=== PATIENT | male | born 1985 | race Caucasian/White ===

== ENCOUNTER 2024-04-14 07:44 | Outpatient (OUT) | payer OTHER, SELFPAY ==
[2024-04-14 08:13] LABS: Bilirubin Urine NEGATIVE (NEGATIVE); Blood Urine NEGATIVE (NEGATIVE); Clarity Urine CLEAR (CLEAR); Color Urine LT. YELLOW (YELLOW); Glucose Urine UA NEGATIVE (NEGATIVE); Ketones Urine NEGATIVE (NEGATIVE); Leukocyte Esterase Urine NEGATIVE (NEGATIVE); Nitrite Urine NEGATIVE (NEGATIVE); Protein Urine NEGATIVE (NEG/TRACE); Specific Gravity Urine 1.015 (1.005-1.025); Urobilinogen Urine 0.2 EU/dL (0.2-1.0)
[2024-04-14 08:18] LABS: Basophils Absolute Auto 0.1 10^3/uL (0.0-0.1); Basophils Percent Auto 1.1 % (0.2-2.0); Eosinophils Absolute Auto 0.5 10^3/uL (0.0-0.7); Eosinophils Percent Auto 8.5 % (0.9-7.0); Hematocrit 42.9 % (42.0-54.0); Hemoglobin 14.4 g/dL (14.0-18.0); Immature Granulocytes Abs Auto 0.01 10^3/uL (0.00-0.03); Immature Granulocytes Pct Auto 0.2 % (0.0-0.5); Lymphocytes Absolute Auto 1.6 10^3/uL (1.2-3.8); Lymphocytes Percent Auto 29.1 % (20.5-60.0); Mean Corpuscular HGB Conc 33.6 g/dL (29.9-35.2); Mean Corpuscular Hemoglobin 29.1 pg (25.9-34.0); Mean Corpuscular Volume 86.7 fL (80.0-94.0); Mean Platelet Volume 10.1 fL (9.5-13.5); Monocytes Absolute Auto 0.5 10^3/uL (0.3-0.8); Monocytes Percent Auto 9.8 % (1.7-12.0); Neutrophils Absolute Auto 2.8 10^3/uL (1.4-6.5); Neutrophils Percent Auto 51.3 % (43.0-75.0); Platelet Count 266 10^3/uL (150-450); Red Blood Count 4.95 10^6/uL (4.70-6.10); Red Cell Distribution Width 13.2 % (11.0-15.0); White Blood Count 5.5 10^3/uL (4.0-11.0)
[2024-04-14 09:10] LABS: Bacteria Urine TRACE #/HPF (NONE SEEN); Cast Seen? NONE SEEN #/LPF (NONE SEEN); Crystals Seen? None Seen #/HPF (None Seen); Mucus Urine TRACE (NONE SEEN); RBC Urine NONE SEEN #/HPF (0-2); Squamous Epithelial Cell Urine RARE #/LPF (NONE/RARE); Transitional Epi Cells Urine RARE #/LPF (NONE SEEN); Urine Culture Indicated NO; WBC Urine NONE SEEN #/HPF (NONE SEEN)
[2024-04-14 09:19] LABS: Prostate Specific Antigen Scrn 0.86 ng/mL (<=4.00)
[2024-04-14 09:55] LABS: Alanine Aminotransferase 57 U/L (16-63); Albumin Globulin Ratio 1.2; Albumin Level 4.2 g/dL (3.4-5.0); Alkaline Phosphatase 81 U/L (46-116); Anion Gap 14.9; Aspartate Amino Transferase 43 U/L (15-37); BUN Creatinine Ratio 15.9; Bilirubin Total 0.5 mg/dL (0.2-1.0); Calcium 9.1 mg/dL (8.5-10.1); Carbon Dioxide 24.8 mmol/L (21.0-32.0); Chloride 103 mmol/L (98-107); Cholesterol 160 mg/dL (<=200); Estimated GFR (African America >60 (>=60); Estimated GFR (Non-African Ame 60 (>=60); Globulin 3.6 g/dL; Glucose 96 mg/dL (74-106); HDL Cholesterol 53 mg/dL (40-60); Potassium 4.7 mmol/L (3.5-5.1); Sodium 138 mmol/L (136-145); Thyroid Stimulating Hormone 0.821 uIU/mL (0.358-3.740); Total Protein 7.8 g/dL (6.4-8.2); Triglycerides 40 mg/dL (<=150)
== END 2024-04-14 07:45 | disposition home or self-care (01) ==
LOC: LAB 07:49
PROVIDERS: PCP Family Medicine; Visit Provider Family Medicine
DX: Z00.00 Encounter for general adult medical examination without abnormal findings (principal)
CPT/HCPCS: 36415; 80053; 80061; 81001; 84443; 85025; G0103

== ENCOUNTER 2024-06-09 09:18 | Outpatient (OUT) | payer SELFPAY ==
--- OUTSIDE RECORDS SUMMARY | 2024-06-09 09:23 | XMS_ITS | CCD ---
Author Organization [facility] Care Team Providers Care News Producer Name Role Phone BERTIN, DR BOND Attending Unavailable GIRELIUD, DR BOND Admitting Unavailable GIRELIUD, DR BOND Primary Care Unavailable GIRVIN, DR BOND Consulting Unavailable GIRVIN, DR BOND Attending Unavailable GIRVIN, DR BOND Admitting Unavailable GIRVIN, DR BOND Primary Care Unavailable GIRVIN, DR BOND Consulting Unavailable GIRVIN, DR BOND Consulting Unavailable GIRVIN, DR BOND Attending Unavailable GIRVIN, DR BOND Admitting Unavailable Unavailable Primary Care Provider UnavailMARY Regan Referring Unavailable LO HOPE Attending Unavailable MARY SOTO Attending Unavailable Allergies Allergy Classification Reported Allergen(s) Allergy Type Date of Onset Reaction(s) Facility (4 sources) Penicillins Propensity to adverse reactions to drug 3 Other: See Comments [facility] (2 sources) Citalopram Drug Allergy 3 Unknown Reaction, sensitivity [facility] Medications Completed/Discontinued Medications Medication Drug Class(es) Dates Sig (Normalized) Sig (Original) acetaminophen 325 mg / HYDROcodone bitartrate 5 mg oral tablet (2 sources) Opioid Agonist Start: 03-24-2018 End: 04-10-2024 take 1 tablet by mouth every four to six hours Hydrocodone-Acetamin ophen ([place]) 5-325 mg tablet Discontinued 1 TAB PO EVERY 4-6 HOURS March 24, 2018 April 10, 2024 3:57pm cholecalciferol 0.01 mg chewable tablet (2 sources) Vitamin D Start: 03-14-2018 End: 04-10-2024 take 1 tablet by mouth once daily Cholecalciferol (Vitamin D3) (Vitamin D3) 400 unit Tablet,Chewable Discontinued 400 UNIT PO Daily March 14, 2018 12:00am April 10, 2024 3:57pm clarithromycin 500 mg oral tablet (2 sources) Macrolide Antimicrobial Start: 03-24-2018 End: 03-31-2018 take 500 mg by mouth twice daily at mealtime Clarithromycin Discontinued 500 MG PO Twice daily 14 7 March 24, 2018 12:00am March 31, 2018 12:02am take with food escitalopram 10 mg oral tablet (5 sources) Serotonin Reuptake Inhibitor Start: 05-31-2024 End: 05-31-2024 take 1 tablet by mouth once daily Escitalopram Oxalate Discontinued 0 PO Daily May 31, 2024 3:46pm May 31, 2024 3:48pm take 1 and 1/2 of a 10 MG tablet orally daily (total of 15 MG) Start: 05-05-2024 End: 05-31-2024 take 1 tablet by mouth once daily Escitalopram Oxalate Discontinued 0 .ROUTE .COMPLEX 90 May 05, 2024 1:25pm May 31, 2024 3:28pm TAKE 1 TABLET BY MOUTH DAILY Start: 04-10-2024 End: 05-05-2024 take 1 tablet by mouth once daily Escitalopram Oxalate (Lexapro) 10 mg tablet Discontinued 10 MG PO Daily 30 April 10, 2024 12:00am May 05, 2024 1:25pm Multivitamin preparation (2 sources) Start: 03-14-2018 End: 04-10-2024 take 1 tablet by mouth once daily Multivitamin Discontinued 1 TAB PO Daily March 14, 2018 12:00am April 10, 2024 3:57pm Problems Active Problems Problem Classification Problem Date Documented Date Episodic/Chronic Adjustment disorders (5 sources) Stress; Translations: [Reaction to severe stress, unspecified] 04-10-2024 Chronic Conditions associated with dizziness or vertigo (1 source) Dizziness; Translations: [Dizziness and giddiness] 04-05-2023 Episodic Genitourinary symptoms and ill-defined conditions (5 sources) Proteinuria; Translations: [Proteinuria, unspecified] 04-10-2024 Episodic Malaise and fatigue (5 sources) Fatigue; Translations: [Other fatigue] 04-10-2024 Episodic Other ear and sense organ disorders (2 sources) Hearing loss; Translations: [Other specified hearing loss, unspecified ear] 03-11-2023 Chronic Other ear and sense organ disorders (2 sources) Sensorineural hearing loss, unilateral, right ear, with unrestricted hearing on the contralateral side; Translations: [Sensorineural hearing loss, unilateral] 04-05-2023 Chronic Other ear and sense organ disorders (1 source) Tinnitus of right ear; Translations: [Tinnitus, right ear] 04-05-2023 Episodic Other ear and sense organ disorders (1 source) Ear pressure sensation; Translations: [Other specified disorders of right ear] 04-05-2023 Episodic Other ear and sense organ disorders (2 sources) Tinnitus; Translations: [Tinnitus, unspecified ear] 04-10-2024 Episodic Other ear and sense organ disorders (2 sources) Tinnitus, unspecified ear; Translations: [Tinnitus, unspecified] 04-10-2024 Episodic Other liver diseases (1 source) Elevated liver enzymes level; Translations: [Abnormal levels of other serum enzymes] 05-31-2024 Episodic Other liver diseases (1 source) Abnormal levels of other serum enzymes; Translations: [Other nonspecific abnormal serum enzyme levels] 05-31-2024 Episodic Other screening for suspected conditions (not mental disorders or infectious disease) (2 sources) Blood chemistry abnormal; Translations: [Other specified abnormal findings of blood chemistry] 05-31-2024 Episodic Other upper respiratory disease (1 source) Nasal congestion; Translations: [NASAL CONGESTION] Onset: 04-10-2022 Episodic Residual codes; unclassified (1 source) Pain, unspecified; Translations: [PAIN UNSPECIFIED] Onset: 04-10-2022 Episodic Unclassified (3 sources) CONTACT W/AND (SUSP) EXPOS COVID-19; Translations: [CONTACT W/AND (SUSP) EXPOS COVID-19] Onset: 07-07-2021 Unclassified (1 source) COUGH, UNSPECIFIED; Translations: [COUGH, UNSPECIFIED] Onset: 07-07-2021 Viral infection (1 source) COVID-19; Translations: [COVID-19] Onset: 04-10-2022 Past or Other Problems Problem Classification Problem Date Documented Da te Episodic/Chronic Other upper respiratory infections (1 source) Acute sinusitis, unspecified; Translations: [ACUTE SINUSITIS UNSPECIFIED] Onset: 07-13-2021 Episodic Unclassified (1 source) CONTACT W/AND (SUSP) EXPOS COVID-19; Translations: [CONTACT W/AND (SUSP) EXPOS COVID-19] Onset: 04-09-2022 Results Test Name Value Interpretation Reference Range Facility Basophils Auto (Bld) [#/Vol] on 04-14-2024 Basophils (Bld) [#/Vol] 0.1 10 3/uL 0.0-0.1 [facility] Basophils/100 WBC Auto (Bld) on 04-14-2024 Basophils/100 WBC (Bld) 1.1 % 0.2-2.0 [facility] Cholesterol in LDL Calc [Mas s/Vol]on 04-14-2024 Cholesterol in LDL [Mass/Vol] 99.0 mg/dL [facility] Comment on above: <100 mg/dl [id number] 0-129 mg/dl NEAR OR ABOVE [id number] mg/dl BORDERLINE [id number] mg/dl HIGH>190 mg/dl VERY HIGH Cholesterol in VLDL Calc [Ma ss/Vol]on 04-14-2024 Cholesterol in VLDL [Mass/Vol] 8.0 mg/dL [facility] Eosinophils/100 WBC Auto (Bl d)on 04-14-2024 Eosinophils/100 WBC (Bld) 8.5 % High 0.9-7.0 [facility] Erythrocyte distribution wid th Auto (RBC) [Ratio]on 04-14-2024 Erythrocyte distribution width (RBC) [Ratio] 13.2 % 11.0-15.0 [facility] Estimated glomerular filtrat ion rate (GFR) non- Americanon 04-14-2024 GFR/1.73 sq M.predicted among non-blacks MDRD (S/P/Bld) [Vol rate/Area] 60 mL/min/{1.73_m2} >=60 [facility] Globulin Calc (S) [Mass/Vol] on 04-14-2024 Globulin (S) [Mass/Vol] 3.6 g/dL [facility] Hematocrit Auto (Bld) [Volum e fraction]on 04-14-2024 Hematocrit (Bld) [Volume fraction] 42.9 % 42.0-54.0 [facility] Hemoglobin [Mass/volume] in Bloodon 04-14-2024 Hemoglobin (Bld) [Mass/Vol] 14.4 g/dL 14.0-18.0 [facility] Laboratory - Chemistry and C hemistry - challengeon 04-14-2024 Bilirubin Ql (U) Negative NEGATIVE [facility] Glucose (U) [Mass/Vol] Negative NEGATIVE [facility] Ketones Ql (U) Negative NEGATIVE [facility] pH (U) 7.0 [pH] 5.0-9.0 [facility] Specific gravity (U) [Rel density] 1.015 1.005-1.025 [facility] Urobilinogen Qn (U) 0.2 {Rosa'U}/dL 0.2-1.0 [facility] Albumin [Mass/Vol] 4.2 g/dL 3.4-5.0 [facility] ALP [Catalytic activity/Vol] 81 U/L 46-116 [facility] ALT [Catalytic activity/Vol] 57 U/L 16-63 [facility] AST [Catalytic activity/Vol] 43 U/L High 15-37 [facility] Bilirubin [Mass/Vol] 0.5 mg/dL 0.2-1.0 [facility] Calcium [Mass/Vol] 9.1 mg/dL 8.5-10.1 [facility] Chloride [Moles/Vol] 103 mmol/L 98-107 [facility] Cholesterol [Mass/Vol] 160 mg/dL <=200 [facility] Cholesterol in HDL [Mass/Vol] 53 mg/dL 40-60 [facility] Comment on above: > or =60 mg/dl - LOW CARDIOVASCULAR RISK<40 mg/dl - HIGH CARDIOVASCULAR RISK CO2 [Moles/Vol] 24.8 mmol/L 21.0-32.0 [facility] Creatinine [Mass/Vol] 1.32 mg/dL High 0.70-1.30 [facility] GFR/1.73 sq M.predicted MDRD (S/P/Bld) [Vol rate/Area] mL/min/{1.73_m2} >=60 [facility] Glucose [Mass/Vol] 96 mg/dL 74-106 [facility] Potassium [Moles/Vol] 4.7 mmol/L 3.5-5.1 [facility] Protein [Mass/Vol] 7.8 g/dL 6.4-8.2 [facility] Sodium [Moles/Vol] 138 mmol/L 136-145 [facility] Triglyceride [Mass/Vol] 40 mg/dL <=150 [facility] TSH Qn 0.821 m[IU]/L 0.358-3.740 [facility] Urea nitrogen [Mass/Vol] 21.0 mg/dL High 7.0-18.0 [facility] Urea nitrogen/Creatinine [Mass ratio] 15.9 mg/mg [facility] Laboratory - Hematology and Cell countson 04-14-2024 Immature granulocytes/100 WBC (Bld) 0.2 % 0.0-0.5 [facility] Laboratory - Specimen inform ationon 04-14-2024 Appearance (U) CLEAR CLEAR [facility] Color (U) LT. YELLOW YELLOW [facility] Laboratory - Urinalysison Leukocyte esterase Test strip Ql (U) Negative NEGATIVE [facility] Mucus Ql (Urine sed) TRACE Abnormal NONE SEEN [facility] Nitrite Ql (U) Negative NEGATIVE [facility] Protein Ql (U) Negative NEG/TRACE [facility] Leukocytes [#/volume] correc michelle for nucleated erythrocytes in Blood by Automated counon 04-14-2024 WBC corrected for nucl RBC Auto (Bld) [#/Vol] 5.5 10 3/uL 4.0-11.0 [facility] Lymphocytes Auto (Bld) [#/Vo l]on 04-14-2024 Lymphocytes (Bld) [#/Vol] 1.6 10 3/uL 1.2-3.8 [facility] Lymphocytes/100 WBC Auto (Bl d)on 04-14-2024 Lymphocytes/100 WBC (Bld) 29.1 % 20.5-60.0 [facility] MCH Auto (RBC) [Entitic mass ]on 04-14-2024 MCH (RBC) [Entitic mass] 29.1 pg 25.9-34.0 [facility] MCHC Auto (RBC) [Mass/Vol]on 04-14-2024 MCHC (RBC) [Mass/Vol] 33.6 g/dL 29.9-35.2 [facility] MCV Auto (RBC) [Entitic vol] on 04-14-2024 MCV (RBC) [Entitic vol] 86.7 fL 80.0-94.0 [facility] Monocytes Auto (Bld) [#/Vol] on 04-14-2024 Monocytes (Bld) [#/Vol] 0.5 10 3/uL 0.3-0.8 [facility] Monocytes/100 WBC Auto (Bld) on 04-14-2024 Monocytes/100 WBC (Bld) 9.8 % 1.7-12.0 [facility] Neutrophils Auto (Bld) [#/Vo l]on 04-14-2024 Neutrophils (Bld) [#/Vol] 2.8 10 3/uL 1.4-6.5 [facility] Neutrophils/100 WBC Auto (Bl d)on 04-14-2024 Neutrophils/100 WBC (Bld) 51.3 % 43.0-75.0 [facility] No Panel Informationon 04-14 Urine Bacteria TRACE #/HPF Abnormal NONE SEEN [facility] Urine Culture Reflexed NO [facility] Urine Occult Blood Negative NEGATIVE [facility] Urine Other Casts NONE SEEN #/LPF NONE SEEN [facility] Urine Other Crystals None Seen #/HPF None Seen [facility] Urine RBC NONE SEEN #/HPF 0-2 [facility] Urine Squamous Epithelial Cells RARE #/LPF NONE/RARE [facility] Urine Transitional Epithelial Cells RARE #/LPF Abnormal NONE SEEN [facility] Urine WBC NONE SEEN #/HPF NONE SEEN [facility] Eosinophils # (Auto) 0.5 10 3/uL 0.0-0.7 [facility] Immature Granulocyte # (Auto) 0.01 10 3/uL 0.00-0.03 [facility] Prostate Specific Antigen Screen 0.86 ng/mL <=4.00 [facility] Platelet mean volume Auto (B ld) [Entitic vol]on 04-14-2024 Platelet mean volume (Bld) [Entitic vol] 10.1 fL 9.5-13.5 [facility] Platelets Auto (Bld) [#/Vol] on 04-14-2024 Platelets (Bld) [#/Vol] 266 10 3/uL 150-450 [facility] RBC Auto (Bld) [#/Vol]on RBC (Bld) [#/Vol] 4.95 10 6/uL 4.70-6.10 [facility] Serum or plasma albumin/glob ulin mass ratioon 04-14-2024 Albumin/Globulin [Mass ratio] 1.2 {ratio} [facility] Serum or plasma anion gap de terminationon 04-14-2024 Anion gap [Moles/Vol] 14.9 mmol/L [facility] Serum or plasma total choles terol/high density lipoprotein (HDL) cholesterol mass marie 04-14-2024 Cholesterol.total/Ch olesterol in HDL [Mass ratio] 3.0 {ratio} [facility] Comment on above: 3.3 - 4.4 LOW RISK4. 4 - 7.1 AVERAGE RISK7.1 - 11.0 MODERATE RISK>11.0 HIGH RISK CNOVon 04-05-2023 CNOV Office Visit (OTOLMN) ZACK SAVAGE ([id number]) 1985 M Date Time Provider Department 04/05/23 3:45 PM MARY SOTO OTOLMN During your visit today, we recorded the following information about you: Irma Reyes RN 04/05/2023 3:50 PM Signed Tobacco Use: Quit 08/30/2007. Types: Cigarettes Was smoking cessation packet given? N/A - Patient is a non-smoker or quit >1 year ago. Was a referral initiated?N/A Patient is a non-smoker Mary Soto MD 04/05/2023 4:07 PM Signed IMPRESSION 38-year-old male with asymmetrical right sided sensorineural hearing loss due to his previous sudden loss. RECOMMENDATION/PLAN I informed the patient that there is no reversal of his hearing loss since it has been 2 years. His only option at this time is hearing aid for the right ear. I asked him to send me the report and the imaging of his previous MRI scan to review to ensure that there is no retrocochlear pathology. I recommend he obtain a hearing test once every 1 to 2 years to continue monitoring his hearing. Chief Complaint Right-sided hearing loss History of Present Illness Zack Savage is a 38 year old male presents for evaluation of right-sided hearing loss. Patient stated that about 2 years ago, he developed sudden hearing loss in the right ear. Patient was seen by ENT close to home in [place] and he was treated with oral prednisone. His hearing did not improve. Patient then had an MRI scan and was told that it was normal. Patient do not have the MRI report or imaging for me to review. Patient had audiogram today which was reviewed and interpreted by me. Patient has normal hearing on the left side. In the right ear, patient has normal gradually sloping to severe sensorineural hearing loss. His word recognition score was 100% on the right and 90% on the left. His tympanometry was normal. No past medical history on file. No past surgical history on file. No family history on file. CURRENT OUTPATIENT MEDICATIONS No current outpatient medications on file prior to visit. No current facility-administere d medications on file prior to visit. ALLERGIES ALLERGIES Allergen Reactions Penicillins Other: See Comments per patient allergy occurred in childhood, unsure of reaction The remainder of the patient's history and review of systems is on the outpatient questionaire which was reviewed by me and placed in the outpatient chart. PHYSICAL EXAMINATION Appearance: General examination of the patient's external face, head and neck reveals no abnormalities. The patient is not retrognathic The patient's voice is strong and clear and they communicate easily. Ears: Exam of the ears revealed normal appearing external auditory canals, tympanic membranes, and middle ears. No signs of infection or fluid were seen. Nose: External nasal exam was normal. Throat: There were no lesions to visualization or palpation of the lips, cheeks, gums, floor of mouth, tongue, hard and soft palate, tonsillar pillars or posterior pharyngeal wall. Neck: Palpation of the neck revealed no adenopathy, salivary gland masses or asymmetry, or thyroid masses or enlargement. Mary Soto MD Allergies As of Date: 04/05/2023 Noted Allergy Reaction PENICILLINS 04/05/2023 14 - Other: See Comments Comments: per patient allergy occurred in childhood, unsure of reaction Date Reviewed: 04/05/2023 Reviewed by: Irma Reyes RN - Fully Assessed Reason for Visit: New Patient [172] Ear Problem [38] Ringing In Ear(s) [1127] Cmt: right Primary Visit Diagnosis:Sensorineu ral hearing loss (SNHL) of right ear with unrestricted hearing of left ear [H90.41] Problem List As Of Date: 04/05/2023 (None) Visit Notes: >> Irma Reyes RN Mon Apr 05, 2023 3:49 PM Status: Signed Tobacco Use: Quit 08/30/2007. Types: Cigarettes Was smoking cessation packet given? N/A - Patient is a non-smoker or quit >1 year ago. Was a referral initiated?N/A Patient is a non-smoker Encounter Status:Closed by MARY SOTO on 04/05/[address] [facility] CNOV Office Visit (CDISMN) ZACK SAVAGE ([id number]) 1985 M Date Time Provider Department 04/05/23 3:00 PM LO HOPE CDISMN During your visit today, we recorded the following information about you: Lo Hope AUD 04/05/2023 3:54 PM Signed [facility] [place] AUDIOLOGIC EVALUATION REPORT Name: Zack Savage CC#: [id number] Date of Service: 04/05/2023 Date of : 1985 Age: [age] year old Referred by: Mary Soto MD [address] [facility] [address] Referred for: Evaluation of suspected change in hearing, tinnitus, or balance. Referral documented: In an order in [facility] Patient's major complaints: Reduced hearing in the right ear, Tinnitus in the right ear, Dizziness/vertigo/im balance, Pressure/fullness in the right ear Zack Savage was seen for an initial audiologic evaluation at this facility. Patient reported that 2 years ago he experienced a sudden pop in his right ear, after which he began to notice tinnitus in the right ear. Since that time he reported experiencing worsening tinnitus and reduced hearing in his right ear. He also reported right aural fullness, right sided head pressure, and imbalance described as disorientation when standing up or changing body position. He denied true, room-spinning vertigo. Patient reported significant history of exposure to noise via his workplace, however reported consistent use of hearing protection at work, as well as at recreational events like racing events or concerts. 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 He reported that on his workplace screening he now passes on the left ear but fails on the right ear. Today patient denied otalgia, otorrhea, jaw dysfunction or TMD, neck or cervical spine pain or dysfunction, history of otologic surgery, and ototoxicity. See procedures tab for audiometric results. IMPRESSIONS RIGHT EAR: Sensorineural hearing loss LEFT EAR: Hearing within normal limits AUDIOLOGIC EVALUATION Following is a brief interpretation of the obtained findings from the audiologic evaluation. Refer to the Auditory Test Record for complete audiometric results. The patient was counseled about the test findings and appropriate audiologic recommendations were made. SUMMARY: See procedures tab for audiometric results. OTOSCOPY RIGHT EAR: Otoscopic inspection revealed ear canal was clear with an identifiable cone of light. LEFT EAR: Otoscopic inspection revealed ear canal was clear with an identifiable cone of light. TYMPANOMETRY Description of procedure: This test is an objective evaluation of middle ear function. CPT code: 73951 RIGHT EAR: Normal ME function. LEFT EAR: Normal ME function. ACOUSTIC REFLEXES Description of procedure: This test is an objective measure of auditory and facial nerve pathways. CPT code: 22287, 53338 RIGHT EAR PROBE EAR: (ipsi right stimulus ear; contralateral left stimulus ear): Acoustic Reflex Pattern Ipsilateral acoustic reflexes present WNL for 500-2000 Hz. Contralateral acoustic reflexes present WNL for 500-2000 Hz. Acoustic Reflex Decay (left stimulus ear): Decay is negative for VIII nerve involvement in the RIGHT ear LEFT EAR PROBE EAR: (ipsi left stimulus ear; contralateral right stimulus ear): Acoustic Reflex Pattern Ipsilateral acoustic reflexes present WNL for 500-2000 Hz. Contralateral acoustic reflexes present WNL for 500-2000 Hz. Acoustic Reflex Decay (right stimulus ear):Decay is negative for VIII nerve involvement in the LEFT ear PURE TONE AUDIOMETRY AND SPEECH TESTING Description of procedure: This test is an objective evaluation hearing sensitivity via air and bone conduction and speech recognition testing. CPT code: 33384 RIGHT EAR: Hearing Sensitivity: within normal limits through 500 Hz sloping to severe sensorineural hearing loss. Word Recognition Score: Excellent (100%). WRS is consistent with hearing sensitivity. Words were presented at 75 dB HL is above (greater than or equal to 60 dB HL) intensity level for average conversational speech. The NU-6 Ordered by Difficulty Word List (10 words) was used for testing. Contralateral masking was employed. LEFT EAR: Hearing Sensitivity: Within normal limits. Word Recognition Score: Excellent (90%). WRS is consistent with hearing sensitivity. Words were presented at 55 dB HL which approximates (45-55 dB HL) intensity level for average conversational speech. The NU-6 Ordered by Difficulty Word List (10 words) was used for testing. RECOMMENDATIONS * Continue medical follow-up with Mary Soto MD. * The patient was counseled regarding benefits/limitations of hearing aids. * Continue to utilize hearing protection in the workplace. * Patient should maintain a sound enriched environment (more content not included)... Normal [facility] Covid-19 PCR ([facility])on 03-30 SARS-CoV-2 (COVID-19) RNA CHANDA+probe Ql (Unsp spec) Detected Critically abnormal NOT DETECTED [facility] Comment on above: Result Comment: This test is not yet approved or cleared by the [place] FDA. When there are no FDA-approved or cleared tests available, and other criteria are met, FDA can make tests available under an emergency access mechanism called an Emergency Use Authorization (EUA). The EUA for this test is supported by the [place] of Health and Human Service's (HHS's) declaration that circumstances exist to justify the emergency use of in vitro diagnostics for the detection and/or diagnosis of the virus that causes COVID-19. This EUA will remain in effect (meaning this test can be used) for the duration of the COVID-19 declaration justifying emergency of IVDs, unless it is terminated or revoked by FDA (after which the test may no longer be used). Performed By: #### [facility] #### [facility] [address] [address] [address] Ronal Garcia Covid-19 PCR ([facility])on 06-30 SARS-CoV-2 (COVID-19) RNA CHANDA+probe Ql (Unsp spec) Detected Critically abnormal NOT DETECTED [facility] Comment on above: Result Comment: This test is not yet approved or cleared by the [place] FDA. When there are no FDA-approved or cleared tests available, and other criteria are met, FDA can make tests available under an emergency access mechanism called an Emergency Use Authorization (EUA). The EUA for this test is supported by the [place] of Health and Human Service's (HHS's) declaration that circumstances exist to justify the emergency use of in vitro diagnostics for the detection and/or diagnosis of the virus that causes COVID-19. This EUA will remain in effect (meaning this test can be used) for the duration of the COVID-19 declaration justifying emergency of IVDs, unless it is terminated or revoked by FDA (after which the test may no longer be used). Performed By: #### C [facility] #### [facility] [address] [place] [address] Dr. Ronal Garcia Covid-19 PCR ([facility])on SARS-CoV-2 (COVID-19) RNA CHANDA+probe Ql (Unsp spec) Not detected Normal NOT DETECTED [facility] Comment on above: Result Comment: This test is not yet approved or cleared by the [place] FDA. When there are no FDA-approved or cleared tests available, and other criteria are met, FDA can make tests available under an emergency access mechanism called an Emergency Use Authorization (EUA). The EUA for this test is supported by the [place] of Health and Human Service's (HHS's) declaration that circumstances exist to justify the emergency use of in vitro diagnostics for the detection and/or diagnosis of the virus that causes COVID-19. This EUA will remain in effect (meaning this test can be used) for the duration of the COVID-19 declaration justifying emergency of IVDs, unless it is terminated or revoked by FDA (after which the test may no longer be used). When diagnostic testing is negative, the possibility of a false negative should be considered in the context of a patient's recent exposures and the presence of clinical signs and symptoms consistent with SARS-CoV-2. Performed By: #### [facility] #### [facility] [address] [place] [address] Dr. Ronal Garcia Vital Signs Date Time Vital Sign Value Performing Clinician Faci lity 05-31-2024 15:19-0400 Body mass index (BMI) [Ratio] 25.1 kg/m2 [facility] 05-31-2024 15:19-0400 Body temperature 97.4 [degF] [facility] 05-31-2024 15:19-0400 Body weight 79.37 kg [facility] 05-31-2024 15:19-0400 Diastolic blood pressure 64 mm[Hg] [facility] 05-31-2024 15:19-0400 Heart rate 72 /min [facility] 05-31-2024 15:19-0400 Respiratory rate 18 /min [facility] 05-31-2024 15:19-0400 SaO2% (BldA) [Mass fraction] 99 % [facility] 05-31-2024 15:19-0400 Systolic blood pressure 116 mm[Hg] [facility] 05-31-2024 14:05-0400 Body height 177.8 cm [facility] 04-10-2024 15:39-0400 Body height 177.8 cm [facility] 04-10-2024 15:39-0400 Body mass index (BMI) [Ratio] 24.5 kg/m2 [facility] 04-10-2024 15:39-0400 Body temperature 97.6 [degF] [facility] 04-10-2024 15:39-0400 Body weight 77.56 kg [facility] 04-10-2024 15:39-0400 Diastolic blood pressure 80 mm[Hg] [facility] 04-10-2024 15:39-0400 Heart rate 69 /min [facility] 04-10-2024 15:39-0400 SaO2% (BldA) [Mass fraction] 97 % [facility] 04-10-2024 15:39-0400 Systolic blood pressure 124 mm[Hg] [facility] Encounters Encounter Date Encounter Type Care Provider Facility Start: 05-31-2024 End: 05-31-2024 ambulatory [facility] Work Phone: Start: 05-31-2024 End: 05-31-2024 Patient encounter procedure [facility] Physician [facility] [place] Work Phone: Start: 04-14-2024 Non-patient / Non-visit [facility] Physician [facility] Work Phone: Start: 04-10-2024 Patient encounter status [facility] Start: 04-10-2024 End: 04-10-2024 ambulatory [facility] Work Phone: Start: 04-10-2024 End: 04-10-2024 Encounter for general adult medical examination without abnormal findings [facility] Start: 04-10-2024 End: 04-10-2024 Patient encounter procedure [facility] Physician [facility] Work Phone: Start: 04-05-2023 End: 04-05-2023 ambulatory MARY SOTO Facility:[facility] Start: 04-05-2023 End: 04-05-2023 Patient encounter procedure Lo RYAN Work Phone: Audiology Comment on above: Tinnitus, right ear (Primary Dx); Sensorineural hearing loss (SNHL) of right ear with unrestricted hearing of left ear; Ear pressure, right; Dizziness Sensorineural hearin g loss (SNHL) of right ear with unrestricted hearing of left ear (Primary Dx) Start: 03-15-2023 Orders Only Lo Ryan Student Work Phone: [facility] Comment on above: Other specified hear ing loss, unspecified ear (Primary Dx) Start: 03-11-2023 Orders Only Mary Soto MD Work Phone: [facility] Comment on above: Other specified hear ing loss, unspecified ear (Primary Dx) Start: 04-09-2022 End: 04-09-[address] VARUN DENTON Facility:[facility] Start: 07-09-2021 End: 07-09-[address] VARUN DENTON Facility:[facility] Start: 07-02-2021 End: 07-02-[address] VARUN DENTON Facility:[facility] Procedures Date Procedure Procedure Detail Performing Clinician Start: 04-05-2023 HEARING TEST/AUDIOGRAM Lo RYAN Work Phone: Plan of Treatment Date Care Activity Detail Author Start: 04-30-2023 Influenza vaccination INFLUENZA (#1) [facility] Start: 08-30-2022 DEPRESSION ASSESSMENT DEPRESSION ASS ESSMENT [facility] Start: 2018 LIPID SCREEN LIPID SCREEN [facility] Start: 2002 Urine microalbumin profile DTAP,TDAP,TD (1 - Tdap) [facility] Start: 2001 HEPATITIS C SCREENING HEPATITIS C SC REENING [facility] Start: 2001 HIV SCREENING HIV SCREENING [facility] Start: 1983 COVID-19 VACCINE (#1) COVID-19 VACCI NE (#1) [facility] Start: 1983 HEPATITIS B (1 of 3 - 3-dose series) HEPATITIS B (1 of 3 - 3-dose series) [facility] metabo lic 1999 panel - Serum or Plasma [facility] metabo lic 1999 panel - Serum or Plasma [facility] End: 03-11-2024 HEARING TEST/AUDIOGRAM HEARING TEST/AUDIOGRAM Audiology Routine Other specified hearing loss, unspecified ear 1 Occurrences starting 03/11/2023 until 03/11/2024 [facility] Work Phone: Comment on above: 1 Occurrences starti ng 03/11/2023 until 03/11/2024 End: 03-15-2024 HEARING TEST/AUDIOGRAM HEARING TEST/AUDIOGRAM Audiology Routine Other specified hearing loss, unspecified ear 1 Occurrences starting 03/15/2023 until 03/15/2024 [facility] Work Phone: Comment on above: 1 Occurrences starti ng 03/15/2023 until 03/15/2024 [facility] Payers Date Payer Category Payer Private Health Insurance [facility] [employer] [id number] 2017-Present [phone] [address] [address] [place] [address] HMO [id number] 1985 Unknown [id number] 1985 Unknown [id number] 1983 Unknown [id number] 1959 Unknown [id number] Private Health Insurance [facility] [id number] Self-pay Self Pay [id number] Unknown Other1 (STD) [id number] Social History Date Type Detail Facility Tobacco smoking status [facility] Tobacco smoking consumption unknown [facility] Start: 1985 Sex Assigned At Not on file [facility] Start: 04-05-2023 Gender identity Not on file [facility] Start: 04-05-2023 End: 04-10-2024 Tobacco smoking status NEIS Ex-smoker [facility] End: 08-30-2007 History of tobacco use Current smoker [facility] End: 08-30-2007 History of tobacco use Cigarette Smoker [facility] Start: 04-05-2023 Tobacco use and exposure Smokeless tobacco non-user [facility] Start: 04-05-2023 History of [address] [facility] National Score (1-100), lower number is lower risk 87 [facility] Start: 1985 Sex Assigned At Male F [facility] Evaluation note 04-10-2024 Note Date & Type Note Facility 04-10-2024 Evaluation note Authored April 10, 2024 4: 54pm The above note written by __ _Selwyn Marques____ acting as human recorder, note dictated by Dr. Billy .I performed the above HPI, ROS, and Examination. I formulated and dictated the treatment plan and was present for entire encounter. Varun Denton D.O. [facility] Work Phone: Progress note 04-05-2023 Note Date & Type Note Facility 04-05-2023 Note HNO ID: [id number] Author: Mary Soto MD Service: ? Author Type: Physician Type: Progress Notes Filed: 04/05/2023 4:07 PM Note Text: IMPRESSION 38-year-old male with asymmetrical right sided sensorineural hearing loss due to his previous sudden loss. RECOMMENDATION/PLAN I informed the patient that there is no reversal of his hearing loss since it has been 2 years. His only option at this time is hearing aid for the right ear. I asked him to send me the report and the imaging of his previous MRI scan to review to ensure that there is no retrocochlear pathology. I recommend he obtain a hearing test once every 1 to 2 years to continue monitoring his hearing. Chief Complaint Right-sided hearing loss History of Present Illness Zack Savage is a 38 year old male presents for evaluation of right-sided hearing loss. Patient stated that about 2 years ago, he developed sudden hearing loss in the right ear. Patient was seen by ENT close to home in [place] and he was treated with oral prednisone. His hearing did not improve. Patient then had an MRI scan and was told that it was normal. Patient do not have the MRI report or imaging for me to review. Patient had audiogram today which was reviewed and interpreted by me. Patient has normal hearing on the left side. In the right ear, patient has normal gradually sloping to severe sensorineural hearing loss. His word recognition score was 100% on the right and 90% on the left. His tympanometry was normal. No past medical history on file. No past surgical history on file. No family history on file. CURRENT OUTPATIENT MEDICATIONS No current outpatient medications on file prior to visit. No current facility-administered medications on file prior to visit. ALLERGIES ALLERGIES Allergen Reactions Penicillins Other: See Comments per patient allergy occurred in childhood, unsure of reaction The remainder of the patient's history and review of systems is on the outpatient questionaire which was reviewed by me and placed in the outpatient chart. PHYSICAL EXAMINATION Appearance: General examination of the patient's external face, head and neck reveals no abnormalities. The patient is not retrognathic The patient's voice is strong and clear and they communicate easily. Ears: Exam of the ears revealed normal appearing external auditory canals, tympanic membranes, and middle ears. No signs of infection or fluid were seen. Nose: External nasal exam was normal. Throat: There were no lesions to visualization or palpation of the lips, cheeks, gums, floor of mouth, tongue, hard and soft palate, tonsillar pillars or posterior pharyngeal wall. Neck: Palpation of the neck revealed no adenopathy, salivary gland masses or asymmetry, or thyroid masses or enlargement. Mary Soto MD [facility] Progress note 04-05-2023 Note Date & Type Note Facility 04-05-2023 Note HNO ID: [id number] Author: Lo Hope AUD Service: ? Author Type: [employer] Type: Progress Notes Filed: 04/05/2023 3:54 PM Note Text: [facility] AUDIOLOGIC EVALUATION REPORT Name: Zack Savage CCF#: [id number] Date of Service: 04/05/2023 Date of : 1985 Age: [age] year old Referred by: Mary Soto MD [address] [facility] [id number] Referred for: Evaluation of suspected change in hearing, tinnitus, or balance. Referral documented: In an order in [facility] Patient's major complaints: Reduced hearing in the right ear, Tinnitus in the right ear, Dizziness/vertigo/imbalance, Pressure/fullness in the right ear Zack Savage was seen for an initial audiologic evaluation at this facility. Patient reported that 2 years ago he experienced a sudden pop in his right ear, after which he began to notice tinnitus in the right ear. Since that time he reported experiencing worsening tinnitus and reduced hearing in his right ear. He also reported right aural fullness, right sided head pressure, and imbalance described as disorientation when standing up or changing body position. He denied true, room-spinning vertigo. Patient reported significant history of exposure to noise via his workplace, however reported consistent use of hearing protection at work, as well as at recreational events like racing events or concerts. 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 He reported that on his workplace screening he now passes on the left ear but fails on the right ear. Today patient denied otalgia, otorrhea, jaw dysfunction or TMD, neck or cervical spine pain or dysfunction, history of otologic surgery, and ototoxicity. See procedures tab for audiometric results. IMPRESSIONS RIGHT EAR: Sensorineural hearing loss LEFT EAR: Hearing within normal limits AUDIOLOGIC EVALUATION Following is a brief interpretation of the obtained findings from the audiologic evaluation. Refer to the Auditory Test Record for complete audiometric results. The patient was counseled about the test findings and appropriate audiologic recommendations were made. SUMMARY: See procedures tab for audiometric results. OTOSCOPY RIGHT EAR: Otoscopic inspection revealed ear canal was clear with an identifiable cone of light. LEFT EAR: Otoscopic inspection revealed ear canal was clear with an identifiable cone of light. TYMPANOMETRY Description of procedure: This test is an objective evaluation of middle ear function. CPT code: 84686 RIGHT EAR: Normal ME function. LEFT EAR: Normal ME function. ACOUSTIC REFLEXES Description of procedure: This test is an objective measure of auditory and facial nerve pathways. CPT code: 81294, 13331 RIGHT EAR PROBE EAR: (ipsi right stimulus ear; contralateral left stimulus ear): Acoustic Reflex Pattern Ipsilateral acoustic reflexes present WNL for 500-2000 Hz. Contralateral acoustic reflexes present WNL for 500-2000 Hz. Acoustic Reflex Decay (left stimulus ear): Decay is negative for VIII nerve involvement in the RIGHT ear LEFT EAR PROBE EAR: (ipsi left stimulus ear; contralateral right stimulus ear): Acoustic Reflex Pattern Ipsilateral acoustic reflexes present WNL for 500-2000 Hz. Contralateral acoustic reflexes present WNL for 500-2000 Hz. Acoustic Reflex Decay (right stimulus ear):Decay is negative for VIII nerve involvement in the LEFT ear PURE TONE AUDIOMETRY AND SPEECH TESTING Description of procedure: This test is an objective evaluation hearing sensitivity via air and bone conduction and speech recognition testing. CPT code: 69212 RIGHT EAR: Hearing Sensitivity: within normal limits through 500 Hz sloping to severe sensorineural hearing loss. Word Recognition Score: Excellent (100%). WRS is consistent with hearing sensitivity. Words were presented at 75 dB HL is above (greater than or equal to 60 dB HL) intensity level for average conversational speech. The NU-6 Ordered by Difficulty Word List (10 words) was used for testing. Contralateral masking was employed. LEFT EAR: Hearing Sensitivity: Within normal limits. Word Recognition Score: Excellent (90%). WRS is consistent with hearing sensitivity. Words were presented at 55 dB HL which approximates (45-55 dB HL) intensity level for average conversational speech. The NU-6 Ordered by Difficulty Word List (10 words) was used for testing. RECOMMENDATIONS * Continue medical follow-up with Mary Soto MD. * The patient was counseled regarding benefits/limitations of hearing aids. * Continue to utilize hearing protection in the workplace. * Patient should maintain a sound enriched environment to assist in the management of tinnitus. * Pending medical clearance, consider participation in the Tinnitus Management Clinic or scheduling an Individual Tinnitus (more content not included)... [facility] History of Present illness Narrative 04-05-2023 Mary Soto MD - 04/05/2023 4:03 PM EDT Note Date & Type Note Facility 04-05-2023 History of Presen t illness Narrative IMPRESSION 38-year-old male with asymmetrical right sided sensorineural hearing loss due to his previous sudden loss. RECOMMENDATION/PLAN I informed the patient that there is no reversal of his hearing loss since it has been 2 years. His only option at this time is hearing aid for the right ear. I asked him to send me the report and the imaging of his previous MRI scan to review to ensure that there is no retrocochlear pathology. I recommend he obtain a hearing test once every 1 to 2 years to continue monitoring his hearing. Chief Complaint Right-sided hearing loss History of Present Illness Zack Savage is a 38 year old male presents for evaluation of right-sided hearing loss. Patient stated that about 2 years ago, he developed sudden hearing loss in the right ear. Patient was seen by ENT close to home in [place] and he was treated with oral prednisone. His hearing did not improve. Patient then had an MRI scan and was told that it was normal. Patient do not have the MRI report or imaging for me to review. Patient had audiogram today which was reviewed and interpreted by me. Patient has normal hearing on the left side. In the right ear, patient has normal gradually sloping to severe sensorineural hearing loss. His word recognition score was 100% on the right and 90% on the left. His tympanometry was normal. No past medical history on file. No past surgical history on file. No family history on file. CURRENT OUTPATIENT MEDICATIONS No current outpatient medications on file prior to visit. No current facility-administered medications on file prior to visit. ALLERGIES ALLERGIES Allergen Reactions Penicillins Other: See Comments per patient allergy occurred in childhood, unsure of reaction The remainder of the patient's history and review of systems is on the outpatient questionaire which was reviewed by me and placed in the outpatient chart. PHYSICAL EXAMINATION Appearance: General examination of the patient's external face, head and neck reveals no abnormalities. The patient is not retrognathic The patient's voice is strong and clear and they communicate easily. Ears: Exam of the ears revealed normal appearing external auditory canals, tympanic membranes, and middle ears. No signs of infection or fluid were seen. Nose: External nasal exam was normal. Throat: There were no lesions to visualization or palpation of the lips, cheeks, gums, floor of mouth, tongue, hard and soft palate, tonsillar pillars or posterior pharyngeal wall. Neck: Palpation of the neck revealed no adenopathy, salivary gland masses or asymmetry, or thyroid masses or enlargement. Mary Soto MD documented in this encounter [facility] Nurse Note 04-05-2023 Irma Reyes RN - 04/05/2023 3:49 PM EDT Note Date & Type Note Facility 04-05-2023 Nurse Note Tobacco Use: Quit 08/30/2007. Types: Cigarettes Was smoking cessation packet given? N/A - Patient is a non-smoker or quit >1 year ago. Was a referral initiated?N/A Patient is a non-smoker documented in this encounter [facility] History of Present illness Narrative 04-05-2023 Lo HopeSHELBY - 04/05/2023 3:00 PM EDT Note Date & Type Note Facility 04-05-2023 History of Presen t illness Narrative [facility] AUDIOLOGIC EVALUATION REPORT Name: Zack Savage [facility]CF#: [id number] Date of Service: 04/05/2023 Date of : 1985 Age: [age] year old Referred by: Mary Soto MD [address] [facility] [id number] Referred for: Evaluation of suspected change in hearing, tinnitus, or balance. Referral documented: In an order in Epic Patient's major complaints: Reduced hearing in the right ear, Tinnitus in the right ear, Dizziness/vertigo/imbalance, Pressure/fullness in the right ear Zack Savage was seen for an initial audiologic evaluation at this facility. Patient reported that 2 years ago he experienced a sudden pop in his right ear, after which he began to notice tinnitus in the right ear. Since that time he reported experiencing worsening tinnitus and reduced hearing in his right ear. He also reported right aural fullness, right sided head pressure, and imbalance described as disorientation when standing up or changing body position. He denied true, room-spinning vertigo. Patient reported significant history of exposure to noise via his workplace, however reported consistent use of hearing protection at work, as well as at recreational events like racing events or concerts. 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 He reported that on his workplace screening he now passes on the left ear but fails on the right ear. Today patient denied otalgia, otorrhea, jaw dysfunction or TMD, neck or cervical spine pain or dysfunction, history of otologic surgery, and ototoxicity. See procedures tab for audiometric results. IMPRESSIONS RIGHT EAR: Sensorineural hearing loss LEFT EAR: Hearing within normal limits AUDIOLOGIC EVALUATION Following is a brief interpretation of the obtained findings from the audiologic evaluation. Refer to the Auditory Test Record for complete audiometric results. The patient was counseled about the test findings and appropriate audiologic recommendations were made. SUMMARY: See procedures tab for audiometric results. OTOSCOPY RIGHT EAR: Otoscopic inspection revealed ear canal was clear with an identifiable cone of light. LEFT EAR: Otoscopic inspection revealed ear canal was clear with an identifiable cone of light. TYMPANOMETRY Description of procedure: This test is an objective evaluation of middle ear function. CPT code: 14844 RIGHT EAR: Normal ME function. LEFT EAR: Normal ME function. ACOUSTIC REFLEXES Description of procedure: This test is an objective measure of auditory and facial nerve pathways. CPT code: 10942, 04189 RIGHT EAR PROBE EAR: (ipsi right stimulus ear; contralateral left stimulus ear): Acoustic Reflex Pattern Ipsilateral acoustic reflexes present WNL for 500-2000 Hz. Contralateral acoustic reflexes present WNL for 500-2000 Hz. Acoustic Reflex Decay (left stimulus ear): Decay is negative for VIII nerve involvement in the RIGHT ear LEFT EAR PROBE EAR: (ipsi left stimulus ear; contralateral right stimulus ear): Acoustic Reflex Pattern Ipsilateral acoustic reflexes present WNL for 500-2000 Hz. Contralateral acoustic reflexes present WNL for 500-2000 Hz. Acoustic Reflex Decay (right stimulus ear):Decay is negative for VIII nerve involvement in the LEFT ear PURE TONE AUDIOMETRY AND SPEECH TESTING Description of procedure: This test is an objective evaluation hearing sensitivity via air and bone conduction and speech recognition testing. CPT code: 14364 RIGHT EAR: Hearing Sensitivity: within normal limits through 500 Hz sloping to severe sensorineural hearing loss. Word Recognition Score: Excellent (100%). WRS is consistent with hearing sensitivity. Words were presented at 75 dB HL is above (greater than or equal to 60 dB HL) intensity level for average conversational speech. The NU-6 Ordered by Difficulty Word List (10 words) was used for testing. Contralateral masking was employed. LEFT EAR: Hearing Sensitivity: Within normal limits. Word Recognition Score: Excellent (90%). WRS is consistent with hearing sensitivity. Words were presented at 55 dB HL which approximates (45-55 dB HL) intensity level for average conversational speech. The NU-6 Ordered by Difficulty Word List (10 words) was used for testing. RECOMMENDATIONS * Continue medical follow-up with Mary Soto MD. * The patient was counseled regarding benefits/limitations of hearing aids. * Continue to utilize hearing protection in the workplace. * Patient should maintain a sound enriched environment to assist in the management of tinnitus. * Pending medical clearance, consider participation in the Tinnitus Management Clinic or scheduling an Individual Tinnitus Evaluation with audiology. Call [phone] ext [phone] to schedule. * Re-evaluation as medically indicated or if a change in hearing is noted. Celestino Up, [facility] Clinical [employer] [facility]ENRIQUE[facility] Abbrev- iation Definition Degree of hearing sensitivity dB range WNL within normal limits WNL 0 - 20 SNHL sensorineural hearing loss Mild 20-40 CHL conductive hearing loss Moderate 40-55 MHL mixed hearing loss Moderately-Severe 55-70 WRS word recognition score Severe 70-90 ME middle ear Profound 90 + TM tympanic membrane documented in this encounter [facility] Evaluation note Note Date & Type Note Facility Evaluation note Diagnosis Other specified hearing loss, unspecified ear- Primary documented in this encounter [facility] Evaluation note Note Date & Type Note Facility Evaluation note Diagnosis Tinnitus, right ear- Primary Sensorineural hearing loss (SNHL) of right ear with unrestricted hearing of left ear Ear pressure, right Dizziness Dizziness and giddiness documented in this encounter [facility] Evaluation note Note Date & Type Note Facility Evaluation note Diagnosis Sensorineural hearing loss (SNHL) of right ear with unrestricted hearing of left ear- Primary documented in this encounter [facility] Evaluation note Note Date & Type Note Facility Evaluation note Diagnosis Onset Date Fatigue acute Stress acute Tinnitus acute Wellness examination [facility] Work Phone: Summary Purpose Family History Relationship Condition Age at Onset Recorded Date/T elicia brother Crohn's disease Unknown grandparent Unknown grandparent Dementia Unknown Family history of mental disorder Unknown History of stroke Unknown Advance Directives Advance Directive Response Recorded Date/ Time Advance Directives No June 12:37pm Reason for Referral Specialty Diagnoses / Procedures Referred By Priyanka kevin Referred To Contact Diagnoses Other specified hearing loss, unspecified ear Procedures HEARING TEST/AUDIOGRAM COMPRE AUDIOMETRY THRESHOLD EVAL SP RECOGNIJ Mary Soto MD [address] [place] [address] [facility] [address] [place] [address] Referral ID Status Reason Start Date Expiration Date Visits Requested Visits Authorized [id number] Authorized Auto-Generat ed Referral 03/11/2023 03/11/2024 1 1 Specialty Diagnoses / Procedures Referred By Priyanka kevin Referred To Contact Diagnoses Other specified hearing loss, unspecified ear Procedures HEARING TEST/AUDIOGRAM COMPRE AUDIOMETRY THRESHOLD EVAL SP RECOGNIJ [facility] [address] [place] [address] [facility] [address] [place] [address] Referral ID Status Reason Start Date Expiration Date Visits Requested Visits Authorized [id number] Authorized Auto-Generat ed Referral 03/15/2023 03/15/2024 1 1 Specialty Diagnoses / Procedures Referred By Contac t Referred To Contact Procedures HEARING TEST/AUDIOGRAM COMPRE AUDIOMETRY THRESHOLD EVAL SP RECOGNIJ [facility] [address] [place] [id number] [facility] [address] [place] [address] Referral ID Status Reason Start Date Expiration Date Visits Requested Visits Authorized [id number] Pending Review Auto-Generat ed Referral 04/05/2023 04/05/2024 1 1 Chief Complaint and Reason for Visit Chief Complaint wellness Reason for Visit Fatigue Stress Tinnitus Wellness examination Chief Complaint wellness recheck stress Reason for Visit Fatigue Stress Tinnitus Wellness examination Abnormal urinalysis Elevated liver enzymes Fatigue Other abnormal blood chemistry Proteinuria Stress Additional Source Comments (unrecognized sect ion and content) No Status Records FoundNo Status Records Found INFORMATION SOURCE (unrecogn ized section and content) DATE CREATED AUTHOR 04/10/2022 [facility] DATE CREATED AUTHOR AUTHOR'S ORGANIZ ATION 04/06/2023 [facility] Source Comments (unrecognize d section and content) In the event this informatio n is protected by the Federal Confidentiality of Alcohol and Drug Abuse Patient Records regulations: The Federal rules restrict any use of the information to criminally investigate or prosecute any alcohol or drug abuse patient.[facility] the event this information is protected by the Federal Confidentiality of Alcohol and Drug Abuse Patient Records regulations: The Federal rules restrict any use of the information to criminally investigate or prosecute any alcohol or drug abuse patient.[facility] the event this information is protected by the Federal Confidentiality of Alcohol and Drug Abuse Patient Records regulations: The Federal rules restrict any use of the information to criminally investigate or prosecute any alcohol or drug abuse patient.[facility] the event this information is protected by the Federal Confidentiality of Alcohol and Drug Abuse Patient Records regulations: The Federal rules restrict any use of the information to criminally investigate or prosecute any alcohol or drug abuse patient.[facility] Reason for Visit (unrecogniz ed section and content) Reason Comments Ringing In Ear(s) Specialty Diagnoses / Procedures Referred By Contac t Referred To Contact Diagnoses Other specified hearing loss, unspecified ear Procedures HEARING TEST/AUDIOGRAM COMPRE AUDIOMETRY THRESHOLD EVAL Mary Akhtar MD [address] [place] [address] [facility] [address] [place] [id number] Referral ID Status Reason Start Date Expiration Date V isits Requested Visits Authorized [id number] Closed Auto-Generate d Referral 03/11/2023 03/11/2024 1 1 Reason Comments New Patient Ear Problem Ringing In Ear(s) right Care Teams (unrecognized sec tion and content) Team Status: Active Member Role Status Dates Varun Denton , DO Primary Care Provider Active Team Status: Inactive Member Role Status Dates Varun Denton DO Primary Care Provide r, Attending Provider Active Start: April 10, 2024 End: April 10, 2024 Team Status: Active Member Role Status Dates Varun Denton , DO Primary Care Provide r, Attending Provider Active Start: April 14, 2024 Team Status: Inactive Member Role Status Dates Varun Denton , DO Primary Care Provide r, Attending Provider Active Start: May 31, 2024 End: May 31, 2024 Goals (unrecognized section and content) Goals may be documented in a n alternate sectionGoals may be documented in an alternate section FOR RECORDS PERTAINING TO PATIENTS WHO ARE OR HAVE BEEN ENROLLED IN A CHEMICAL DEPENDENCY/SUBSTANCEABUSE PROGRAM, SOME INFORMATION MAY BE OMITTED. This clinical summary was aggregated from multiple sources. Caution should be exercised in using it in the provision of clinical care. This summary normalizes information from multiple sources, and as a consequence, information in this document may materially change the coding, format and clinical context of patient data. In addition, data may be omitted in some cases. CLINICAL DECISIONS SHOULD BE BASED ON THE PRIMARY CLINICAL RECORDS. [facility]. provides no warranty or guarantee of the accuracy or completeness of information in this document.
[2024-06-09 09:42] LABS: Bilirubin Urine NEGATIVE (NEGATIVE); Blood Urine NEGATIVE (NEGATIVE); Clarity Urine CLEAR (CLEAR); Color Urine LT. YELLOW (YELLOW); Glucose Urine UA NEGATIVE (NEGATIVE); Ketones Urine NEGATIVE (NEGATIVE); Leukocyte Esterase Urine NEGATIVE (NEGATIVE); Nitrite Urine NEGATIVE (NEGATIVE); Protein Urine NEGATIVE (NEG/TRACE); Urobilinogen Urine 0.2 EU/dL (0.2-1.0); pH Urine 5.5 (5.0-9.0)
[2024-06-09 09:49] LABS: Bacteria Urine NONE SEEN #/HPF (NONE SEEN); Mucus Urine NONE SEEN (NONE SEEN); RBC Urine 0-2 #/HPF (0-2); Squamous Epithelial Cell Urine NONE SEEN #/LPF (NONE/RARE); WBC Urine 0-2 #/HPF (NONE SEEN)
[2024-06-09 09:50] LABS: Cast Seen? NONE SEEN #/LPF (NONE SEEN); Crystals Seen? None Seen #/HPF (None Seen)
[2024-06-09 10:23] LABS: Alanine Aminotransferase 51 U/L (16-63); Albumin Level 3.8 g/dL (3.4-5.0); Alkaline Phosphatase 85 U/L (46-116); Aspartate Amino Transferase 32 U/L (15-37); BUN Creatinine Ratio 11.9; Bilirubin Total 0.4 mg/dL (0.2-1.0); Calcium 9.1 mg/dL (8.5-10.1); Chloride 101 mmol/L (98-107); Estimated GFR (African America >60 (>=60 mL/min/1.73m^2); Estimated GFR (Non-African Ame 59 (>=60 mL/min/1.73m^2); Globulin 3.7 g/dL; Glucose 100 mg/dL (74-106); Sodium 135 mmol/L (136-145); Total Protein 7.5 g/dL (6.4-8.2)
== END 2024-06-09 09:19 | disposition home or self-care (01) ==
PROVIDERS: PCP Family Medicine; Visit Provider Family Medicine
DX: R79.89 Other specified abnormal findings of blood chemistry (principal); R74.8 Abnormal levels of other serum enzymes; R82.90 Unspecified abnormal findings in urine; R80.9 Proteinuria, unspecified
CPT/HCPCS: 36415; 80053; 81001

== ENCOUNTER 2024-10-14 08:50 | Outpatient (OUT) | payer BC, SELFPAY ==
--- OUTSIDE RECORDS SUMMARY | 2024-10-14 08:56 | XMS_ITS | CCD ---
Author Organization [facility] Care Team Providers Care Manufacturing Engineering Technologist Name Role Phone BERTIN, DR BOND Attending Unavailable GIRVIN, DR BOND [...] Allergy Type Date of Onset Reaction(s) Facility (6 sources) Penicillins Propensity to adverse reactions to drug 3 Other: See Comments [facility] (4 sources) Citalopram Drug Allergy 3 Unknown Reaction, sensitivity [facility] Medications Completed/Discontinued Medications Medication Drug Class(es) Dates Sig (Normalized) Sig (Original) acetaminophen 325 mg / HYDROcodone bitartrate 5 mg oral tablet (4 sources) Opioid Agonist Start: 03-24-2018 End: 04-10-2024 take 1 tablet by mouth every four to six hours as needed for pain Hydrocodone-Acetamin ophen ([place]) 5-325 mg tablet Discontinued 1 TAB PO EVERY 4-6 HOURS as needed for pain March 24, 2018 April 10, 2024 2:57pm cholecalciferol 0.01 mg chewable tablet (4 sources) Vitamin D Start: 03-14-2018 End: 04-10-2024 take 1 tablet by mouth once daily Cholecalciferol (Vitamin D3) (Vitamin D3) 400 unit Tablet,Chewable Discontinued 400 UNIT PO Daily March 13, 2018 11:00pm April 10, 2024 2:57pm clarithromycin 500 mg oral tablet (4 sources) Macrolide Antimicrobial Start: 03-24-2018 End: 03-31-2018 take 1 tablet by mouth twice daily at mealtime Clarithromycin 500 mg tablet Discontinued 500 MG PO Twice daily 14 March 23, 2018 11:00pm March 29, 2018 11:00pm March 30, 2018 11:02pm take with food escitalopram 10 mg oral tablet (15 sources) Serotonin Reuptake Inhibitor Start: 05-31-2024 End: 09-11-2024 take 1 tablet by mouth once daily Escitalopram Oxalate 10 mg tablet Discontinued 0 PO Daily May 31, 2024 2:47pm September 11, 2024 4:06pm take 1 and 1/2 of a 10 MG tablet orally daily (total of 15 MG) Start: 05-05-2024 End: 05-31-2024 take 1 tablet by mouth once daily Escitalopram Oxalate 10 mg tablet Discontinued 0 .ROUTE .COMPLEX May 05, 2024 12:25pm May 31, 2024 2:28pm TAKE 1 TABLET BY MOUTH DAILY Start: 04-10-2024 End: 05-05-2024 take 1 tablet by mouth once daily Escitalopram Oxalate (Lexapro) 10 mg tablet Discontinued 10 MG PO Daily April 09, 2024 11:00pm May 05, 2024 12:25pm Multivitamin preparation (2 sources) Start: 03-14-2018 End: 04-10-2024 take 1 tablet by mouth once daily Multivitamin Discontinued 1 TAB PO Daily March 14, 2018 12:00am April 10, 2024 3:57pm Multivitamin Tablet (2 sources) Start: 03-14-2018 End: 04-10-2024 take 1 tablet by mouth once daily Multivitamin Tablet Discontinued 1 TAB PO Daily March 13, 2018 11:00pm April 10, 2024 2:57pm Problems Active Problems Problem Classification Problem Date Documented Date Episodic/Chronic Adjustment disorders (7 sources) Stress; Translations: [Reaction to severe stress, unspecified] 04-10-2024 Chronic Conditions associated with dizziness or vertigo (1 source) Dizziness; Translations: [Dizziness and giddiness] 04-05-2023 Episodic Genitourinary symptoms and ill-defined conditions (9 sources) Proteinuria; Translations: [Proteinuria, unspecified] 04-10-2024 Episodic Malaise and fatigue (7 sources) Fatigue; Translations: [Other fatigue] 04-10-2024 Episodic [...] Episodic Other ear and sense organ disorders (4 sources) Tinnitus; Translations: [Tinnitus, unspecified ear] 04-10-2024 Episodic Other ear and sense organ disorders (2 sources) Tinnitus, unspecified ear; Translations: [Tinnitus, unspecified] 04-10-2024 Episodic Other liver diseases (3 sources) Elevated liver enzymes level; Translations: [Abnormal levels of other serum enzymes] 05-31-2024 Episodic Other liver diseases (1 source) Abnormal levels of other serum enzymes; Translations: [Other nonspecific abnormal serum enzyme levels] 05-31-2024 Episodic Other screening for suspected conditions (not mental disorders or infectious disease) (4 sources) Blood chemistry abnormal; Translations: [Other specified [...] Basophils (Bld) [#/Vol] 0.1 10 3/uL 0.0-0.1 [facility] Basophils/100 WBC Auto (Bld) on 04-14-2024 Basophils/100 WBC (Bld) 1.1 % 0.2-2.0 [facility] Cholesterol in LDL Calc [Mas s/Vol]on 04-14-2024 Cholesterol in LDL [Mass/Vol] 99.0 mg/dL [facility] Comment on above: <100 mg/dl [id number] 0-129 mg/dl NEAR OR ABOVE [id number] mg/dl BORDERLINE [id number] mg/dl HIGH>190 mg/dl VERY HIGH Cholesterol in VLDL Calc [Ma ss/Vol]on 04-14-2024 Cholesterol in VLDL [Mass/Vol] 8.0 mg/dL [facility] Eosinophils/100 WBC Auto (Bl d)on 04-14-2024 Eosinophils/100 WBC (Bld) 8.5 % High 0.9-7.0 [facility] Erythrocyte distribution wid th Auto (RBC) [Ratio]on 04-14-2024 Erythrocyte distribution width (RBC) [Ratio] 13.2 % 11.0-15.0 [facility] Estimated glomerular filtrat ion rate (GFR) non- Americanon 04-14-2024 GFR/1.73 sq M.predicted among non-blacks MDRD (S/P/Bld) [Vol rate/Area] 60 mL/min/{1.73_m2} >=60 [facility] Globulin Calc (S) [Mass/Vol] on 04-14-2024 Globulin (S) [Mass/Vol] 3.6 g/dL [facility] Hematocrit Auto (Bld) [Volum e fraction]on 04-14-2024 Hematocrit (Bld) [Volume fraction] 42.9 % 42.0-54.0 [facility] Hemoglobin [Mass/volume] in Bloodon 04-14-2024 Hemoglobin (Bld) [Mass/Vol] 14.4 g/dL 14.0-18.0 [facility] Laboratory - Chemistry and C hemistry - challengeon 04-14-2024 Bilirubin Ql (U) Negative NEGATIVE [facility] Glucose (U) [Mass/Vol] Negative NEGATIVE [facility] Ketones Ql (U) Negative NEGATIVE [facility] pH (U) 7.0 [pH] 5.0-9.0 [facility] Specific gravity (U) [Rel density] 1.015 1.005-1.025 [facility] Urobilinogen Qn (U) 0.2 {Rosa'U}/dL 0.2-1.0 [facility] Albumin [Mass/Vol] 4.2 g/dL 3.4-5.0 [facility] ALP [Catalytic activity/Vol] 81 U/L 46-116 [facility] ALT [Catalytic activity/Vol] 57 U/L 16-63 [facility] AST [Catalytic activity/Vol] 43 U/L High 15-37 [facility] Bilirubin [Mass/Vol] 0.5 mg/dL 0.2-1.0 [facility] Calcium [Mass/Vol] 9.1 mg/dL 8.5-10.1 [facility] Chloride [Moles/Vol] 103 mmol/L 98-107 [facility] Cholesterol [Mass/Vol] 160 mg/dL <=200 [facility] Cholesterol in HDL [Mass/Vol] 53 mg/dL 40-60 [facility] Comment on above: > or =60 mg/dl - LOW CARDIOVASCULAR RISK<40 mg/dl - HIGH CARDIOVASCULAR RISK CO2 [Moles/Vol] 24.8 mmol/L 21.0-32.0 [facility] Creatinine [Mass/Vol] 1.32 mg/dL High 0.70-1.30 [facility] GFR/1.73 sq M.predicted MDRD (S/P/Bld) [Vol rate/Area] mL/min/{1.73_m2} >=60 [facility] Glucose [Mass/Vol] 96 mg/dL 74-106 [facility] Potassium [Moles/Vol] 4.7 mmol/L 3.5-5.1 [facility] Protein [Mass/Vol] 7.8 g/dL 6.4-8.2 [facility] Sodium [Moles/Vol] 138 mmol/L 136-145 [facility] Triglyceride [Mass/Vol] 40 mg/dL <=150 [facility] TSH Qn 0.821 m[IU]/L 0.358-3.740 [facility] Urea nitrogen [Mass/Vol] 21.0 mg/dL High 7.0-18.0 [facility] Urea nitrogen/Creatinine [Mass ratio] 15.9 mg/mg [facility] Laboratory - Hematology and Cell countson 04-14-2024 Immature granulocytes/100 WBC (Bld) 0.2 % 0.0-0.5 [facility] Laboratory - Specimen inform ationon 04-14-2024 Appearance (U) CLEAR CLEAR [facility] Color (U) LT. YELLOW YELLOW [facility] Laboratory - Urinalysison Leukocyte esterase Test strip Ql (U) Negative NEGATIVE [facility] Mucus Ql (Urine sed) TRACE Abnormal NONE SEEN [facility] Nitrite Ql (U) Negative NEGATIVE [facility] Protein Ql (U) Negative NEG/TRACE [facility] Leukocytes [#/volume] correc michelle for nucleated erythrocytes in Blood by Automated counon 04-14-2024 WBC corrected for nucl RBC Auto (Bld) [#/Vol] 5.5 10 3/uL 4.0-11.0 [facility] Lymphocytes Auto (Bld) [#/Vo l]on 04-14-2024 Lymphocytes (Bld) [#/Vol] 1.6 10 3/uL 1.2-3.8 [facility] Lymphocytes/100 WBC Auto (Bl d)on 04-14-2024 Lymphocytes/100 WBC (Bld) 29.1 % 20.5-60.0 [facility] MCH Auto (RBC) [Entitic mass ]on 04-14-2024 MCH (RBC) [Entitic mass] 29.1 pg 25.9-34.0 [facility] MCHC Auto (RBC) [Mass/Vol]on 04-14-2024 MCHC (RBC) [Mass/Vol] 33.6 g/dL 29.9-35.2 [facility] MCV Auto (RBC) [Entitic vol] on 04-14-2024 MCV (RBC) [Entitic vol] 86.7 fL 80.0-94.0 [facility] Monocytes Auto (Bld) [#/Vol] on 04-14-2024 Monocytes (Bld) [#/Vol] 0.5 10 3/uL 0.3-0.8 [facility] Monocytes/100 WBC Auto (Bld) on 04-14-2024 Monocytes/100 WBC (Bld) 9.8 % 1.7-12.0 [facility] Neutrophils Auto (Bld) [#/Vo l]on 04-14-2024 Neutrophils (Bld) [#/Vol] 2.8 10 3/uL 1.4-6.5 [facility] Neutrophils/100 WBC Auto (Bl d)on 04-14-2024 Neutrophils/100 WBC (Bld) 51.3 % 43.0-75.0 [facility] No Panel Informationon 04-14 Urine Bacteria TRACE #/HPF Abnormal NONE SEEN [facility] Urine Culture Reflexed NO [facility] Urine Occult Blood Negative NEGATIVE [facility] Urine Other Casts NONE SEEN #/LPF NONE SEEN [facility] Urine Other Crystals None Seen #/HPF None Seen [facility] Urine RBC NONE SEEN #/HPF 0-2 [facility] Urine Squamous Epithelial Cells RARE #/LPF NONE/RARE [facility] Urine Transitional Epithelial Cells RARE #/LPF Abnormal NONE SEEN [facility] Urine WBC NONE SEEN #/HPF NONE SEEN [facility] Eosinophils # (Auto) 0.5 10 3/uL 0.0-0.7 [facility] Immature Granulocyte # (Auto) 0.01 10 3/uL 0.00-0.03 [facility] Prostate Specific Antigen Screen 0.86 ng/mL <=4.00 [facility] Platelet mean volume Auto (B ld) [Entitic vol]on 04-14-2024 Platelet mean volume (Bld) [Entitic vol] 10.1 fL 9.5-13.5 [facility] Platelets Auto (Bld) [#/Vol] on 04-14-2024 Platelets (Bld) [#/Vol] 266 10 3/uL 150-450 [facility] RBC Auto (Bld) [#/Vol]on RBC (Bld) [#/Vol] 4.95 10 6/uL 4.70-6.10 [facility] Serum or plasma albumin/glob ulin mass ratioon 04-14-2024 Albumin/Globulin [Mass ratio] 1.2 {ratio} [facility] Serum or plasma anion gap de terminationon 04-14-2024 Anion gap [Moles/Vol] 14.9 mmol/L [facility] Serum or plasma total choles terol/high density lipoprotein (HDL) cholesterol mass marie 04-14-2024 Cholesterol.total/Ch olesterol in HDL [Mass ratio] 3.0 {ratio} [facility] Comment on above: 3.3 - 4.4 LOW RISK4. 4 - 7.1 AVERAGE RISK7.1 - 11.0 MODERATE RISK>11.0 HIGH RISK CNOVon 04-05-2023 CNOV Office Visit (OTOLMN) ZACK SAVAGE ([id number]) 1985 M Date Time Provider Department 04/05/23 [...] hearing loss History of Present Illness Zack Saavge is a 38 year old male presents for evaluation of right-sided hearing loss. Patient stated that about 2 years ago, he developed sudden hearing loss in the right ear. Patient was seen by ENT close to home in [place] and he was treated with oral prednisone. [...] Encounter Status:Closed by MARY SOTO on 04/05/23 Normal [facility] CNOV Office Visit (CDISMN) ZACK SAVAGE ([id number]) 1985 M Date Time Provider Department 04/05/23 3:00 PM LO HOPE CDIN During your visit today, we recorded the following information about you: Lo Hope AUD 04/05/2023 3:54 PM Signed [facility] [place] AUDIOLOGIC EVALUATION REPORT Name: Zack Savage CCF#: [id number] Date of Service: 04/05/2023 Date of : 1985 Age: [age] year old Referred by: Mary Soto MD [address] [facility] [address] Referred for: Evaluation of suspected change in hearing, tinnitus, or balance. Referral documented: In an order in [facility] Patient's major complaints: Reduced hearing in the right ear, Tinnitus in the right ear, Dizziness/vertigo/im balance, Pressure/fullness in the right ear Zack Savaeg was seen for an initial audiologic evaluation [...] or concerts. 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 CPT code: 30191 RIGHT EAR: Normal ME function. LEFT EAR: Normal ME function. ACOUSTIC REFLEXES Description of procedure: This test is an objective measure of auditory and facial nerve pathways. CPT code: 76336, 11452 RIGHT EAR PROBE EAR: (ipsi right stimulus [...] conduction and speech recognition testing. CPT code: 39833 RIGHT EAR: Hearing Sensitivity: within normal limits [...] enriched environment (more content not included)... Normal [facility] Covid-19 PCR (CVDTBH)on 03-30 SARS-CoV-2 (COVID-19) RNA CHANDA+probe Ql (Unsp spec) Detected Critically abnormal NOT DETECTED [facility] Comment on above: Result Comment: This test is not yet approved or cleared by the [place] FDA. When there are no FDA-approved or cleared tests available, and other criteria are met, FDA can make tests available under an emergency access mechanism called an Emergency Use Authorization (EUA). The EUA for this test is supported by the [employer] Sql Developer of Health and Human Service's (HHS's) declaration [...] used). Performed By: #### C VDTB #### [facility] [address] [place] [address] Dr. Ronal Garcia Covid-19 PCR (CVDTB)on 06-30 SARS-CoV-2 (COVID-19) RNA CHANDA+probe Ql (Unsp spec) Detected Critically abnormal NOT DETECTED [facility] Comment on above: Result Comment: This test is not yet approved or cleared by the [place] FDA. When there are no FDA-approved or cleared tests available, and other criteria are met, FDA can make tests available under an emergency access mechanism called an Emergency Use Authorization (EUA). The EUA for this test is supported by the [place] of Health and Human Service's (HHS's) declaration [...] used). Performed By: #### C VDTB #### [facility] [address] [place] [address] Dr. Ronal Garcia Covid-19 PCR (CVDTB)on SARS-CoV-2 (COVID-19) RNA CHANDA+probe Ql (Unsp spec) Not detected Normal NOT DETECTED [facility] Comment on above: Result Comment: This test is not yet approved or cleared by the [place] FDA. When there are no FDA-approved or cleared tests available, and other criteria are met, FDA can make tests available under an emergency access mechanism called an Emergency Use Authorization (EUA). The EUA for this test is supported by the Ms Sql Developer of Health and Human Service's (HHS's) declaration [...] consistent with SARS-CoV-2. Performed By: #### [facility] #### [facility] [address] [place] [address] Dr. Ronal Garcia Vital Signs Date Time Vital Sign Value Performing Clinician Faci lity 09-11-2024 16:00-0500 Body temperature 97 [degF] [facility] 09-11-2024 16:00-0500 Body weight 80.28 kg [facility] 09-11-2024 16:00-0500 Diastolic blood pressure 86 mm[Hg] [facility] 09-11-2024 16:00-0500 Heart rate 74 /min [facility] 09-11-2024 16:00-0500 SaO2% (BldA) [Mass fraction] 97 % [facility] 09-11-2024 16:00-0500 Systolic blood pressure 124 mm[Hg] [facility] 05-31-2024 15:19-0400 Body mass index (BMI) [Ratio] 25.1 kg/m2 [facility] 05-31-2024 15:19-0400 Body temperature 97.4 [degF] [facility] 05-31-2024 15:19-0400 Body weight 79.37 kg [facility] 05-31-2024 15:19-0400 Diastolic blood pressure 64 mm[Hg] [facility] 05-31-2024 15:19-0400 Heart rate 72 /min [facility] 05-31-2024 15:19-0400 Respiratory rate 18 /min [facility] 05-31-2024 15:19-0400 SaO2% (BldA) [Mass fraction] 99 % [facility] 05-31-2024 15:19-0400 Systolic blood pressure 116 mm[Hg] [facility] 05-31-2024 14:05-0400 Body height 177.8 cm [facility] 04-10-2024 15:39-0400 Body height 177.8 cm [facility] 04-10-2024 15:39-0400 Body mass index (BMI) [Ratio] 24.5 kg/m2 [facility] 04-10-2024 15:39-0400 Body temperature 97.6 [degF] [facility] 04-10-2024 15:39-0400 Body weight 77.56 kg [facility] 04-10-2024 15:39-0400 Diastolic blood pressure 80 mm[Hg] [facility] 04-10-2024 15:39-0400 Heart rate 69 /min [facility] 04-10-2024 15:39-0400 SaO2% (BldA) [Mass fraction] 97 % [facility] 04-10-2024 15:39-0400 Systolic blood pressure 124 mm[Hg] [facility] Encounters Encounter Date Encounter Type Care Provider Facility Start: 09-11-2024 End: 09-11-2024 ambulatory [facility] Work Phone: Start: 09-11-2024 End: 09-11-2024 Patient encounter procedure [facility] [place] Work Phone: Start: 05-31-2024 End: 05-31-2024 ambulatory [facility] Work Phone: Start: 05-31-2024 End: 05-31-2024 Patient encounter procedure [facility] [place] Work Phone: Start: 04-14-2024 Non-patient / Non-visit [facility] Work Phone: Start: 04-10-2024 Patient encounter status [facility] Start: 04-10-2024 End: 04-10-2024 ambulatory [facility] Work Phone: Start: 04-10-2024 End: 04-10-2024 Encounter for general adult medical examination without abnormal findings [facility] Start: 04-10-2024 End: 04-10-2024 Patient encounter procedure [facility] [place] Work Phone: Start: 04-05-2023 End: 04-05-2023 ambulatory MARY SOTO Facility:[facility] Start: 04-05-2023 End: 04-05-2023 Patient encounter procedure Lo Hope SHELBY Work Phone: Audiology Comment on above: Tinnitus, right ear (Primary Dx); Sensorineural hearing loss (SNHL) of right ear with unrestricted hearing of left ear; Ear pressure, right; Dizziness Sensorineural hearin g loss (SNHL) of right ear with unrestricted hearing of left ear (Primary Dx) Start: 03-15-2023 Orders Only Lo Shanae Ryan Student Work Phone: [facility] [place] Comment on above: Other specified hear ing loss, unspecified ear (Primary Dx) Start: 03-11-2023 Orders Only Mary Soto MD Work Phone: [facility] [place] Comment on above: Other specified hear ing loss, unspecified ear (Primary Dx) Start: 04-09-2022 End: 04-09-[address] VARUN DENTON Facility:[facility] Start: 07-09-2021 End: 07-09-[address] VARUN DENTON Facility:[facility] Start: 07-02-2021 End: 07-02-[address] VARUN DENTON Facility:[facility] Procedures Date Procedure Procedure Detail Performing Clinician Start: 04-05-2023 HEARING TEST/AUDIOGRAM Lo Shanae RAYN Work Phone: Plan of Treatment Date Care Activity Detail Author Start: 09-11-2024 Patient referral [facility] Work Phone: Start: 04-30-2023 Influenza vaccination INFLUENZA (#1) [facility] Start: 08-30-2022 DEPRESSION ASSESSMENT DEPRESSION ASS ESSMENT [facility] Start: 2018 LIPID SCREEN LIPID SCREEN [facility] Start: 2002 Urine microalbumin profile DTAP,TDAP,TD (1 - Tdap) [facility] Start: 2001 HEPATITIS C SCREENING HEPATITIS C SC YADY [facility] Start: 2001 HIV SCREENING HIV SCREENING [facility] Start: 1985 COVID-19 VACCINE (#1) COVID-19 VACCI NE (#1) [facility] Start: 1985 HEPATITIS B (1 of 3 - 3-dose series) HEPATITIS B (1 of 3 - 3-dose series) [facility] Comprehensive metabo lic 1999 panel - Serum or Plasma [facility] Comprehensive metabo lic 1999 panel - Serum or Plasma [facility] metabo lic 1999 panel - Serum or Plasma [facility] End: 03-11-2024 HEARING TEST/AUDIOGRAM HEARING TEST/AUDIOGRAM Audiology Routine Other specified hearing loss, unspecified ear 1 Occurrences starting 03/11/2023 until 03/11/[address] [facility] Work Phone: Comment on above: 1 Occurrences starti ng 03/11/2023 until 03/11/2024 End: 03-15-2024 HEARING TEST/AUDIOGRAM HEARING TEST/AUDIOGRAM Audiology Routine Other specified hearing loss, unspecified ear 1 Occurrences starting 03/15/2023 until 03/15/[address] [facility] Work Phone: Comment on above: 1 Occurrences starti ng 03/15/2023 until 03/15/2024 Patient referral [facility] Work Phone: [facility] Payers Date Payer Category Payer Private Health Insurance [facility] UMR CHOICE PLUS [id number] 2017-Present [phone] [address] [address] [place] [address] HMO [id number] 1985 Unknown [id number] 1985 Unknown [id number] 1985 Unknown [id number] 1961 Unknown [id number] Private Health Insurance [facility] [id number] Self-pay Self Pay [id number] Unknown Other1 (STD) [id number] Unknown [place]/BS [id number] Social History Date Type Detail Facility Tobacco smoking status [facility] Tobacco smoking consumption unknown [facility] Start: 1985 Sex Assigned At Not on file [facility] Start: 04-05-2023 Gender identity Not on file [facility] Start: 04-05-2023 End: 09-11-2024 Tobacco smoking status NMIS Ex-smoker [facility] End: 08-30-2007 History of tobacco use Current smoker [facility] End: 08-30-2007 History of tobacco use Cigarette Smoker [facility] Start: 04-05-2023 Tobacco use and exposure Smokeless tobacco non-user [facility] Start: 04-05-2023 History of Social function [facility] National Score (1-100), lower number is lower risk 87 [facility] Start: 1985 Sex Assigned At Male F [facility] Start: 09-11-2024 End: 09-11-2024 Sex Male (finding) [facility] Clinical Notes 04-05-2023 to 09-11-2024 Note Date & Type Note Facility 09-11-2024 Hospital Discharg e instructions Ambulatory OrdersReferral to ENT Time Frame: 09/11/24, Location: None Selected [facility] Work Phone: 04-10-2024 Evaluation note Authored April 10, 2024 4: 54pm The above note written by __ _Selwyn Marques____ acting as human recorder, note dictated by Dr. Billy .I performed the above HPI, ROS, and Examination. I formulated and dictated the treatment plan and was present for entire encounter. Varun Denton D.O. [facility] Work Phone: [phone]) 983-658408-07-2023 NoteHNO ID: [id number] Author: Mary Soto MD Service: ? Author [...] seen by ENT close to home in [place] and he was treated with oral prednisone. [...] or thyroid masses or enlargement. Mary Soto [facility]08-07-2023 NoteHNO ID: [id number] Author: Lo Hope AUD Service: ? Author Type: Rn Registry Type: Progress Notes Filed: 04/05/2023 3:54 PM Note Text: [facility] [place] AUDIOLOGIC EVALUATION REPORT Name: Zack Savage CCF#: [id number] Date of Service: 04/05/2023 Date of : 1985 Age: [age] year old Referred by: Mary Soto MD [address] [facility] [address] Referred for: Evaluation of suspected change in hearing, tinnitus, or balance. Referral documented: In an order in [facility] Patient's major complaints: Reduced hearing in the [...] or concerts. 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 CPT code: 89788 RIGHT EAR: Normal ME function. LEFT EAR: Normal ME function. ACOUSTIC REFLEXES Description of procedure: This test is an objective measure of auditory and facial nerve pathways. CPT code: 37226, 50037 RIGHT EAR PROBE EAR: (ipsi right stimulus [...] conduction and speech recognition testing. CPT code: 48876 RIGHT EAR: Hearing Sensitivity: within normal limits [...] RECOMMENDATIONS * Continue medical follow-up with Mary Stoo MD. * The patient was counseled regarding benefits/limitations of hearing aids. * Continue to utilize hearing protection in the workplace. * Patient should maintain a sound enriched environment to assist in the management of tinnitus. * Pending medical clearance, consider participation in the Tinnitus Management Clinic or scheduling an Individual Tinnitus (more content not included)...[facility]08-07-2023 History of Present illness Narrative* Mary Soto MD - 04/05/2023 4:03 PM EDT IMPRESSION 38-year-old male with asymmetrical right sided sensorineural hearing loss due to his previous sudden loss. RECOMMENDATION/PLAN I informed the patient that there is no reversal of his hearing loss since it has been 2 years. Hisonly option at this time is hearing aid [...] seen by ENT close to home in [place] and he was treated with oral prednisone. [...] enlargement. Mary Soto MD [facility] Nurse Note* Irma Reyes RN - 04/05/2023 3:49 PM EDT Tobacco Use: Quit 08/30/2007. Types: Cigarettes Was smoking cessation packet given? N/A - Patient is a non-smoker or quit >1 year ago. Was a referral initiated?N/A Patient is a non-smoker [facility]23 History of Present illness Narrative* Lo Hope AUD - 04/05/2023 3:00 PM EDT [facility] AUDIOLOGIC EVALUATION REPORT Name: Zack Savage CCF#: [id number] Date of Service: 04/05/2023 Date of : 1985 Age: [age] year old Referred by: Mary Soto MD [address] [facility] [address] Referred for: Evaluation of suspected change in hearing, tinnitus, or balance. Referral documented: In an order in [facility] Patient's major complaints: Reduced hearing in the right ear, Tinnitus in the right ear, Dizziness/vertigo/imbalance, Pressure/fullness in the right ear Zack Savage was seen for an initial audiologic evaluation at this facility. Patient reported that2 years ago he experienced a sudden pop in his right ear, after which he began to notice tinnitusin the right ear. Since that time he [...] or concerts. 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 He reported that on his workplace screening he now passes on the left ear but fails on the right ear. Today patient denied otalgia,otorrhea, jaw dysfunction or TMD, neck or cervical [...] evaluation of middle ear function. CPT code: 88271 RIGHT EAR: Normal ME function. LEFT EAR: Normal ME function. ACOUSTIC REFLEXES Description of procedure: This test is an objective measure of auditory and facial nerve pathways. CPT code: 27535, 23598 RIGHT EAR PROBE EAR: (ipsi right stimulus [...] negative for VIII nerve involvement in the LEFTear PURE TONE AUDIOMETRY AND SPEECH TESTING Description of procedure: This test is an objective evaluation hearing sensitivity via air and boneconduction and speech recognition testing. CPT code: 86321 RIGHT EAR: Hearing Sensitivity: within normal limits [...] participation in the Tinnitus Management Clinic or schedulingan Individual Tinnitus Evaluation with audiology. Call [phone] ext [phone] to schedule. * Re-evaluation as medically indicated or if a change in hearing is noted. Celestino Up, MITA-A Clinical Rn Registry HENRIQUEZ Abbrev- iation Definition Degree of hearing sensitivity dB range WNL within normal limits WNL 0 - 20 SNHL sensorineural hearing loss Mild 20-40 CHL conductive hearing loss Moderate 40-55 MHL mixed hearing loss Moderately-Severe 55-70 WRS word recognition score Severe 70-90 ME middle ear Profound 90 + TM tympanic membrane [facility] Diagnosis Other specified hearing loss, unspecified ear- Primary documented in this encounter [facility] note* Diagnosis Tinnitus, right ear- Primary Sensorineural hearing loss (SNHL) of right ear with unrestricted hearing of left ear Ear pressure, right Dizziness Dizziness and giddiness documented in this encounter [facility] note* Diagnosis Sensorineural hearing loss (SNHL) of right ear with unrestricted hearing of left ear- Primary documented in this encounter [facility] note* Diagnosis Onset Date Resolution Status Fatigue acute Stress acute Tinnitus acute Wellness examination acute [facility] Work Phone: Evaluation noteNo assessment information available [facility] Work Phone: Summary Purpose Family History Relationship Condition Age at Onset Recorded Date/T elicia brother Crohn's disease Unknown grandparent Unknown grandparent Dementia Unknown Family history of mental disorder Unknown History of stroke Unknown Advance Directives Advance Directive Response Recorded Date/ Time Advance Directives No June 12:37pm Advance Directive Response Recorded Date/ Time Advance Directives No June 11:37am Reason for Referral Specialty Diagnoses / Procedures Referred By Contac t Referred To Contact Diagnoses Other specified hearing loss, unspecified ear Procedures HEARING TEST/AUDIOGRAM COMPRE AUDIOMETRY THRESHOLD EVAL SP RECOGNIJ Mary Soto MD [address] [address] [facility] [address] [place] [address] Referral ID Status Reason Start Date Expiration Date Visits Requested Visits Authorized [id number] Authorized Auto-Generat ed Referral 03/11/2023 03/11/2024 1 1 Specialty Diagnoses / Procedures Referred By Contac t Referred To Contact Diagnoses Other specified hearing loss, unspecified ear Procedures HEARING TEST/AUDIOGRAM COMPRE AUDIOMETRY THRESHOLD EVAL SP RECOGNIJ [facility] [address] [place] [address] [facility] [address] [place] [address] Referral ID Status Reason Start Date Expiration Date Visits Requested Visits Authorized [id number] Authorized Auto-Generat ed Referral 03/15/2023 03/15/2024 1 1 Specialty Diagnoses / Procedures Referred By Priyanka t Referred To Contact Procedures HEARING TEST/AUDIOGRAM COMPRE AUDIOMETRY THRESHOLD EVAL SP RECOGNIJ [facility] [address] [address] [facility] [address] [place] [address] Referral ID Status Reason Start Date Expiration Date Visits Requested Visits Authorized [id number] Pending Review Auto-Generat ed Referral 04/05/2023 04/05/2024 1 1 Chief Complaint and Reason for Visit Chief Complaint wellness Reason for Visit Fatigue Stress Tinnitus Wellness examination Chief Complaint wellness recheck stress Reason for Visit Fatigue Stress Tinnitus Wellness examination Abnormal urinalysis Elevated liver enzymes Fatigue Other abnormal blood chemistry Proteinuria Stress Chief Complaint Admit Date 3 mo recheck stress September 11, 2024 4 :00pm Additional Source Comments (unrecognized sect ion and content) No Status Records FoundNo Status Records Found INFORMATION SOURCE (unrecogn ized section and content) DATE CREATED AUTHOR 04/10/2022 [facility] DATE CREATED AUTHOR AUTHOR'S ORGANIZ ATION 04/06/2023 [facility] Source Comments (unrecognize d section and content) In the event this informatio n is protected by the Federal Confidentiality of Alcohol and Drug Abuse Patient Records regulations: The Federal rules restrict any use of the information to criminally investigate or prosecute any alcohol or drug abuse patient.[facility] the event this information is protected by the Federal Confidentiality of Alcohol and Drug Abuse Patient Records regulations: The Federal rules restrict any use of the information to criminally investigate or prosecute any alcohol or drug abuse patient.[facility]In the event this information is protected by the Federal Confidentiality of Alcohol and Drug Abuse Patient Records regulations: The Federal rules restrict any use of the information to criminally investigate or prosecute any alcohol or drug abuse patient.[facility] the event this information is protected by the Federal Confidentiality of Alcohol and Drug Abuse Patient Records regulations: The Federal rules restrict any use of the information to criminally investigate or prosecute any alcohol or drug abuse patient.[facility] Reason for Visit (unrecogniz ed section and content) Reason Comments Ringing In Ear(s) Specialty Diagnoses / Procedures Referred By Contac t Referred To Contact Diagnoses Other specified hearing loss, unspecified ear Procedures HEARING TEST/AUDIOGRAM COMPRE AUDIOMETRY THRESHOLD EVAL SP RECOGNIJ Mary Soto MD [address] [place] [address] [facility] [address] [place] [address] Referral ID Status Reason Start Date Expiration Date V isits Requested Visits Authorized [id number] Closed Auto-Generate d Referral 03/11/2023 03/11/2024 1 1 Reason Comments New Patient Ear Problem Ringing In Ear(s) right Care Teams (unrecognized sec tion and content) Team Status: Active Member Role Status Dates Varun Denton DO Primary Care Provider Active Team Status: Inactive Member Role Status Dates Varun Denton DO Primary Care Provide r, Attending Provider Active Start: April 10, 2024 End: April 10, 2024 Team Status: Active Member Role Status Dates Varun Denton DO Primary Care Provide r, Attending Provider Active Start: April 14, 2024 Team Status: Inactive Member Role Status Dates Varun Denton DO Primary Care Provide r, Attending Provider Active Start: May 31, 2024 End: May 31, 2024 Team Status: Inactive Member Role Status Dates Varun Denton DO Primary Care Provide r, Attending Provider Active Start: September 11, 2024 End: September 11, 2024 Goals (unrecognized section and content) Goals may be documented in a n alternate sectionGoals may be documented in an alternate sectionGoals may be documented in an alternate sectionGoals may be documented in an [...] BE BASED ON THE PRIMARY CLINICAL RECORDS. [facility]. provides no warranty or guarantee of the accuracy or completeness of information in this document.
[2024-10-14 09:41] LABS: Alanine Aminotransferase 69 U/L (16-63); Albumin Globulin Ratio 1.1; Albumin Level 4.1 g/dL (3.4-5.0); Alkaline Phosphatase 79 U/L (46-116); Anion Gap 13.2; Aspartate Amino Transferase 41 U/L (15-37); BUN Creatinine Ratio 17.6; Bilirubin Total 0.6 mg/dL (0.2-1.0); Calcium 9.5 mg/dL (8.5-10.1); Carbon Dioxide 27.3 mmol/L (21.0-32.0); Chloride 104 mmol/L (98-107); Estimated GFR (African America >60 (>=60 mL/min/1.73m^2); Estimated GFR (Non-African Ame >60 (>=60 mL/min/1.73m^2); Globulin 3.7 g/dL; Glucose 94 mg/dL (74-106); Potassium 4.5 mmol/L (3.5-5.1); Sodium 140 mmol/L (136-145); Total Protein 7.8 g/dL (6.4-8.2)
== END 2024-10-14 08:51 | disposition home or self-care (01) ==
PROVIDERS: PCP Family Medicine; Visit Provider Family Medicine
DX: R74.8 Abnormal levels of other serum enzymes (principal)
CPT/HCPCS: 36415; 80053

== ENCOUNTER 2024-10-20 07:25 | Outpatient (OUT) | payer BC, SELFPAY ==
--- NOTE | 2024-10-20 07:27 | US_ITS ---
The [address] [address] Patient Name: KAYLA SAVAGE MRN: [id number] date: 1985 Sex: M Assigned Patient Location: [place] Current Patient Location: [place] Accession/Order Number: [id number] Exam Date: 10/20/2024 10:08 Report Date: 10/20/2024 10:11 At the request of: VARUN DENTON Procedure: US right upper quadrant LIMITED RIGHT UPPER QUADRANT ULTRASOUND CLINICAL HISTORY: Elevated Liver Enzymes COMPARISON: None The gallbladder is physiologically distended without shadowing calculi, wall thickening or pericholecystic fluid. No intra- or extrahepatic biliary dilatation is evident. The common duct measures 2 - 3 mm. The liver is normal in echogenicity. No intrahepatic masses are seen. There is appropriate hepatopetal flow within the main portal vein. The visualized portions of pancreas show no significant sonographic abnormality. Cursory evaluation of the right kidney reveals no hydronephrosis or fluid within Dahl's pouch. US/US right upper quadrant IMPRESSION: NEGATIVE ULTRASOUND OF THE RIGHT UPPER QUADRANT. Impression dictated by: Mona Villeda M.D.10/20/2024 10:11 AM Dictation Location: [place] [address] Electronically authenticated by: [id number] Y Date: 10/20/2024 10:11
--- OUTSIDE RECORDS SUMMARY | 2024-10-20 07:46 | XMS_ITS | CCD ---
Author Organization [facility] Care Team Providers Care Screen Cleaner Name Role Phone BERTIN, DR BOND Attending [...] reactions to drug 3 Other: See Comments [facility] (4 sources) Citalopram Drug Allergy 3 Unknown Reaction, sensitivity [facility] Medications Completed/Discontinued Medications Medication Drug Class(es) Dates Sig (Normalized) Sig (Original) acetaminophen 325 mg / HYDROcodone bitartrate 5 mg oral tablet (4 sources) Opioid Agonist Start: 03-24-2018 End: 04-10-2024 take 1 tablet by mouth every four to six hours as needed for pain Hydrocodone-Acetamin ophen ([place]) 5-325 mg tablet Discontinued 1 TAB PO [...] Basophils (Bld) [#/Vol] 0.1 10 3/uL 0.0-0.1 [facility] Basophils/100 WBC Auto (Bld) on 04-14-2024 Basophils/100 WBC (Bld) 1.1 % 0.2-2.0 [facility] Cholesterol in LDL Calc [Mas s/Vol]on 04-14-2024 Cholesterol in LDL [Mass/Vol] 99.0 mg/dL [facility] Comment on above: <100 mg/dl [id number] 0-129 mg/dl NEAR OR ABOVE [id number] mg/dl BORDERLINE [id number] mg/dl HIGH>190 mg/dl VERY HIGH Cholesterol in VLDL Calc [Ma ss/Vol]on 04-14-2024 Cholesterol in VLDL [Mass/Vol] 8.0 mg/dL [facility] Eosinophils/100 WBC Auto (Bl d)on 04-14-2024 Eosinophils/100 WBC (Bld) 8.5 % High 0.9-7.0 [facility] Erythrocyte distribution wid th Auto (RBC) [Ratio]on 04-14-2024 Erythrocyte distribution width (RBC) [Ratio] 13.2 % 11.0-15.0 [facility] Estimated glomerular filtrat ion rate (GFR) non- Americanon 04-14-2024 GFR/1.73 sq M.predicted among non-blacks MDRD (S/P/Bld) [Vol rate/Area] 60 mL/min/{1.73_m2} >=60 [facility] Globulin Calc (S) [Mass/Vol] on 04-14-2024 Globulin (S) [Mass/Vol] 3.6 g/dL [facility] Hematocrit Auto (Bld) [Volum e fraction]on 04-14-2024 Hematocrit (Bld) [Volume fraction] 42.9 % 42.0-54.0 [facility] Hemoglobin [Mass/volume] in Bloodon 04-14-2024 Hemoglobin (Bld) [Mass/Vol] 14.4 g/dL 14.0-18.0 [facility] Laboratory - Chemistry and C hemistry - challengeon 04-14-2024 Bilirubin Ql (U) Negative NEGATIVE [facility] Glucose (U) [Mass/Vol] Negative NEGATIVE [facility] Ketones Ql (U) Negative NEGATIVE [facility] pH (U) 7.0 [pH] 5.0-9.0 [facility] Specific gravity (U) [Rel density] 1.015 1.005-1.025 [facility] Urobilinogen Qn (U) 0.2 {Rosa'U}/dL 0.2-1.0 [facility] Albumin [Mass/Vol] 4.2 g/dL 3.4-5.0 [facility] ALP [Catalytic activity/Vol] 81 U/L 46-116 [facility] ALT [Catalytic activity/Vol] 57 U/L 16-63 [facility] AST [Catalytic activity/Vol] 43 U/L High 15-37 [facility] Bilirubin [Mass/Vol] 0.5 mg/dL 0.2-1.0 [facility] Calcium [Mass/Vol] 9.1 mg/dL 8.5-10.1 [facility] Chloride [Moles/Vol] 103 mmol/L 98-107 [facility] Cholesterol [Mass/Vol] 160 mg/dL <=200 [facility] Cholesterol in HDL [Mass/Vol] 53 mg/dL 40-60 [facility] Comment on above: > or =60 mg/dl - LOW CARDIOVASCULAR RISK<40 mg/dl - HIGH CARDIOVASCULAR RISK CO2 [Moles/Vol] 24.8 mmol/L 21.0-32.0 [facility] Creatinine [Mass/Vol] 1.32 mg/dL High 0.70-1.30 [facility] GFR/1.73 sq M.predicted MDRD (S/P/Bld) [Vol rate/Area] mL/min/{1.73_m2} >=60 [facility] Glucose [Mass/Vol] 96 mg/dL 74-106 [facility] Potassium [Moles/Vol] 4.7 mmol/L 3.5-5.1 [facility] Protein [Mass/Vol] 7.8 g/dL 6.4-8.2 [facility] Sodium [Moles/Vol] 138 mmol/L 136-145 [facility] Triglyceride [Mass/Vol] 40 mg/dL <=150 [facility] TSH Qn 0.821 m[IU]/L 0.358-3.740 [facility] Urea nitrogen [Mass/Vol] 21.0 mg/dL High 7.0-18.0 [facility] Urea nitrogen/Creatinine [Mass ratio] 15.9 mg/mg [facility] Laboratory - Hematology and Cell countson 04-14-2024 Immature granulocytes/100 WBC (Bld) 0.2 % 0.0-0.5 [facility] Laboratory - Specimen inform ationon 04-14-2024 Appearance (U) CLEAR CLEAR [facility] Color (U) LT. YELLOW YELLOW [facility] Laboratory - Urinalysison Leukocyte esterase Test strip Ql (U) Negative NEGATIVE [facility] Mucus Ql (Urine sed) TRACE Abnormal NONE SEEN [facility] Nitrite Ql (U) Negative NEGATIVE [facility] Protein Ql (U) Negative NEG/TRACE [facility] Leukocytes [#/volume] correc michelle for nucleated erythrocytes in Blood by Automated counon 04-14-2024 WBC corrected for nucl RBC Auto (Bld) [#/Vol] 5.5 10 3/uL 4.0-11.0 [facility] Lymphocytes Auto (Bld) [#/Vo l]on 04-14-2024 Lymphocytes (Bld) [#/Vol] 1.6 10 3/uL 1.2-3.8 [facility] Lymphocytes/100 WBC Auto (Bl d)on 04-14-2024 Lymphocytes/100 WBC (Bld) 29.1 % 20.5-60.0 [facility] MCH Auto (RBC) [Entitic mass ]on 04-14-2024 MCH (RBC) [Entitic mass] 29.1 pg 25.9-34.0 [facility] MCHC Auto (RBC) [Mass/Vol]on 04-14-2024 MCHC (RBC) [Mass/Vol] 33.6 g/dL 29.9-35.2 [facility] MCV Auto (RBC) [Entitic vol] on 04-14-2024 MCV (RBC) [Entitic vol] 86.7 fL 80.0-94.0 [facility] Monocytes Auto (Bld) [#/Vol] on 04-14-2024 Monocytes (Bld) [#/Vol] 0.5 10 3/uL 0.3-0.8 [facility] Monocytes/100 WBC Auto (Bld) on 04-14-2024 Monocytes/100 WBC (Bld) 9.8 % 1.7-12.0 [facility] Neutrophils Auto (Bld) [#/Vo l]on 04-14-2024 Neutrophils (Bld) [#/Vol] 2.8 10 3/uL 1.4-6.5 [facility] Neutrophils/100 WBC Auto (Bl d)on 04-14-2024 Neutrophils/100 WBC (Bld) 51.3 % 43.0-75.0 [facility] No Panel Informationon 04-14 Urine Bacteria TRACE #/HPF Abnormal NONE SEEN [facility] Urine Culture Reflexed NO [facility] Urine Occult Blood Negative NEGATIVE [facility] Urine Other Casts NONE SEEN #/LPF NONE SEEN [facility] Urine Other Crystals None Seen #/HPF None Seen [facility] Urine RBC NONE SEEN #/HPF 0-2 [facility] Urine Squamous Epithelial Cells RARE #/LPF NONE/RARE [facility] Urine Transitional Epithelial Cells RARE #/LPF Abnormal NONE SEEN [facility] Urine WBC NONE SEEN #/HPF NONE SEEN [facility] Eosinophils # (Auto) 0.5 10 3/uL 0.0-0.7 [facility] Immature Granulocyte # (Auto) 0.01 10 3/uL 0.00-0.03 [facility] Prostate Specific Antigen Screen 0.86 ng/mL <=4.00 [facility] Platelet mean volume Auto (B ld) [Entitic vol]on 04-14-2024 Platelet mean volume (Bld) [Entitic vol] 10.1 fL 9.5-13.5 [facility] Platelets Auto (Bld) [#/Vol] on 04-14-2024 Platelets (Bld) [#/Vol] 266 10 3/uL 150-450 [facility] RBC Auto (Bld) [#/Vol]on RBC (Bld) [#/Vol] 4.95 10 6/uL 4.70-6.10 [facility] Serum or plasma albumin/glob ulin mass ratioon 04-14-2024 Albumin/Globulin [Mass ratio] 1.2 {ratio} [facility] Serum or plasma anion gap de terminationon 04-14-2024 Anion gap [Moles/Vol] 14.9 mmol/L [facility] Serum or plasma total choles terol/high density lipoprotein (HDL) cholesterol mass marie 04-14-2024 Cholesterol.total/Ch olesterol in HDL [Mass ratio] 3.0 {ratio} [facility] Comment on above: 3.3 - 4.4 LOW RISK4. 4 - 7.1 AVERAGE RISK7.1 - 11.0 MODERATE RISK>11.0 HIGH RISK CNOVon 04-05-2023 CNOV Office Visit (OTOLMN) ZACK SAVAGE ([id number]) 1985 M Date Time Provider Department 04/05/23 [...] seen by ENT close to home in [place] and he was treated with oral prednisone. [...] Status:Closed by MARY SOTO on 04/05/23 [facility] CNOV Office Visit (CDISMN) ZACK SAVAGE ([id number]) 1985 M Date Time Provider Department 04/05/23 3:00 PM LO HOPE CDIN During your visit today, we recorded the following information about you: Lo Hope AUD 04/05/2023 3:54 PM Signed [facility] AUDIOLOGIC EVALUATION REPORT Name: Zack Savage CCF#: [id number] Date of Service: 04/05/2023 Date of : 1985 Age: [age] year old Referred by: Mary Soto MD [address] [facility] [address] Referred for: Evaluation of suspected change in hearing, tinnitus, or balance. Referral documented: In an order in [facility] Patient's major complaints: Reduced hearing in the [...] or concerts. 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 CPT code: 43125 RIGHT EAR: Normal ME function. LEFT EAR: Normal ME function. ACOUSTIC REFLEXES Description of procedure: This test is an objective measure of auditory and facial nerve pathways. CPT code: 11058, 98372 RIGHT EAR PROBE EAR: (ipsi right stimulus [...] conduction and speech recognition testing. CPT code: 65708 RIGHT EAR: Hearing Sensitivity: within normal limits [...] enriched environment (more content not included)... [facility] Covid-19 PCR (CVDTBH)on 03-30 SARS-CoV-2 (COVID-19) RNA CHANDA+probe Ql (Unsp spec) Detected Critically abnormal NOT DETECTED [facility] Comment on above: Result Comment: This test is not yet approved or cleared by the [place] FDA. When there are no FDA-approved or cleared tests available, and other criteria are met, FDA can make tests available under an emergency access mechanism called an Emergency Use Authorization (EUA). The EUA for this test is supported by the Profile Trimmer of Health and Human Service's (HHS's) declaration [...] used). Performed By: #### C VDTB #### [facility] [address] [place] [address] Dr. Ronal Garcia Covid-19 PCR (CVDTB)on 06-30 SARS-CoV-2 (COVID-19) RNA CHANDA+probe Ql (Unsp spec) Detected Critically abnormal NOT DETECTED [facility] Comment on above: Result Comment: This test is not yet approved or cleared by the [place] FDA. When there are no FDA-approved or cleared tests available, and other criteria are met, FDA can make tests available under an emergency access mechanism called an Emergency Use Authorization (EUA). The EUA for this test is supported by the [place] of Health and Human Service's (HHS's) declaration [...] used). Performed By: #### C VDTB #### [facility] [address] [place] [address] Dr. Ronal Garcia Covid-19 PCR (CVDTB)on SARS-CoV-2 (COVID-19) RNA CHANDA+probe Ql (Unsp spec) Not detected Normal NOT DETECTED [facility] Comment on above: Result Comment: This test is not yet approved or cleared by the [place] FDA. When there are no FDA-approved or cleared tests available, and other criteria are met, FDA can make tests available under an emergency access mechanism called an Emergency Use Authorization (EUA). The EUA for this test is supported by the Profile Trimmer of Health and Human Service's (HHS's) declaration [...] consistent with SARS-CoV-2. Performed By: #### [facility] #### [facility] [address] [place] [address] Dr. Ronal Garcia Vital Signs Date Time Vital Sign Value Performing Clinician Faci lity 09-11-2024 16:00-0500 Body temperature 97 [degF] [facility] 09-11-2024 16:00-0500 Body weight 80.28 kg [facility] 09-11-2024 16:00-0500 Diastolic blood pressure 86 mm[Hg] [facility] 09-11-2024 16:00-0500 Heart rate 74 /min [facility] 09-11-2024 16:00-0500 SaO2% (BldA) [Mass fraction] 97 % [facility] 09-11-2024 16:00-0500 Systolic blood pressure 124 mm[Hg] [facility] 05-31-2024 15:19-0400 Body mass index (BMI) [Ratio] 25.1 kg/m2 [facility] 05-31-2024 15:19-0400 Body temperature 97.4 [degF] [facility] 05-31-2024 15:19-0400 Body weight 79.37 kg [facility] 05-31-2024 15:19-0400 Diastolic blood pressure 64 mm[Hg] [facility] 05-31-2024 15:19-0400 Heart rate 72 /min [facility] 05-31-2024 15:19-0400 Respiratory rate 18 /min [facility] 05-31-2024 15:19-0400 SaO2% (BldA) [Mass fraction] 99 % [facility] 05-31-2024 15:19-0400 Systolic blood pressure 116 mm[Hg] [facility] 05-31-2024 14:05-0400 Body height 177.8 cm [facility] 04-10-2024 15:39-0400 Body height 177.8 cm [facility] 04-10-2024 15:39-0400 Body mass index (BMI) [Ratio] 24.5 kg/m2 [facility] 04-10-2024 15:39-0400 Body temperature 97.6 [degF] [facility] 04-10-2024 15:39-0400 Body weight 77.56 kg [facility] 04-10-2024 15:39-0400 Diastolic blood pressure 80 mm[Hg] [facility] 04-10-2024 15:39-0400 Heart rate 69 /min [facility] 04-10-2024 15:39-0400 SaO2% (BldA) [Mass fraction] 97 % [facility] 04-10-2024 15:39-0400 Systolic blood pressure 124 mm[Hg] [facility] Encounters Encounter Date Encounter Type Care Provider Facility Start: 09-11-2024 End: 09-11-2024 ambulatory [facility] Work Phone: Start: 09-11-2024 End: 09-11-2024 Patient encounter procedure [facility] [place] Work Phone: Start: 05-31-2024 End: 05-31-2024 ambulatory [facility] Work Phone: Start: 05-31-2024 End: 05-31-2024 Patient encounter procedure [facility] [place] Work Phone: Start: 04-14-2024 Non-patient / Non-visit [facility] Work Phone: Start: 04-10-2024 Patient encounter status [facility] Start: 04-10-2024 End: 04-10-2024 ambulatory [facility] Work Phone: Start: 04-10-2024 End: 04-10-2024 Encounter for general adult medical examination without abnormal findings [facility] Start: 04-10-2024 End: 04-10-2024 Patient encounter procedure [facility] [place] Work Phone: Start: 04-05-2023 End: 04-05-2023 ambulatory MARY SOTO Facility:[facility] Start: 04-05-2023 End: 04-05-2023 Patient encounter procedure [...] Only Lo Shanae Ryan Student Work Phone: [facility] Comment on above: Other specified hear ing loss, unspecified ear (Primary Dx) Start: 03-11-2023 Orders Only Mary Soto MD Work Phone: [facility] Comment on above: Other specified hear ing loss, unspecified ear (Primary Dx) Start: 04-09-2022 End: 04-09-[address] VARUN DENTON Facility:[facility] Start: 07-09-2021 End: 07-09-[address] VARUN DENTON Facility:[facility] Start: 07-02-2021 End: 07-02-[address] VARUN DENTON Facility:[facility] Procedures Date Procedure Procedure Detail Performing Clinician Start: 04-05-2023 HEARING TEST/AUDIOGRAM Lo Shanae RYAN Work Phone: Plan of Treatment Date Care Activity Detail Author Start: 09-11-2024 Patient referral [facility] Work Phone: Start: 04-30-2023 Influenza vaccination INFLUENZA (#1) [facility] Start: 08-30-2022 DEPRESSION ASSESSMENT DEPRESSION ASS ESSMENT [facility] Start: 2018 LIPID SCREEN LIPID SCREEN [facility] Start: 2002 Urine microalbumin profile DTAP,TDAP,TD (1 - Tdap) [facility] Start: 2001 HEPATITIS C SCREENING HEPATITIS C SC YADY [facility] Start: 2001 HIV SCREENING HIV SCREENING [facility] Start: 1985 COVID-19 VACCINE (#1) COVID-19 VACCI NE (#1) [facility] Start: 1985 HEPATITIS B (1 of 3 - 3-dose series) HEPATITIS B (1 of 3 - 3-dose series) [facility] Comprehensive metabo lic 1999 panel - Serum or Plasma [facility] Comprehensive metabo lic 1999 panel - Serum or Plasma [facility] metabo lic 1999 panel - Serum or Plasma [facility] End: 03-11-2024 HEARING TEST/AUDIOGRAM HEARING TEST/AUDIOGRAM Audiology Routine Other specified hearing loss, unspecified ear 1 Occurrences starting 03/11/2023 until 03/11/2024 [facility] Work Phone: Comment on above: 1 Occurrences starti ng 03/11/2023 until 03/11/2024 End: 03-15-2024 HEARING TEST/AUDIOGRAM HEARING TEST/AUDIOGRAM Audiology Routine Other specified hearing loss, unspecified ear 1 Occurrences starting 03/15/2023 until 03/15/2024 [facility] Work Phone: Comment on above: 1 Occurrences starti ng 03/15/2023 until 03/15/2024 Patient referral [facility] Work Phone: [facility] Payers Date Payer Category Payer Private Health Insurance [facility] [employer] CHO[employer] PLUS [id number] 2017-Present [phone] [address] [address] [place] [address] HMO [id number] 1985 Unknown [id number] 1985 Unknown [id number] 1985 Unknown [id number] 1961 Unknown [id number] Private Health Insurance [facility] [id number] Self-pay Self Pay [id number] Unknown Other1 (STD) [id number] Unknown [place] BC/BS [id number] Social History Date Type Detail Facility Tobacco smoking status [facility] Tobacco smoking consumption unknown [facility] Start: 1985 Sex Assigned At Not on file [facility] Start: 04-05-2023 Gender identity Not on file [facility] Start: 04-05-2023 End: 09-11-2024 Tobacco smoking status LAIS Ex-smoker [facility] End: 08-30-2007 History of tobacco use Current smoker [facility] End: 08-30-2007 History of tobacco use Cigarette Smoker [facility] Start: 04-05-2023 Tobacco use and exposure Smokeless tobacco non-user [facility] Start: 04-05-2023 History of Social function [facility] National Score (1-100), lower number is lower risk 87 [facility] Start: 1985 Sex Assigned At Male F [facility] Start: 09-11-2024 End: 09-11-2024 Sex Male (finding) [facility] Clinical Notes 04-05-2023 to 09-11-2024 Note Date & Type Note Facility 09-11-2024 Hospital Discharg e instructions Ambulatory OrdersReferral to ENT Time Frame: 09/11/24, Location: None Selected [facility] Work Phone: 04-10-2024 Evaluation note Authored April 10, 2024 4: 54pm The above note written by __ _Selwyn Marques____ acting as human recorder, note dictated by Dr. Billy .I performed the above HPI, ROS, and Examination. I formulated and dictated the treatment plan and was present for entire encounter. Varun Denton D.O. [facility] Work Phone: [phone]) 870-365608-07-2023 NoteHNO ID: [id number] Author: Mary Soto MD Service: ? Author [...] seen by ENT close to home in [place] and he was treated with oral prednisone. [...] or thyroid masses or enlargement. Mary Soto [facility]08-07-2023 NoteHNO ID: [id number] Author: Lo Hope AUD Service: ? Author Type: Telephonic Nurse Case Manager Type: Progress Notes Filed: 04/05/2023 3:54 PM Note Text: [facility] AUDIOLOGIC EVALUATION REPORT Name: Zack Savage CCF#: [id number] Date of Service: 04/05/2023 Date of : 1985 Age: [age] year old Referred by: Mary Soto MD [address] [facility] [address] Referred for: Evaluation of suspected change in hearing, tinnitus, or balance. Referral documented: In an order in [facility] Patient's major complaints: Reduced hearing in the [...] or concerts. 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 CPT code: 93871 RIGHT EAR: Normal ME function. LEFT EAR: Normal ME function. ACOUSTIC REFLEXES Description of procedure: This test is an objective measure of auditory and facial nerve pathways. CPT code: 81794, 73970 RIGHT EAR PROBE EAR: (ipsi right stimulus [...] conduction and speech recognition testing. CPT code: 30963 RIGHT EAR: Hearing Sensitivity: within normal limits [...] scheduling an Individual Tinnitus (more content not included)...[facility]08-07-2023 History of Present illness Narrative* Mary Soto [...] seen by ENT close to home in [place] and he was treated with oral prednisone. [...] enlargement. [facility] Note* Irma Reyes RN - 04/05/2023 3:49 PM EDT Tobacco Use: Quit 08/30/2007. Types: Cigarettes Was smoking cessation packet given? N/A - Patient is a non-smoker or quit >1 year ago. Was a referral initiated?N/A Patient is a non-smoker [facility] History of Present illness Narrative* Lo Hope AUD - 04/05/2023 3:00 PM EDT [facility] AUDIOLOGIC EVALUATION REPORT Name: Zack Savage CCF#: [id number] Date of Service: 04/05/2023 Date of : 1985 Age: [age] year old Referred by: Mary Soto MD [address] [facility] [address] Referred for: Evaluation of suspected change in hearing, tinnitus, or balance. Referral documented: In an order in [facility] Patient's major complaints: Reduced hearing in the [...] or concerts. 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 CPT code: 66341 RIGHT EAR: Normal ME function. LEFT EAR: Normal ME function. ACOUSTIC REFLEXES Description of procedure: This test is an objective measure of auditory and facial nerve pathways. CPT code: 67736, 41953 RIGHT EAR PROBE EAR: (ipsi right stimulus [...] boneconduction and speech recognition testing. CPT code: 63324 RIGHT EAR: Hearing Sensitivity: within normal limits [...] schedulingan Individual Tinnitus Evaluation with audiology. Call [phone] ext [phone] to schedule. * Re-evaluation as medically indicated or if a change in hearing is noted. Celestino Up, MITA-A Clinical Telephonic Nurse Case Manager HENRIQUEZ Abbrev- iation Definition Degree of hearing sensitivity dB range WNL within normal limits WNL 0 - 20 SNHL sensorineural hearing loss Mild 20-40 CHL conductive hearing loss Moderate 40-55 MHL mixed hearing loss Moderately-Severe 55-70 WRS word recognition score Severe 70-90 ME middle ear Profound 90 + TM tympanic membrane [facility] Diagnosis Other specified hearing loss, unspecified ear- Primary documented in this encounter [facility] note* Diagnosis Tinnitus, right ear- Primary Sensorineural hearing loss (SNHL) of right ear with unrestricted hearing of left ear Ear pressure, right Dizziness Dizziness and giddiness documented in this encounter [facility] note* Diagnosis Sensorineural hearing loss (SNHL) of right ear with unrestricted hearing of left ear- Primary documented in this encounter [facility] note* Diagnosis Onset Date Resolution Status Fatigue acute Stress acute Tinnitus acute Wellness examination acute [facility] Work Phone: Evaluation noteNo assessment information available [facility] Work Phone: Summary Purpose Family History Relationship [...] SP RECOGNIJ Mary Soto MD [address], [place] [address] [facility] [address] [place] [address] Referral ID Status Reason Start Date Expiration Date Visits Requested Visits Authorized [id number] Authorized Auto-Generat ed Referral 03/11/2023 03/11/2024 1 1 Specialty Diagnoses / Procedures Referred By Contac t Referred To Contact Diagnoses Other specified hearing loss, unspecified ear Procedures HEARING TEST/AUDIOGRAM COMPRE AUDIOMETRY THRESHOLD EVAL [facility] [address] [place] [address] [facility] [address] [place] [address] Referral ID Status Reason Start Date Expiration Date Visits Requested Visits Authorized [id number] Authorized Auto-Generat ed Referral 03/15/2023 03/15/2024 1 1 Specialty Diagnoses / Procedures Referred By Priyanka t Referred To Contact Procedures HEARING TEST/AUDIOGRAM COMPRE AUDIOMETRY THRESHOLD EVAL SP [facility] [address] [address] [facility] [address] [place] [address] Referral ID Status Reason Start Date Expiration Date Visits Requested Visits Authorized [id number] Pending Review Auto-Generat ed Referral 04/05/2023 04/05/2024 [...] DATE CREATED AUTHOR AUTHOR'S ORGANIZ ATION 04/06/2023 [facility] Source Comments (unrecognize d section and content) In the event this informatio n is protected by the Federal Confidentiality of Alcohol and Drug Abuse Patient Records regulations: The Federal rules restrict any use of the information to criminally investigate or prosecute any alcohol or drug abuse patient.[facility] the event this information is protected by the Federal Confidentiality of Alcohol and Drug Abuse Patient Records regulations: The Federal rules restrict any use of the information to criminally investigate or prosecute any alcohol or drug abuse patient.[facility] the event this information is protected by the Federal Confidentiality of Alcohol and Drug Abuse Patient Records regulations: The Federal rules restrict any use of the information to criminally investigate or prosecute any alcohol or drug abuse patient.[facility] the event this information is protected by the Federal Confidentiality of Alcohol and Drug Abuse Patient Records regulations: The Federal rules restrict any use of the information to criminally investigate or prosecute any alcohol or drug abuse patient.[facility] Reason for Visit (unrecogniz ed section and content) Reason Comments Ringing In Ear(s) Specialty Diagnoses / Procedures Referred By Contac t Referred To Contact Diagnoses Other specified hearing loss, unspecified ear Procedures HEARING TEST/AUDIOGRAM COMPRE AUDIOMETRY THRESHOLD EVAL SP RECOGNIJ Mary Soto MD [address] [place] [address] [facility] [address] [place] [address] Referral ID Status Reason Start Date Expiration Date V isits Requested Visits Authorized [id number] Closed Auto-Generate d Referral 03/11/2023 03/11/2024 1 [...] BE BASED ON THE PRIMARY CLINICAL RECORDS. [facility] [employer] [facility]. provides no warranty or guarantee of the accuracy or completeness of information in this document.
== END 2024-10-20 07:26 | disposition home or self-care (01) ==
LOC: US 07:25
PROVIDERS: PCP Family Medicine; Visit Provider Family Medicine
DX: R74.8 Abnormal levels of other serum enzymes (principal)
CPT/HCPCS: 76705

== ENCOUNTER 2024-11-04 08:28 | Outpatient (OUT) | payer BC, SELFPAY ==
--- OUTSIDE RECORDS SUMMARY | 2024-11-04 08:32 | XMS_ITS | CCD ---
Author Organization [facility] Care Team Providers Care Falsework Builder Name Role Phone BERTIN, DR BOND Attending Unavailable GIRVIN, DR BOND Admitting Unavailable GIRELIUD, DR BOND [...] reactions to drug 3 Other: See Comments [facility] (4 sources) Citalopram Drug Allergy 3 Unknown Reaction, sensitivity [facility] Medications Completed/Discontinued Medications Medication Drug Class(es) Dates Sig (Normalized) Sig (Original) acetaminophen 325 mg / HYDROcodone bitartrate 5 mg oral tablet (4 sources) Opioid Agonist Start: 03-24-2018 End: 04-10-2024 take 1 tablet by mouth every four to six hours as needed for pain Hydrocodone-Acetamin ophen ([place]) 5-325 mg tablet Discontinued 1 TAB PO [...] Basophils (Bld) [#/Vol] 0.1 10 3/uL 0.0-0.1 [facility] Basophils/100 WBC Auto (Bld) on 04-14-2024 Basophils/100 WBC (Bld) 1.1 % 0.2-2.0 [facility] Cholesterol in LDL Calc [Mas s/Vol]on 04-14-2024 Cholesterol in LDL [Mass/Vol] 99.0 mg/dL [facility] Comment on above: <100 mg/dl [id number] 0-129 mg/dl NEAR OR ABOVE [id number] mg/dl BORDERLINE [id number] mg/dl HIGH>190 mg/dl VERY HIGH Cholesterol in VLDL Calc [Ma ss/Vol]on 04-14-2024 Cholesterol in VLDL [Mass/Vol] 8.0 mg/dL [facility] Eosinophils/100 WBC Auto (Bl d)on 04-14-2024 Eosinophils/100 WBC (Bld) 8.5 % High 0.9-7.0 [facility] Erythrocyte distribution wid th Auto (RBC) [Ratio]on 04-14-2024 Erythrocyte distribution width (RBC) [Ratio] 13.2 % 11.0-15.0 [facility] Estimated glomerular filtrat ion rate (GFR) non- Americanon 04-14-2024 GFR/1.73 sq M.predicted among non-blacks MDRD (S/P/Bld) [Vol rate/Area] 60 mL/min/{1.73_m2} >=60 [facility] Globulin Calc (S) [Mass/Vol] on 04-14-2024 Globulin (S) [Mass/Vol] 3.6 g/dL [facility] Hematocrit Auto (Bld) [Volum e fraction]on 04-14-2024 Hematocrit (Bld) [Volume fraction] 42.9 % 42.0-54.0 [facility] Hemoglobin [Mass/volume] in Bloodon 04-14-2024 Hemoglobin (Bld) [Mass/Vol] 14.4 g/dL 14.0-18.0 [facility] Laboratory - Chemistry and C hemistry - challengeon 04-14-2024 Bilirubin Ql (U) Negative NEGATIVE [facility] Glucose (U) [Mass/Vol] Negative NEGATIVE [facility] Ketones Ql (U) Negative NEGATIVE [facility] pH (U) 7.0 [pH] 5.0-9.0 [facility] Specific gravity (U) [Rel density] 1.015 1.005-1.025 [facility] Urobilinogen Qn (U) 0.2 {Rosa'U}/dL 0.2-1.0 [facility] Albumin [Mass/Vol] 4.2 g/dL 3.4-5.0 [facility] ALP [Catalytic activity/Vol] 81 U/L 46-116 [facility] ALT [Catalytic activity/Vol] 57 U/L 16-63 [facility] AST [Catalytic activity/Vol] 43 U/L High 15-37 [facility] Bilirubin [Mass/Vol] 0.5 mg/dL 0.2-1.0 [facility] Calcium [Mass/Vol] 9.1 mg/dL 8.5-10.1 [facility] Chloride [Moles/Vol] 103 mmol/L 98-107 [facility] Cholesterol [Mass/Vol] 160 mg/dL <=200 [facility] Cholesterol in HDL [Mass/Vol] 53 mg/dL 40-60 [facility] Comment on above: > or =60 mg/dl - LOW CARDIOVASCULAR RISK<40 mg/dl - HIGH CARDIOVASCULAR RISK CO2 [Moles/Vol] 24.8 mmol/L 21.0-32.0 [facility] Creatinine [Mass/Vol] 1.32 mg/dL High 0.70-1.30 [facility] GFR/1.73 sq M.predicted MDRD (S/P/Bld) [Vol rate/Area] mL/min/{1.73_m2} >=60 [facility] Glucose [Mass/Vol] 96 mg/dL 74-106 [facility] Potassium [Moles/Vol] 4.7 mmol/L 3.5-5.1 [facility] Protein [Mass/Vol] 7.8 g/dL 6.4-8.2 [facility] Sodium [Moles/Vol] 138 mmol/L 136-145 [facility] Triglyceride [Mass/Vol] 40 mg/dL <=150 [facility] TSH Qn 0.821 m[IU]/L 0.358-3.740 [facility] Urea nitrogen [Mass/Vol] 21.0 mg/dL High 7.0-18.0 [facility] Urea nitrogen/Creatinine [Mass ratio] 15.9 mg/mg [facility] Laboratory - Hematology and Cell countson 04-14-2024 Immature granulocytes/100 WBC (Bld) 0.2 % 0.0-0.5 [facility] - Specimen inform ationon 04-14-2024 Appearance (U) CLEAR CLEAR [facility] Color (U) LT. YELLOW YELLOW [facility] Laboratory - Urinalysison Leukocyte esterase Test strip Ql (U) Negative NEGATIVE [facility] Mucus Ql (Urine sed) TRACE Abnormal NONE SEEN [facility] Nitrite Ql (U) Negative NEGATIVE [facility] Protein Ql (U) Negative NEG/TRACE [facility] Leukocytes [#/volume] correc michelle for nucleated erythrocytes in Blood by Automated counon 04-14-2024 WBC corrected for nucl RBC Auto (Bld) [#/Vol] 5.5 10 3/uL 4.0-11.0 [facility] Lymphocytes Auto (Bld) [#/Vo l]on 04-14-2024 Lymphocytes (Bld) [#/Vol] 1.6 10 3/uL 1.2-3.8 [facility] Lymphocytes/100 WBC Auto (Bl d)on 04-14-2024 Lymphocytes/100 WBC (Bld) 29.1 % 20.5-60.0 [facility] MCH Auto (RBC) [Entitic mass ]on 04-14-2024 MCH (RBC) [Entitic mass] 29.1 pg 25.9-34.0 [facility] MCHC Auto (RBC) [Mass/Vol]on 04-14-2024 MCHC (RBC) [Mass/Vol] 33.6 g/dL 29.9-35.2 [facility] MCV Auto (RBC) [Entitic vol] on 04-14-2024 MCV (RBC) [Entitic vol] 86.7 fL 80.0-94.0 [facility] Monocytes Auto (Bld) [#/Vol] on 04-14-2024 Monocytes (Bld) [#/Vol] 0.5 10 3/uL 0.3-0.8 [facility] Monocytes/100 WBC Auto (Bld) on 04-14-2024 Monocytes/100 WBC (Bld) 9.8 % 1.7-12.0 [facility] Neutrophils Auto (Bld) [#/Vo l]on 04-14-2024 Neutrophils (Bld) [#/Vol] 2.8 10 3/uL 1.4-6.5 [facility] Neutrophils/100 WBC Auto (Bl d)on 04-14-2024 Neutrophils/100 WBC (Bld) 51.3 % 43.0-75.0 [facility] No Panel Informationon 04-14 Urine Bacteria TRACE #/HPF Abnormal NONE SEEN [facility] Urine Culture Reflexed NO [facility] Urine Occult Blood Negative NEGATIVE [facility] Urine Other Casts NONE SEEN #/LPF NONE SEEN [facility] Urine Other Crystals None Seen #/HPF None Seen [facility] Urine RBC NONE SEEN #/HPF 0-2 [facility] Urine Squamous Epithelial Cells RARE #/LPF NONE/RARE [facility] Urine Transitional Epithelial Cells RARE #/LPF Abnormal NONE SEEN [facility] Urine WBC NONE SEEN #/HPF NONE SEEN [facility] Eosinophils # (Auto) 0.5 10 3/uL 0.0-0.7 [facility] Immature Granulocyte # (Auto) 0.01 10 3/uL 0.00-0.03 [facility] Prostate Specific Antigen Screen 0.86 ng/mL <=4.00 [facility] Platelet mean volume Auto (B ld) [Entitic vol]on 04-14-2024 Platelet mean volume (Bld) [Entitic vol] 10.1 fL 9.5-13.5 [facility] Platelets Auto (Bld) [#/Vol] on 04-14-2024 Platelets (Bld) [#/Vol] 266 10 3/uL 150-450 [facility] RBC Auto (Bld) [#/Vol]on RBC (Bld) [#/Vol] 4.95 10 6/uL 4.70-6.10 [facility] Serum or plasma albumin/glob ulin mass ratioon 04-14-2024 Albumin/Globulin [Mass ratio] 1.2 {ratio} [facility] Serum or plasma anion gap de terminationon 04-14-2024 Anion gap [Moles/Vol] 14.9 mmol/L [facility] Serum or plasma total choles terol/high density lipoprotein (HDL) cholesterol mass marie 04-14-2024 Cholesterol.total/Ch olesterol in HDL [Mass ratio] 3.0 {ratio} [facility] Comment on above: 3.3 - 4.4 LOW RISK4. 4 - 7.1 AVERAGE RISK7.1 - 11.0 MODERATE RISK>11.0 HIGH RISK CNOVon 04-05-2023 CNOV Office Visit (OTOLMN) ZACK SAVAGE ([id number]) 1985 M Date Time Provider Department 04/05/23 3:45 PM MARY SOOT OTOLMN During your visit today, we recorded [...] seen by ENT close to home in [place] and he was treated with oral prednisone. [...] Status:Closed by MARY SOTO on 04/05/23 Normal [facility] CNOV Office Visit (CDISMN) ZACK SAVAGE ([id number]) 1985 M Date Time Provider Department 04/05/23 3:00 PM LO HOPE CDIN During your visit today, we recorded the following information about you: Lo Hope AUD 04/05/2023 3:54 PM Signed [facility] [place] AUDIOLOGIC EVALUATION REPORT Name: Zack Savage CCF#: [id number] Date of Service: 04/05/2023 Date of : 1985 Age: [age] year old Referred by: Mary Soto MD [address] [facility] [address] Referred for: Evaluation of suspected change in hearing, tinnitus, or balance. Referral documented: In an order in [facility] Patient's major complaints: Reduced hearing in [...] or concerts. 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 CPT code: 68253 RIGHT EAR: Normal ME function. LEFT EAR: Normal ME function. ACOUSTIC REFLEXES Description of procedure: This test is an objective measure of auditory and facial nerve pathways. CPT code: 45898, 44376 RIGHT EAR PROBE EAR: (ipsi right stimulus [...] conduction and speech recognition testing. CPT code: 64483 RIGHT EAR: Hearing Sensitivity: within normal limits [...] enriched environment (more content not included)... Normal [facility] Covid-19 PCR (CVDTBH)on 03-30 SARS-CoV-2 (COVID-19) RNA CHANDA+probe Ql (Unsp spec) Detected Critically abnormal NOT DETECTED [facility] Comment on above: Result Comment: This test is not yet approved or cleared by the [place] FDA. When there are no FDA-approved or cleared tests available, and other criteria are met, FDA can make tests available under an emergency access mechanism called an Emergency Use Authorization (EUA). The EUA for this test is supported by the [place] of Health and Human Service's (HHS's) declaration [...] used). Performed By: #### C VDTB #### [facility] [address] [place] [address] Dr. Ronal Garcia Covid-19 PCR (CVDTB)on 06-30 SARS-CoV-2 (COVID-19) RNA CHANDA+probe Ql (Unsp spec) Detected Critically abnormal NOT DETECTED [facility] Comment on above: Result Comment: This test is not yet approved or cleared by the [place] FDA. When there are no FDA-approved or cleared tests available, and other criteria are met, FDA can make tests available under an emergency access mechanism called an Emergency Use Authorization (EUA). The EUA for this test is supported by the Technical Account Executive of Health and Human Service's (HHS's) declaration [...] used). Performed By: #### C VDTB #### [facility] [address] [place] [address] Dr. Ronal Garcia Covid-19 PCR (CVDTB)on SARS-CoV-2 (COVID-19) RNA CHANDA+probe Ql (Unsp spec) Not detected Normal NOT DETECTED [facility] Comment on above: Result Comment: This test is not yet approved or cleared by the [place] FDA. When there are no FDA-approved or cleared tests available, and other criteria are met, FDA can make tests available under an emergency access mechanism called an Emergency Use Authorization (EUA). The EUA for this test is supported by the Technical Account Executive of Health and Human Service's (HHS's) declaration [...] consistent with SARS-CoV-2. Performed By: #### [facility] #### [facility] [address] [place] [address] Dr. Ronal Garcia Vital Signs Date Time Vital Sign Value Performing Clinician Faci lity 09-11-2024 16:00-0500 Body temperature 97 [degF] [facility] 09-11-2024 16:00-0500 Body weight 80.28 kg [facility] 09-11-2024 16:00-0500 Diastolic blood pressure 86 mm[Hg] [facility] 09-11-2024 16:00-0500 Heart rate 74 /min [facility] 09-11-2024 16:00-0500 SaO2% (BldA) [Mass fraction] 97 % [facility] 09-11-2024 16:00-0500 Systolic blood pressure 124 mm[Hg] [facility] 05-31-2024 15:19-0400 Body mass index (BMI) [Ratio] 25.1 kg/m2 [facility] 05-31-2024 15:19-0400 Body temperature 97.4 [degF] [facility] 05-31-2024 15:19-0400 Body weight 79.37 kg [facility] 05-31-2024 15:19-0400 Diastolic blood pressure 64 mm[Hg] [facility] 05-31-2024 15:19-0400 Heart rate 72 /min [facility] 05-31-2024 15:19-0400 Respiratory rate 18 /min [facility] 05-31-2024 15:19-0400 SaO2% (BldA) [Mass fraction] 99 % [facility] 05-31-2024 15:19-0400 Systolic blood pressure 116 mm[Hg] [facility] 05-31-2024 14:05-0400 Body height 177.8 cm [facility] 04-10-2024 15:39-0400 Body height 177.8 cm [facility] 04-10-2024 15:39-0400 Body mass index (BMI) [Ratio] 24.5 kg/m2 [facility] 04-10-2024 15:39-0400 Body temperature 97.6 [degF] [facility] 04-10-2024 15:39-0400 Body weight 77.56 kg [facility] 04-10-2024 15:39-0400 Diastolic blood pressure 80 mm[Hg] [facility] 04-10-2024 15:39-0400 Heart rate 69 /min [facility] 04-10-2024 15:39-0400 SaO2% (BldA) [Mass fraction] 97 % [facility] 04-10-2024 15:39-0400 Systolic blood pressure 124 mm[Hg] [facility] Encounters Encounter Date Encounter Type Care Provider Facility Start: 09-11-2024 End: 09-11-2024 ambulatory [facility] Work Phone: Start: 09-11-2024 End: 09-11-2024 Patient encounter procedure [facility] [place] Work Phone: Start: 05-31-2024 End: 05-31-2024 ambulatory [facility] Work Phone: Start: 05-31-2024 End: 05-31-2024 Patient encounter procedure [facility] [place] Work Phone: Start: 04-14-2024 Non-patient / Non-visit [facility] Work Phone: Start: 04-10-2024 Patient encounter status [facility] Start: 04-10-2024 End: 04-10-2024 ambulatory [facility] Work Phone: Start: 04-10-2024 End: 04-10-2024 Encounter for general adult medical examination without abnormal findings [facility] Start: 04-10-2024 End: 04-10-2024 Patient encounter procedure [facility] [place] Work Phone: Start: 04-05-2023 End: 04-05-2023 ambulatory MARY SOTO Facility:[facility] Start: 04-05-2023 End: 04-05-2023 Patient encounter procedure [...] Only Lo Shanae Ryan Student Work Phone: [facility] [place] Comment on above: Other specified hear ing loss, unspecified ear (Primary Dx) Start: 03-11-2023 Orders Only Mary Soto MD Work Phone: [facility] [place] Comment on above: Other specified hear ing [...] Activity Detail Author Start: 09-11-2024 Patient referral [facility] Work Phone: Start: 04-30-2023 Influenza vaccination INFLUENZA (#1) [facility] Start: 08-30-2022 DEPRESSION ASSESSMENT DEPRESSION ASS ESSMENT [facility] Start: 2018 LIPID SCREEN LIPID SCREEN [facility] Start: 2002 Urine microalbumin profile DTAP,TDAP,TD (1 - Tdap) [facility] Start: 2001 HEPATITIS C SCREENING HEPATITIS C SC YADY [facility] Start: 2001 HIV SCREENING HIV SCREENING [facility] Start: 1985 COVID-19 VACCINE (#1) COVID-19 VACCI NE (#1) [facility] Start: 1985 HEPATITIS B (1 of 3 - 3-dose series) HEPATITIS B (1 of 3 - 3-dose series) [facility] Comprehensive metabo lic 1999 panel - Serum or Plasma [facility] Comprehensive metabo lic 1999 panel - Serum or Plasma [facility] metabo lic 1999 panel - Serum or Plasma [facility] End: 03-11-2024 HEARING TEST/AUDIOGRAM HEARING TEST/AUDIOGRAM Audiology Routine Other specified hearing loss, unspecified ear 1 Occurrences starting 03/11/2023 until 03/11/2024 [facility] Work Phone: Comment on above: 1 Occurrences starti ng 03/11/2023 until 03/11/2024 End: 03-15-2024 HEARING TEST/AUDIOGRAM HEARING TEST/AUDIOGRAM Audiology Routine Other specified hearing loss, unspecified ear 1 Occurrences starting 03/15/2023 until 03/15/2024 [facility] Work Phone: Comment on above: 1 Occurrences starti ng 03/15/2023 until 03/15/2024 Patient referral [facility] Work Phone: [facility] Payers Date Payer Category Payer Private Health Insurance [facility] UMR CHOICE PLUS [id number] 2017-Present [phone] [address] [address] [place] [address] HMO [id number] 1985 Unknown [id number] 1985 Unknown [id number] 1985 Unknown [id number] 1961 Unknown [id number] Private Health Insurance [facility] [id number] Self-pay Self Pay [id number] Unknown Other1 (STD) [id number] Unknown [place] [id number] Social History Date Type Detail Facility Tobacco smoking status RUST Tobacco smoking consumption unknown [facility] Start: 1985 Sex Assigned At Not on file [facility] Start: 04-05-2023 Gender identity Not on file [facility] Start: 04-05-2023 End: 09-11-2024 Tobacco smoking status NJIS Ex-smoker [facility] End: 08-30-2007 History of tobacco use Current smoker [facility] End: 08-30-2007 History of tobacco use Cigarette Smoker [facility] Start: 04-05-2023 Tobacco use and exposure Smokeless tobacco non-user [facility] Start: 04-05-2023 History of Social function [facility] National Score (1-100), lower number is lower risk 87 [facility] Start: 1985 Sex Assigned At Male F [facility] Start: 09-11-2024 End: 09-11-2024 Sex Male (finding) [facility] Clinical Notes 04-05-2023 to 09-11-2024 Note Date & Type Note Facility 09-11-2024 Hospital Discharg e instructions Ambulatory OrdersReferral to ENT Time Frame: 09/11/24, Location: None Selected [facility] Work Phone: 04-10-2024 Evaluation note Authored April 10, 2024 4: 54pm The above note written by __ _Selwyn Marques____ acting as human recorder, note dictated by Dr. Billy .I performed the above HPI, ROS, and Examination. I formulated and dictated the treatment plan and was present for entire encounter. Varun Denton D.O. [facility] Work Phone: 1(485) 263-225508-07-2023 NoteHNO ID: [id number] Author: Mary Soto MD Service: ? Author [...] seen by ENT close to home in [place] and he was treated with oral prednisone. [...] or thyroid masses or enlargement. Mary Soto [facility]08-07-2023 NoteHNO ID: [id number] Author: Lo Hope AUD Service: ? Author Type: Industrial Tech Instructor Type: Progress Notes Filed: 04/05/2023 3:54 PM Note Text: [facility] [place] AUDIOLOGIC EVALUATION REPORT Name: Zack Savage CCF#: [id number] Date of Service: 04/05/2023 Date of : 1985 Age: [age] year old Referred by: Mary Soto MD [address] [facility] [address] Referred for: Evaluation of suspected change in hearing, tinnitus, or balance. Referral documented: In an order in [facility] Patient's major complaints: Reduced hearing in [...] or concerts. 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 CPT code: 56331 RIGHT EAR: Normal ME function. LEFT EAR: Normal ME function. ACOUSTIC REFLEXES Description of procedure: This test is an objective measure of auditory and facial nerve pathways. CPT code: 77480, 51651 RIGHT EAR PROBE EAR: (ipsi right stimulus [...] conduction and speech recognition testing. CPT code: 79450 RIGHT EAR: Hearing Sensitivity: within normal limits [...] scheduling an Individual Tinnitus (more content not included)...[facility]08-07-2023 History of Present illness Narrative* [...] seen by ENT close to home in [place] and he was treated with oral prednisone. [...] enlargement. Mary Soto MD [facility] Nurse Note* Irma Reyes RN - 04/05/2023 3:49 PM EDT Tobacco Use: Quit 08/30/2007. Types: Cigarettes Was smoking cessation packet given? N/A - Patient is a non-smoker or quit >1 year ago. Was a referral initiated?N/A Patient is a non-smoker [facility] History of Present illness Narrative* Lo Hope AUD - 04/05/2023 3:00 PM EDT [facility] [place] AUDIOLOGIC EVALUATION REPORT Name: Zack Savage CCF#: [id number] Date of Service: 04/05/2023 Date of : 1985 Age: [age] year old Referred by: Mary Soto MD [address] [facility] [address] Referred for: Evaluation of suspected change in hearing, tinnitus, or balance. Referral documented: In an order in [facility] Patient's major complaints: Reduced hearing in [...] or concerts. 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 CPT code: 65090 RIGHT EAR: Normal ME function. LEFT EAR: Normal ME function. ACOUSTIC REFLEXES Description of procedure: This test is an objective measure of auditory and facial nerve pathways. CPT code: 23008, 23666 RIGHT EAR PROBE EAR: (ipsi right stimulus [...] boneconduction and speech recognition testing. CPT code: 67369 RIGHT EAR: Hearing Sensitivity: within normal limits [...] schedulingan Individual Tinnitus Evaluation with audiology. Call [phone] ext [phone] to schedule. * Re-evaluation as medically indicated or if a change in hearing is noted. Celestino Up, MITA-A Clinical Industrial Tech Instructor HENRIQUEZ Abbrev- iation Definition Degree of hearing sensitivity dB range WNL within normal limits WNL 0 - 20 SNHL sensorineural hearing loss Mild 20-40 CHL conductive hearing loss Moderate 40-55 MHL mixed hearing loss Moderately-Severe 55-70 WRS word recognition score Severe 70-90 ME middle ear Profound 90 + TM tympanic membrane [facility] Diagnosis Other specified hearing loss, unspecified ear- Primary documented in this encounter [facility] note* Diagnosis Tinnitus, right ear- Primary Sensorineural hearing loss (SNHL) of right ear with unrestricted hearing of left ear Ear pressure, right Dizziness Dizziness and giddiness documented in this encounter [facility] note* Diagnosis Sensorineural hearing loss (SNHL) of right ear with unrestricted hearing of left ear- Primary documented in this encounter [facility] note* Diagnosis Onset Date Resolution Status Fatigue acute Stress acute Tinnitus acute Wellness examination acute [facility] Work Phone: Evaluation noteNo assessment information available [facility] Work Phone: Summary Purpose Family [...] SP RECOGNIJ Mary Soto MD [address], [place] [address] [facility] [address] [place] [address] Referral ID Status Reason Start Date Expiration Date Visits Requested Visits Authorized [id number] Authorized Auto-Generat ed Referral 03/11/2023 03/11/2024 1 1 Specialty Diagnoses / Procedures Referred By Contac t Referred To Contact Diagnoses Other specified hearing loss, unspecified ear Procedures HEARING TEST/AUDIOGRAM COMPRE AUDIOMETRY THRESHOLD EVAL SP RECOGNIJ [facility] [address] [place] [address] [facility] [address] [place] [address] Referral ID Status Reason Start Date Expiration Date Visits Requested Visits Authorized [id number] Authorized Auto-Generat ed Referral 03/15/2023 03/15/2024 1 1 Specialty Diagnoses / Procedures Referred By Priyanka t Referred To Contact Procedures HEARING TEST/AUDIOGRAM COMPRE AUDIOMETRY THRESHOLD EVAL SP RECOGNIJ [facility] [address] [address] [facility] [address] [place] [address] Referral ID Status Reason Start Date Expiration Date Visits Requested Visits Authorized [id number] Pending Review Auto-Generat ed Referral 04/05/2023 04/05/2024 [...] DATE CREATED AUTHOR AUTHOR'S ORGANIZ ATION 04/06/2023 [facility] Source Comments (unrecognize d section and content) In the event this informatio n is protected by the Federal Confidentiality of Alcohol and Drug Abuse Patient Records regulations: The Federal rules restrict any use of the information to criminally investigate or prosecute any alcohol or drug abuse patient.[facility] HospitalIn the event this information is protected by the Federal Confidentiality of Alcohol and Drug Abuse Patient Records regulations: The Federal rules restrict any use of the information to criminally investigate or prosecute any alcohol or drug abuse patient.[facility] HospitalIn the event this information is protected by the Federal Confidentiality of Alcohol and Drug Abuse Patient Records regulations: The Federal rules restrict any use of the information to criminally investigate or prosecute any alcohol or drug abuse patient.[facility] HospitalIn the event this information is protected by the Federal Confidentiality of Alcohol and Drug Abuse Patient Records regulations: The Federal rules restrict any use of the information to criminally investigate or prosecute any alcohol or drug abuse patient.[facility] Reason for Visit (unrecogniz ed section and content) Reason Comments Ringing In Ear(s) Specialty Diagnoses / Procedures Referred By Contac t Referred To Contact Diagnoses Other specified hearing loss, unspecified ear Procedures HEARING TEST/AUDIOGRAM COMPRE AUDIOMETRY THRESHOLD EVAL SP RECOGNIJ Mary Soto MD [address] [place] [address] [facility] [address] [place] [address] Referral ID Status Reason Start Date Expiration Date V isits Requested Visits Authorized [id number] Closed Auto-Generate d Referral 03/11/2023 03/11/2024 1 [...] BE BASED ON THE PRIMARY CLINICAL RECORDS. [facility] [employer] [facility]. provides no warranty or guarantee of the accuracy or completeness of information in this document.
[2024-11-04 09:01] LABS: Anion Gap 12.5; BUN Creatinine Ratio 11.9; Calcium 9.4 mg/dL (8.5-10.1); Carbon Dioxide 26.4 mmol/L (21.0-32.0); Chloride 105 mmol/L (98-107); Estimated GFR (African America >60 (>=60 mL/min/1.73m^2); Estimated GFR (Non-African Ame 59 (>=60 mL/min/1.73m^2); Glucose 95 mg/dL (74-106); Potassium 4.9 mmol/L (3.5-5.1); Sodium 139 mmol/L (136-145)
== END 2024-11-04 08:29 | disposition home or self-care (01) ==
LOC: LAB 08:30
PROVIDERS: PCP Family Medicine; Visit Provider Family Medicine
DX: R79.89 Other specified abnormal findings of blood chemistry (principal)
CPT/HCPCS: 36415; 80048

== ENCOUNTER 2024-12-09 07:21 | Outpatient (OUT) | payer BC, SELFPAY ==
--- OUTSIDE RECORDS SUMMARY | 2024-12-09 07:29 | XMS_ITS | CCD ---
Author Organization [facility] Care Team Providers Care Body Shop Technician Name Role Phone BERTIN, DR BOND Attending Unavailable GIRVIN, DR BOND Admitting Unavailable GIRVIN, DR BOND Primary Care Unavailable GIRVIN, DR BOND Consulting Unavailable GIRVIN, DR BOND Attending Unavailable GIRVIN, DR BOND Admitting Unavailable GIRVIN, DR OBND Primary Care Unavailable GIRVIN, DR BOND Consulting [...] reactions to drug 3 Other: See Comments [facility] (4 sources) Citalopram Drug Allergy 3 Unknown Reaction, sensitivity [facility] Medications Completed/Discontinued Medications Medication Drug Class(es) Dates Sig (Normalized) Sig (Original) acetaminophen 325 mg / HYDROcodone bitartrate 5 mg oral tablet (4 sources) Opioid Agonist Start: 03-24-2018 End: 04-10-2024 take 1 tablet by mouth every four to six hours as needed for pain Hydrocodone-Acetamin ophen ([place]) 5-325 mg tablet Discontinued 1 TAB PO [...] Basophils (Bld) [#/Vol] 0.1 10 3/uL 0.0-0.1 [facility] Basophils/100 WBC Auto (Bld) on 04-14-2024 Basophils/100 WBC (Bld) 1.1 % 0.2-2.0 [facility] Cholesterol in LDL Calc [Mas s/Vol]on 04-14-2024 Cholesterol in LDL [Mass/Vol] 99.0 mg/dL [facility] Comment on above: <100 mg/dl [id number] 0-129 mg/dl NEAR OR ABOVE [id number] mg/dl BORDERLINE [id number] mg/dl HIGH>190 mg/dl VERY HIGH Cholesterol in VLDL Calc [Ma ss/Vol]on 04-14-2024 Cholesterol in VLDL [Mass/Vol] 8.0 mg/dL [facility] Eosinophils/100 WBC Auto (Bl d)on 04-14-2024 Eosinophils/100 WBC (Bld) 8.5 % High 0.9-7.0 [facility] Erythrocyte distribution wid th Auto (RBC) [Ratio]on 04-14-2024 Erythrocyte distribution width (RBC) [Ratio] 13.2 % 11.0-15.0 [facility] Estimated glomerular filtrat ion rate (GFR) non- Americanon 04-14-2024 GFR/1.73 sq M.predicted among non-blacks MDRD (S/P/Bld) [Vol rate/Area] 60 mL/min/{1.73_m2} >=60 [facility] Globulin Calc (S) [Mass/Vol] on 04-14-2024 Globulin (S) [Mass/Vol] 3.6 g/dL [facility] Hematocrit Auto (Bld) [Volum e fraction]on 04-14-2024 Hematocrit (Bld) [Volume fraction] 42.9 % 42.0-54.0 [facility] Hemoglobin [Mass/volume] in Bloodon 04-14-2024 Hemoglobin (Bld) [Mass/Vol] 14.4 g/dL 14.0-18.0 [facility] Laboratory - Chemistry and C hemistry - challengeon 04-14-2024 Bilirubin Ql (U) Negative NEGATIVE [facility] Glucose (U) [Mass/Vol] Negative NEGATIVE [facility] Ketones Ql (U) Negative NEGATIVE [facility] pH (U) 7.0 [pH] 5.0-9.0 [facility] Specific gravity (U) [Rel density] 1.015 1.005-1.025 [facility] Urobilinogen Qn (U) 0.2 {Rosa'U}/dL 0.2-1.0 [facility] Albumin [Mass/Vol] 4.2 g/dL 3.4-5.0 [facility] ALP [Catalytic activity/Vol] 81 U/L 46-116 [facility] ALT [Catalytic activity/Vol] 57 U/L 16-63 [facility] AST [Catalytic activity/Vol] 43 U/L High 15-37 [facility] Bilirubin [Mass/Vol] 0.5 mg/dL 0.2-1.0 [facility] Calcium [Mass/Vol] 9.1 mg/dL 8.5-10.1 [facility] Chloride [Moles/Vol] 103 mmol/L 98-107 [facility] Cholesterol [Mass/Vol] 160 mg/dL <=200 [facility] Cholesterol in HDL [Mass/Vol] 53 mg/dL 40-60 [facility] Comment on above: > or =60 mg/dl - LOW CARDIOVASCULAR RISK<40 mg/dl - HIGH CARDIOVASCULAR RISK CO2 [Moles/Vol] 24.8 mmol/L 21.0-32.0 [facility] Creatinine [Mass/Vol] 1.32 mg/dL High 0.70-1.30 [facility] GFR/1.73 sq M.predicted MDRD (S/P/Bld) [Vol rate/Area] mL/min/{1.73_m2} >=60 [facility] Glucose [Mass/Vol] 96 mg/dL 74-106 [facility] Potassium [Moles/Vol] 4.7 mmol/L 3.5-5.1 [facility] Protein [Mass/Vol] 7.8 g/dL 6.4-8.2 [facility] Sodium [Moles/Vol] 138 mmol/L 136-145 [facility] Triglyceride [Mass/Vol] 40 mg/dL <=150 [facility] TSH Qn 0.821 m[IU]/L 0.358-3.740 [facility] Urea nitrogen [Mass/Vol] 21.0 mg/dL High 7.0-18.0 [facility] Urea nitrogen/Creatinine [Mass ratio] 15.9 mg/mg [facility] Laboratory - Hematology and Cell countson 04-14-2024 Immature granulocytes/100 WBC (Bld) 0.2 % 0.0-0.5 [facility] - Specimen inform ationon 04-14-2024 Appearance (U) CLEAR CLEAR [facility] Color (U) LT. YELLOW YELLOW [facility] Laboratory - Urinalysison Leukocyte esterase Test strip Ql (U) Negative NEGATIVE [facility] Mucus Ql (Urine sed) TRACE Abnormal NONE SEEN [facility] Nitrite Ql (U) Negative NEGATIVE [facility] Protein Ql (U) Negative NEG/TRACE [facility] Leukocytes [#/volume] correc michelle for nucleated erythrocytes in Blood by Automated counon 04-14-2024 WBC corrected for nucl RBC Auto (Bld) [#/Vol] 5.5 10 3/uL 4.0-11.0 [facility] Lymphocytes Auto (Bld) [#/Vo l]on 04-14-2024 Lymphocytes (Bld) [#/Vol] 1.6 10 3/uL 1.2-3.8 [facility] Lymphocytes/100 WBC Auto (Bl d)on 04-14-2024 Lymphocytes/100 WBC (Bld) 29.1 % 20.5-60.0 [facility] MCH Auto (RBC) [Entitic mass ]on 04-14-2024 MCH (RBC) [Entitic mass] 29.1 pg 25.9-34.0 [facility] MCHC Auto (RBC) [Mass/Vol]on 04-14-2024 MCHC (RBC) [Mass/Vol] 33.6 g/dL 29.9-35.2 [facility] MCV Auto (RBC) [Entitic vol] on 04-14-2024 MCV (RBC) [Entitic vol] 86.7 fL 80.0-94.0 [facility] Monocytes Auto (Bld) [#/Vol] on 04-14-2024 Monocytes (Bld) [#/Vol] 0.5 10 3/uL 0.3-0.8 [facility] Monocytes/100 WBC Auto (Bld) on 04-14-2024 Monocytes/100 WBC (Bld) 9.8 % 1.7-12.0 [facility] Neutrophils Auto (Bld) [#/Vo l]on 04-14-2024 Neutrophils (Bld) [#/Vol] 2.8 10 3/uL 1.4-6.5 [facility] Neutrophils/100 WBC Auto (Bl d)on 04-14-2024 Neutrophils/100 WBC (Bld) 51.3 % 43.0-75.0 [facility] No Panel Informationon 04-14 Urine Bacteria TRACE #/HPF Abnormal NONE SEEN [facility] Urine Culture Reflexed NO [facility] Urine Occult Blood Negative NEGATIVE [facility] Urine Other Casts NONE SEEN #/LPF NONE SEEN [facility] Urine Other Crystals None Seen #/HPF None Seen [facility] Urine RBC NONE SEEN #/HPF 0-2 [facility] Urine Squamous Epithelial Cells RARE #/LPF NONE/RARE [facility] Urine Transitional Epithelial Cells RARE #/LPF Abnormal NONE SEEN [facility] Urine WBC NONE SEEN #/HPF NONE SEEN [facility] Eosinophils # (Auto) 0.5 10 3/uL 0.0-0.7 [facility] Immature Granulocyte # (Auto) 0.01 10 3/uL 0.00-0.03 [facility] Prostate Specific Antigen Screen 0.86 ng/mL <=4.00 [facility] Platelet mean volume Auto (B ld) [Entitic vol]on 04-14-2024 Platelet mean volume (Bld) [Entitic vol] 10.1 fL 9.5-13.5 [facility] Platelets Auto (Bld) [#/Vol] on 04-14-2024 Platelets (Bld) [#/Vol] 266 10 3/uL 150-450 [facility] RBC Auto (Bld) [#/Vol]on RBC (Bld) [#/Vol] 4.95 10 6/uL 4.70-6.10 [facility] Serum or plasma albumin/glob ulin mass ratioon 04-14-2024 Albumin/Globulin [Mass ratio] 1.2 {ratio} [facility] Serum or plasma anion gap de terminationon 04-14-2024 Anion gap [Moles/Vol] 14.9 mmol/L [facility] Serum or plasma total choles terol/high density lipoprotein (HDL) cholesterol mass marie 04-14-2024 Cholesterol.total/Ch olesterol in HDL [Mass ratio] 3.0 {ratio} [facility] Comment on above: 3.3 - 4.4 LOW RISK4. 4 - 7.1 AVERAGE RISK7.1 - 11.0 MODERATE RISK>11.0 HIGH RISK CNOVon 04-05-2023 CNOV Office Visit (OTOLMN) ZACK SAVAGE ([id number]) 1985 M Date Time Provider Department 04/05/23 [...] seen by ENT close to home in [place] and he was treated with oral prednisone. [...] Status:Closed by MARY SOTO on 04/05/23 Normal [facility] CNOV Office Visit (CDISMN) ZACK SAVAGE ([id number]) 1985 M Date Time Provider Department 04/05/23 3:00 PM LO HOPE CDIN During your visit today, we recorded the following information about you: Lo Hope AUD 04/05/2023 3:54 PM Signed [facility] AUDIOLOGIC EVALUATION REPORT Name: Zack Savage CCF#: [id number] Date of Service: 04/05/2023 Date of : 1985 Age: [age] year old Referred by: Mary Soto MD [address] [facility] [address] Referred for: Evaluation of suspected change in hearing, tinnitus, or balance. Referral documented: In an order in [facility] Patient's major complaints: Reduced hearing in the [...] concerts. 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 CPT code: 83597 RIGHT EAR: Normal ME function. LEFT EAR: Normal ME function. ACOUSTIC REFLEXES Description of procedure: This test is an objective measure of auditory and facial nerve pathways. CPT code: 88827, 77039 RIGHT EAR PROBE EAR: (ipsi right stimulus [...] conduction and speech recognition testing. CPT code: 16004 RIGHT EAR: Hearing Sensitivity: within normal limits [...] enriched environment (more content not included)... Normal [facility] Covid-19 PCR (CVDTBH)on 03-30 SARS-CoV-2 (COVID-19) RNA CHANDA+probe Ql (Unsp spec) Detected Critically abnormal NOT DETECTED [facility] Comment on above: Result Comment: This test is not yet approved or cleared by the [place] FDA. When there are no FDA-approved or cleared tests available, and other criteria are met, FDA can make tests available under an emergency access mechanism called an Emergency Use Authorization (EUA). The EUA for this test is supported by the Anatomy Professor of Health and Human Service's (HHS's) declaration [...] used). Performed By: #### C VDTB #### [facility] [address] [place] [address] Dr. Ronal Garcia Covid-19 PCR (CVDTB)on 06-30 SARS-CoV-2 (COVID-19) RNA CHANDA+probe Ql (Unsp spec) Detected Critically abnormal NOT DETECTED [facility] Comment on above: Result Comment: This test is not yet approved or cleared by the [place] FDA. When there are no FDA-approved or cleared tests available, and other criteria are met, FDA can make tests available under an emergency access mechanism called an Emergency Use Authorization (EUA). The EUA for this test is supported by the Anatomy Professor of Health and Human Service's (HHS's) declaration [...] used). Performed By: #### C VDTB #### [facility] [address] [place] [address] Dr. Ronal Garcia Covid-19 PCR (CVDTB)on SARS-CoV-2 (COVID-19) RNA CHANDA+probe Ql (Unsp spec) Not detected Normal NOT DETECTED [facility] Comment on above: Result Comment: This test is not yet approved or cleared by the [place] FDA. When there are no FDA-approved or cleared tests available, and other criteria are met, FDA can make tests available under an emergency access mechanism called an Emergency Use Authorization (EUA). The EUA for this test is supported by the [place] of Health and Human Service's (HHS's) declaration [...] consistent with SARS-CoV-2. Performed By: #### [facility] #### [facility] [address] [place] [address] Dr. Ronal Garcia Vital Signs Date Time Vital Sign Value Performing Clinician Faci lity 09-11-2024 16:00-0500 Body temperature 97 [degF] [facility] 09-11-2024 16:00-0500 Body weight 80.[address] [facility] 09-11-2024 16:00-0500 Diastolic blood pressure 86 mm[Hg] [facility] 09-11-2024 16:00-0500 Heart rate 74 /min [facility] 09-11-2024 16:00-0500 SaO2% (BldA) [Mass fraction] 97 % [facility] 09-11-2024 16:00-0500 Systolic blood pressure 124 mm[Hg] [facility] 05-31-2024 15:19-0400 Body mass index (BMI) [Ratio] 25.1 kg/m2 [facility] 05-31-2024 15:19-0400 Body temperature 97.4 [degF] [facility] 05-31-2024 15:19-0400 Body weight 79.[address] [facility] 05-31-2024 15:19-0400 Diastolic blood pressure 64 mm[Hg] [facility] 05-31-2024 15:19-0400 Heart rate 72 /min [facility] 05-31-2024 15:19-0400 Respiratory rate 18 /min [facility] 05-31-2024 15:19-0400 SaO2% (BldA) [Mass fraction] 99 % [facility] 05-31-2024 15:19-0400 Systolic blood pressure 116 mm[Hg] [facility] 05-31-2024 14:05-0400 Body height 177.[address] [facility] 04-10-2024 15:39-0400 Body height 177.[address] [facility] 04-10-2024 15:39-0400 Body mass index (BMI) [Ratio] 24.5 kg/m2 [facility] 04-10-2024 15:39-0400 Body temperature 97.6 [degF] [facility] 04-10-2024 15:39-0400 Body weight 77.[address] [facility] 04-10-2024 15:39-0400 Diastolic blood pressure 80 mm[Hg] [facility] 04-10-2024 15:39-0400 Heart rate 69 /min [facility] 04-10-2024 15:39-0400 SaO2% (BldA) [Mass fraction] 97 % [facility] 04-10-2024 15:39-0400 Systolic blood pressure 124 mm[Hg] [facility] Encounters Encounter Date Encounter Type Care Provider Facility Start: 09-11-2024 End: 09-11-2024 ambulatory [facility] Work Phone: Start: 09-11-2024 End: 09-11-2024 Patient encounter procedure [facility] [place] Work Phone: Start: 05-31-2024 End: 05-31-2024 ambulatory [facility] Work Phone: Start: 05-31-2024 End: 05-31-2024 Patient encounter procedure [facility] [place] Work Phone: Start: 04-14-2024 Non-patient / Non-visit [facility] Work Phone: Start: 04-10-2024 Patient encounter status [facility] Start: 04-10-2024 End: 04-10-2024 ambulatory [facility] Work Phone: Start: 04-10-2024 End: 04-10-2024 Encounter for general adult medical examination without abnormal findings [facility] Start: 04-10-2024 End: 04-10-2024 Patient encounter procedure [facility] [place] Work Phone: Start: 04-05-2023 End: 04-05-2023 ambulatory MARY SOTO Facility:[facility] Start: 04-05-2023 End: 04-05-2023 Patient encounter procedure [...] Only Lo Shanae Ryan Student Work Phone: [facility] [place] Comment on above: Other specified hear ing loss, unspecified ear (Primary Dx) Start: 03-11-2023 Orders Only Mary Soot MD Work Phone: [facility] [place] Comment on above: Other specified hear ing [...] Activity Detail Author Start: 09-11-2024 Patient referral [facility] Work Phone: Start: 04-30-2023 Influenza vaccination INFLUENZA (#1) [facility] Start: 08-30-2022 DEPRESSION ASSESSMENT DEPRESSION ASS ESSMENT [facility] Start: 2018 LIPID SCREEN LIPID SCREEN [facility] Start: 2002 Urine microalbumin profile DTAP,TDAP,TD (1 - Tdap) [facility] Start: 2001 HEPATITIS C SCREENING HEPATITIS C SC YADY [facility] Start: 2001 HIV SCREENING HIV SCREENING [facility] Start: 1985 COVID-19 VACCINE (#1) COVID-19 VACCI NE (#1) [facility] Start: 1985 HEPATITIS B (1 of 3 - 3-dose series) HEPATITIS B (1 of 3 - 3-dose series) [facility] Comprehensive metabo lic 1999 panel - Serum or Plasma [facility] Comprehensive metabo lic 1999 panel - Serum or Plasma [facility] metabo lic 1999 panel - Serum or Plasma [facility] End: 03-11-2024 HEARING TEST/AUDIOGRAM HEARING TEST/AUDIOGRAM Audiology Routine Other specified hearing loss, unspecified ear 1 Occurrences starting 03/11/2023 until 03/11/2024 [facility] Work Phone: Comment on above: 1 Occurrences starti ng 03/11/2023 until 03/11/2024 End: 03-15-2024 HEARING TEST/AUDIOGRAM HEARING TEST/AUDIOGRAM Audiology Routine Other specified hearing loss, unspecified ear 1 Occurrences starting 03/15/2023 until 03/15/2024 [facility] Work Phone: Comment on above: 1 Occurrences starti ng 03/15/2023 until 03/15/2024 Patient referral [facility] Work Phone: [facility] Payers Date Payer Category Payer Private Health Insurance [facility] [employer] CHOICE PLUS [id number] 2017-Present [phone] [address] [address] [place] [address] HMO [id number] 1985 Unknown [id number] 1985 Unknown [id number] 1985 Unknown [id number] 1961 Unknown [id number] Private Health Insurance [facility] [id number] Self-pay Self Pay [id number] Unknown Other1 (STD) [id number] Unknown [place] [id number] Social History Date Type Detail Facility Tobacco smoking status [facility] Tobacco smoking consumption unknown [facility] Start: 1985 Sex Assigned At Not on file [facility] Start: 04-05-2023 Gender identity Not on file [facility] Start: 04-05-2023 End: 09-11-2024 Tobacco smoking status VTIS Ex-smoker [facility] End: 08-30-2007 History of tobacco use Current smoker [facility] End: 08-30-2007 History of tobacco use Cigarette Smoker [facility] Start: 04-05-2023 Tobacco use and exposure Smokeless tobacco non-user [facility] Start: 04-05-2023 History of Social function [facility] National Score (1-100), lower number is lower risk 87 [facility] Start: 1985 Sex Assigned At Male [facility] Start: 09-11-2024 End: 09-11-2024 Sex Male (finding) [facility] Clinical Notes 04-05-2023 to 09-11-2024 Note Date & Type Note Facility 09-11-2024 Hospital Discharg e instructions Ambulatory OrdersReferral to ENT Time Frame: 09/11/24, Location: None Selected [facility] Work Phone: 04-10-2024 Evaluation note Authored April 10, 2024 4: 54pm The above note written by __ _Selwyn Marques____ acting as human recorder, note dictated by Dr. Billy .I performed the above HPI, ROS, and Examination. I formulated and dictated the treatment plan and was present for entire encounter. Varun [place] D.O. [facility] Work Phone: [phone]) 521-277108-07-2023 NoteHNO ID: [id number] Author: Mary Soto MD Service: ? Author [...] seen by ENT close to home in [place] and he was treated with oral prednisone. [...] or thyroid masses or enlargement. Mary Soto [facility]08-07-2023 NoteHNO ID: [id number] Author: Lo Hope AUD Service: ? Author Type: Sourcing Engineer Type: Progress Notes Filed: 04/05/2023 3:54 PM Note Text: [facility] [place] AUDIOLOGIC EVALUATION REPORT Name: Zack Savage CCF#: [id number] Date of Service: 04/05/2023 Date of : 1985 Age: [age] year old Referred by: Mary Soto MD [address] [facility] [address] Referred for: Evaluation of suspected change in hearing, tinnitus, or balance. Referral documented: In an order in [facility] Patient's major complaints: Reduced hearing in the [...] concerts. 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 CPT code: 62998 RIGHT EAR: Normal ME function. LEFT EAR: Normal ME function. ACOUSTIC REFLEXES Description of procedure: This test is an objective measure of auditory and facial nerve pathways. CPT code: 95973, 67419 RIGHT EAR PROBE EAR: (ipsi right stimulus [...] conduction and speech recognition testing. CPT code: 51326 RIGHT EAR: Hearing Sensitivity: within normal limits [...] scheduling an Individual Tinnitus (more content not included)...[facility]08-07-2023 History of Present illness Narrative* Mary [...] seen by ENT close to home in [place] and he was treated with oral prednisone. [...] enlargement. Mary Soto MD [facility] Nurse Note* Irma Reyes RN - 04/05/2023 3:49 PM EDT Tobacco Use: Quit 08/30/2007. Types: Cigarettes Was smoking cessation packet given? N/A - Patient is a non-smoker or quit >1 year ago. Was a referral initiated?N/A Patient is a non-smoker [facility] History of Present illness Narrative* Lo Hope AUD - 04/05/2023 3:00 PM EDT [facility] AUDIOLOGIC EVALUATION REPORT Name: Zack Savage CCF#: [id number] Date of Service: 04/05/2023 Date of : 1985 Age: [age] year old Referred by: Mary Soto MD [address] [facility] [address] Referred for: Evaluation of suspected change in hearing, tinnitus, or balance. Referral documented: In an order in [facility] Patient's major complaints: Reduced hearing in the [...] concerts. 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 CPT code: 38168 RIGHT EAR: Normal ME function. LEFT EAR: Normal ME function. ACOUSTIC REFLEXES Description of procedure: This test is an objective measure of auditory and facial nerve pathways. CPT code: 05711, 67886 RIGHT EAR PROBE EAR: (ipsi right stimulus [...] boneconduction and speech recognition testing. CPT code: 23855 RIGHT EAR: Hearing Sensitivity: within normal limits [...] schedulingan Individual Tinnitus Evaluation with audiology. Call [phone] ext 4 to schedule. * Re-evaluation as medically indicated or if a change in hearing is noted. Celestino Up, MITA-A Clinical Sourcing Engineer HENRIQUEZ Abbrev- iation Definition Degree of hearing sensitivity dB range WNL within normal limits WNL 0 - 20 SNHL sensorineural hearing loss Mild 20-40 CHL conductive hearing loss Moderate 40-55 MHL mixed hearing loss Moderately-Severe 55-70 WRS word recognition score Severe 70-90 ME middle ear Profound 90 + TM tympanic membrane [facility] Diagnosis Other specified hearing loss, unspecified ear- Primary documented in this encounter [facility] note* Diagnosis Tinnitus, right ear- Primary Sensorineural hearing loss (SNHL) of right ear with unrestricted hearing of left ear Ear pressure, right Dizziness Dizziness and giddiness documented in this encounter [facility] note* Diagnosis Sensorineural hearing loss (SNHL) of right ear with unrestricted hearing of left ear- Primary documented in this encounter [facility] note* Diagnosis Onset Date Resolution Status Fatigue acute Stress acute Tinnitus acute Wellness examination acute [facility] Work Phone: Evaluation noteNo assessment information available [facility] Work Phone: Summary Purpose Family History Relationship [...] SP RECOGNIJ Mary Soto MD [address] [address] [facility] [address] [place] [address] Referral ID Status Reason Start Date Expiration Date Visits Requested Visits Authorized [id number] Authorized Auto-Generat ed Referral 03/11/2023 03/11/2024 1 1 Specialty Diagnoses / Procedures Referred By Contac t Referred To Contact Diagnoses Other specified hearing loss, unspecified ear Procedures HEARING TEST/AUDIOGRAM COMPRE AUDIOMETRY THRESHOLD EVAL SP [facility] [address] [place] [address] [facility] [address] [place] [address] Referral ID Status Reason Start Date Expiration Date Visits Requested Visits Authorized [id number] Authorized Auto-Generat ed Referral 03/15/2023 03/15/2024 1 1 Specialty Diagnoses / Procedures Referred By Priyanka t Referred To Contact Procedures HEARING TEST/AUDIOGRAM COMPRE AUDIOMETRY THRESHOLD EVAL SP RECOGNIJ [facility] [address] [address] [facility] [address] [place] [address] Referral ID Status Reason Start Date Expiration Date Visits Requested Visits Authorized [id number] Pending Review Auto-Generat ed Referral 04/05/2023 04/05/2024 [...] DATE CREATED AUTHOR AUTHOR'S ORGANIZ ATION 04/06/2023 [facility] Source Comments (unrecognize d section and content) In the event this informatio n is protected by the Federal Confidentiality of Alcohol and Drug Abuse Patient Records regulations: The Federal rules restrict any use of the information to criminally investigate or prosecute any alcohol or drug abuse patient.[facility] the event this information is protected by the Federal Confidentiality of Alcohol and Drug Abuse Patient Records regulations: The Federal rules restrict any use of the information to criminally investigate or prosecute any alcohol or drug abuse patient.[facility] Hospital[facility] the event this information is protected by the Federal Confidentiality of Alcohol and Drug Abuse Patient Records regulations: The Federal rules restrict any use of the information to criminally investigate or prosecute any alcohol or drug abuse patient.[facility] the event this information is protected by the Federal Confidentiality of Alcohol and Drug Abuse Patient Records regulations: The Federal rules restrict any use of the information to criminally investigate or prosecute any alcohol or drug abuse patient.[facility] Reason for Visit (unrecogniz ed section and content) Reason Comments Ringing In Ear(s) Specialty Diagnoses / Procedures Referred By Contac t Referred To Contact Diagnoses Other specified hearing loss, unspecified ear Procedures HEARING TEST/AUDIOGRAM COMPRE AUDIOMETRY THRESHOLD EVAL SP RECOGNIJ Mary Soto MD [address] [place] [address] [facility] [address] [place] [address] Referral ID Status Reason Start Date Expiration Date V isits Requested Visits Authorized [id number] Closed Auto-Generate d Referral 03/11/2023 03/11/2024 1 [...] BE BASED ON THE PRIMARY CLINICAL RECORDS. [facility]. provides no warranty or guarantee of the accuracy or completeness of information in this document.
[2024-12-09 08:16] LABS: Alanine Aminotransferase 67 U/L (16-63); Albumin Globulin Ratio 1.1; Alkaline Phosphatase 81 U/L (46-116); Anion Gap 8.9; Aspartate Amino Transferase 41 U/L (15-37); BUN Creatinine Ratio 14.8; Bilirubin Total 0.4 mg/dL (0.2-1.0); Calcium 9.1 mg/dL (8.5-10.1); Carbon Dioxide 27.7 mmol/L (21.0-32.0); Chloride 106 mmol/L (98-107); Estimated GFR (African America >60 (>=60 mL/min/1.73m^2); Estimated GFR (Non-African Ame >60 (>=60 mL/min/1.73m^2); Gamma Glutamyl Transpeptidase 89 U/L (15-85); Globulin 3.6 g/dL; Glucose 103 mg/dL (74-106); Potassium 4.6 mmol/L (3.5-5.1); Sodium 138 mmol/L (136-145); Total Protein 7.6 g/dL (6.4-8.2)
[2024-12-10 09:08] LABS: HBsAg Screen Negative (Negative); Hep A Ab, Total Negative (Negative); Hep B Core Ab, Tot Negative (Negative); Hepatitis B Surf Ab Quant 6.9 mIU/mL (Immunity>10)
== END 2024-12-09 07:22 | disposition home or self-care (01) ==
PROVIDERS: PCP Family Medicine; Visit Provider Family Medicine
DX: R79.89 Other specified abnormal findings of blood chemistry (principal); R74.8 Abnormal levels of other serum enzymes; Z79.899 Other long term (current) drug therapy
CPT/HCPCS: 36415; 80053; 82977; 86317; 86704; 86708; 87340; 87902

== ENCOUNTER 2025-03-19 06:33 | Outpatient (OUT) | payer BC, SELFPAY ==
--- OUTSIDE RECORDS SUMMARY | 2025-03-17 08:04 | XMS_ITS | CCD ---
Author Organization [facility] Care Team Providers Care 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 Name Role Phone BERTIN, DR BOND Attending Unavailable BERTIN, DR BOND Admitting Unavailable GIRDELFINA, DR BODN Primary Care Unavailable GIRDELFINA, DR BOND Consulting Unavailable BERTIN, DR BOND Attending Unavailable GIRVIN, DR BOND Admitting Unavailable GIRVIN, DR BOND Primary Care Unavailable GIRVIN, DR BOND Consulting Unavailable GIRDELFINA, DR BOND Consulting Unavailable GIRDELFINA, DR BOND Attending Unavailable GIRDELFINA, DR BOND Admitting Unavailable Unavailable Primary Care Provider UnavailMARY Regan Referring Unavailable LO HOPE Attending Unavailable MARY SOTO Attending Unavailable Unavailable Primary Care Provider UnavailVarun Reyes MD Primary Care Provider [phone] Varun Denton DO Primary Care Provider Varun Denton DO Referring Provider [phone] Fibroscan, Temporary Attending Provider UnavailSHILOH Otero Attending Unavailable ABIMAEL MADRID Attending Unavailable ABIMAEL MADRID Attending Unavailable Varun Denton DO Primary Care Provider Varun Denton DO Attending Provider [phone] Fibroscan, Temporary Other Provider Unavailable Christoph Chen MD Attending Provider [phone] Huma Laureano MD Attending Provider Abimael Madrid DO Attending Provider Varun Denton Primary Care Unavailable Varun Denton Referring Unavailable Warren Barney Admitting Unavailable Warren Barney Attending Unavailable Huma Laureano Admitting Unavailable Huma Laureano Attending Unavailable Varun Denton Primary Care Unavailable Huma Laureano Attending Unavailable Huma Laureano Admitting Unavailable Abimael Madrid Admitting Unavailable Abimael Madrid Attending Unavailable Varun Denton Primary Care Unavailable Allergies Allergy Classification Reported Allergen(s) Allergy Type Date of Onset Reaction(s) Facility (10 sources) Penicillins Propensity to adverse reactions to drug 3 Other: See Comments [facility] (15 sources) Citalopram; Translations: [citalopram] Drug Allergy 3 Unknown [facility] (6 sources) Penicillins Drug Allergy 3 [facility] (1 source) Penicillins Drug allergy (disorder) 5 [facility] Repository Medications Current Medications Medication Drug Class(es) Dates Sig (Normalized) Sig (Original) Cranberry (2 sources) Non-Standardized Food Allergenic Extract, Non-Standardized Plant Allergenic Extract Start: 02-05-2025 take 1 capsule by mouth twice daily at mealtime Cranberry 500 mg capsule Active 500 MG PO Twice daily February 05, 2025 12:00am administer with meals Complies with drug therapy Start: 02-05-2025 take 1 capsule by mo ut twice daily at mealtime Cranberry 500 mg capsule Active 500 MG PO Twice daily February 05, 2025 12:00am administer with meals liver detox gummies (1 source) Start: 03-06-2025 [place] (No Known Home Meds) (2 sources) Start: 12-18-2024 [place] (No Kn own Home Meds) Active December 18, 2024 12:00am super beets (1 source) Start: 03-06-2025 super greens (1 source) Start: 03-06-2025 Completed/Discontinued Medications Medication Drug Class(es) Dates Sig (Normalized) Sig (Original) acetaminophen 325 mg / HYDROcodone bitartrate 5 mg oral tablet (8 sources) Opioid Agonist Start: 03-24-2018 End: 04-10-2024 take 1 tablet by mouth every four to six hours as needed for pain Hydrocodone-Acetamin ophen ([place]) 5-325 mg tablet Discontinued 1 TAB PO EVERY 4-6 HOURS as needed for pain March 24, 2018 April 10, 2024 3:57pm cholecalciferol 0.01 mg chewable tablet (8 sources) Vitamin D Start: 03-14-2018 End: 04-10-2024 take 1 tablet by mouth once daily Cholecalciferol (Vitamin D3) (Vitamin D3) 400 unit Tablet,Chewable Discontinued 400 UNIT PO Daily March 14, 2018 12:00am April 10, 2024 3:57pm clarithromycin 500 mg oral tablet (8 sources) Macrolide Antimicrobial Start: 03-24-2018 End: 03-31-2018 take 1 tablet by mouth twice daily at mealtime Clarithromycin 500 mg tablet Discontinued 500 MG PO Twice daily 14 7 March 24, 2018 12:00am March 30, 2018 12:00am March 31, 2018 12:02am take with food escitalopram 10 mg oral tablet (20 sources) Serotonin Reuptake Inhibitor Start: 05-31-2024 End: 09-11-2024 take 1 tablet by mouth once daily Escitalopram Oxalate 10 mg tablet Discontinued 0 PO Daily May 31, 2024 3:47pm September 11, 2024 5:06pm take 1 and 1/2 of a 10 MG tablet orally daily (total of 15 MG) Start: 05-05-2024 End: 05-31-2024 take 1 tablet by mouth once daily Escitalopram Oxalate 10 mg tablet Discontinued 0 .ROUTE .COMPLEX 90 May 05, 2024 1:25pm May 31, 2024 3:28pm TAKE 1 TABLET BY MOUTH DAILY Start: 04-10-2024 End: 05-05-2024 take 1 tablet by mouth once daily Escitalopram Oxalate (Lexapro) 10 mg tablet Discontinued 10 MG PO Daily April 10, 2024 12:00am May 05, 2024 1:25pm Multivitamin preparation (2 sources) Start: 03-14-2018 End: 04-10-2024 take 1 tablet by mouth once daily Multivitamin Discontinued 1 TAB PO Daily March 14, 2018 12:00am April 10, 2024 3:57pm Multivitamin Tablet (6 sources) Start: 03-14-2018 End: 04-10-2024 take 1 tablet by mouth once daily Multivitamin Tablet Discontinued 1 TAB PO Daily March 14, 2018 12:00am April 10, 2024 3:57pm Start: 03-14-2018 End: 04-10-2024 take 1 tablet by mouth once daily Multivitamin Tablet Discontinued 1 TAB PO Daily March 13, 2018 11:00pm April 10, 2024 2:57pm Problems Active Problems Problem Classification Problem Date Documented Date Episodic/Chronic Adjustment disorders (17 sources) Stress; Translations: [Reaction to severe stress, unspecified] Onset: 01-14-2025 Resolved: 01-14-2025 04-10-2024 Chronic Conditions associated with dizziness or vertigo (3 sources) Dizziness; Translations: [Dizziness and giddiness] 04-05-2023 Episodic Genitourinary symptoms and ill-defined conditions (20 sources) Proteinuria; Translations: [Proteinuria, unspecified] Onset: 01-14-2025 Resolved: 01-14-2025 04-10-2024 Episodic Malaise and fatigue (17 sources) Fatigue; Translations: [Other fatigue] Onset: 01-14-2025 Resolved: 01-14-2025 04-10-2024 Episodic Other ear and sense organ disorders (2 sources) Hearing loss; Translations: [Other specified hearing loss, unspecified ear] 03-11-2023 Chronic Other ear and sense organ disorders (3 sources) Sensorineural hearing loss, unilateral, right ear, with unrestricted hearing on the contralateral side; Translations: [Sensorineural hearing loss, unilateral] 04-05-2023 Chronic Other ear and sense organ disorders (8 sources) Asymmetrical sensorineural hearing loss; Translations: [Sensorineural hearing loss, bilateral] Onset: 01-14-2025 Resolved: 01-14-2025 01-14-2025 Chronic Other ear and sense organ disorders (2 sources) Asymmetrical hearing loss; Translations: [Other specified hearing loss, bilateral] 01-15-2025 Chronic Other ear and sense organ disorders (1 source) Other specified hearing loss, bilateral; Translations: [Other specified hearing loss, bilateral] Onset: 02-16-2025 Chronic Other ear and sense organ disorders (1 source) Ear pressure sensation; Translations: [Other specified disorders of right ear] 04-05-2023 Episodic Other ear and sense organ disorders (15 sources) Tinnitus; Translations: [Tinnitus, unspecified ear] Onset: 01-14-2025 Resolved: 01-14-2025 04-10-2024 Episodic Other ear and sense organ disorders (5 sources) Tinnitus, unspecified ear; Translations: [Tinnitus, unspecified] 04-10-2024 Episodic Other liver diseases (2 sources) Steatosis of liver; Translations: [Fatty (change of) liver, not elsewhere classified] 03-06-2025 Chronic Other liver diseases (15 sources) Elevated liver enzymes level; Translations: [Abnormal levels of other serum enzymes] Onset: 01-14-2025 Resolved: 01-14-2025 05-31-2024 Episodic Other liver diseases (6 sources) Abnormal levels of other serum enzymes; Translations: [Other nonspecific abnormal serum enzyme levels] Onset: 02-13-2025 05-31-2024 Episodic Other nutritional; endocrine; and metabolic disorders (5 sources) Weight increased; Translations: [Abnormal weight gain] 12-18-2024 Episodic Other nutritional; endocrine; and metabolic disorders (3 sources) Abnormal weight gain; Translations: [Abnormal weight gain] 12-18-2024 Episodic Other screening for suspected conditions (not mental disorders or infectious disease) (20 sources) Blood chemistry abnormal; Translations: [Other specified abnormal findings of blood chemistry] Onset: 01-14-2025 Resolved: 01-14-2025 05-31-2024 Episodic Other upper respiratory disease (1 source) Nasal congestion; Translations: [NASAL CONGESTION] Onset: 04-10-2022 Episodic Other upper respiratory disease (8 sources) Bleeding from nose; Translations: [Epistaxis] 12-18-2024 Episodic Other upper respiratory disease (3 sources) Epistaxis; Translations: [Epistaxis] 12-18-2024 Episodic Other upper respiratory infections (6 sources) Chronic maxillary sinusitis; Translations: [Chronic maxillary sinusitis] Onset: 01-14-2025 Resolved: 01-14-2025 01-14-2025 Chronic Residual codes; unclassified (1 source) Pain, unspecified; Translations: [PAIN UNSPECIFIED] Onset: 04-10-2022 Episodic Unclassified (3 sources) CONTACT W/AND (SUSP) EXPOS COVID-19; Translations: [CONTACT W/AND (SUSP) EXPOS COVID-19] Onset: 07-07-2021 Unclassified (1 source) COUGH, UNSPECIFIED; Translations: [COUGH, UNSPECIFIED] Onset: 07-07-2021 Unclassified (1 source) Elevation of levels of liver transaminase levels; Translations: [Elevation of levels of liver transaminase levels] Onset: 01-10-2025 Viral infection (1 source) COVID-19; Translations: [COVID-19] Onset: 04-10-2022 Past or Other Problems Problem Classification Problem Date Documented Da te Episodic/Chronic Other ear and sense organ disorders (8 sources) Tinnitus of right ear; Translations: [Tinnitus, right ear] Onset: 01-14-2025 Resolved: 01-14-2025 04-05-2023 Episodic Other ear and sense organ disorders (6 sources) Sudden hearing loss; Translations: [Sudden idiopathic hearing loss, right ear] Onset: 01-14-2025 Resolved: 01-14-2025 01-14-2025 Episodic Other upper respiratory infections (1 source) Acute sinusitis, unspecified; Translations: [ACUTE SINUSITIS UNSPECIFIED] Onset: 07-13-2021 Episodic Unclassified (1 source) CONTACT W/AND (SUSP) EXPOS COVID-19; Translations: [CONTACT W/AND (SUSP) EXPOS COVID-19] Onset: 04-09-2022 Results Test Name Value Interpretation Reference Range Facility MR head/brain wo/w conon MR head/brain wo/w con [facility] [address] MRI Report Signed Patient: Zack Savage MR#: [id number] : 1985 Acct:[id number] Age/Sex: 40 / M ADM Date: 02/16/25 Loc: MR Room: Type: [facility] Attending Dr: Abimael Madrid DO Copies to: Abimael Madrid DO Ordering Provider: Abimael Madrid DO Date of Service: 02/16/25 MR/MR head/brain wo/w con: H91.8X3,H81.391,H93.19 MR head/brain wo/w con 02/16/2025 6:31 PM SIGN AND SYMPTOMS: Tinnitus in right ear, hearing loss PROTOCOL: Multiplanar multisequence MR images of the brain with and without IV contrast CONTRAST: 16 mL of intravenous ProHance COMPARISON: None. FINDINGS: Extra axial spaces: Age appropriate. Hemorrhage: None. Ventricular system: Within normal limits. Basal cisterns: Within normal limits and not effaced. Cerebral parenchyma: There are a few foci of periventricular and subcortical white matter T2 and FLAIR hyperintense signal. These are nonspecific. 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 Midline shift: None.. Cerebellum: Within normal limits. Brainstem: Within normal limits. Cerebellopontine angles: No mass or abnormal enhancement. Internal auditory canals: There is a 3 mm enhancing focus at the apex of the right internal auditory canal. This may represent a schwannoma. Temporal bone structures: Within normal limits. OTHER: Calvarium: Normal marrow signal. Vascular system: Satisfactory flow voids within the anterior and posterior circulation. Visualized Paranasal sinuses: Mucosal thickening is noted in the ethmoid air cells and along the right maxillary sinus. Visualized Orbits: Within normal limits. Visualized upper cervical spine: Within normal limits. Sella and skull base: Within normal limits. MR/MR head/brain wo/w con IMPRESSION: There is a 3 mm enhancing focus at the apex of the right internal auditory canal. This may represent a schwannoma. The cerebellopontine angles and temporal bone structures are within normal limits. No acute intracranial pathology is noted otherwise. Impression dictated by: Jef Meeks M.D. 02/16/2025 8:34 PM Dictation Location: [place] [address] Transcribed By: [facility] 02/16/252033 Dictated By: Jef Meeks II, MD 02/16/252014 Signed By: 02/16/252033 Normal [facility] Albumin [Mass/volume] in Ser um or Plasma by Bromocresol green (BCG) dye binding methoOrdered By: Huma Laureano on 02-13-2025 Albumin BCG dye [Mass/Vol] 4.9 g/dL 3.5-5.7 [facility] Calcium [Mass/volume] in Ser um or PlasmaOrdered By: Huma Laureano on 02-13-2025 Calcium [Mass/Vol] 9.7 mg/dL Normal 8.6-10.3 [facility] Comment on above: Order Comment: draw per radiology Performed By: #### R ENAL #### [facility] [address] Carbon dioxide, total [Moles /volume] in Serum or PlasmaOrdered By: Huma Laureano on 02-13-2025 CO2 [Moles/Vol] 27.7 mmol/L Normal 21.0-31.0 [facility] Comment on above: Order Comment: draw per radiology Performed By: #### R ENAL #### [facility] [address] [place] [address] [place] Chloride [Moles/volume] in S maren or PlasmaOrdered By: Huma Laureano on 02-13-2025 Chloride [Moles/Vol] 102 mmol/L Normal 98-107 [facility] Comment on above: Order Comment: draw per radiology Performed By: #### R ENAL #### [facility] [address] Creatinine [Mass/volume] in Serum or PlasmaOrdered By: Huma Laureano on 02-13-2025 Creatinine [Mass/Vol] 1.45 mg/dL High 0.70-1.30 [facility] Comment on above: Order Comment: draw per radiology Performed By: #### R ENAL #### [address] Glucose [Mass/volume] in Ser um or PlasmaOrdered By: Huma Laureano on 02-13-2025 Glucose [Mass/Vol] 70 mg/dL Normal 70-100 [facility] Comment on above: ADA recommended refe rence rangeRandom Glucose Reference Range is dependent on time and content of last meal. Glucose of more than 200 mg/dL in a nonstressed, ambulatory subject supports the diagnosis of Diabetes Mellitus. Order Comment: draw per radiology Result Comment: Stanley om Glucose Reference Range is dependent on time and content of last meal. Glucose of more than 200 mg/dL in a nonstressed, ambulatory subject supports the diagnosis of Diabetes Mellitus. ADA recommended reference range Performed By: #### R ENAL #### [facility] [address] [place] [address] No Panel InformationOrdered By: Huma Laureano on 02-13-2025 Estimated GFR (CKD-EPI) > 60.0 mL/Min [facility] Creatinine Clearance (Chem N/A [facility] Phosphate [Mass/volume] in S maren or PlasmaOrdered By: Huma Laureano on 02-13-2025 Phosphate [Mass/Vol] 3.8 mg/dL Normal 2.5-4.5 [facility] Comment on above: Order Comment: draw per radiology Performed By: #### R ENAL #### [address] Potassium [Moles/volume] in Serum or PlasmaOrdered By: Huma Georgi on 02-13-2025 Potassium [Moles/Vol] 4.1 mmol/L Normal 3.5-5.1 [facility] Comment on above: Order Comment: draw per radiology Performed By: #### R ENAL #### [address] Renal Function Panelon 02-13 Albumin [Mass/Vol] 4.9 g/dL Normal 3.5-5.7 [facility] Comment on above: Order Comment: draw per radiology Result Comment: PERF ORMED BY: [place] [address] PATHOLOGIST THIRD RIGGER PAVEL EGAN M.D. Performed By: #### R ENAL #### [address] GFR/1.73 sq M.predicted MDRD (S/P/Bld) [Vol rate/Area] mL/min/{1.73_m2} Normal [facility] Comment on above: Order Comment: draw per radiology Performed By: #### R ENAL #### [address] Serum or plasma anion gap de terminationOrdered By: Huma Georgi on 02-13-2025 Anion gap [Moles/Vol] 11.4 mmol/L Normal 6.0-15.0 [facility] Comment on above: Order Comment: draw per radiology Performed By: #### R ENAL #### [address] Sodium [Moles/volume] in Ser um or PlasmaOrdered By: Huma Georgi on 02-13-2025 Sodium [Moles/Vol] 137 mmol/L Normal 136-145 [facility] Comment on above: Order Comment: draw per radiology Performed By: #### R ENAL #### [address] US renal BIon 02-13-2025 US renal BI [facility] [address] [place] [address] [place] [address] Ultrasound Report Signed Patient: Zack Savage MR#: [id number] : 1985 Acct:[id number] Age/Sex: 40 / M ADM Date: 02/13/25 Loc: Room: Type: [facility] Attending Dr: Huma Laureano MD Ordering Provider: Huma Laureano MD Date of Service: 02/13/25 US/US renal BI: R94.4 - Abnormal results of kidney function studies Copies to: Huma Laureano MD US renal BI 02/13/2025 5:49 PM SIGNS AND SYMPTOMS: R94.4 - Abnormal results of kidney function studies LABS TO FOLLOW COMPARISON: None. FINDINGS: Right kidney measures 10.56 cm x 4.58 cm x 4.7 cm . No hydronephrosis or mass. Left kidney measures 10.25 cm x 6.18 cm x 4.9 cm . No hydronephrosis or mass. The urinary bladder is morphologically normal. No free fluid is seen in the pelvis. Before voiding, the bladder measures 12.37 cm x 10.06 cm x 10.45 cm , which corresponds to an estimated volume of 680.90 mL . After voiding, the bladder has an estimated volume of 38.53 .mL US/US renal BI IMPRESSION: No hydronephrosis or mass. Impression dictated by: Jef Meeks M.D. 02/13/2025 10:24 PM Dictation Location: [place] [address] Tech: Lindsay Rosannejamal Transcribed By: KAMAR 02/13/252223 Dictated By: Jef Meeks II, MD 02/13/252222 Signed By: 02/13/252223 Normal [facility] Urea nitrogen [Mass/volume] in Serum or PlasmaOrdered By: Huma Laureano on 02-13-2025 Urea nitrogen [Mass/Vol] 20 mg/dL Normal - [facility] Comment on above: Order Comment: draw per radiology Performed By: #### R ENAL #### [address] [address] [facility] Auditory function testson Right Ear: Mild slop ing to severe sensorineural hearing loss above 1K Hz Left Ear: Normal hearing [facility] Estimated glomerular filtrat ion rate (GFR) non- Americanon 12-09-2024 GFR/1.73 sq M.predicted among non-blacks MDRD (S/P/Bld) [Vol rate/Area] Estimated glomerular filtration rate (GFR) non- >=60 mL/min/1.7 3m 2 [facility] GFR/1.73 sq M.predicted among non-blacks MDRD (S/P/Bld) [Vol rate/Area] mL/min/{1.73_m2} >=60 mL/min/1.7 3m 2 [facility] Globulin Calc (S) [Mass/Vol] on 12-09-2024 Globulin (S) [Mass/Vol] Serum globulin measurement by calculation (mass/volume) [facility] Globulin (S) [Mass/Vol] 3.6 g/dL [facility] HCV genotyping ser/plas ampl ified probeon 12-09-2024 HCV genotype CHANDA+probe Nom TNP . [facility] Comment on above: Test not performed. Unable to provide an HCV genotype forthis sample. The most common reason an HCV genotype cannotbe determined is due to a viral load of <1,000 IU/mL, ormore rarely, the presence of an untypable HCV genotype.This test was developed and its performance characteristicsdetermined by [employer]. It has not been cleared orapproved by the Food and Drug Administration.Performed at: [address] [id number] Director: Clark Berry MD, Phone: [phone] Hepatitis A virus Ab [Presen ce] in Serum by Immunoassayon 12-09-2024 HAV Ab IA Ql (S) Hepatitis A virus Ab [Presence] in Serum by Immunoassay Negative [facility] Comment on above: Comment: The HAV tot al antibody assay detects both IgG andIgM but does not differentiate between them. A negativeresult suggests susceptibility to infection. A positiveresult could be due to vaccination, previously resolvedinfection or active infection. Testing for HAV IgM shouldbe performed if active HAV infection is suspected. [facility] profiles that will automatically reflex positive HAVtotal antibody results to IgM (e.g., panel #[id number] HAVAntibody w/ Rfx).Performed at: [facility] [employer] [id number] Director: Rick Givens PhD, Phone: [phone] HAV Ab IA Ql (S) Negative Negative [facility] Comment on above: Comment: The HAV tot al antibody assay detects both IgG andIgM but does not differentiate between them. A negativeresult suggests susceptibility to infection. A positiveresult could be due to vaccination, previously resolvedinfection or active infection. Testing for HAV IgM shouldbe performed if active HAV infection is suspected. [facility]ers profiles that will automatically reflex positive HAVtotal antibody results to IgM (e.g., panel #[id number] HAVAntibody w/ Rfx).Performed at: [employer] [id number] Director: Rick Givens PhD, Phone: [phone] Hepatitis B virus surface Ab [Presence] in Serumon 12-09-2024 HBV surface Ab Ql (S) Hepatitis B virus surface Ab [Presence] in Serum Abnormal Immunity>1 0 [facility] Comment on above: Status of Immunity A nti-HBs Level Inconsistent with Immunity 0.0 - 10.0Consistent with Immunity >10.0 HBV surface Ab Ql (S) 6.9 mIU/mL Abnormal Immuni ty>1 0 [facility] Comment on above: Status of Immunity A nti-HBs Level Inconsistent with Immunity 0.0 - 10.0Consistent with Immunity >10.0 Hepatitis B virus surface Ag [Presence] in Serum or Plasma by Immunoassayon 12-09-2024 HBV surface Ag IA Ql Hepatitis B virus s urface Ag [Presence] in Serum or Plasma by Immunoassay Negative [facility] HBV surface Ag IA Ql Negative Negative [facility] - Chemistry and C hemistry - challengeon 12-09-2024 Albumin [Mass/Vol] 4.0 g/dL 3.4-5.0 [facility] ALP [Catalytic activity/Vol] 81 U/L 46-116 [facility] ALT [Catalytic activity/Vol] 67 U/L High 16-63 [facility] Amylase [Catalytic activity/Vol] 89 U/L High 15-85 [facility] AST [Catalytic activity/Vol] 41 U/L High 15-37 [facility] Bilirubin [Mass/Vol] 0.4 mg/dL 0.2-1.0 [facility] Calcium [Mass/Vol] 9.1 mg/dL 8.5-10.1 [facility] Chloride [Moles/Vol] 106 mmol/L 98-107 [facility] CO2 [Moles/Vol] 27.7 mmol/L 21.0-32.0 [facility] Creatinine [Mass/Vol] 1.28 mg/dL 0.70-1.30 [facility] GFR/1.73 sq M.predicted MDRD (S/P/Bld) [Vol rate/Area] mL/min/{1.73_m2} >=60 mL/min/1.7 3m 2 [facility] Glucose [Mass/Vol] 103 mg/dL 74-106 [facility] Potassium [Moles/Vol] 4.6 mmol/L 3.5-5.1 [facility] Protein [Mass/Vol] 7.6 g/dL 6.4-8.2 [facility] Sodium [Moles/Vol] 138 mmol/L 136-145 [facility] Urea nitrogen [Mass/Vol] 19.0 mg/dL High 7.0-18.0 [facility] Urea nitrogen/Creatinine [Mass ratio] 14.8 mg/mg [facility] No Panel Informationon 12-09 Hepatitis B Core Total Antibody Negative Negative [facility] Serum or plasma albumin/glob ulin mass ratioon 12-09-2024 Albumin/Globulin [Mass ratio] Serum or plasma albumin/globulin mass ratio [facility] Albumin/Globulin [Mass ratio] 1.1 {ratio} [facility] Serum or plasma anion gap de terminationon 12-09-2024 Anion gap [Moles/Vol] Serum or plasma an ion gap determination [facility] Anion gap [Moles/Vol] 8.9 mmol/L [facility] [facility] Estimated glomerular filtrat ion rate (GFR) non- Americanon 11-04-2024 GFR/1.73 sq M.predicted among non-blacks MDRD (S/P/Bld) [Vol rate/Area] Estimated glomerular filtration rate (GFR) non- Low >=60 mL/min/1.7 3m 2 [facility] Laboratory - Chemistry and C hemistry - challengeon 11-04-2024 Calcium [Mass/Vol] 9.4 mg/dL 8.5-10.1 [facility] Chloride [Moles/Vol] 105 mmol/L 98-107 [facility] CO2 [Moles/Vol] 26.4 mmol/L 21.0-32.0 [facility] Creatinine [Mass/Vol] 1.34 mg/dL High 0.70-1.30 [facility] GFR/1.73 sq M.predicted MDRD (S/P/Bld) [Vol rate/Area] mL/min/{1.73_m2} >=60 mL/min/1.7 3m 2 [facility] Glucose [Mass/Vol] 95 mg/dL 74-106 [facility] Potassium [Moles/Vol] 4.9 mmol/L 3.5-5.1 [facility] Sodium [Moles/Vol] 139 mmol/L 136-145 [facility] Urea nitrogen [Mass/Vol] 16.0 mg/dL 7.0-18.0 [facility] Urea nitrogen/Creatinine [Mass ratio] 11.9 mg/mg [facility] Serum or plasma anion gap de terminationon 11-04-2024 Anion gap [Moles/Vol] Serum or plasma an ion gap determination [facility] Estimated glomerular filtrat ion rate (GFR) non- Americanon 10-14-2024 GFR/1.73 sq M.predicted among non-blacks MDRD (S/P/Bld) [Vol rate/Area] Estimated glomerular filtration rate (GFR) non- >=60 mL/min/1.7 3m 2 [facility] Globulin Calc (S) [Mass/Vol] on 10-14-2024 Globulin (S) [Mass/Vol] Serum globulin measurement by calculation (mass/volume) [facility] Laboratory - Chemistry and C hemistry - challengeon 10-14-2024 Albumin [Mass/Vol] 4.1 g/dL 3.4-5.0 [facility] ALP [Catalytic activity/Vol] 79 U/L 46-116 [facility] ALT [Catalytic activity/Vol] 69 U/L High 16-63 [facility] AST [Catalytic activity/Vol] 41 U/L High 15-37 [facility] Bilirubin [Mass/Vol] 0.6 mg/dL 0.2-1.0 [facility] Calcium [Mass/Vol] 9.5 mg/dL 8.5-10.1 [facility] Chloride [Moles/Vol] 104 mmol/L 98-107 [facility] CO2 [Moles/Vol] 27.3 mmol/L 21.0-32.0 [facility] Creatinine [Mass/Vol] 1.31 mg/dL High 0.70-1.30 [facility] GFR/1.73 sq M.predicted MDRD (S/P/Bld) [Vol rate/Area] mL/min/{1.73_m2} >=60 mL/min/1.7 3m 2 [facility] Glucose [Mass/Vol] 94 mg/dL 74-106 [facility] Potassium [Moles/Vol] 4.5 mmol/L 3.5-5.1 [facility] Protein [Mass/Vol] 7.8 g/dL 6.4-8.2 [facility] Sodium [Moles/Vol] 140 mmol/L 136-145 [facility] Urea nitrogen [Mass/Vol] 23.0 mg/dL High 7.0-18.0 [facility] Urea nitrogen/Creatinine [Mass ratio] 17.6 mg/mg [facility] Serum or plasma albumin/glob ulin mass ratioon 10-14-2024 Albumin/Globulin [Mass ratio] Serum or plasma albumin/globulin mass ratio [facility] Serum or plasma anion gap de terminationon 10-14-2024 Anion gap [Moles/Vol] Serum or plasma an ion gap determination [facility] Basophils Auto (Bld) [#/Vol] on 04-14-2024 Basophils (Bld) [#/Vol] 0.1 10 3/uL 0.0-0.1 [facility] Basophils/100 WBC Auto (Bld) on 04-14-2024 Basophils/100 WBC (Bld) 1.1 % 0.2-2.0 [facility] Cholesterol in LDL Calc [Mas s/Vol]on 04-14-2024 Cholesterol in LDL [Mass/Vol] 99.0 mg/dL [facility] Comment on above: <100 mg/dl [id number] 0-129 mg/dl NEAR OR ABOVE [id number] mg/dl BORDERLINE [id number] mg/dl HIGH>190 mg/dl VERY HIGH Cholesterol in VLDL Calc [Ma ss/Vol]on 04-14-2024 Cholesterol in VLDL [Mass/Vol] 8.0 mg/dL [facility] Eosinophils/100 WBC Auto (Bl d)on 04-14-2024 Eosinophils/100 WBC (Bld) 8.5 % High 0.9-7.0 [facility] Erythrocyte distribution wid th Auto (RBC) [Ratio]on 04-14-2024 Erythrocyte distribution width (RBC) [Ratio] 13.2 % 11.0-15.0 [facility] Estimated glomerular filtrat ion rate (GFR) non- Americanon 04-14-2024 GFR/1.73 sq M.predicted among non-blacks MDRD (S/P/Bld) [Vol rate/Area] 60 mL/min/{1.73_m2} >=60 [facility] Globulin Calc (S) [Mass/Vol] on 04-14-2024 Globulin (S) [Mass/Vol] 3.6 g/dL [facility] Hematocrit Auto (Bld) [Volum e fraction]on 04-14-2024 Hematocrit (Bld) [Volume fraction] 42.9 % 42.0-54.0 [facility] Hemoglobin [Mass/volume] in Bloodon 04-14-2024 Hemoglobin (Bld) [Mass/Vol] 14.4 g/dL 14.0-18.0 [facility] Laboratory - Chemistry and C hemistry - challengeon 04-14-2024 Bilirubin Ql (U) Negative NEGATIVE [facility] Glucose (U) [Mass/Vol] Negative NEGATIVE [facility] Ketones Ql (U) Negative NEGATIVE [facility] pH (U) 7.0 [pH] 5.0-9.0 [facility] Specific gravity (U) [Rel density] 1.015 1.005-1.02 5 [facility] Urobilinogen Qn (U) 0.2 {Rosa'U}/dL 0.2-1.0 [facility] Albumin [Mass/Vol] 4.2 g/dL 3.4-5.0 [facility] ALP [Catalytic activity/Vol] 81 U/L 46-116 [facility] ALT [Catalytic activity/Vol] 57 U/L 16-63 [facility] AST [Catalytic activity/Vol] 43 U/L High 15-37 [facility] Bilirubin [Mass/Vol] 0.5 mg/dL 0.2-1.0 [facility] Calcium [Mass/Vol] 9.1 mg/dL 8.5-10.1 [facility] Chloride [Moles/Vol] 103 mmol/L 98-107 [facility] Cholesterol [Mass/Vol] 160 mg/dL <=200 [facility] Cholesterol in HDL [Mass/Vol] 53 mg/dL 40-60 [facility] Comment on above: > or =60 mg/dl - LOW CARDIOVASCULAR RISK<40 mg/dl - HIGH CARDIOVASCULAR RISK CO2 [Moles/Vol] 24.8 mmol/L 21.0-32.0 [facility] Creatinine [Mass/Vol] 1.32 mg/dL High 0.70-1.30 [facility] GFR/1.73 sq M.predicted MDRD (S/P/Bld) [Vol rate/Area] mL/min/{1.73_m2} >=60 [facility] Glucose [Mass/Vol] 96 mg/dL 74-106 [facility] Potassium [Moles/Vol] 4.7 mmol/L 3.5-5.1 [facility] Protein [Mass/Vol] 7.8 g/dL 6.4-8.2 [facility] Sodium [Moles/Vol] 138 mmol/L 136-145 [facility] Triglyceride [Mass/Vol] 40 mg/dL <=150 [facility] TSH Qn 0.821 m[IU]/L 0.358-3.74 0 [facility] Urea nitrogen [Mass/Vol] 21.0 mg/dL High 7.0-18.0 [facility] Urea nitrogen/Creatinine [Mass ratio] 15.9 mg/mg [facility] Laboratory - Hematology and Cell countson 04-14-2024 Immature granulocytes/100 WBC (Bld) 0.2 % 0.0-0.5 [facility] Laboratory - Specimen inform ationon 04-14-2024 Appearance (U) CLEAR CLEAR [facility] Color (U) LT. YELLOW YELLOW [facility] Laboratory - Urinalysison Leukocyte esterase Test strip Ql (U) Negative NEGATIVE [facility] Mucus Ql (Urine sed) TRACE Abnormal NONE SEEN [facility] Nitrite Ql (U) Negative NEGATIVE [facility] Protein Ql (U) Negative NEG/TRACE [facility] Leukocytes [#/volume] correc michelle for nucleated erythrocytes in Blood by Automated counon 04-14-2024 WBC corrected for nucl RBC Auto (Bld) [#/Vol] 5.5 10 3/uL 4.0-11.0 [facility] Lymphocytes Auto (Bld) [#/Vo l]on 04-14-2024 Lymphocytes (Bld) [#/Vol] 1.6 10 3/uL 1.2-3.8 [facility] Lymphocytes/100 WBC Auto (Bl d)on 04-14-2024 Lymphocytes/100 WBC (Bld) 29.1 % 20.5-60.0 [facility] MCH Auto (RBC) [Entitic mass ]on 04-14-2024 MCH (RBC) [Entitic mass] 29.1 pg 25.9-34.0 [facility] MCHC Auto (RBC) [Mass/Vol]on 04-14-2024 MCHC (RBC) [Mass/Vol] 33.6 g/dL 29.9-35.2 [facility] MCV Auto (RBC) [Entitic vol] on 04-14-2024 MCV (RBC) [Entitic vol] 86.7 fL 80.0-94.0 [facility] Monocytes Auto (Bld) [#/Vol] on 04-14-2024 Monocytes (Bld) [#/Vol] 0.5 10 3/uL 0.3-0.8 [facility] Monocytes/100 WBC Auto (Bld) on 04-14-2024 Monocytes/100 WBC (Bld) 9.8 % 1.7-12.0 [facility] Neutrophils Auto (Bld) [#/Vo l]on 04-14-2024 Neutrophils (Bld) [#/Vol] 2.8 10 3/uL 1.4-6.5 [facility] Neutrophils/100 WBC Auto (Bl d)on 04-14-2024 Neutrophils/100 WBC (Bld) 51.3 % 43.0-75.0 [facility] No Panel Informationon 04-14 Urine Bacteria TRACE #/HPF Abnormal NONE SEEN [facility] Urine Culture Reflexed NO [facility] Urine Occult Blood Negative NEGATIVE [facility] Urine Other Casts NONE SEEN #/LPF NONE SEEN [facility] Urine Other Crystals None Seen #/HPF None Seen [facility] Urine RBC NONE SEEN #/HPF 0-2 [facility] Urine Squamous Epithelial Cells RARE #/LPF NONE/RARE [facility] Urine Transitional Epithelial Cells RARE #/LPF Abnormal NONE SEEN [facility] Urine WBC NONE SEEN #/HPF NONE SEEN [facility] Eosinophils # (Auto) 0.5 10 3/uL 0.0-0.7 [facility] Immature Granulocyte # (Auto) 0.01 10 3/uL 0.00-0.03 [facility] Prostate Specific Antigen Screen 0.86 ng/mL <=4.00 [facility] Platelet mean volume Auto (B ld) [Entitic vol]on 04-14-2024 Platelet mean volume (Bld) [Entitic vol] 10.1 fL 9.5-13.5 [facility] Platelets Auto (Bld) [#/Vol] on 04-14-2024 Platelets (Bld) [#/Vol] 266 10 3/uL 150-450 [facility] RBC Auto (Bld) [#/Vol]on RBC (Bld) [#/Vol] 4.95 10 6/uL 4.70-6.10 [facility] Serum or plasma albumin/glob ulin mass ratioon 04-14-2024 Albumin/Globulin [Mass ratio] 1.2 {ratio} [facility] Serum or plasma anion gap de terminationon 04-14-2024 Anion gap [Moles/Vol] 14.9 mmol/L [facility] Serum or plasma total choles terol/high density lipoprotein (HDL) cholesterol mass marie 04-14-2024 Cholesterol.total/Chol esterol in HDL [Mass ratio] 3.0 {ratio} [facility] Comment on above: 3.3 - 4.4 LOW RISK4. 4 - 7.1 AVERAGE RISK7.1 - 11.0 MODERATE RISK>11.0 HIGH RISK CNOVon 04-05-2023 CNOV Office Visit (OTOLMN ) ZACK SAVAGE ([id number]) 1985 M Date Time Provider Department 04/05/23 [...] seen by ENT close to home in [place] and he was treated with oral prednisone. [...] In Ear(s) [1127] Cmt: right Primary Visit Diagnosis:Sensorineural hearing loss (SNHL) of right ear with [...] Status:Closed by MARY SOTO on 04/05/23 Normal [facility] CNOV Office Visit (CDISMN ) ZACK SAVAGE ([id number]) 1985 M Date Time Provider Department 04/05/23 3:00 PM LO HOPE CDIN During your visit today, we recorded the following information about you: Lo Hope AUD 04/05/2023 3:54 PM Signed [facility] [place] AUDIOLOGIC EVALUATION REPORT Name: Zack Savage CC#: [id number] Date of Service: 04/05/2023 Date of : 1985 Age: [age] year old Referred by: Mary Soto MD [address] [address] Referred for: Evaluation of suspected change in hearing, tinnitus, or balance. 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 CPT code: 21286 RIGHT EAR: Normal ME function. LEFT EAR: Normal ME function. ACOUSTIC REFLEXES Description of procedure: This test is an objective measure of auditory and facial nerve pathways. CPT code: 57613, 86736 RIGHT EAR PROBE EAR: (ipsi right stimulus [...] conduction and speech recognition testing. CPT code: 17256 RIGHT EAR: Hearing Sensitivity: within normal limits [...] enriched environment (more content not included)... Normal [facility] Covid-19 PCR (CVDTBH)on 03-30 SARS-CoV-2 (COVID-19) RNA CHANDA+probe Ql (Unsp spec) Detected Critically abnormal NOT DETECTED [facility] Comment on above: Result Comment: This test is not yet approved or cleared by the [place] FDA. When there are no FDA-approved or cleared tests available, and other criteria are met, FDA can make tests available under an emergency access mechanism called an Emergency Use Authorization (EUA). The EUA for this test is supported by the [place] of Health and Human Service's (HHS's) declaration [...] used). Performed By: #### C VDTB #### [facility] [address] [place] [address] Dr. Ronal Garcia Covid-19 PCR (CVDTB)on 06-30 SARS-CoV-2 (COVID-19) RNA CHANDA+probe Ql (Unsp spec) Detected Critically abnormal NOT DETECTED [facility] Comment on above: Result Comment: This test is not yet approved or cleared by the [place] FDA. When there are no FDA-approved or cleared tests available, and other criteria are met, FDA can make tests available under an emergency access mechanism called an Emergency Use Authorization (EUA). The EUA for this test is supported by the [place] of Health and Human Service's (HHS's) declaration [...] used). Performed By: #### C VDTB #### [facility] [address] [place] [address] Dr. Ronal Garcia Covid-19 PCR (CVDTB)on SARS-CoV-2 (COVID-19) RNA CHANDA+probe Ql (Unsp spec) Not detected Normal NOT DETECTED [facility] Comment on above: Result Comment: This test is not yet approved or cleared by the [place] FDA. When there are no FDA-approved or cleared tests available, and other criteria are met, FDA can make tests available under an emergency access mechanism called an Emergency Use Authorization (EUA). The EUA for this test is supported by the [place] of Health and Human Service's (HHS's) declaration [...] SARS-CoV-2. Performed By: #### C [facility] #### [facility] [address] [place] [address] Dr. Ronal Garcia Vital Signs Date Time Vital Sign Value Performing Clinician Facility 03-06-2025 14:53-0400 Body height 177.8 cm Varun Denton DO Work Phone: [facility] 03-06-2025 14:53-0400 Body mass index (BMI) [Ratio] 25.2 kg/m2 Varun Denton DO Work Phone: [facility] 03-06-2025 14:53-0400 Body temperature 98.5 [degF] Varun Denton DO Work Phone: [facility] 03-06-2025 14:53-0400 Body weight 79.83 kg Varun Denton DO Work Phone: [facility] 03-06-2025 14:53-0400 Diastolic blood pressure 76 mm[Hg] Varun Denton DO Work Phone: [facility] 03-06-2025 14:53-0400 Heart rate 68 /min Varun Denton DO Work Phone: [facility] 03-06-2025 14:53-0400 SaO2% (BldA) [Mass fraction] 98 % Varun Denton DO Work Phone: [facility] 03-06-2025 14:53-0400 Systolic blood pressure 120 mm[Hg] Varun Denton DO Work Phone: [facility] 02-26-2025 16:05-0400 Body height 177.8 cm Abimael Seamancek DO Work Phone: [facility] 02-26-2025 16:05-0400 Body mass index (BMI) [Ratio] 25.83 kg/m2 Abimael Murcek DO Work Phone: [facility] 02-26-2025 16:05-0400 Body weight 81.65 kg Abimael Seamancek DO Work Phone: [facility] 02-05-2025 13:42-0400 Body height 170.18 cm [facility] 02-05-2025 13:42-0400 Body mass index (BMI) [Ratio] 27.7 kg/m2 [facility] 02-05-2025 13:42-0400 Body weight 80.34 kg [facility] 02-05-2025 13:42-0400 Diastolic blood pressure 79 mm[Hg] [facility] 02-05-2025 13:42-0400 Heart rate 69 /min [facility] 02-05-2025 13:42-0400 Respiratory rate 16 /min [facility] 02-05-2025 13:42-0400 SaO2% (BldA) [Mass fraction] 98 % [facility] 02-05-2025 13:42-0400 Systolic blood pressure 121 mm[Hg] [facility] 01-15-2025 14:27-0400 Body height 177.8 cm Abimael Seamancek DO Work Phone: [facility] 01-15-2025 14:27-0400 Body mass index (BMI) [Ratio] 25.83 kg/m2 Abimael Seamancek DO Work Phone: [facility] 01-15-2025 14:27-0400 Body weight 81.65 kg Abimael Seamancek DO Work Phone: [facility] 12-18-2024 17:19-0400 Body height 177.8 cm [facility] 12-18-2024 17:19-0400 Body mass index (BMI) [Ratio] 25.4 kg/m2 [facility] 12-18-2024 17:19-0400 Body temperature 98.1 [degF] [facility] 12-18-2024 17:19-0400 Body weight 80.28 kg [facility] 12-18-2024 17:19-0400 Diastolic blood pressure 78 mm[Hg] [facility] 12-18-2024 17:19-0400 Heart rate 76 /min [facility] 12-18-2024 17:19-0400 SaO2% (BldA) [Mass fraction] 98 % [facility] 12-18-2024 17:19-0400 Systolic blood pressure 124 mm[Hg] [facility] 09-11-2024 16:00-0500 Body temperature 97 [degF] [facility] 09-11-2024 16:00-0500 Body weight 80.28 kg [facility] 09-11-2024 16:00-0500 Diastolic blood pressure 86 mm[Hg] [facility] 09-11-2024 16:00-0500 Heart rate 74 /min [facility] 09-11-2024 16:00-0500 SaO2% (BldA) [Mass fraction] 97 % [facility] 09-11-2024 16:00-0500 Systolic blood pressure 124 mm[Hg] [facility] 05-31-2024 15:19-0400 Body mass index (BMI) [Ratio] 25.1 kg/m2 [facility] 05-31-2024 15:19-0400 Body temperature 97.4 [degF] [facility] 05-31-2024 15:19-0400 Body weight 79.37 kg [facility] 05-31-2024 15:19-0400 Diastolic blood pressure 64 mm[Hg] [facility] 05-31-2024 15:19-0400 Heart rate 72 /min [facility] 05-31-2024 15:19-0400 Respiratory rate 18 /min [facility] 05-31-2024 15:19-0400 SaO2% (BldA) [Mass fraction] 99 % [facility] 05-31-2024 15:19-0400 Systolic blood pressure 116 mm[Hg] [facility] 05-31-2024 14:05-0400 Body height 177.8 cm [facility] 04-10-2024 15:39-0400 Body height 177.8 cm [facility] 04-10-2024 15:39-0400 Body mass index (BMI) [Ratio] 24.5 kg/m2 [facility] 04-10-2024 15:39-0400 Body temperature 97.6 [degF] [facility] 04-10-2024 15:39-0400 Body weight 77.56 kg [facility] 04-10-2024 15:39-0400 Diastolic blood pressure 80 mm[Hg] [facility] 04-10-2024 15:39-0400 Heart rate 69 /min [facility] 04-10-2024 15:39-0400 SaO2% (BldA) [Mass fraction] 97 % [facility] 04-10-2024 15:39-0400 Systolic blood pressure 124 mm[Hg] [facility] Encounters Encounter Date Encounter Type Care Provider Facility Start: 03-06-2025 End: 03-06-2025 ambulatory Varun Denton DO Work Phone: [facility] Work Phone: Start: 03-06-2025 End: 03-06-2025 Patient encounter procedure Varun Denton DO -[facility] Work Phone: Start: 02-26-2025 End: 02-26-2025 Office outpatient visit 15 minutes Abimael Madrid DO Work Phone: [facility] Comment on above: Asymmetric SNHL (sen sorineural hearing loss) (Primary Dx) Start: 02-26-2025 End: 02-26-2025 ambulatory ABIMAEL MADRID Not Available Start: 02-26-2025 End: 02-26-2025 Bamboo flowsheet Abimael Madrid DO Work Phone: [facility] Start: 02-26-2025 End: 02-26-2025 Bamboo flowsheet Abimael Madrid DO Work Phone: [facility] Start: 02-16-2025 End: 02-16-2025 ambulatory Abimael Madrid Facility:[facility] Start: 02-16-2025 End: 02-16-2025 Patient encounter procedure Abimael Madrid DO -[facility] Work Phone: Start: 02-13-2025 End: 02-13-2025 Departed Referred Huma Laureano MD -[facility] Work Phone: Start: 02-13-2025 End: 02-13-2025 Patient encounter procedure Huma Laureano MD -[facility]trasound [facility] Work Phone: Start: 02-13-2025 End: 02-13-2025 ambulatory Huma Laureano Facility:[facility] Start: 02-05-2025 End: 02-05-2025 ambulatory [facility] Work Phone: Start: 02-05-2025 End: 02-05-2025 Patient encounter procedure [facility] Work Phone: Start: 01-15-2025 End: 01-15-2025 Office outpatient new 45 minutes Abimael Madrid DO Work Phone: [facility] Comment on above: Asymmetrical hearing loss (Primary Dx); Peripheral vertigo involving right ear; Epistaxis Start: 01-15-2025 End: 01-15-2025 ambulatory ABIMAEL MADRID Not Available Start: 01-15-2025 End: 01-15-2025 Bamboo flowsheet Abimael Madrid DO Work Phone: [facility] Start: 01-15-2025 End: 01-15-2025 Bamboo flowsheet Abimael Madrid DO Work Phone: [facility] Start: 01-14-2025 End: 01-14-2025 Patient encounter status Abimael Madrid DO Work Phone: [facility] Start: 01-12-2025 End: 01-12-2025 Clinical Support Shiloh Zurita CCC-A Work Phone: [facility] Comment on above: Sensorineural hearin g loss (SNHL) of right ear with unrestricted hearing of left ear (Primary Dx); Tinnitus, right Start: 01-12-2025 End: 01-12-2025 Bamboo flowsheet Shiloh Rivera [facility] Work Phone: [facility] Start: 01-12-2025 End: 01-12-2025 Bamboo flowsheet Shiloh Rivera [facility] Work Phone: [facility] Start: 01-10-2025 End: 01-10-2025 Patient encounter procedure Varun Denton DO Work Phone: [facility] Work Phone: Start: 01-10-2025 End: 01-10-2025 ambulatory Varun Denton DO Work Phone: [facility] Work Phone: Start: 01-10-2025 Non-patient / Non-visit [facility] Work Phone: Start: 12-18-2024 End: 12-18-2024 ambulatory [facility] Work Phone: Start: 12-18-2024 End: 12-18-2024 Patient encounter procedure [facility] [place] Work Phone: Start: 12-09-2024 Non-patient / Non-visit [facility] Work Phone: Start: 11-04-2024 Non-patient / Non-visit [facility] Work Phone: Start: 10-14-2024 Non-patient / Non-visit [facility] Work Phone: Start: 09-11-2024 End: 09-11-2024 ambulatory [facility] Work Phone: Start: 09-11-2024 End: 09-11-2024 Patient encounter procedure [facility] [place] Work Phone: Start: 05-31-2024 End: 05-31-2024 ambulatory [facility] Work Phone: Start: 05-31-2024 End: 05-31-2024 Patient encounter procedure [facility] [place] Work Phone: Start: 04-14-2024 Non-patient / Non-visit [facility] Work Phone: Start: 04-10-2024 Patient encounter status [facility] Start: 04-10-2024 End: 04-10-2024 ambulatory [facility] Work Phone: Start: 04-10-2024 End: 04-10-2024 Encounter for general adult medical examination without abnormal findings [facility] Start: 04-10-2024 End: 04-10-2024 Patient encounter procedure [facility] [place] Work Phone: Start: 04-05-2023 End: 04-05-2023 ambulatory MARY SOTO Facility:[facility] Start: 04-05-2023 End: 04-05-2023 Patient encounter procedure [...] Ryan Student Work Phone: [facility] [place] Comment on above: Other specified hear ing loss, unspecified ear (Primary Dx) Start: 03-11-2023 Orders Only Mary Soto MD Work Phone: [facility] [place] Comment on above: Other specified hear ing loss, unspecified ear (Primary Dx) Start: 04-09-2022 End: 04-09-[address] VARUN DENTON Facility:[facility]1 Start: 07-09-2021 End: 07-09-[address] VARUN DENTON Facility:[facility] Start: 07-02-2021 End: 07-02-[address] VARUN DENTON Facility:[facility] Procedures Date Procedure Procedure Detail Performing Clinician Start: 02-16-2025 MRI of head Varun Hinojosa in DO Work Phone: Start: 02-13-2025 Ultrasonography of b ilateral kidneys Varun Denton DO Work Phone: Start: 01-12-2025 AUDITORY FUNCTION TESTS Shiloh Zurita CCC-A Work Phone: Start: 01-10-2025 Ultrasound elastogra phy of liver Varun Denton DO Work Phone: Start: 04-05-2023 HEARING TEST/AUDIOGRAM Lo Hope AUD Work Phone: Plan of Treatment Date Care Activity Detail Author Start: 02-26-2025 End: 02-26-2025 Patient encounter procedure 02/26/2025 4:00 PM EDT Office Visit [facility] [place] [address] [place] [phone] Abimael Madrid, DO [address] [place] [address] Arrived [facility] [place] Comment on above: Arrived Start: 01-31-2025 End: 01-31-2025 Patient encounter procedure 01/31/2025 4:00 PM EDT Office Visit [facility] [place] [address] [place] [id number] Abimael Madrid, DO [address] [place] [address] [facility] [place] Start: 01-15-2025 End: 01-15-2025 Patient encounter procedure [facility] [place] Comment on above: Arrived Start: 01-12-2025 End: 01-12-2025 Clinical Support 01/12/2025 3:15 PM EDT Clinical Support [facility] RYAN [address] [facility] [place] [place] [id number] Shiloh Zurita, [facility] [address] [facility] [place] [address] Arrived [facility] BERNICE AUD Comment on above: Arrived Start: 09-11-2024 Patient referral [facility] Work Phone: Start: 04-30-2023 Influenza vaccination INFLUENZA (#1) [facility] Start: 08-30-2022 DEPRESSION ASSESSMENT DEPRESSION ASS ESSMENT [facility] Start: 2018 LIPID SCREEN LIPID SCREEN [facility] Start: 2002 Urine microalbumin profile DTAP,TDAP,TD (1 - Tdap) [facility] Start: 2001 HEPATITIS C SCREENING HEPATITIS C SC REENING [facility] Start: 2001 HIV SCREENING HIV SCREENING [facility] Start: 1983 COVID-19 VACCINE (#1) COVID-19 VACCI NE (#1) [facility] Start: 1983 HEPATITIS B (1 of 3 - 3-dose series) HEPATITIS B (1 of 3 - 3-dose series) [facility] Comprehensive metabo lic 1999 panel - Serum or Plasma [facility] Comprehensive metabo lic 1999 panel - Serum or Plasma [facility] Comprehensive metabo lic 1999 panel - Serum or Plasma [facility] Comprehensive metabo lic 1999 panel - Serum or Plasma [facility] End: 03-11-2024 HEARING TEST/AUDIOGRAM HEARING TEST/AUDIOGRAM Audiology Routine Other specified hearing loss, unspecified ear 1 Occurrences starting 03/11/2023 until 03/11/2024 [facility] Work Phone: Comment on above: 1 Occurrences starti ng 03/11/2023 until 03/11/2024 End: 03-15-2024 HEARING TEST/AUDIOGRAM HEARING TEST/AUDIOGRAM Audiology Routine Other specified hearing loss, unspecified ear 1 Occurrences starting 03/15/2023 until 03/15/2024 [facility] Work Phone: Comment on above: 1 Occurrences starti ng 03/15/2023 until 03/15/2024 Patient referral [facility] Work Phone: Renal function 2000 panel - Serum or Plasma [facility] Immunizations Immunization Date Immunization Notes Care Provider Fish bell 05-24-2014 hepatitis B vaccine, pediatric or pediatric/adolescent dosage [facility] 04-25-2014 hepatitis B vaccine, pediatric or pediatric/adolescent dosage [facility] 11-23-2013 hepatitis B vaccine, pediatric or pediatric/adolescent dosage [facility] Payers Date Payer Category Payer Self-pay [id number] 2024 [facility] [id number] 2024 Unknown [id number] 2017 Private Health Insurance [facility] UMR CHOICE PLUS [id number] 2017-Present [phone] [address] [address] [place] [address] O [id number] 1983 Unknown [id number] 1983 Unknown [id number] [id number] 1983 Unknown [id number] [id number] 1983 Unknown [id number] [id number] 1983 Unknown [id number] [id number] 1983 Unknown [id number] [id number] 1959 Unknown [id number] Private Health Insurance [facility] [id number] Other1 (STD) [id number] Unknown [id number] [id number] Unknown [id number] [id number] Unknown [id number] [id number] Unknown [id number] [id number] Social History Date Type Detail Facility [facility] Start: 1985 Sex Assigned At Not on file [facility] Start: 04-05-2023 End: 02-26-2025 Gender identity Not on file [facility] Start: 04-05-2023 End: 02-05-2025 Tobacco smoking status LAIS Ex-smoker [facility] End: 08-30-2007 History of tobacco use Current smoker [facility] End: 08-30-2007 History of tobacco use Cigarette Smoker [facility] Start: 04-05-2023 End: 01-15-2025 Tobacco use and exposure Smokeless tobacco non-user [facility] Start: 04-05-2023 End: 02-26-2025 History of Social function [facility] National Score (1-100), lower number is lower risk 87 [facility] Start: 1985 Sex Assigned At Male [facility] Start: 09-11-2024 End: 02-05-2025 Sex Male (finding) [facility] Start: 01-15-2025 Tobacco smoking stat us LAIS Never smoked tobacco [facility] Start: 01-15-2025 End: 02-26-2025 Alcoholic beverage intake Ex-drinker (finding) [facility] Clinical Notes 04-05-2023 to 02-26-2025 Abimael Madrid, DO - 02/26/2025 4:00 PM EDSushila Madrid, DO - 01/15/2025 2:30 PM EDTShiloh Zurita [facility] - 01/12/2025 3:15 PM EDT Note Date & Type Note Facility 02-26-2025 History of Presen t illness Narrative HPI Patient presents today following MRI scan for asymmetrical right-sided hearing loss, tinnitus and vertigo. I reviewed the MRI, I see what the neuroradiologist as talking about. He has a 3 mm enhancing lesion at the apex of the right internal auditory canal highly suggestive of a an acoustic schwannoma. I made him aware of that. Relevant postoperative physical examination Unremarkable Assessment/plan Zack was seen today for hearing loss. Diagnoses and all orders for this visit: Asymmetric SNHL (sensorineural hearing loss) (Primary) Comments: I had a lengthy discussion with the patient about acoustic neuromas. He does have serviceable hearing for his right ear. Often times these were followed until the hearing deteriorates or the vertigo gets bad at which point some form of therapy either surgical or radiation is offered. However, because of his young age I think he should see a neuro lath hand for their opinion. I have sent him to see Dr. Hernandez the neuro lath hand at [facility] for his opinion. I would like to see him back in 6 months with an audiogram. documented in this encounter [facility] 01-15-2025 History of Presen t illness Narrative Subjective Patient ID: HPI 39-year-old male referred for right-sided hearing loss, tinnitus, dizziness and epistaxis. About 2 years ago while the patient was at a [employer] park in [place] he felt a pop in his right ear. Ever since that time had tinnitus and decreased hearing in her right ear. With the last probably 6-8 months he has noticed that with straining, quick movements etcetera he has some momentary disequilibrium and mild vertigo. That is new. He has had was seen remotely by another codifier who ordered an MRI scan and told him there was no findings. Recent audiogram shows normal hearing in the left ear through the highest frequencies where he has a very drop-off. The right ear, he starts off normal but has a sloping moderate to severe sensorineural hearing loss. Sub testing relatively normal. Tympanograms are normal. As far as the epistaxis concerned, mostly on the right side and periodic not very heavy. He has remote past of cauterization. Review of Systems ROS The specialty specific review of systems is noncontributory except for that recorded in the intake questionnaire and /or described in the history of present illness. Objective ENT Physical Exam Physical Exam Constitutional: Appearance: Normal appearance. HENT: Head: Atraumatic. Ears: External ear shows no abnormality Bilateral ear canals are clear Tympanic membranes intact, no evidence of middle ear fluid or other pathology. Nose: External nose appears to be normal Nares patent. Septal deviation to the right. No evidence of polyp, mass or pus bilaterally. Mucosa is dry, excoriated over Little's area on the right. No obvious vessel. Oral Cavity: No evidence of trismus Lips appear normal Dental good Tongue of normal size and configuration, floor of mouth mucosa clear. Buccal mucosa shows no evidence of ulceration, mass or other abnormality Hard palate soft palate mucosa intact with no evidence of mass, ulceration or other abnormality Uvula of normal size and configuration Oropharynx: Tonsils atrophic Posterior pharyngeal wall normal Neck: No evidence of palpable abnormality Thyroid without evidence of thyromegaly or mass. No cervical lymphadenopathy present. Cardiovascular: Rate and Rhythm: Normal rate and regular rhythm. . Skin: General: Skin is warm and dry. Neurological: General: No focal deficit present. Mental Status: alert and oriented to person, place, and time. Assessment/Plan Zack was seen today for epistaxis (nose bleed) and tinnitus. Diagnoses and all orders for this visit: Asymmetrical hearing loss (Primary) Comments: I am going to repeat the MRI because of the constellation of symptoms and see him back following that. MRI of the brain and IAC's Peripheral vertigo involving right ear Comments: See above Epistaxis Comments: I want the patient to use liberal amounts of intranasal saline mist and saline gel. documented in this encounter [facility] 01-12-2025 History of Presen t illness Narrative History: Pt was referred to ENT because of hearing loss. Pt has history of right sided hearing loss, onset February 2021. Pt was at a baseball game and his right ear popped. He saw Dr. Paniagua until he retired. MRI ordered by Dr. Paniagua was normal. Pt also went to the [facility] in 2022. Pt states he also has constant tinnitus right side. The right side of his face feels full and his brain feels foggy. By mid day he feels tired. History is positive for some exposure to noise. Pt did wear hearing protection when around the noise. Otoscopic Exam: Ear canal clear and TM intact AU Pure Tone Audiometry Right Ear: Mild sloping to severe sensorineural hearing loss above 1K Hz Left Ear: Normal hearing Speech Audiometry Right SRT = 35 dB and word discrimination score at 65 dBHL (masked) = 100% Left SRT = 5 dB and word discrimination score at 50 dBHL = 100% Tympanometry Right Ear: Type A tympanogram Left Ear: Type A tympanogram documented in this encounter [facility] 12-18-2024 Evaluation note Authored December 18, 2024 5:5 5pm The above note written by __ _Selwyn Marques____ acting as human recorder, note dictated by Dr. Billy .I performed the above HPI, ROS, and Examination. I formulated and dictated the treatment plan and was present for entire encounter. Varun Denton D.O. [facility] Work Phone: 1(991) 857-664301-13-2025 Hospital Discharge instructionsAmbulatory Orders* Referral to ENT Time Frame: 09/11/24, Location: None Selected [facility] Work Phone: 1(673) 784-545608-12-2024 Evaluation note* Author Varun Denton [facility] Authored April 10, 2024 4: 54pm The above note written by __ _Selwyn Marques____ acting as human recorder, note dictated by Dr. Billy .I performed the above HPI, ROS, and Examination. I formulated and dictated the treatment plan and was present for entire encounter. Varun Denton D.O. [facility] Work Phone: [phone]) 377-554308-07-2023 NoteHNO ID: [id number] Author: Mary Soto MD Service: ? Author [...] seen by ENT close to home in [place] and he was treated with oral prednisone. [...] Mary Soto [facility]08-07-2023 NoteHNO ID: [id number] Author: Lo Hope AUD Service: ? Author Type: Station Operator Type: Progress Notes Filed: 04/05/2023 3:54 PM Note Text: [facility] [place] AUDIOLOGIC EVALUATION REPORT Name: Zack Savage CCF#: [id number] Date of Service: 04/05/2023 Date of : 1985 Age: [age] year old Referred by: Mary Soto MD [address] [facility] [id number] Referred for: Evaluation of suspected change in hearing, tinnitus, or balance. 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 CPT code: 38579 RIGHT EAR: Normal ME function. LEFT EAR: Normal ME function. ACOUSTIC REFLEXES Description of procedure: This test is an objective measure of auditory and facial nerve pathways. CPT code: 85784, 50118 RIGHT EAR PROBE EAR: (ipsi right stimulus [...] conduction and speech recognition testing. CPT code: 56505 RIGHT EAR: Hearing Sensitivity: within normal limits [...] scheduling an Individual Tinnitus (more content not included)...[facility]08-07-2023 History of Present illness Narrative* [...] seen by ENT close to home in [place] and he was treated with oral prednisone. [...] enlargement. [facility]* Irma Reyes RN - 04/05/2023 3:49 PM EDT Tobacco Use: Quit 08/30/2007. Types: Cigarettes Was smoking cessation packet given? N/A - Patient is a non-smoker or quit >1 year ago. 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 CPT code: 27219 RIGHT EAR: Normal ME function. LEFT EAR: Normal ME function. ACOUSTIC REFLEXES Description of procedure: This test is an objective measure of auditory and facial nerve pathways. CPT code: 65584, 71155 RIGHT EAR PROBE EAR: (ipsi right stimulus [...] boneconduction and speech recognition testing. CPT code: 72450 RIGHT EAR: Hearing Sensitivity: within normal limits [...] schedulingan Individual Tinnitus Evaluation with audiology. Call [phone] ext [phone] to schedule. * Re-evaluation as medically indicated or if a change in hearing is noted. Celestino Up, [facility] Clinical Station Operator HENRIQUEZ Abbrev- iation Definition Degree of hearing sensitivity dB range WNL within normal limits WNL 0 - 20 SNHL sensorineural hearing loss Mild 20-40 CHL conductive hearing loss Moderate 40-55 MHL mixed hearing loss Moderately-Severe 55-70 WRS word recognition score Severe 70-90 ME middle ear Profound 90 + TM tympanic membrane [facility]* Diagnosis Other specified hearing loss, unspecified ear- Primary [facility]* Diagnosis Tinnitus, right ear- Primary Sensorineural hearing loss (SNHL) of right ear with unrestricted hearing of left ear Ear pressure, right Dizziness Dizziness and giddiness documented [facility]* Diagnosis Sensorineural hearing loss (SNHL) of right ear with unrestricted hearing of left ear- Primary [facility]* Diagnosis Onset Date Resolution Status Fatigue acute Stress acute Tinnitus acute Wellness examination acute [facility] Work Phone: Evaluation noteNo assessment information available [facility] Work Phone: Evaluation note* Diagnosis Onset Date Resolution Status Admit Date Elevated liver enzymes acute Ap 2024 5:18pm Epistaxis acute December 18 5:18pm Other abnormal blood chemistry acute December 18, 2024 5:18pm Tinnitus acute December 18 5:18pm Weight gain acute December 18, 2 025 5:18pm [facility] Work Phone: Evaluation note* Diagnosis Sensorineural hearing loss (SNHL) of right ear with unrestricted hearing of left ear- Primary Tinnitus, right Unspecified tinnitus [facility] encounter [facility]* Diagnosis Asymmetrical hearing loss- Primary Unspecified hearing loss Peripheral vertigo involving right ear Epistaxis [facility] Diagnosis Asymmetric SNHL (sensorineural hearing loss)- Primary Sensorineural hearing loss, asymmetrical documented in this encounter [facility] HealthcareReason for referral (narrative)No reason for referral information availableHigh[facility] Work Phone: Summary Purpose Family History No Family History Records Found Relationship Condition Age at Onset Recorded Date/T elicia brother Crohn's disease Unknown grandparent Unknown grandparent Dementia Unknown Family history of mental disorder Unknown History of stroke Unknown Advance Directives No Advanced Directives Records Found Advance Directive Response Recorded Date/ Time Advance Directives No June 12:37pm Advance Directive Response Recorded Date/ Time Advance Directives No June 11:37am Reason for Referral Specialty Diagnoses / Procedures Referred By Contac t Referred To Contact Diagnoses Other specified hearing loss, unspecified ear Procedures HEARING TEST/AUDIOGRAM COMPRE AUDIOMETRY THRESHOLD EVAL SP RECOGNIJ Mary Soto MD [address] [place] [address] [facility] [address] [id number] Referral ID Status Reason Start Date Expiration Date Visits Requested Visits Authorized [id number] Authorized Auto-Generat ed Referral 03/11/2023 03/11/2024 1 1 Specialty Diagnoses / Procedures Referred By Contac t Referred To Contact Diagnoses Other specified hearing loss, unspecified ear Procedures HEARING TEST/AUDIOGRAM COMPRE AUDIOMETRY THRESHOLD EVAL SP RECOGNIJ [facility] [address] [place] [address] [facility] [address] [place] [address] Referral ID Status Reason Start Date Expiration Date Visits Requested Visits Authorized [id number] Authorized Auto-Generat ed Referral 03/15/2023 03/15/2024 1 1 Specialty Diagnoses / Procedures Referred By Contac t Referred To Contact Procedures HEARING TEST/AUDIOGRAM COMPRE AUDIOMETRY THRESHOLD EVAL SP RECOGNIJ [facility] [address] [id number] [facility] [address] [place] [address] Referral ID Status Reason Start Date Expiration Date Visits Requested Visits Authorized [id number] Pending Review Auto-Generat ed Referral 04/05/2023 04/05/2024 1 1 Chief Complaint and Reason for Visit Chief Complaint Admit Date review labs December 18, 2024 5:1 8pm ELEVATED LIVER ENZYMES January 10, 2025 1: 42pm Reason for Visit Admit Date Elevated liver enzymes December 18, 2024 5:18pm Epistaxis December 18, 2024 5:1 8pm Other abnormal blood chemistry November 5:18pm Tinnitus December 18, 2024 5:1 8pm Weight gain December 18, 2024 5:1 8pm Chief Complaint wellness Reason for Visit Fatigue Stress Tinnitus Wellness examination Chief Complaint wellness recheck stress Reason for Visit Fatigue Stress Tinnitus Wellness examination Abnormal urinalysis Elevated liver enzymes Fatigue Other abnormal blood chemistry Proteinuria Stress Chief Complaint Admit Date 3 mo recheck stress September 11, 2024 4 :00pm Chief Complaint Admit Date review labs December 18, 2024 5:1 8pm Chief Complaint Admit Date review labs December 18, 2024 5:1 8pm ELEVATED LIVER ENZYMES January 10, 2025 1: 42pm RENAL abln kidney function results February 05, 2025 1:41pm Reason for Visit Admit Date Elevated liver enzymes December 18, 2024 5:18pm Epistaxis December 18, 2024 5:1 8pm Other abnormal blood chemistry November 5:18pm Tinnitus December 18, 2024 5:1 8pm Weight gain December 18, 2024 5:1 8pm Abnormal renal function test February 05 1:41pm Elevated liver enzymes February 05, 2025 1: 41pm Chief Complaint Admit Date review labs December 18, 2024 5:1 8pm ELEVATED LIVER ENZYMES January 10, 2025 1: 42pm RENAL abln kidney function results February 05, 2025 1:41pm R94.4 R74.8 February 13, 2025 5:24 pm R94.4 R74.8 February 13, 2025 5:35 pm H91.8X3 H81.391 H93.19 February 16, 2025 5 :36pm review Fibroscan/Dr Laureano visit February 2:56pm Reason for Visit Admit Date Elevated liver enzymes December 18, 2024 5:18pm Epistaxis December 18, 2024 5:1 8pm Other abnormal blood chemistry November 5:18pm Tinnitus December 18, 2024 5:1 8pm Weight gain December 18, 2024 5:1 8pm Abnormal renal function test February 05 1:41pm Elevated liver enzymes February 05, 2025 1: 41pm Abnormal MRI of head March 06, 2025 2:56 pm Epistaxis March 06, 2025 2:56p m Fatty liver March 06, 2025 2:56p m Other abnormal blood chemistry March 06, 2025 2:56pm Additional Source Comments (unrecognized sect ion and content) No Status Records FoundNo Status Records FoundNo Status Records FoundNo Status Records Found INFORMATION SOURCE (unrecogn ized section and content) DATE CREATED AUTHOR 04/10/2022 [facility] [place] DATE CREATED AUTHOR AUTHOR'S ORGANIZ ATION 04/06/2023 [facility] DATE CREATED AUTHOR AUTHOR'S ORGANIZ ATION 02/27/2025 [facility] dical [facility] CREATED AUTHOR AUTHOR'S ORGANIZ ATION 03/12/2025 [facility] Source Comments (unrecognize d section and content) In the event this informatio n is protected by the Federal Confidentiality of Alcohol and Drug Abuse Patient Records regulations: The Federal rules restrict any use of the information to criminally investigate or prosecute any alcohol or drug abuse patient.[facility] HealthIn the event this information is protected by the Federal Confidentiality of Alcohol and Drug Abuse Patient Records regulations: The Federal rules restrict any use of the information to criminally investigate or prosecute any alcohol or drug abuse patient.[facility] HealthIn the event this information is protected by the Federal Confidentiality of Alcohol and Drug Abuse Patient Records regulations: The Federal rules restrict any use of the information to criminally investigate or prosecute any alcohol or drug abuse patient.[facility] HealthIn the event this information is protected by the Federal Confidentiality of Alcohol and Drug Abuse Patient Records regulations: The Federal rules restrict any use of the information to criminally investigate or prosecute any alcohol or drug abuse patient.[facility] Reason for Visit (unrecogniz ed section and content) Reason Comments Ringing In Ear(s) Specialty Diagnoses / Procedures Referred By Contac t Referred To Contact Diagnoses Other specified hearing loss, unspecified ear Procedures HEARING TEST/AUDIOGRAM COMPRE AUDIOMETRY THRESHOLD EVAL SP KELLYIJ Mary Soto MD [address] [place] [address] [facility] [address] [place] [address] Referral ID Status Reason Start Date Expiration Date V isits Requested Visits Authorized [id number] Closed Auto-Generate d Referral 03/11/2023 03/11/2024 1 1 Reason Comments New Patient Ear Problem Ringing In Ear(s) right Reason Comments Epistaxis (Nose Bleed) New Patient Tinnitus New patient : audio done Reason Comments Hearing Loss MRI Results Care Teams (unrecognized sec tion and content) Team Status: Active Member Role Status Dates Varun Denton DO Primary Care Provider Active Team Status: Active Member Role Status Dates Varun Denton DO Primary Care Provide r, Attending Provider Active Start: October 14, 2024 Team Status: Active Member Role Status Dates Varun Denton DO Primary Care Provide r, Attending Provider Active Start: November 04, 2024 Team Status: Active Member Role Status Dates Varun Bertin DO Primary Care Provide r, Attending Provider Active Start: December 09, 2024 Team Status: Inactive Member Role Status Dates Varun Denton DO Primary Care Provide r, Attending Provider Active Start: December 18, 2024 End: December 18, 2024 Team Status: Inactive Member Role Status Dates Varun Bertin DO Primary Care Provide r, Attending Provider Active Start: April 10, 2024 End: April 10, 2024 Team Status: Active Member Role Status Dates Varun Sydniedelfina DO Primary Care Provide r, Attending Provider Active Start: April 14, 2024 Team Status: Inactive Member Role Status Dates Varun Denton DO Primary Care Provide r, Attending Provider Active Start: May 31, 2024 End: May 31, 2024 Team Status: Inactive Member Role Status Dates Varun Denton DO Primary Care Provide r, Attending Provider Active Start: September 11, 2024 End: September 11, 2024 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 Relationship Specialty Start Date End Date Varun Denton MD [address] [place], [place] [id number] PCP - General Family Medicine 01/12/25 Team Status: Inactive Member Role Status Dates Varun Denton DO Primary Care Provide r, Referring Provider Active Start: January 10, 2025 End: January 10, 2025 Temporary Fibroscan Attending Provider Active St art: January 10, 2025 End: January 10, 2025 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 Relationship Specialty Start Date End Date Varun Denton MD [address] [place], [place] [address] PCP - General Family Medicine 01/12/25 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 Relationship Specialty Start Date End Date Varun Denton MD [address] [place] [address] [place] [address] PCP - General Family Medicine 01/12/25 Team Status: Active Member Role Status Dates Varun Denton DO Primary Care Provide r, Referring Provider Active Start: January 10, 2025 Temporary Fibroscan Other Provider Active Start: January 10, 2025 Christoph Chen MD Attending Provider Active S tart: January 10, 2025 Team Status: Inactive Member Role Status Jeremi Denton DO Primary Care Provider Active S tart: February 05, 2025 End: February 05, 2025 Huma Laureano MD Attending Provider Active Start : February 05, 2025 End: February 05, 2025 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 Relationship Specialty Start Date End Date Varun Dentno MD [address] [place] [address] [place] [address] PCP - General Family Medicine 01/12/25 Team Status: Active Member Role Status Jeremi Denton DO Primary Care Provider Active S tart: December 09, 2024 Varun Denton DO Attending Provider Active Star t: December 09, 2024 Team Status: Inactive Member Role Status Jeremi Denton DO Primary Care Provider Active S tart: December 18, 2024 End: December 18, 2024 Varun Denton DO Attending Provider Active Star t: December 18, 2024 End: December 18, 2024 Team Status: Active Member Role Status Jeremi Denton DO Primary Care Provider Active S tart: January 10, 2025 Varun Denton DO Referring Provider Active Star t: January 10, 2025 Temporary Fibroscan Other Provider Active Start: January 10, 2025 Christoph Chen MD Attending Provider Active S tart: January 10, 2025 Team Status: Inactive Member Role Status Jeremi Denton DO Primary Care Provider Active S tart: February 13, 2025 End: February 13, 2025 Huma Laureano MD Attending Provider Active Start : February 13, 2025 End: February 13, 2025 Team Status: Inactive Member Role Status Jeremi Laureano MD Attending Provider Active Start : February 13, 2025 End: February 13, 2025 Team Status: Inactive Member Role Status Jeremi Denton DO Primary Care Provider Active S tart: February 16, 2025 End: February 16, 2025 Abimael Madrid DO Attending Provider Active S tart: February 16, 2025 End: February 16, 2025 Team Status: Inactive Member Role Status Dates Varun Denton DO Primary Care Provider Active S tart: March 06, 2025 End: March 06, 2025 Varun Denton DO Attending Provider Active Star t: March 06, 2025 End: March 06, 2025 Goals (unrecognized section and content) Goals may [...] BE BASED ON THE PRIMARY CLINICAL RECORDS. [facility] [employer] [facility]. provides no warranty or guarantee of the accuracy or completeness of information in this document.
--- OUTSIDE RECORDS SUMMARY | 2025-03-17 08:05 | XMS_ITS | Clinical Summary ---
Author Organization [facility] Address [address] [place] [id number] Care Team Providers Care Dental Mechanic Name Role Phone Unavailable Primary Care Provider Unavailabl e Allergies Active Allergy Reactions Criticality Noted Date Comments Penicillins Other: See Comments 04/05/2023 per patient allergy occurred in childhood, unsure of reaction Medications No known medications Social History Tobacco Use Types Packs/Day Years Used Date Smoking Tobacco: Former Cigarettes Q uit: 2007 Smokeless Tobacco: Never Area Deprivation Index Answer Date Jonathon rded National Score (1-100), lower number is lower ri sk 87 04/05/2023 State Score (1-10), lower number is lower risk 8 04/05/2023 Data from: https://www.neighborhoodatlas.medicine.[facility]/. Last address used for calculation [address] 04/05/2023 Sex and Gender Information Value Date Recorded Sex Assigned at Not on file Legal Sex Male 11:21 AM EDT Gender Identity Not on file Sexual Orientation Not on file Plan of Treatment Health Maintenance Due Date Last Done Comments Anxiety Screening 2001 Depression Screening 2001 HIV Screening 2001 Hepatitis C Screening 2001 DTaP,Tdap,Td Vaccine (1 - Tdap) 2002 Hepatitis B Vaccine (1 of 3 - 19+ 3-dose series) 2002 05/24/2014, 04/25/2014, 11/23/2013 Lipid Screening 2018 Covid-19 Vaccine ( - 2023-2 5 season) 2024 Influenza Vaccine (#1) 2025 Procedures Procedure Name Priority Date/Time Associated Diagnosis Comments MRI OUTSIDE CD DICOM IMPORT 02/16/2025 from Last 3 Months Results * NE-MR head/brain wo/w con IMPORT (02/16/2025) Anatomical Region Laterality Modality Other 02/16/2025 Narrative 03/01/2025 6:15 AM EDT Images were obtained outside of [facility] Procedure Note Provider, [facility] [place] - 03/01/2025 Images were obtained outside of [facility] Cc Provider MRI Final Result from Last 3 Months Insurance [facility]
--- OUTSIDE RECORDS SUMMARY | 2025-03-19 06:35 | XMS_ITS | Clinical Summary ---
Author Organization [facility] Address [address] [place] [id number] Care Team Providers Care Tunnel Mucker Name Role Phone Unavailable Primary Care Provider [...] is lower risk 8 04/05/2023 Data from: https://www.neighborhoodatlas.medicine.[facility]/. Last address used for calculation [address] [...] 02/16/2025 from Last 3 Months Results * AR-MR head/brain wo/w con IMPORT (02/16/2025) Anatomical Region Laterality Modality Other 02/16/2025 Narrative 03/01/2025 6:15 AM EDT Images were obtained outside of [facility] Procedure Note Provider, [facility] [place] - 03/01/2025 Images were obtained outside of [facility] Cc Provider MRI Final Result from Last 3 Months Insurance [facility] PL[facility]
--- OUTSIDE RECORDS SUMMARY | 2025-03-19 06:35 | XMS_ITS | CCD ---
Author Organization [facility] CliniSywv Care Team Providers Care Door Puller Name Role Phone BERTIN, DR BOND Attending Unavailable BERTIN, DR BOND Admitting Unavailable GIRDELFINA, DR BOND Primary Care Unavailable GIRDELFINA, DR BOND Consulting [...] Provider UnavailVarun Reyes MD Primary Care Provider [phone] Varun Denton DO Primary Care Provider Varun Denton DO Referring Provider [phone] Fibroscan, Temporary Attending Provider UnavailSHILOH Otero Attending Unavailable ABIMAEL MADRID Attending Unavailable ABIMAEL MADRID Attending Unavailable Varun Denton DO Primary Care Provider Varun Denton DO Attending Provider Fibroscan, Temporary Other Provider Unavailable Christoph Chen MD Attending Provider [phone] Huma Laureano MD Attending Provider Abimael Madrid DO Attending Provider [phone] Varun Denton Primary Care Unavailable Varun Denton [...] reactions to drug 3 Other: See Comments [facility] (15 sources) Citalopram; Translations: [citalopram] Drug Allergy 3 Unknown [facility] (6 sources) Penicillins Drug Allergy 3 [facility] (1 source) Penicillins Drug allergy (disorder) 5 [facility] Repository Medications Current Medications Medication Drug Class(es) [...] liver detox gummies (1 source) Start: 03-06-2025 [place] (No Known Home Meds) (2 sources) Start: 12-18-2024 [place] (No Kn own Home Meds) Active December [...] hours as needed for pain Hydrocodone-Acetamin ophen (Mildred) 5-325 mg tablet Discontinued 1 TAB PO [...] head/brain wo/w conon MR head/brain wo/w con [facility] [place] [address] MRI Report Signed Patient: Zack Savage MR#: [id number] 735 : 1985 Acct:[id number] Age/Sex: 40 / M ADM Date: 02/16/25 Loc: MR Room: Type: [facility] Attending Dr: Abimael Madrid DO Copies to: [...] Meeks M.D. 02/16/2025 8:34 PM Dictation Location: [place] [address] Transcribed By: [facility] 02/16/252033 Dictated By: Jef Meeks II, MD 02/16/252014 Signed By: 02/16/252033 Normal [facility] Albumin [Mass/volume] in Ser um or Plasma by Bromocresol green (BCG) dye binding methoOrdered By: Huma Laureano on 02-13-2025 Albumin BCG dye [Mass/Vol] 4.9 g/dL 3.5-5.7 [facility] Calcium [Mass/volume] in Ser um or PlasmaOrdered By: Huma Laureano on 02-13-2025 Calcium [Mass/Vol] 9.7 mg/dL Normal 8.6-10.3 [facility] Comment on above: Order Comment: draw per radiology Performed By: #### R ENAL #### [facility] [address] Carbon dioxide, total [Moles /volume] in Serum or PlasmaOrdered By: Huma Laureano on 02-13-2025 CO2 [Moles/Vol] 27.7 mmol/L Normal 21.0-31.0 [facility] Comment on above: Order Comment: draw per radiology Performed By: #### R ENAL #### [facility] [address] [place] [address] [place] Chloride [Moles/volume] in S maren or PlasmaOrdered By: Huma Laureano on 02-13-2025 Chloride [Moles/Vol] 102 mmol/L Normal 98-107 [facility] Comment on above: Order Comment: draw per radiology Performed By: #### R ENAL #### [facility] [address] Creatinine [Mass/volume] in Serum or PlasmaOrdered By: Huma Laureano on 02-13-2025 Creatinine [Mass/Vol] 1.45 mg/dL High 0.70-1.30 [facility] Comment on above: Order Comment: draw per radiology Performed By: #### R ENAL #### [address] Glucose [Mass/volume] in Ser um or PlasmaOrdered By: Huma Laureano on 02-13-2025 Glucose [Mass/Vol] 70 mg/dL Normal 70-100 [facility] Comment on above: ADA recommended refe rence rangeRandom Glucose Reference Range is dependent on time and content of last meal. Glucose of more than 200 mg/dL in a nonstressed, ambulatory subject supports the diagnosis of Diabetes Mellitus. Order Comment: draw per radiology Result Comment: [place] om Glucose Reference Range is dependent on time and content of last meal. Glucose of more than 200 mg/dL in a nonstressed, ambulatory subject supports the diagnosis of Diabetes Mellitus. ADA recommended reference range Performed By: #### R ENAL #### [facility] [address] [place] [address] No Panel InformationOrdered By: Huma Laureano on 02-13-2025 Estimated GFR (CKD-EPI) > 60.0 mL/Min [facility] Creatinine Clearance (Chem N/A [facility] Phosphate [Mass/volume] in S maren or PlasmaOrdered By: Huma Laureano on 02-13-2025 Phosphate [Mass/Vol] 3.8 mg/dL Normal 2.5-4.5 [facility] Comment on above: Order Comment: draw per radiology Performed By: #### R ENAL #### [address] Potassium [Moles/volume] in Serum or PlasmaOrdered By: Huma Georgi on 02-13-2025 Potassium [Moles/Vol] 4.1 mmol/L Normal 3.5-5.1 [facility] Comment on above: Order Comment: draw per radiology Performed By: #### R ENAL #### [address] Renal Function Panelon 02-13 Albumin [Mass/Vol] 4.9 g/dL Normal 3.5-5.7 [facility] Comment on above: Order Comment: draw per radiology Result Comment: PERF ORMED BY: [place] [address] PATHOLOGIST USED CAR SALESPERSON PAVEL EGAN M.D. Performed By: #### R ENAL #### [address] GFR/1.73 sq M.predicted MDRD (S/P/Bld) [Vol rate/Area] mL/min/{1.73_m2} Normal [facility] Comment on above: Order Comment: draw per radiology Performed By: #### R ENAL #### [address] Serum or plasma anion gap de terminationOrdered By: Huma Georgi on 02-13-2025 Anion gap [Moles/Vol] 11.4 mmol/L Normal 6.0-15.0 [facility] Comment on above: Order Comment: draw per radiology Performed By: #### R ENAL #### [address] Sodium [Moles/volume] in Ser um or PlasmaOrdered By: Huma Georgi on 02-13-2025 Sodium [Moles/Vol] 137 mmol/L Normal 136-145 [facility] Comment on above: Order Comment: draw per radiology Performed By: #### R ENAL #### [address] US renal BIon 02-13-2025 US renal BI [facility] [address] [place] [address] [place] [address] Ultrasound Report Signed Patient: Zack Savage MR#: [id number] 735 : 1985 Acct:[id number] Age/Sex: 40 / M ADM Date: 02/13/25 Loc: Room: Type: [facility] Attending Dr: Huma Laureano MD Ordering Provider: [...] Meeks M.D. 02/13/2025 10:24 PM Dictation Location: [place] [address] Tech: Lindsay Rosannejamal Transcribed By: KAMAR 02/13/252223 Dictated By: Jef Meeks II, MD 02/13/252222 Signed By: 02/13/252223 Normal [facility] Urea nitrogen [Mass/volume] in Serum or PlasmaOrdered By: Huma Laureano on 02-13-2025 Urea nitrogen [Mass/Vol] 20 mg/dL Normal - [facility] Comment on above: Order Comment: draw per radiology Performed By: #### R ENAL #### [address] [address] [facility] Auditory function testson Right Ear: Mild slop ing to severe sensorineural hearing loss above 1K Hz Left Ear: Normal hearing [facility] Estimated glomerular filtrat ion rate (GFR) non- Americanon 12-09-2024 GFR/1.73 sq M.predicted among non-blacks MDRD (S/P/Bld) [Vol rate/Area] Estimated glomerular filtration rate (GFR) non- >=60 mL/min/1.7 3m 2 [facility] GFR/1.73 sq M.predicted among non-blacks MDRD (S/P/Bld) [Vol rate/Area] mL/min/{1.73_m2} >=60 mL/min/1.7 3m 2 [facility] Globulin Calc (S) [Mass/Vol] on 12-09-2024 Globulin (S) [Mass/Vol] Serum globulin measurement by calculation (mass/volume) [facility] Globulin (S) [Mass/Vol] 3.6 g/dL [facility] HCV genotyping ser/plas ampl ified probeon 12-09-2024 HCV genotype CHANDA+probe Nom TNP . [facility] Comment on above: Test not performed. Unable to provide an HCV genotype forthis sample. The most common reason an HCV genotype cannotbe determined is due to a viral load of <1,000 IU/mL, ormore rarely, the presence of an untypable HCV genotype.This test was developed and its performance characteristicsdetermined by [facility]. It has not been cleared orapproved by the Food and Drug Administration.Performed at: [address] [id number] Director: Clark Berry MD, Phone: [phone] Hepatitis A virus Ab [Presen ce] in Serum by Immunoassayon 12-09-2024 HAV Ab IA Ql (S) Hepatitis A virus Ab [Presence] in Serum by Immunoassay Negative [facility] Comment on above: Comment: The HAV [...] HAVtotal antibody results to IgM (e.g., panel #[id number] HAVAntibody w/ Rfx).Performed at: [facility] [id number] Director: Rick Givens PhD, Phone: [phone] HAV Ab IA Ql (S) Negative Negative [facility] Comment on above: Comment: The [...] HAVtotal antibody results to IgM (e.g., panel #[id number] HAVAntibody w/ Rfx).Performed at: [facility] [id number] Director: Rick Givens PhD, Phone: [phone] Hepatitis B virus surface Ab [Presence] in Serumon 12-09-2024 HBV surface Ab Ql (S) Hepatitis B virus surface Ab [Presence] in Serum Abnormal Immunity>1 0 [facility] Comment on above: Status of Immunity A nti-HBs Level Inconsistent with Immunity 0.0 - 10.0Consistent with Immunity >10.0 HBV surface Ab Ql (S) 6.9 mIU/mL Abnormal Immuni ty>1 0 [facility] Comment on above: Status of Immunity A nti-HBs Level Inconsistent with Immunity 0.0 - 10.0Consistent with Immunity >10.0 Hepatitis B virus surface Ag [Presence] in Serum or Plasma by Immunoassayon 12-09-2024 HBV surface Ag IA Ql Hepatitis B virus s urface Ag [Presence] in Serum or Plasma by Immunoassay Negative [facility] HBV surface Ag IA Ql Negative Negative [facility] - Chemistry and C hemistry - challengeon 12-09-2024 Albumin [Mass/Vol] 4.0 g/dL 3.4-5.0 [facility] ALP [Catalytic activity/Vol] 81 U/L 46-116 [facility] ALT [Catalytic activity/Vol] 67 U/L High 16-63 [facility] Amylase [Catalytic activity/Vol] 89 U/L High 15-85 [facility] AST [Catalytic activity/Vol] 41 U/L High 15-37 [facility] Bilirubin [Mass/Vol] 0.4 mg/dL 0.2-1.0 [facility] Calcium [Mass/Vol] 9.1 mg/dL 8.5-10.1 [facility] Chloride [Moles/Vol] 106 mmol/L 98-107 [facility] CO2 [Moles/Vol] 27.7 mmol/L 21.0-32.0 [facility] Creatinine [Mass/Vol] 1.28 mg/dL 0.70-1.30 [facility] GFR/1.73 sq M.predicted MDRD (S/P/Bld) [Vol rate/Area] mL/min/{1.73_m2} >=60 mL/min/1.7 3m 2 [facility] Glucose [Mass/Vol] 103 mg/dL 74-106 [facility] Potassium [Moles/Vol] 4.6 mmol/L 3.5-5.1 [facility] Protein [Mass/Vol] 7.6 g/dL 6.4-8.2 [facility] Sodium [Moles/Vol] 138 mmol/L 136-145 [facility] Urea nitrogen [Mass/Vol] 19.0 mg/dL High 7.0-18.0 [facility] Urea nitrogen/Creatinine [Mass ratio] 14.8 mg/mg [facility] No Panel Informationon 12-09 Hepatitis B Core Total Antibody Negative Negative [facility] Serum or plasma albumin/glob ulin mass ratioon 12-09-2024 Albumin/Globulin [Mass ratio] Serum or plasma albumin/globulin mass ratio [facility] Albumin/Globulin [Mass ratio] 1.1 {ratio} [facility] Serum or plasma anion gap de terminationon 12-09-2024 Anion gap [Moles/Vol] Serum or plasma an ion gap determination [facility] Anion gap [Moles/Vol] 8.9 mmol/L [facility] Estimated glomerular filtrat ion rate (GFR) non- Americanon 11-04-2024 GFR/1.73 sq M.predicted among non-blacks MDRD (S/P/Bld) [Vol rate/Area] Estimated glomerular filtration rate (GFR) non- Low >=60 mL/min/1.7 3m 2 [facility] - Chemistry and C hemistry - challengeon 11-04-2024 Calcium [Mass/Vol] 9.4 mg/dL 8.5-10.1 [facility] Chloride [Moles/Vol] 105 mmol/L 98-107 [facility] CO2 [Moles/Vol] 26.4 mmol/L 21.0-32.0 [facility] Creatinine [Mass/Vol] 1.34 mg/dL High 0.70-1.30 [facility] GFR/1.73 sq M.predicted MDRD (S/P/Bld) [Vol rate/Area] mL/min/{1.73_m2} >=60 mL/min/1.7 3m 2 [facility] Glucose [Mass/Vol] 95 mg/dL 74-106 [facility] Potassium [Moles/Vol] 4.9 mmol/L 3.5-5.1 [facility] Sodium [Moles/Vol] 139 mmol/L 136-145 [facility] Urea nitrogen [Mass/Vol] 16.0 mg/dL 7.0-18.0 [facility] Urea nitrogen/Creatinine [Mass ratio] 11.9 mg/mg [facility] Serum or plasma anion gap de terminationon 11-04-2024 Anion gap [Moles/Vol] Serum or plasma an ion gap determination [facility] Estimated glomerular filtrat ion rate (GFR) non- Americanon 10-14-2024 GFR/1.73 sq M.predicted among non-blacks MDRD (S/P/Bld) [Vol rate/Area] Estimated glomerular filtration rate (GFR) non- >=60 mL/min/1.7 3m 2 [facility] Globulin Calc (S) [Mass/Vol] on 10-14-2024 Globulin (S) [Mass/Vol] Serum globulin measurement by calculation (mass/volume) [facility] - Chemistry and C hemistry - challengeon 10-14-2024 Albumin [Mass/Vol] 4.1 g/dL 3.4-5.0 [facility] ALP [Catalytic activity/Vol] 79 U/L 46-116 [facility] ALT [Catalytic activity/Vol] 69 U/L High 16-63 [facility] AST [Catalytic activity/Vol] 41 U/L High 15-37 [facility] Bilirubin [Mass/Vol] 0.6 mg/dL 0.2-1.0 [facility] Calcium [Mass/Vol] 9.5 mg/dL 8.5-10.1 [facility] Chloride [Moles/Vol] 104 mmol/L 98-107 [facility] CO2 [Moles/Vol] 27.3 mmol/L 21.0-32.0 [facility] Creatinine [Mass/Vol] 1.31 mg/dL High 0.70-1.30 [facility] GFR/1.73 sq M.predicted MDRD (S/P/Bld) [Vol rate/Area] mL/min/{1.73_m2} >=60 mL/min/1.7 3m 2 [facility] Glucose [Mass/Vol] 94 mg/dL 74-106 [facility] Potassium [Moles/Vol] 4.5 mmol/L 3.5-5.1 [facility] Protein [Mass/Vol] 7.8 g/dL 6.4-8.2 [facility] Sodium [Moles/Vol] 140 mmol/L 136-145 [facility] Urea nitrogen [Mass/Vol] 23.0 mg/dL High 7.0-18.0 [facility] Urea nitrogen/Creatinine [Mass ratio] 17.6 mg/mg [facility] Serum or plasma albumin/glob ulin mass ratioon 10-14-2024 Albumin/Globulin [Mass ratio] Serum or plasma albumin/globulin mass ratio [facility] Serum or plasma anion gap de terminationon 10-14-2024 Anion gap [Moles/Vol] Serum or plasma an ion gap determination [facility] Basophils Auto (Bld) [#/Vol] on 04-14-2024 Basophils (Bld) [#/Vol] 0.1 10 3/uL 0.0-0.1 [facility] Basophils/100 WBC Auto (Bld) on 04-14-2024 Basophils/100 WBC (Bld) 1.1 % 0.2-2.0 [facility] Cholesterol in LDL Calc [Mas s/Vol]on 04-14-2024 Cholesterol in LDL [Mass/Vol] 99.0 mg/dL [facility] Comment on above: <100 mg/dl [id number] 0-129 mg/dl NEAR OR ABOVE SYPPCME633-675 mg/dl BORDERLINE SUMI879-333 mg/dl HIGH>190 mg/dl VERY HIGH Cholesterol in VLDL Calc [Ma ss/Vol]on 04-14-2024 Cholesterol in VLDL [Mass/Vol] 8.0 mg/dL [facility] Eosinophils/100 WBC Auto (Bl d)on 04-14-2024 Eosinophils/100 WBC (Bld) 8.5 % High 0.9-7.0 [facility] Erythrocyte distribution wid th Auto (RBC) [Ratio]on 04-14-2024 Erythrocyte distribution width (RBC) [Ratio] 13.2 % 11.0-15.0 [facility] Estimated glomerular filtrat ion rate (GFR) non- Americanon 04-14-2024 GFR/1.73 sq M.predicted among non-blacks MDRD (S/P/Bld) [Vol rate/Area] 60 mL/min/{1.73_m2} >=60 [facility] Globulin Calc (S) [Mass/Vol] on 04-14-2024 Globulin (S) [Mass/Vol] 3.6 g/dL [facility] Hematocrit Auto (Bld) [Volum e fraction]on 04-14-2024 Hematocrit (Bld) [Volume fraction] 42.9 % 42.0-54.0 [facility] Hemoglobin [Mass/volume] in Bloodon 04-14-2024 Hemoglobin (Bld) [Mass/Vol] 14.4 g/dL 14.0-18.0 [facility] - Chemistry and C hemistry - challengeon 04-14-2024 Bilirubin Ql (U) Negative NEGATIVE [facility] Glucose (U) [Mass/Vol] Negative NEGATIVE [facility] Ketones Ql (U) Negative NEGATIVE [facility] pH (U) 7.0 [pH] 5.0-9.0 [facility] Specific gravity (U) [Rel density] 1.015 1.005-1.02 5 [facility] Urobilinogen Qn (U) 0.2 {Rosa'U}/dL 0.2-1.0 [facility] Albumin [Mass/Vol] 4.2 g/dL 3.4-5.0 [facility] ALP [Catalytic activity/Vol] 81 U/L 46-116 [facility] ALT [Catalytic activity/Vol] 57 U/L 16-63 [facility] AST [Catalytic activity/Vol] 43 U/L High 15-37 [facility] Bilirubin [Mass/Vol] 0.5 mg/dL 0.2-1.0 [facility] Calcium [Mass/Vol] 9.1 mg/dL 8.5-10.1 [facility] Chloride [Moles/Vol] 103 mmol/L 98-107 [facility] Cholesterol [Mass/Vol] 160 mg/dL <=200 [facility] Cholesterol in HDL [Mass/Vol] 53 mg/dL 40-60 [facility] Comment on above: > or =60 mg/dl - LOW CARDIOVASCULAR RISK<40 mg/dl - HIGH CARDIOVASCULAR RISK CO2 [Moles/Vol] 24.8 mmol/L 21.0-32.0 [facility] Creatinine [Mass/Vol] 1.32 mg/dL High 0.70-1.30 [facility] GFR/1.73 sq M.predicted MDRD (S/P/Bld) [Vol rate/Area] mL/min/{1.73_m2} >=60 [facility] Glucose [Mass/Vol] 96 mg/dL 74-106 [facility] Potassium [Moles/Vol] 4.7 mmol/L 3.5-5.1 [facility] Protein [Mass/Vol] 7.8 g/dL 6.4-8.2 [facility] Sodium [Moles/Vol] 138 mmol/L 136-145 [facility] Triglyceride [Mass/Vol] 40 mg/dL <=150 [facility] TSH Qn 0.821 m[IU]/L 0.358-3.74 0 [facility] Urea nitrogen [Mass/Vol] 21.0 mg/dL High 7.0-18.0 [facility] Urea nitrogen/Creatinine [Mass ratio] 15.9 mg/mg [facility] - Hematology and Cell countson 04-14-2024 Immature granulocytes/100 WBC (Bld) 0.2 % 0.0-0.5 [facility] - Specimen inform ationon 04-14-2024 Appearance (U) CLEAR CLEAR [facility] Color (U) LT. YELLOW YELLOW [facility] - Urinalysison Leukocyte esterase Test strip Ql (U) Negative NEGATIVE [facility] Mucus Ql (Urine sed) TRACE Abnormal NONE SEEN [facility] Nitrite Ql (U) Negative NEGATIVE [facility] Protein Ql (U) Negative NEG/TRACE [facility] Leukocytes [#/volume] correc michelle for nucleated erythrocytes in Blood by Automated counon 04-14-2024 WBC corrected for nucl RBC Auto (Bld) [#/Vol] 5.5 10 3/uL 4.0-11.0 [facility] Lymphocytes Auto (Bld) [#/Vo l]on 04-14-2024 Lymphocytes (Bld) [#/Vol] 1.6 10 3/uL 1.2-3.8 [facility] Lymphocytes/100 WBC Auto (Bl d)on 04-14-2024 Lymphocytes/100 WBC (Bld) 29.1 % 20.5-60.0 [facility] MCH Auto (RBC) [Entitic mass ]on 04-14-2024 MCH (RBC) [Entitic mass] 29.1 pg 25.9-34.0 [facility] MCHC Auto (RBC) [Mass/Vol]on 04-14-2024 MCHC (RBC) [Mass/Vol] 33.6 g/dL 29.9-35.2 [facility] MCV Auto (RBC) [Entitic vol] on 04-14-2024 MCV (RBC) [Entitic vol] 86.7 fL 80.0-94.0 [facility] Monocytes Auto (Bld) [#/Vol] on 04-14-2024 Monocytes (Bld) [#/Vol] 0.5 10 3/uL 0.3-0.8 [facility] Monocytes/100 WBC Auto (Bld) on 04-14-2024 Monocytes/100 WBC (Bld) 9.8 % 1.7-12.0 [facility] Neutrophils Auto (Bld) [#/Vo l]on 04-14-2024 Neutrophils (Bld) [#/Vol] 2.8 10 3/uL 1.4-6.5 [facility] Neutrophils/100 WBC Auto (Bl d)on 04-14-2024 Neutrophils/100 WBC (Bld) 51.3 % 43.0-75.0 [facility] No Panel Informationon 04-14 Urine Bacteria TRACE #/HPF Abnormal NONE SEEN [facility] Urine Culture Reflexed NO [facility] Urine Occult Blood Negative NEGATIVE [facility] Urine Other Casts NONE SEEN #/LPF NONE SEEN [facility] Urine Other Crystals None Seen #/HPF None Seen [facility] Urine RBC NONE SEEN #/HPF 0-2 [facility] Urine Squamous Epithelial Cells RARE #/LPF NONE/RARE [facility] Urine Transitional Epithelial Cells RARE #/LPF Abnormal NONE SEEN [facility] Urine WBC NONE SEEN #/HPF NONE SEEN [facility] Eosinophils # (Auto) 0.5 10 3/uL 0.0-0.7 [facility] Immature Granulocyte # (Auto) 0.01 10 3/uL 0.00-0.03 [facility] Prostate Specific Antigen Screen 0.86 ng/mL <=4.00 [facility] Platelet mean volume Auto (B ld) [Entitic vol]on 04-14-2024 Platelet mean volume (Bld) [Entitic vol] 10.1 fL 9.5-13.5 [facility] Platelets Auto (Bld) [#/Vol] on 04-14-2024 Platelets (Bld) [#/Vol] 266 10 3/uL 150-450 [facility] RBC Auto (Bld) [#/Vol]on RBC (Bld) [#/Vol] 4.95 10 6/uL 4.70-6.10 [facility] Serum or plasma albumin/glob ulin mass ratioon 04-14-2024 Albumin/Globulin [Mass ratio] 1.2 {ratio} [facility] Serum or plasma anion gap de terminationon 04-14-2024 Anion gap [Moles/Vol] 14.9 mmol/L [facility] Serum or plasma total choles terol/high density lipoprotein (HDL) cholesterol mass marie 04-14-2024 Cholesterol.total/Chol esterol in HDL [Mass ratio] 3.0 {ratio} [facility] Comment on above: 3.3 - 4.4 LOW RISK4. 4 - 7.1 AVERAGE RISK7.1 - 11.0 MODERATE RISK>11.0 HIGH RISK CNOVon 04-05-2023 CNOV Office Visit (OTOLMN ) ZACK SAVAGE ([id number]) 1985 M Date Time Provider Department 04/05/23 [...] seen by ENT close to home in [place] and he was treated with oral prednisone. [...] Status:Closed by MARY SOTO on 04/05/23 Normal [facility] CNOV Office Visit (CDISMN ) ZACK SAVAGE ([id number]) 1985 M Date Time Provider Department 04/05/23 3:00 PM LO HOPE CDIN During your visit today, we recorded the following information about you: Lo Hope AUD 04/05/2023 3:54 PM Signed [facility] [place] AUDIOLOGIC EVALUATION REPORT Name: Zack Savage CC#: [id number] Date of Service: 04/05/2023 Date of : 1985 Age: [age] year old Referred by: Mary Soto MD [address] include [facility] beds at the [facility] [address] Referred for: Evaluation of suspected change in hearing, tinnitus, or balance. 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 CPT code: 49480 RIGHT EAR: Normal ME function. LEFT EAR: Normal ME function. ACOUSTIC REFLEXES Description of procedure: This test is an objective measure of auditory and facial nerve pathways. CPT code: 24514, 53176 RIGHT EAR PROBE EAR: (ipsi right stimulus [...] conduction and speech recognition testing. CPT code: 92187 RIGHT EAR: Hearing Sensitivity: within normal limits [...] enriched environment (more content not included)... Normal [facility] Covid-19 PCR (CVDTBH)on 03-30 SARS-CoV-2 (COVID-19) RNA CHANDA+probe Ql (Unsp spec) Detected Critically abnormal NOT DETECTED [facility] Comment on above: Result Comment: This test is not yet approved or cleared by the [place] FDA. When there are no FDA-approved or cleared tests available, and other criteria are met, FDA can make tests available under an emergency access mechanism called an Emergency Use Authorization (EUA). The EUA for this test is supported by the [place] of Health and Human Service's (HHS's) declaration [...] used). Performed By: #### C VDTB #### [facility] [address] [place] [address] Dr. Ronal Garcia Covid-19 PCR (CVDTB)on 06-30 SARS-CoV-2 (COVID-19) RNA CHANDA+probe Ql (Unsp spec) Detected Critically abnormal NOT DETECTED [facility] Comment on above: Result Comment: This test is not yet approved or cleared by the [place] FDA. When there are no FDA-approved or cleared tests available, and other criteria are met, FDA can make tests available under an emergency access mechanism called an Emergency Use Authorization (EUA). The EUA for this test is supported by the [employer] of Health and Human Service's (HHS's) declaration [...] used). Performed By: #### C VDTB #### [facility] [address] [place] [address] Dr. Ronal Garcia Covid-19 PCR (CVDTB)on SARS-CoV-2 (COVID-19) RNA CHANDA+probe Ql (Unsp spec) Not detected Normal NOT DETECTED [facility] Comment on above: Result Comment: This test is not yet approved or cleared by the [place] FDA. When there are no FDA-approved or cleared tests available, and other criteria are met, FDA can make tests available under an emergency access mechanism called an Emergency Use Authorization (EUA). The EUA for this test is supported by the [place] of Health and Human Service's (HHS's) declaration [...] consistent with SARS-CoV-2. Performed By: #### [facility] #### [facility] [address] [place] [address] Dr. Ronal Garcia Vital Signs Date Time Vital Sign Value Performing Clinician Facility 03-06-2025 14:53-0400 Body height 177.8 cm Varun Denton DO Work Phone: [facility] 03-06-2025 14:53-0400 Body mass index (BMI) [Ratio] 25.2 kg/m2 Varun Denton DO Work Phone: [facility] 03-06-2025 14:53-0400 Body temperature 98.5 [degF] Varun Denton DO Work Phone: [facility] 03-06-2025 14:53-0400 Body weight 79.83 kg Varun Denton DO Work Phone: [facility] 03-06-2025 14:53-0400 Diastolic blood pressure 76 mm[Hg] Varun Denton DO Work Phone: [facility] 03-06-2025 14:53-0400 Heart rate 68 /min Varun Denton DO Work Phone: [facility] 03-06-2025 14:53-0400 SaO2% (BldA) [Mass fraction] 98 % Varun Denton DO Work Phone: [facility] 03-06-2025 14:53-0400 Systolic blood pressure 120 mm[Hg] Varun Denton DO Work Phone: [facility] 02-26-2025 16:05-0400 Body height 177.8 cm Abimael Seamancek DO Work Phone: [facility] 02-26-2025 16:05-0400 Body mass index (BMI) [Ratio] 25.83 kg/m2 Abimael Murcek DO Work Phone: [facility] 02-26-2025 16:05-0400 Body weight 81.65 kg Abimael Seamancek DO Work Phone: [facility] 02-05-2025 13:42-0400 Body height 170.18 cm [facility] 02-05-2025 13:42-0400 Body mass index (BMI) [Ratio] 27.7 kg/m2 [facility] 02-05-2025 13:42-0400 Body weight 80.34 kg [facility] 02-05-2025 13:42-0400 Diastolic blood pressure 79 mm[Hg] [facility] 02-05-2025 13:42-0400 Heart rate 69 /min [facility] 02-05-2025 13:42-0400 Respiratory rate 16 /min [facility] 02-05-2025 13:42-0400 SaO2% (BldA) [Mass fraction] 98 % [facility] 02-05-2025 13:42-0400 Systolic blood pressure 121 mm[Hg] [facility] 01-15-2025 14:27-0400 Body height 177.8 cm Abimael Seamancek DO Work Phone: [facility] 01-15-2025 14:27-0400 Body mass index (BMI) [Ratio] 25.83 kg/m2 Abimael Seamancek DO Work Phone: [facility] 01-15-2025 14:27-0400 Body weight 81.65 kg Abimael Seamancek DO Work Phone: [facility] 12-18-2024 17:19-0400 Body height 177.8 cm [facility] 12-18-2024 17:19-0400 Body mass index (BMI) [Ratio] 25.4 kg/m2 [facility] 12-18-2024 17:19-0400 Body temperature 98.1 [degF] [facility] 12-18-2024 17:19-0400 Body weight 80.28 kg [facility] 12-18-2024 17:19-0400 Diastolic blood pressure 78 mm[Hg] [facility] 12-18-2024 17:19-0400 Heart rate 76 /min [facility] 12-18-2024 17:19-0400 SaO2% (BldA) [Mass fraction] 98 % [facility] 12-18-2024 17:19-0400 Systolic blood pressure 124 mm[Hg] [facility] 09-11-2024 16:00-0500 Body temperature 97 [degF] [facility] 09-11-2024 16:00-0500 Body weight 80.28 kg [facility] 09-11-2024 16:00-0500 Diastolic blood pressure 86 mm[Hg] [facility] 09-11-2024 16:00-0500 Heart rate 74 /min [facility] 09-11-2024 16:00-0500 SaO2% (BldA) [Mass fraction] 97 % [facility] 09-11-2024 16:00-0500 Systolic blood pressure 124 mm[Hg] [facility] 05-31-2024 15:19-0400 Body mass index (BMI) [Ratio] 25.1 kg/m2 [facility] 05-31-2024 15:19-0400 Body temperature 97.4 [degF] [facility] 05-31-2024 15:19-0400 Body weight 79.37 kg [facility] 05-31-2024 15:19-0400 Diastolic blood pressure 64 mm[Hg] [facility] 05-31-2024 15:19-0400 Heart rate 72 /min [facility] 05-31-2024 15:19-0400 Respiratory rate 18 /min [facility] 05-31-2024 15:19-0400 SaO2% (BldA) [Mass fraction] 99 % [facility] 05-31-2024 15:19-0400 Systolic blood pressure 116 mm[Hg] [facility] 05-31-2024 14:05-0400 Body height 177.8 cm [facility] 04-10-2024 15:39-0400 Body height 177.8 cm [facility] 04-10-2024 15:39-0400 Body mass index (BMI) [Ratio] 24.5 kg/m2 [facility] 04-10-2024 15:39-0400 Body temperature 97.6 [degF] [facility] 04-10-2024 15:39-0400 Body weight 77.56 kg [facility] 04-10-2024 15:39-0400 Diastolic blood pressure 80 mm[Hg] [facility] 04-10-2024 15:39-0400 Heart rate 69 /min [facility] 04-10-2024 15:39-0400 SaO2% (BldA) [Mass fraction] 97 % [facility] 04-10-2024 15:39-0400 Systolic blood pressure 124 mm[Hg] [facility] Encounters Encounter Date Encounter Type Care Provider Facility Start: 03-06-2025 End: 03-06-2025 ambulatory Varun Denton DO Work Phone: [facility] Work Phone: Start: 03-06-2025 End: 03-06-2025 Patient encounter procedure Varun Denton DO -[facility] Work Phone: Start: 02-26-2025 End: 02-26-2025 [...] Start: 02-16-2025 End: 02-16-2025 ambulatory Abimael Madrid Facility:[facility] Start: 02-16-2025 End: 02-16-2025 Patient encounter procedure Abimael Madrid DO -[facility] Work Phone: Start: 02-13-2025 End: 02-13-2025 Departed Referred Huma Laureano MD -[facility] Work Phone: Start: 02-13-2025 End: 02-13-2025 Patient encounter procedure Huma Laureano MD -Ultrasound [facility] Work Phone: Start: 02-13-2025 End: 02-13-2025 ambulatory Huma Laureano Facility:[facility] Start: 02-05-2025 End: 02-05-2025 ambulatory [facility] Work Phone: Start: 02-05-2025 End: 02-05-2025 Patient encounter procedure [facility] Work Phone: Start: 01-15-2025 [...] Madrid DO Work Phone: [facility] Start: 01-12-2025 End: 01-12-2025 Clinical Support Shiloh Zurita CCC-A Work Phone: [facility] Comment on above: Sensorineural hearin g loss (SNHL) of right ear with unrestricted hearing of left ear (Primary Dx); Tinnitus, right Start: 01-12-2025 End: 01-12-2025 Bamboo flowsheet Shiloh Rivera [facility] Work Phone: [facility] Start: 01-12-2025 End: 01-12-2025 Bamboo flowsheet Shiloh Rivera [facility] Work Phone: [facility] Start: 01-10-2025 End: 01-10-2025 Patient encounter procedure Varun Denton DO Work Phone: [facility] Work Phone: Start: 01-10-2025 End: 01-10-2025 ambulatory Varun Denton DO Work Phone: [facility] Work Phone: Start: 01-10-2025 Non-patient / Non-visit [facility] Work Phone: Start: 12-18-2024 End: 12-18-2024 ambulatory [facility] Work Phone: Start: 12-18-2024 End: 12-18-2024 Patient encounter procedure [facility] [place] Work Phone: Start: 12-09-2024 Non-patient / Non-visit [facility] Work Phone: Start: 11-04-2024 Non-patient / Non-visit [facility] Work Phone: Start: 10-14-2024 Non-patient / Non-visit [facility] Work Phone: Start: 09-11-2024 End: 09-11-2024 ambulatory [facility] Work Phone: Start: 09-11-2024 End: 09-11-2024 Patient encounter procedure [facility] [place] Work Phone: Start: 05-31-2024 End: 05-31-2024 ambulatory [facility] Work Phone: Start: 05-31-2024 End: 05-31-2024 Patient encounter procedure [facility] [place] Work Phone: Start: 04-14-2024 Non-patient / Non-visit [facility] Work Phone: Start: 04-10-2024 Patient encounter status [facility] Start: 04-10-2024 End: 04-10-2024 ambulatory [facility] Work Phone: Start: 04-10-2024 End: 04-10-2024 Encounter for general adult medical examination without abnormal findings [facility] Start: 04-10-2024 End: 04-10-2024 Patient encounter procedure [facility] [place] Work Phone: Start: 04-05-2023 End: 04-05-2023 ambulatory MARY SOTO Facility:[facility] Start: 04-05-2023 End: 04-05-2023 Patient encounter [...] Ryan Student Work Phone: [facility] Comment on above: Other specified hear ing loss, unspecified ear (Primary Dx) Start: 03-11-2023 Orders Only Mary Soto MD Work Phone: [facility] Comment on above: Other specified hear ing [...] Visit [facility] [place] [address] [place] [id number] Abimael Madrid, DO [address] [place] [address] Arrived [facility] [place] Comment on above: Arrived Start: 01-31-2025 End: 01-31-2025 Patient encounter procedure 01/31/2025 4:00 PM EDT Office Visit [facility] [place] [address] [place] [phone] Abimael Madrid, DO [address] [place] [address] [facility] [place] Start: 01-15-2025 End: 01-15-2025 Patient encounter procedure [facility] [place] Comment on above: Arrived Start: 01-12-2025 End: 01-12-2025 Clinical Support 01/12/2025 3:15 PM EDT Clinical Support ELAINE RYAN [address] [facility] [place] [id number] Shiloh Zurita, [facility] [address] [facility] [place] [address] Arrived [facility] Comment on above: Arrived Start: 09-11-2024 Patient referral [facility] Work Phone: Start: 04-30-2023 Influenza vaccination INFLUENZA (#1) [facility] Start: 08-30-2022 DEPRESSION ASSESSMENT DEPRESSION ASS ESSMENT [facility] Start: 2018 LIPID SCREEN LIPID SCREEN [facility] Start: 2002 Urine microalbumin profile DTAP,TDAP,TD (1 - Tdap) [facility] Start: 2001 HEPATITIS C SCREENING HEPATITIS C SC REENING [facility] Start: 2001 HIV SCREENING HIV SCREENING [facility] Start: 1983 COVID-19 VACCINE (#1) COVID-19 VACCI NE (#1) [facility] Start: 1985 HEPATITIS B (1 of 3 - 3-dose series) HEPATITIS B (1 of 3 - 3-dose series) [facility] Comprehensive metabo lic 1999 panel - Serum or Plasma [facility] Comprehensive metabo lic 1999 panel - Serum or Plasma [facility] Comprehensive metabo lic 1999 panel - Serum or Plasma [facility] Comprehensive metabo lic 1999 panel - Serum or Plasma [facility] End: 03-11-2024 HEARING TEST/AUDIOGRAM HEARING TEST/AUDIOGRAM Audiology Routine Other specified hearing loss, unspecified ear 1 Occurrences starting 03/11/2023 until 03/11/2024 [facility] Work Phone: Comment on above: 1 Occurrences starti ng 03/11/2023 until 03/11/2024 End: 03-15-2024 HEARING TEST/AUDIOGRAM HEARING TEST/AUDIOGRAM Audiology Routine Other specified hearing loss, unspecified ear 1 Occurrences starting 03/15/2023 until 03/15/2024 [facility] Work Phone: Comment on above: 1 Occurrences starti ng 03/15/2023 until 03/15/2024 Patient referral [facility] Work Phone: Renal function 2000 panel - Serum or Plasma [facility] US Kidney - [facility] Immunizations Immunization Date Immunization Notes Care Provider [facility] 05-24-2014 hepatitis B vaccine, pediatric or pediatric/adolescent dosage [facility] 04-25-2014 hepatitis B vaccine, pediatric or pediatric/adolescent dosage [facility] 11-23-2013 hepatitis B vaccine, pediatric or pediatric/adolescent dosage [facility] Payers Date Payer Category Payer Self-pay [id number] 2024 [facility] er [id number] 2024 Unknown [id number] 2017 Private Health Insurance [facility] UMR CHOICE PLUS [id number] 2017-Present [phone] [address] [address] [place] [address] O [id number] 1983 Unknown [id number] 1983 Unknown [id number] [id number] 1983 Unknown [id number] [id number] 1983 Unknown [id number] [id number] 1983 Unknown [id number] 9.2.1259 1983 Unknown [id number] [id number] 1959 Unknown [id number] Private Health Insurance [facility] [id number] Unknown Other1 (STD) [id number] Unknown [id number] Unknown [id number] [id number] Unknown [id number] [id number] Unknown [id number] [id number] Social History Date Type Detail Facility Tobacco smoking stat [email or web address] Tobacco smoking consumption unknown [facility] Start: 1985 Sex Assigned At Not on file [facility] Start: 04-05-2023 End: 02-26-2025 Gender identity Not on file [facility] Start: 04-05-2023 End: 02-05-2025 Tobacco smoking status MTIS Ex-smoker [facility] End: 08-30-2007 History of tobacco use Current smoker [facility] End: 08-30-2007 History of tobacco use Cigarette Smoker [facility] Start: 04-05-2023 End: 01-15-2025 Tobacco use and exposure Smokeless tobacco non-user [facility] Start: 04-05-2023 End: 02-26-2025 History of Social function [facility] National Score (1-100), lower number is lower risk 87 [facility] Start: 1985 Sex Assigned At Male [facility] Start: 09-11-2024 End: 02-05-2025 Sex Male (finding) [facility] Start: 01-15-2025 Tobacco smoking stat us MTIS Never smoked tobacco [facility] Start: 01-15-2025 End: 02-26-2025 Alcoholic beverage intake Ex-drinker (finding) [facility] Clinical Notes 04-05-2023 to 02-26-2025 Abimael Madrid, DO - 02/26/2025 4:00 PM EDSushila Madrid, DO - 01/15/2025 2:30 PM EDTShiloh Zurita [facility] - 01/12/2025 3:15 PM EDT Note Date [...] I think he should see a neuro forging press setter up for their opinion. I have sent him to see Dr. Hernandez the neuro forging press setter up at [facility] [place] for his opinion. I would like to see him back in 6 months with an audiogram. documented in this encounter [facility] 01-15-2025 History of Presen t illness Narrative Subjective Patient ID: HPI 39-year-old male referred for right-sided hearing loss, tinnitus, dizziness and epistaxis. About 2 years ago while the patient was [place] [employer] [place] in [place] he felt a pop in his right ear. Ever since that time had tinnitus and decreased hearing in her right ear. With the last probably 6-8 months he has noticed that with straining, quick movements etcetera he has some momentary disequilibrium and mild vertigo. That is new. He has had was seen remotely by another talent sourcing specialist who ordered an MRI scan and told [...] documented in this encounter [facility] 01-12-2025 History of Presen t illness Narrative History: Pt was referred to ENT because of hearing loss. Pt has history of right sided hearing loss, onset February 2021. Pt was at a baseball game and his right ear popped. He saw Dr. Paniagua until he retired. MRI ordered by Dr. Paniagua was normal. Pt also went to the [facility] in 2022. Pt states he also has [...] documented in this encounter [facility] 12-18-2024 Evaluation note Authored December 18, 2024 5:5 5pm The above note written by __ _Selwyn Marques____ acting as human recorder, note dictated by Dr. Billy .I performed the above HPI, ROS, and Examination. I formulated and dictated the treatment plan and was present for entire encounter. Varun Denton D.O. [facility] Work Phone: 1(765) 562-549801-13-2025 Hospital Discharge instructionsAmbulatory Orders* Referral to ENT Time Frame: 09/11/24, Location: None Selected [facility] Work Phone: [phone]) 806-341708-12-2024 Evaluation note* Author Varun Denton [facility] Authored April 10, 2024 4: 54pm The above note written by __ _Selwyn Marques____ acting as human recorder, note dictated by Dr. Billy .I performed the above HPI, ROS, and Examination. I formulated and dictated the treatment plan and was present for entire encounter. Varun Denton D.O. [facility] Work Phone: 1(279) 501-349808-07-2023 NoteHNO ID: [id number] Author: Mary Soto MD Service: ? Author [...] seen by ENT close to home in [place] and he was treated with oral prednisone. [...] or thyroid masses or enlargement. Mary Soto [facility]08-07-2023 NoteHNO ID: [id number] Author: Lo Hope AUD Service: ? Author Type: Professional Fighter Type: Progress Notes Filed: 04/05/2023 3:54 PM Note Text: [facility] AUDIOLOGIC EVALUATION REPORT Name: Zack Savage CCF#: [id number] Date of Service: 04/05/2023 Date of : 1985 Age: [age] year old Referred by: Mary Soto MD [address] [facility] [address] Referred for: Evaluation of suspected change in hearing, tinnitus, or balance. 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 CPT code: 81039 RIGHT EAR: Normal ME function. LEFT EAR: Normal ME function. ACOUSTIC REFLEXES Description of procedure: This test is an objective measure of auditory and facial nerve pathways. CPT code: 91084, 20841 RIGHT EAR PROBE EAR: (ipsi right stimulus [...] conduction and speech recognition testing. CPT code: 19577 RIGHT EAR: Hearing Sensitivity: within normal limits [...] scheduling an Individual Tinnitus (more content not included)...[facility]08-07-2023 History of Present illness Narrative* Mary Soto [...] seen by ENT close to home in [place] and he was treated with oral prednisone. [...] enlargement. Mary Soto MD [facility] Nurse Note* Irma Reyes RN - 04/05/2023 3:49 PM EDT Tobacco Use: Quit 08/30/2007. Types: Cigarettes Was smoking cessation packet given? N/A - Patient is a non-smoker or quit >1 year ago. 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 CPT code: 91919 RIGHT EAR: Normal ME function. LEFT EAR: Normal ME function. ACOUSTIC REFLEXES Description of procedure: This test is an objective measure of auditory and facial nerve pathways. CPT code: 83844, 77926 RIGHT EAR PROBE EAR: (ipsi right stimulus [...] boneconduction and speech recognition testing. CPT code: 17321 RIGHT EAR: Hearing Sensitivity: within normal limits [...] schedulingan Individual Tinnitus Evaluation with audiology. Call [phone] ext [phone] to schedule. * Re-evaluation as medically indicated or if a change in hearing is noted. Celestino Up, [facility] Clinical Professional Fighter HENRIQUEZ Abbrev- iation Definition Degree of hearing sensitivity dB range WNL within normal limits WNL 0 - 20 SNHL sensorineural hearing loss Mild 20-40 CHL conductive hearing loss Moderate 40-55 MHL mixed hearing loss Moderately-Severe 55-70 WRS word recognition score Severe 70-90 ME middle ear Profound 90 + TM tympanic membrane [facility]* Diagnosis Other specified hearing loss, unspecified ear- Primary [facility] Diagnosis Tinnitus, right ear- Primary Sensorineural hearing loss (SNHL) of right ear with unrestricted hearing of left ear Ear pressure, right Dizziness Dizziness and giddiness documented in this encounter [facility]* Diagnosis Sensorineural hearing loss (SNHL) of right ear with unrestricted hearing of left ear- Primary [facility] in this [facility]* Diagnosis Onset Date Resolution Status Fatigue acute Stress acute Tinnitus acute Wellness examination acute [facility] Work Phone: Evaluation noteNo assessment information available [facility] Work Phone: Evaluation note* Diagnosis Onset Date Resolution Status Admit Date Elevated liver enzymes acute Ap 2024 5:18pm Epistaxis acute December 18 5:18pm Other abnormal blood chemistry acute December 18, 2024 5:18pm Tinnitus acute December 18 5:18pm Weight gain acute December 18, 2 025 5:18pm [facility] Work Phone: Evaluation note* Diagnosis Sensorineural hearing loss (SNHL) of right ear with unrestricted hearing of left ear- Primary Tinnitus, right Unspecified tinnitus [facility] Diagnosis Asymmetrical hearing loss- Primary Unspecified hearing loss Peripheral vertigo involving right ear Epistaxis [facility] Diagnosis Asymmetric SNHL (sensorineural hearing loss)- Primary Sensorineural hearing loss, asymmetrical documented in this encounter [facility] for referral (narrative)No reason for referral information availableSumma Health Work Phone: Summary Purpose Family History No [...] EVAL SP RECOGNIJ Mary Soto MD [address] [place] [address] [facility] [address] [id number] Referral ID Status Reason Start Date Expiration Date Visits Requested Visits Authorized [id number] Authorized Auto-Generat ed Referral 03/11/2023 03/11/2024 1 1 Specialty Diagnoses / Procedures Referred By Contac t Referred To Contact Diagnoses Other specified hearing loss, unspecified ear Procedures HEARING TEST/AUDIOGRAM COMPRE AUDIOMETRY THRESHOLD EVAL SP RECOGNIJ [facility] [address] [place] [address] [facility] [address] [place] [address] Referral ID Status Reason Start Date Expiration Date Visits Requested Visits Authorized [id number] Authorized Auto-Generat ed Referral 03/15/2023 03/15/2024 1 1 Specialty Diagnoses / Procedures Referred By Contac t Referred To Contact Procedures HEARING TEST/AUDIOGRAM COMPRE AUDIOMETRY THRESHOLD EVAL SP RECOGNIJ [facility] [address] [id number] [facility] [address] [place] [address] Referral ID Status Reason Start Date Expiration Date Visits Requested Visits Authorized [id number] Pending Review Auto-Generat ed Referral 04/05/2023 04/05/2024 [...] content) DATE CREATED AUTHOR 04/10/2022 [facility]ital DATE CREATED AUTHOR AUTHOR'S ORGANIZ ATION 04/06/2023 [facility] DATE CREATED AUTHOR AUTHOR'S ORGANIZ ATION 02/27/2025 [facility] dical [facility] CREATED AUTHOR AUTHOR'S ORGANIZ ATION 03/12/2025 [facility] [employer] [facility] Source Comments (unrecognize d section and content) In the event this informatio n is protected by the Federal Confidentiality of Alcohol and Drug Abuse Patient Records regulations: The Federal rules restrict any use of the information to criminally investigate or prosecute any alcohol or drug abuse patient.[facility] CenterIn the event this information is protected by the Federal Confidentiality of Alcohol and Drug Abuse Patient Records regulations: The Federal rules restrict any use of the information to criminally investigate or prosecute any alcohol or drug abuse patient.[facility] CenterIn the event this information is protected by the Federal Confidentiality of Alcohol and Drug Abuse Patient Records regulations: The Federal rules restrict any use of the information to criminally investigate or prosecute any alcohol or drug abuse patient.[facility] CenterIn the event this information is protected by the Federal Confidentiality of Alcohol and Drug Abuse Patient Records regulations: The Federal rules restrict any use of the information to criminally investigate or prosecute any alcohol or drug abuse patient.[facility] Reason for Visit (unrecogniz ed section and content) Reason Comments Ringing In Ear(s) Specialty Diagnoses / Procedures Referred By Contac t Referred To Contact Diagnoses Other specified hearing loss, unspecified ear Procedures HEARING TEST/AUDIOGRAM COMPRE AUDIOMETRY THRESHOLD EVAL SP KELLYIJ Mary Soto MD [address] [place] [address] [facility] [address] [place] [address] Referral ID Status Reason Start Date Expiration Date V isits Requested Visits Authorized [id number] Closed Auto-Generate d Referral 03/11/2023 03/11/2024 1 [...] September 11, 2024 End: September 11, 2024 Door Puller Relationship Specialty Start Date End Date Varun Denton MD [address] [place], [place] [id number] PCP - General Family Medicine 01/12/25 Team Status: Inactive Member Role Status Dates Varun Denton DO Primary Care Provide r, Referring Provider Active Start: January 10, 2025 End: January 10, 2025 Temporary Fibroscan Attending Provider Active St art: January 10, 2025 End: January 10, 2025 Door Puller Relationship Specialty Start Date End Date Varun Denton MD [address] [place], [place] [id number] PCP - General Family Medicine 01/12/25 Door Puller Relationship Specialty Start Date End Date Varun Denton MD [address] [place] [address] [place] [address] PCP - General Family Medicine 01/12/25 Team [...] February 05, 2025 End: February 05, 2025 Door Puller Relationship Specialty Start Date End Date Varun Denton MD [address] [place] [address] [place] [address] PCP - General Family Medicine 01/12/25 Team [...] BE BASED ON THE PRIMARY CLINICAL RECORDS. [facility] [employer] [facility]. provides no warranty or guarantee of the accuracy or completeness of information in this document.
[2025-03-19 07:02] LABS: Glucose Urine UA NEGATIVE (NEGATIVE)
[2025-03-19 07:37] LABS: Albumin Level 4.0 g/dL (3.4-5.0); Anion Gap 14.5; Blood Urea Nitrogen 17.0 mg/dL (7.0-18.0); Calcium 9.2 mg/dL (8.5-10.1); Carbon Dioxide 26.5 mmol/L (21.0-32.0); Chloride 107 mmol/L (98-107); Estimated GFR (African America >60 (>=60 mL/min/1.73m^2); Estimated GFR (Non-African Ame >60 (>=60 mL/min/1.73m^2); Glucose 109 mg/dL (74-106); Potassium 4.0 mmol/L (3.5-5.1); Sodium 144 mmol/L (136-145)
[2025-03-19 07:48] LABS: Cast Seen? NONE SEEN #/LPF (NONE SEEN); Crystals Seen? None Seen #/HPF (None Seen)
[2025-03-19 09:09] LABS: Creatinine 24 Hour Urine 1355.76 mg/24 hr (1000.0-2000.00); Total Volume 24 Hour Urine 2800 mL/24hr
[2025-03-19 09:20] LABS: Creatinine Clearance Urine 65.68 mL/min (85.00-125.00)
== END 2025-03-19 06:34 | disposition home or self-care (01) ==
PROVIDERS: PCP Family Medicine; Visit Provider Internal Medicine
DX: R94.4 Abnormal results of kidney function studies (principal); R74.8 Abnormal levels of other serum enzymes
CPT/HCPCS: 36415; 80069; 81001; 82575

== ENCOUNTER 2025-07-07 06:39 | Outpatient (OUT) | payer BC, SELFPAY ==
--- OUTSIDE RECORDS SUMMARY | 2025-07-07 06:43 | XMS_ITS | Clinical Summary ---
Author Organization [facility] Address [address] [place] [address] Phone Care Team Providers Care Motor Runner Name Role Phone SydnieSanti mathis Fabian DO Primary Care Provider [phone] Abimael Madrid DO Unavailable [phone] Allergies No known active allergies Medications No known medications Encounters DateTypeDepartmentCare PcabAjqkableoqu79/18/2025 1:45 PM EDTOffice Visit [facility] [address] [facility] [address] [place] [address] Arabella Melissa MD Vestibular schwannoma (Multi) (Primary Dx) Discharge Disposition: Homefrom Last 3 Months Social History Tobacco UseTypesPacks/DayYears UsedDateSmoking Tobacco: NeverSmokeless Tobacco: Current Tobacco Cessation:Ready to Q uit: Not Asked Comments:Occasional social use PHQ-2AnswerDate RecordedPatient Health Questionnaire-2 Rhyzi698Sex and Gender InformationValueDate RecordedSex Assigned at BirthNot on fileLegal Sex Male02/27/2025 3:57 PM EDTGender IdentityNot on fileSexual OrientationNot on file Last Filed Vital Signs Vital SignReadingTime TakenCommentsBlood Pressure--Pulse--Temperature-- Respiratory Rate--Oxygen Saturation--Inhaled Oxygen Concentration--Reuykf36.5 kg (173 lb 1.6 oz)04/16/2025 1:39 PM EDTHeight--Body Mass Index-- Plan of Treatment Health MaintenanceDue DateLast DoneCommentsHIV Qnmiyxdwj1983Lipid Panel 1983Yearly Adult Rwtcnztc1983MMR Vaccines (1 of 1 - Standard series) 02/13/1984Hepatitis C Bwkztnfuz02/16/2001Hepatitis A Vaccines (1 of 2 - Risk 2- dose series)2002Hepatitis B Vaccines (1 of 3 - 19+ 3-dose series) , 04/25/2014, 11/23/2013DTaP/Tdap/Td Vaccines (1 - Tdap) 2005HPV Vaccines (1 - 3-dose standard series)2010Influenza Vaccine (#1)2025OVID-19 Vaccine ( - season)2025Zoster Vaccines (1 of 2)2033HIB VaccinesAged OutNo longer eligible based on patient's age to complete this topicIPV VaccinesAged OutNo longer eligible based on patient's age to complete this topicMeningococcal VaccineAged OutNo longer eligible based on patient's age to complete this topicPneumococcal Vaccine: Pediatrics and At-Risk Adult PatientsAged OutNo longer eligible based on patient's age to complete this topicRotavirus VaccinesAged OutNo longer eligible based on patient's age to complete this topic Insurance Care Teams Team MemberRelationshipSpecialtyStart DateEnd Date Santi Charles DO [address] [place] [address] PCP - GeneralFamily Medicine02/28/25 Abimael Madrid DO [address] [place] [address] Referring PhysicianOtolaryngology02/28/25
--- OUTSIDE RECORDS SUMMARY | 2025-07-07 06:43 | XMS_ITS | Clinical Summary ---
Author Organization [facility] Address [address] [place] [address] Care Team Providers Care Certified Wellness Program Coordinator Name Role Phone Santi Charles MD Primary Care Provider [phone] Allergies Active AllergyReactionsCriticalityNoted SvabIzdmrisuBxxzchitcpJzeixzr89/13/2025 Other Reaction(s): Unknown Reaction, sensitivity Jxtiwwzzmtg78/07/2023 Other Reaction(s): Other: See Comments, Unknown, Unknown Reaction, unknown young per patient allergy occurred in childhood, unsure of reaction Medications No known medications Active Problems No known active problems Resolved Problems ProblemNoted DateDiagnosed DateResolved DateAbnormal vgyhuvgtxc85/18/2025 01/14/2025symmetrical sensorineural hearing losshronic maxillary edhflpxdl02Elevated liver qiizykz3401/14/2025 01/14/20258004Krrxqzw86ProteinuriaOther specified abnormal findings of blood uadrqoksi02Stress Sudden right hearing lossTinnitus of right earTinnitusWellness examination Encounters DateTypeDepartmentCare LbklLqgalnbpzbi78/02/2025Telephone [facility] [address] [facility] [place] [address] Mendy Dumont MA from Last 3 Months Immunizations ImmunizationAdministration DatesNext DueHep B, Adolescent or Dkbtukmou07/25/2014 ,04/25/2014,11/23/2013 Social History Tobacco UseTypesPacks/DayYears UsedDateSmoking Tobacco: NeverSmokeless Tobacco: Never Tobacco Cessation:Counseling Given: Not Answered Alcohol UseStandard Drinks/WeekCommentsNot Currently0 (1 standard drink = 0.6 oz pure alcohol)Sex and Gender InformationValueDate RecordedSex Assigned at Not on fileLegal UxlCmtz5611/11/2022 6:50 PM EDTGender IdentityNot on fileSexual OrientationNot on file Last Filed Vital Signs Vital SignReadingTime TakenCommentsBlood Sodkrhzk805/70010/14/2021 12:00 PM EST Pulse--Temperature--Respiratory Rate--Oxygen Saturation--Inhaled Oxygen Concentration--Ojtifs40.6 kg (180 lb)02/26/2025 4:05 PM NLQHirouh433.8 cm (5' 10 )02/26/2025 4:05 PM EDTBody Mass Index25.8302/26/2025 4:05 PM EDT Plan of Treatment DateTypeDepartmentCare Team (Latest Contact Info)Utjfcqcbhub52/15/2025 1:45 PM ESTClinical Support [facility] [address] [place] [phone] Shiloh Zurita, [facility] [address] [place] [address] 08/20/2025 4:00 PM ESTOffice Visit [facility] [address] [place] [address] Abimael Madrid W, DO [address] [place] [address] Insurance Care Teams Team MemberRelationshipSpecialtyStart DateEnd Date Santi Charles MD [address] [place] [address] [place] [address] PCP - GeneralFamily Medicine01/12/25
--- OUTSIDE RECORDS SUMMARY | 2025-07-07 06:43 | XMS_ITS | CCD ---
Author Organization [facility] Care Team Providers Care Seed Cone Picker Name Role Phone BERTIN, DR BOND Attending Unavailable BERTIN, DR BOND Admitting Unavailable GIRELIUD, DR BOND Primary Care Unavailable GIRELIUD, DR BOND Consulting Unavailable GIRELIUD, DR BOND Attending Unavailable GIRELIUD, DR BOND Admitting Unavailable GIRELIUD, DR BOND Primary Care Unavailable GIRVIN, DR BOND Consulting Unavailable GIRVIN, DR BOND Consulting Unavailable GIRELIUD, DR BOND Attending Unavailable GIRELIUD, DR BOND Admitting Unavailable Unavailable Primary Care Provider UnavailSARAH Regan Referring Unavailable BETTIE HOPE Attending Unavailable SARAH SOTO Attending Unavailable Unavailable Primary Care Provider UnavailVarun Reyes MD Primary Care Provider [phone] Varun Denton DO Primary Care Provider [phone] Varun Denton DO Referring Provider [phone] Fibroscan, Temporary Attending Provider UnavailSHILOH Otero Attending Unavailable ABIMAEL MADRID Attending Unavailable ABIMAEL MADRID Attending Unavailable Varun Denton DO Primary Care Provider [phone] Varun Denton DO Attending Provider Fibroscan, Temporary Other Provider Unavailable Christoph Chen MD Attending Provider Huma Laureano MD Attending Provider Abimael Madrid DO Attending Provider Varun Denton Primary Care Unavailable Varun Denton Referring Unavailable Warren Barney Admitting Unavailable Warren Barney Attending Unavailable Huma Laureano Admitting Unavailable Huma Laureano Attending Unavailable Varun Denton Primary Care Unavailable Huma Laureano Attending Unavailable Huma Laureano Admitting Unavailable Abimael Madrid Admitting Unavailable Abimael Madrid Attending Unavailable Varun Denton Primary Care Unavailable Varun Denton DO Attending Provider [phone] Varun Denton DO Primary Care Provider Abimael Madrid DO W Unavailable [phone] ARABELLA PACKER Attending Unavailable VARUN DENTON Primary Care Unavailable ARABELLA PACKER Referring Unavailable VARUN DENTON Primary Care Unavailable Allergies Allergy ClassificationReported Allergen(s)Allergy TypeDate of OnsetReaction(s) Facility (11 sources)PenicillinsPropensity to adverse reactions to zqhg52-64-7090Gqifz: See [facility] (16 sources)Citalopram; Translations: [citalopram]Drug Apapaxq98-85-6018WowqpumAkron [facility] (6 sources)PenicillinsDrug Gyoqcgt20-07-4994[facility] (1 source)PenicillinsDrug allergy (disorder)02-44-5145UasqocddnPrem[facility] Rep[facility] (1 source)ALLERGIES NOT ON FILE; Translations: [ALLERGIES NOT ON FILE]Propensity to adverse reactions (disorder)[facility] Repository Medications Current Medications MedicationDrug Class(es)DatesSig (Normalized)Sig (Original)Cranberry (3 sources)Non-Standardized Food Allergenic Extract, Non-Standardized Plant Allergenic ExtractStart: 00-33-7783uwxf 1 capsule by mouth twice daily at mealtimeCranberry 500 mg capsule Active 500 MG PO Twice daily February 05, 2025 12:00am administer with meals Complies with drug therapyStart: 49-06-1159nogt 1 capsule by mouth twice daily at mealtimeCranberry 500 mg capsule Active 500 MG PO Twice daily February 05, 2025 12:00am administer with mealsliver detox gummies (2 sources)Start: 00-91-2616moolc detox gummies Active PO Twice daily March 06, 2025 12:00am Complies with drug therapyStart: 23-35-0601Yi Name (No Known Home Meds) (2 sources)Start: 34-87-7180Ms Name (No Known Home Meds) Active December 18, 2024 12:00amsuper beets (2 sources)Start: 66-57-0738bloyw beets Active PO Twice daily March 06, 2025 12:00am Complies with drug therapyStart: 81-79-2685xesmq greens (2 sources)Start: 87-81-0451bjhby greens Active PO Twice daily March 06, 2025 12:00am Complies with drug therapyStart: 03-06-2025 Completed/Discontinued Medications MedicationDrug Class(es)DatesSig (Normalized)Sig (Original)acetaminophen 325 mg / HYDROcodone bitartrate 5 mg oral tablet (9 sources)Opioid AgonistStart: 03-24-2018 End: 44-35-9320xgfc 1 tablet by mouth every four to six hours as needed for pain Hydrocodone-Acetaminophen ([place]) 5-325 mg tablet Discontinued 1 TAB PO EVERY 4- 6 HOURS as needed for pain March 24, 2018 April 10, 2024 3:57pm cholecalciferol 0.01 mg chewable tablet (9 sources)Vitamin DStart: 03-14-2018 End: 46-98-5050ywty 1 tablet by mouth once dailyCholecalciferol (Vitamin D3) (Vitamin D3) 400 unit Tablet,Chewable Discontinued 400 UNIT PO Daily March 14, 2018 12:00am April 10, 2024 3:57pmclarithromycin 500 mg oral tablet (9 sources)Macrolide AntimicrobialStart: 03-24-2018 End: 07-27-2868kveb 1 tablet by mouth twice daily at mealtimeClarithromycin 500 mg tablet Discontinued 500 MG PO Twice daily 14 7 March 24, 2018 12:00am March 30, 2018 12:00am March 31, 2018 12:02am take with foodescitalopram 10 mg oral tablet (20 sources)Serotonin Reuptake InhibitorStart: 05-31-2024 End: 22-37-0356wldw 1 tablet by mouth once dailyEscitalopram Oxalate 10 mg tablet Discontinued 0 PO Daily 45 May 31, 2024 3:47pm August 5:06pm take 1 and 1/2 of a 10 MG tablet orally daily (total of 15 MG)Start: 05-05-2024 End: 13-73-4324lcqf 1 tablet by mouth once dailyEscitalopram Oxalate 10 mg tablet Discontinued 0 .ROUTE .COMPLEX 90 May 05, 2024 1:25pm May 31, 2024 3:28pm TAKE 1 TABLET BY MOUTH DAILYStart: 04-10-2024 End: 17-23-6045bkhp 1 tablet by mouth once dailyEscitalopram Oxalate (Lexapro) 10 mg tablet Discontinued 10 MG PO Daily 30 April 10, 2024 12:00am May 05, 2024 1:25pmMultivitamin preparation (2 sources)Start: 03-14-2018 End: 35-92-6412lskf 1 tablet by mouth once dailyMultivitamin Discontinued 1 TAB PO Daily March 14, 2018 12:00am April 10, 2024 3:57pmMultivitamin Tablet (7 sources)Start: 03-14-2018 End: 55-82-5066frac 1 tablet by mouth once dailyMultivitamin Tablet Discontinued 1 TAB PO Daily March 14, 2018 12:00am April 10, 2024 3:57pmStart: 03-14-2018 End: 52-08-4661saiw 1 tablet by mouth once dailyMultivitamin Tablet Discontinued 1 TAB PO Daily March 13, 2018 11:00pm April 10, 2024 2:57pm Problems Active Problems Problem ClassificationProblemDateDocumented DateEpisodic/ChronicAdjustment disorders (18 sources)Stress; Translations: [Reaction to severe stress, unspecified]Onset: 01-14-2025 Resolved: 298497-35-5577RxnfbcwTmwppywuyx associated with dizziness or vertigo (3 sources)Dizziness; Translations: [Dizziness and giddiness]09-63-2016Ldfdwfgd Genitourinary symptoms and ill-defined conditions (20 sources)Proteinuria; Translations: [Proteinuria, unspecified]Onset: 01-14-2025 Resolved: 908360-18-8048PmkarqqaLelpaah and fatigue (18 sources)Fatigue; Translations: [Other fatigue]Onset: 01-14-2025 Resolved: 201147-66-2484UalvgecaEvwgk and unspecified benign neoplasm (1 source)Acoustic neuroma; Translations: [Benign neoplasm of cranial nerves] 30-53-0124NrbbtsmFcjnp ear and sense organ disorders (2 sources)Hearing loss; Translations: [Other specified hearing loss, unspecified ear]53-63-1710NjiipldZmjdw ear and sense organ disorders (3 sources)Sensorineural hearing loss, unilateral, right ear, with unrestricted hearing on the contralateral side; Translations: [Sensorineural hearing loss, unilateral]19-88-0939HmoltfsAngoj ear and sense organ disorders (8 sources)Asymmetrical sensorineural hearing loss; Translations: [Sensorineural hearing loss, bilateral]Onset: 01-14-2025 Resolved: 861274-20-2860LaakpdtTskvr ear and sense organ disorders (2 sources)Asymmetrical hearing loss; Translations: [Other specified hearing loss, bilateral]08-04-1893BrefolxKttkk ear and sense organ disorders (1 source)Other specified hearing loss, bilateral; Translations: [Other specified hearing loss, bilateral]Onset: 90-09-6433SfohqkjSvjtp ear and sense organ disorders (1 source)Ear pressure sensation; Translations: [Other specified disorders of right ear]44-39-2269KokfawzdLrtiz ear and sense organ disorders (16 sources)Tinnitus; Translations: [Tinnitus, unspecified ear]Onset: 01-14-2025 Resolved: 151789-47-4788TyukxtrgPuxgy ear and sense organ disorders (5 sources)Tinnitus, unspecified ear; Translations: [Tinnitus, unspecified] 70-95-7515WbujtmzyVqcbb liver diseases (4 sources)Steatosis of liver; Translations: [Fatty (change of) liver, not elsewhere classified]07-85-1365FhoeyhyNofsh liver diseases (17 sources)Elevated liver enzymes level; Translations: [Abnormal levels of other serum enzymes]Onset: 01-14-2025 Resolved: 454133-21-5440WuofuxfaIgipj liver diseases (6 sources)Abnormal levels of other serum enzymes; Translations: [Other nonspecific abnormal serum enzyme levels]Onset: 787120-07-0780Fhyqdrwm Other nutritional; endocrine; and metabolic disorders (6 sources)Weight increased; Translations: [Abnormal weight gain]12-18-2024 EpisodicOther nutritional; endocrine; and metabolic disorders (3 sources)Abnormal weight gain; Translations: [Abnormal weight gain]12-18-2024 EpisodicOther screening for suspected conditions (not mental disorders or infectious disease) (20 sources)Blood chemistry abnormal; Translations: [Other specified abnormal findings of blood chemistry]Onset: 01-14-2025 Resolved: 017479-82-1494YxoyoqgfQxgcy upper respiratory disease (1 source)Nasal congestion; Translations: [NASAL CONGESTION]Onset: 04-10-2022 EpisodicOther upper respiratory disease (10 sources)Bleeding from nose; Translations: [Epistaxis]03-72-0155MazijzdkFpafh upper respiratory disease (3 sources)Epistaxis; Translations: [Epistaxis]73-46-9816LjsrwaexYkczq upper respiratory infections (6 sources)Chronic maxillary sinusitis; Translations: [Chronic maxillary sinusitis]Onset: 01-14-2025 Resolved: 276985-71-8552NafvokyGmnqkvnp codes; unclassified (1 source)Pain, unspecified; Translations: [PAIN UNSPECIFIED]Onset: 04-10-2022 EpisodicUnclassified (3 sources)CONTACT W/AND (SUSP) EXPOS COVID-19; Translations: [CONTACT W/AND (SUSP) EXPOS COVID-19]Onset: 46-86-8773Sypkvocwkbrk (1 source)COUGH, UNSPECIFIED; Translations: [COUGH, UNSPECIFIED]Onset: 76-27-0963Byqensowgkgm (1 source)Elevation of levels of liver transaminase levels; Translations: [Elevation of levels of liver transaminase levels]Onset: 71-59-8200Rghxfmrefuey (2 sources)Referral; Translations: [Referral]Onset: 18-17-1777Yjqod infection (1 source)COVID-19; Translations: [COVID-19]Onset: 04-10-2022 Past or Other Problems Problem ClassificationProblemDateDocumented DateEpisodic/ChronicOther ear and sense organ disorders (8 sources)Tinnitus of right ear; Translations: [Tinnitus, right ear]Onset: 01-14-2025 Resolved: 003263-73-9207OenercfxGkdmi ear and sense organ disorders (6 sources)Sudden hearing loss; Translations: [Sudden idiopathic hearing loss, right ear]Onset: 01-14-2025 Resolved: 919597-65-7465GountjbaJkvbm upper respiratory infections (1 source)Acute sinusitis, unspecified; Translations: [ACUTE SINUSITIS UNSPECIFIED]Onset: 41-00-9260PjfqovmiHinepwffbwyg (1 source)CONTACT W/AND (SUSP) EXPOS COVID-19; Translations: [CONTACT W/AND (SUSP) EXPOS COVID-19]Onset: 71-32-1958Lemlxfonorst (1 source)Onset: Results Test NameValueInterpretationReference RangeFacilityMR TRANSFER OF OUTSIDE FILMS on 42-36-6461WB TRANSFER OF OUTSIDE FILMSOutside images for comparison or treatment purposes, not interpreted by Radiologists.[facility] WestComment on above:Order Comment: MR head/brain wo/w con 02/16/2025 5:48pmStudy Interpretation of outside studyon 03-26-2025 Outside images for comparison or treatment purposes, not interpreted by Radiologists.IMAGINGEstimated glomerular filtration rate (GFR) non- AmericanOrdered By: Huma Laureano on 72-72-1281PHG/1.73 sq M.predicted among non- blacks MDRD (S/P/Bld) [Vol rate/Area]mL/min/{1.73_m2}>=60 mL/min/1.73m 2 [facility] CenterLaboratory - Chemistry and Chemistry - challengeOrdered By: Huma Laureano on 77-07-5433Lnmsrip [Mass/Vol]4.0 g/dL3.4-5.0 [facility] CenterCalcium [Mass/Vol]9.2 mg/dL8.5-10.1FMercy HealthChloride [Moles/Vol]107 mmol/N60-897CouuryerxPremier Health Upper Valley Medical CenterCO2 [Moles/Vol]26.5 mmol/L21.0-32.0[facility] CenterCreatinine [Mass/Vol]1.24 mg/dL0.70-1.30[facility] GFR/1.73 sq M.predicted MDRD (S/P/Bld) [Vol rate/Area]mL/min/{1.73_m2}>=60 mL/min/1.73m 2FMercy HealthGlucose [Mass/Vol]109 mg/dLHigh 74-106[facility] CenterPotassium [Moles/Vol]4.0 mmol/L3.5-5.1 [facility] Hospitalodium [Moles/Vol]144 mmol/U063-266RdhxuzerdPremier Health Upper Valley Medical CenterUrea nitrogen [Mass/Vol]17.0 mg/dL7.0-18.0[facility] CenterUrea nitrogen/Creatinine [Mass ratio]13.7 mg/mgPremier Health [facility] Medical CenterBilirubin Ql (U)NegativeNEGUniversity Hospitals Beachwood Medical CenterGlucose (U) [Mass/Vol]NegativeNEGATIVEPremier Health [facility] Valley Medical CenterKetones Ql (U)NegativeNEGUniversity Hospitals Beachwood Medical CenterpH (U)6.0 [pH]5.0-9.0[facility]edo Hospitalpecific gravity (U) [Rel density] >=1.732Ntckgldz4.005-1.025Prem[facility] Medical CenterUrobilinogen Qn (U) 0.2 {Rosa'U}/dL0.2-1.0[facility] CenterLaboratory - Specimen informationOrdered By: Huma Laureano on 61-78-4936Brrzhruzjl (U)CLEARCLEAR [facility] CenterColor (U)LT. YELLOWYELLOWPremier Health Upper Valley Medical CenterLaboratory - UrinalysisOrdered By: Huma Laureano on 03-19-2025 Leukocyte esterase Test strip Ql (U)NegativeNEGUniversity Hospitals Beachwood Medical CenterMucus Ql (Urine sed)SMALLAbnormalNONE [facility] HospitalNitrite Ql (U)NegativeNEGUniversity Hospitals Beachwood Medical CenterProtein Ql (U)TRACE mg/dLNEG/TRACEPremier Health Upper Valley Medical CenterNo Panel Information Ordered By: Huma Laureano on 65-28-7570Otpnjbfeij Level3.9 mg/dL2.6-4.7FMercy HealthUrine BacteriaTRACE #/HPFAbnormalNONE [facility] HospitalUrine Occult BloodNegativeNEGUniversity Hospitals Beachwood Medical CenterUrine Other CastsNONE SEEN #/LPFNONE [facility] HospitalUrine Other CrystalsNone Seen #/HPFNone [facility] CenterUrine RBC0-2 #/HPF0-2FMercy HealthUrine Squamous Epithelial CellsRARE #/LPFNONE/RAREFirelands Regional Medical Center Urine Transitional Epithelial CellsRARE #/LPFAbnormalNONE SEENPremier Health Upper Valley Medical CenterUrine WBCNONE SEEN #/HPFNONE SEENPremier Health [facility] Center Body surface area Derived from formula2.00 k7KizgywkfgPremier Health Upper Valley [facility] Center Urine Random Txwvkcgnvt26.42 mg/dL20.00-300.00[facility] Renal creatinine clearance measurementOrdered By: Huma Laureano on 03-19-2025 Creatinine renal clearance Unsp time (U+S/P) [Vol/Time]65.68 mL/minLow 85.00-125.00ProMedica Toledo Hospitalerum or plasma anion gap determinationOrdered By: Huma Laureano on 63-62-0403Idqrg gap [Moles/Vol]14.5 mmol/LFMercy HealthMR head/brain wo/w conon 10-20-5580XF head/brain wo/w [facility] [place] [address] MRI Report Signed Patient: Zack Savage MR#: [id number] 735 : 1985 Acct:[id number] Age/Sex: 40 / M ADM Date: 02/16/25 Loc: MR Room: Type: [facility] Attending Dr: Abimael Madrid DO [...] Meeks M.D. 02/16/2025 8:34 PM Dictation Location: [place] [address] Transcribed By: [facility] 02/16/252033 Dictated By: Jef Meeks II, MD 02/16/252014 Signed By: 02/16/252033[facility] Physician GroupAlbumin [Mass/volume] in Serum or Plasma by Bromocresol green (BCG) dye binding methoOrdered By: Huma Laureano on 89-38-4470Rlzesav BCG dye [Mass/Vol]4.9 g/dL3.5-5.7FMercy HealthCalcium [Mass/volume] in Serum or PlasmaOrdered By: Huma Laureano on 15-72-4079Zjfvgjj [Mass/Vol]9.7 mg/dL8.6-10.3FMercy Health Comment on above:Order Comment: draw per radiologyPerformed By: #### RENAL #### [facility] [address] [place] [address] USACarbon dioxide, total [Moles/volume] in Serum or Plasma Ordered By: Huma Laureano on 45-17-7628SG1 [Moles/Vol]27.7 mmol/L21.0-31.0 [facility] CenterComment on above:Order Comment: draw per radiologyPerformed By: #### RENAL #### [facility] [address] [place] [address] USAChloride [Moles/volume] in Serum or PlasmaOrdered By: Huma Laureano on 08-12-0534Enpxywnu [Moles/Vol]102 mmol/W18-191DgypliodzPremier Health Upper Valley Medical CenterComment on above:Order Comment: draw per radiologyPerformed By: #### RENAL #### [facility] [address] [place] [address] USACreatinine [Mass/volume] in Serum or PlasmaOrdered By: Huma Laureano on 97-87-5091Hbhnsnmlbz [Mass/Vol]1.45 mg/dLHigh0.70-1.30[facility] CenterComment on above:Order Comment: draw per radiology Performed By: #### RENAL #### [facility] [address] [place] [id number] USAGlucose [Mass/volume] in Serum or PlasmaOrdered By: Huma Laureano on 34-31-7334Cqcjqpq [Mass/Vol]70 mg/sA77-202MtyfislqjPremier Health Upper Valley Medical CenterComment on above:ADA recommended reference rangeRandom Glucose Reference Range is dependent on time and content of last meal. Glucose of more than 200 mg/dL in a nonstressed, ambulatory subject supports the diagnosisof Diabetes Mellitus.Order Comment: draw per radiologyResult Comment: Random Glucose Reference Range is dependent on time and content of last meal. Glucose of more than 200 mg/dL in a nonstressed, ambulatory subject supports the diagnosis of Diabetes Mellitus. ADA recommended reference rangePerformed By: #### RENAL #### [facility] [address] [place] [id number] USANo Panel InformationOrdered By: Huma Laureano on 02-13-2025 Estimated GFR (CKD-EPI)> 60.0 mL/MinPremier Health Upper Valley Medical CenterPharmacy Creatinine Clearance (ChemN/[facility] HospitalPhosphate [Mass/volume] in Serum or PlasmaOrdered By: Huma Laureano on 99-56-9352Iqsmtesnu [Mass/Vol]3.8 mg/dL2.5-4.5FMercy HealthComment on above: Order Comment: draw per radiologyPerformed By: #### RENAL #### [place] [address] USAPotassium [Moles/volume] in Serum or PlasmaOrdered By: Huma Georgi on 28-88-0090Tqyewhoqw [Moles/Vol]4.1 mmol/L3.5-5.1FMercy HealthComment on above:Order Comment: draw per radiology Performed By: #### RENAL #### [place] [address] USARenal Function Panelon 99-22-0940Hhgjpob [Mass/Vol]4.9 g/dLNormal3.5-5.7The [facility] Health Physician GroupComment on above:Order Comment: draw per radiologyResult Comment: PERFORMED BY: [place] [address] PATHOLOGIST WINDOWS TECHNICAL SPECIALIST PAVEL EGAN M.D.Performed By: #### RENAL #### [place] [address] USAGFR/1.73 sq M.predicted MDRD (S/P/Bld) [Vol rate/Area] mL/min/{1.73_m2}NormalThe [facility] Health Physician [facility]oul[facility] HospitalComment on above:Order Comment: draw per radiologyPerformed By: #### RENAL #### [place] [address] USASerum or plasma anion gap determinationOrdered By: Huma Georgi on 16-92-3713Ypydg gap [Moles/Vol]11.4 mmol/L6.0-15.0[facility] CenterComment on above:Order Comment: draw per radiologyPerformed By: #### RENAL #### [place] [address] USASodium [Moles/volume] in Serum or PlasmaOrdered By: Huma Georgi on 30-10-2596Fwwwhc [Moles/Vol]137 mmol/X087-203DlajtddzsPremier Health Upper Valley Medical CenterComment on above:Order Comment: draw per radiologyPerformed By: #### RENAL #### [place] [address] USAUS renal BIon 97-54-5503BA renal [facility] [place] [address] [place] [address] Ultrasound Report Signed Patient: Zack Savage MR#: [id number] 735 : 1985 Acct:[id number] Age/Sex: 40 / M ADM Date: 02/13/25 Loc: Room: Type: [facility] Attending Dr: Huma Laureano MD [...] Meeks M.D. 02/13/2025 10:24 PM Dictation Location: [place] [address] Tech: Lindsay Howie Transcribed By: KAMAR 02/13/252223 Dictated By: Jef Meeks II, MD 02/13/252222 Signed By: 02/13/252223[facility] Physician GroupUrea nitrogen [Mass/volume] in Serum or PlasmaOrdered By: Huma Laureano on 43-49-1545Wvjj nitrogen [Mass/Vol]20 mg/dL03-23[facility] CenterComment on above:Order Comment: draw per radiologyPerformed By: #### RENAL #### [address] [place] [address] [facility] CENTERAuditory function testson 00-82-6639Zzsqt Ear: Mild sloping to severe sensorineural hearing loss above 1K Hz Left Ear: Normal hearing [facility] HospitalEstimated glomerular filtration rate (GFR) non- Americanon 01-96-7945EPC/1.73 sq M.predicted among non-blacks MDRD (S/P/Bld) [Vol rate/Area]Estimated glomerular filtration rate (GFR) non->=60 mL/min/1.73m [address] [place], [place] [address]GFR/1.73 sq M.predicted among non-blacks MDRD (S/P/Bld) [Vol rate/Area]mL/min/{1.73_m2}>=60 mL/min/1.[address]m [address] [place], [place] [address]Globulin Calc (S) [Mass/Vol]on 88-31-5011Ephblqzj (S) [Mass/Vol]Serum globulin measurement by calculation (mass/volume)[facility] CenterGlobulin (S) [Mass/Vol]3.6 g/dL [facility] CenterHCV genotyping ser/plas amplified probeon 18-58-4500LZC genotype CHANDA+probe NomTNP.[facility] CenterComment on above:Test not performed. Unable to provide an HCV genotype forthis sample. The most common reason an HCVgenotype cannotbe determined is due to a viral load of <1,000 IU/mL, ormore rarely, the presenceof an untypable HCV genotype.This test was developed and its performance characteristicsdetermined by [facility]. It has not been cleared orapproved by the Food and Drug Administration.Performed at: [address] [id number] Director: Clark Berry MD, Phone: [phone] A virus Ab [Presence] in Serum by Immunoassayon 14-53-9780ZTN Ab IA Ql (S)Hepatitis A virus Ab [Presence] in Serum by ImmunoassayNegativePrem[facility] Health [facility] Center Comment on above:Comment: The HAV total antibody assay detects both IgG andIgM but does not differentiate between them. A negativeresult suggests susceptibility to infection. A positiveresult could be due to vaccination, previously resolvedinfection or active infection. Testing for HAV IgM shouldbe performed if active HAV infection is suspected. Labcorpoffers profiles that will automatically reflex positive HAVtotal antibody results to IgM (e.g., panel #[id number] HAVAntibody w/ Rfx).Performed at: [address] [id number] Director: Rick Givens PhD, Phone: [phone] Ab IA Ql (S)NegativeNegativePremier Health Upper Valley Medical CenterComment on above: Comment: The HAV total antibody assay detects both IgG andIgM but does not differentiate between them. A negativeresult suggests susceptibility to infection. A positiveresult could be due to vaccination, previously resolvedinfection or active infection. Testing for HAV IgM shouldbe performed if active HAV infection is suspected. [facility]corpoffers profiles that will automatically reflex positive HAVtotal antibody results to IgM (e.g., panel #[id number] HAVAntibody w/ Rfx).Performed at: [facility] [employer] [id number] Director: Rick Givens PhD, Phone: [phone] Hepatitis B virus surface Ab [Presence] in Serumon 76-35-9387ARH surface Ab Ql (S)Hepatitis B virus surface Ab [Presence] in SerumAbnormalImmunity>10[facility] CenterComment on above:Status of Immunity Anti-HBs Level Inconsistent with Immunity 0.0 -10.0Consistent with Immunity >10.0HBV surface Ab Ql (S)6.9 mIU/mLAbnormalImmunity>10[facility] CenterComment on above:Status of Immunity Anti-HBs Level Inconsistent with Immunity 0.0 -10.0Consistent with Immunity >10.0Hepatitis B virus surface Ag [Presence] in Serum or Plasma by Immunoassayon 10-80-1521CSE surface Ag IA QlHepatitis B virus surface Ag [Presence] in Serum or Plasma by ImmunoassayNegativePremier Health [facility] Valley Medical CenterHBV surface Ag IA QlNegativeNegativePrem[facility] Center Laboratory - Chemistry and Chemistry - challengeon 83-43-3470Hcdbaub [Mass/Vol] 4.0 g/dL3.4-5.0[facility] Upper [facility] CenterALP [Catalytic activity/Vol]81 U/X20-127NeikebfwmPremier Health Upper Valley Medical CenterALT [Catalytic activity/Vol]67 U/LHigh 16-63[facility] CenterAmylase [Catalytic activity/Vol]89 U/LHigh 15-85[facility] CenterAST [Catalytic activity/Vol]41 U/LHigh 15-37[facility] CenterBilirubin [Mass/Vol]0.4 mg/dL0.2-1.0 [facility] CenterCalcium [Mass/Vol]9.1 mg/dL8.5-10.1FMercy HealthChloride [Moles/Vol]106 mmol/Y65-445HxhurvyxtPremier Health Upper [facility] Medical CenterCO2 [Moles/Vol]27.7 mmol/L21.0-32.0[facility] CenterCreatinine [Mass/Vol]1.28 mg/dL0.70-1.30[facility] GFR/1.73 sq M.predicted MDRD (S/P/Bld) [Vol rate/Area]mL/min/{1.73_m2}>=60 mL/min/1.73m 2FMercy HealthGlucose [Mass/Vol]103 mg/qF24-516 [facility] CenterPotassium [Moles/Vol]4.6 mmol/L3.5-5.1FMercy HealthProtein [Mass/Vol]7.6 g/dL6.4-8.2FCleveland Clinic Medina Hospitalodium [Moles/Vol]138 mmol/J201-451YdxhgxfoePremier Health Upper [facility] Medical CenterUrea nitrogen [Mass/Vol]19.0 mg/dLHigh7.0-18.0[facility] CenterUrea nitrogen/Creatinine [Mass ratio]14.8 mg/mgPremier Health Upper Valley Medical CenterNo Panel Informationon 60-36-2598Pjoryfxxq B Core Total AntibodyNegative NegativeProMedica Toledo Hospitalerum or plasma albumin/globulin mass ratioon 04-35-8457Vjxxlhf/Globulin [Mass ratio]Serum or plasma albumin/globulin mass ratioPremier Health Upper Valley Medical CenterAlbumin/Globulin [Mass ratio]1.1 {ratio}[facility]ica Toledo Hospitalerum or plasma anion gap determination on 91-53-1291Ywycf gap [Moles/Vol]Serum or plasma anion gap determination [facility] CenterAnion gap [Moles/Vol]8.9 mmol/LFMercy HealthEstimated glomerular filtration rate (GFR) non- Americanon 12-85-6772KQQ/1.73 sq M.predicted among non-blacks MDRD (S/P/Bld) [Vol rate/Area]Estimated glomerular filtration rate (GFR) non- Low>=60 mL/min/1.73m 2FMercy HealthLaboratory - Chemistry and Chemistry - challengeon 33-32-9172Umyjfeo [Mass/Vol]9.4 mg/dL8.5-10.1 [facility] CenterChloride [Moles/Vol]105 mmol/A92-891SavvqlvstPremier Health Upper [facility] Medical CenterCO2 [Moles/Vol]26.4 mmol/L21.0-32.0[facility] CenterCreatinine [Mass/Vol]1.34 mg/dLHigh0.70-1.30[facility] CenterGFR/1.73 sq M.predicted MDRD (S/P/Bld) [Vol rate/Area] mL/min/{1.73_m2}>=60 mL/min/1.73m 2FMercy HealthGlucose [Mass/Vol]95 mg/aS48-059OwjbniiihPremier Health Upper [facility] Medical CenterPotassium [Moles/Vol] 4.9 mmol/L3.5-5.1FCleveland Clinic Medina Hospitalodium [Moles/Vol]139 mmol/L 136-145Prem[facility] CenterUrea nitrogen [Mass/Vol]16.0 mg/dL 7.0-18.0[facility] CenterUrea nitrogen/Creatinine [Mass ratio] 11.9 mg/mgProMedica Toledo Hospitalerum or plasma anion gap determinationon 44-87-1692Gzkwa gap [Moles/Vol]Serum or plasma anion gap determinationPremier Health Upper [facility] Medical CenterEstimated glomerular filtration rate (GFR) non- Americanon 85-06-1042HHY/1.73 sq M.predicted among non- blacks MDRD (S/P/Bld) [Vol rate/Area]Estimated glomerular filtration rate (GFR) non->=60 mL/min/1.73m [address] [place], [place] [address]Globulin Calc (S) [Mass/Vol]on 15-51-0872Gugdckku (S) [Mass/Vol]Serum globulin measurement by calculation (mass/volume)[facility] Laboratory - Chemistry and Chemistry - challengeon 40-96-1425Jobzdkb [Mass/Vol] 4.1 g/dL3.4-5.0[facility] CenterALP [Catalytic activity/Vol]79 U/H64-234NrvsgcbuyPremier Health [facility] Medical CenterALT [Catalytic activity/Vol]69 U/LHigh 16-63[facility] CenterAST [Catalytic activity/Vol]41 U/LHigh 15-37[facility] CenterBilirubin [Mass/Vol]0.6 mg/dL0.2-1.0 [facility] CenterCalcium [Mass/Vol]9.5 mg/dL8.5-10.1FMercy HealthChloride [Moles/Vol]104 mmol/I14-181SuprcjwhsPremier Health [facility] Medical CenterCO2 [Moles/Vol]27.3 mmol/L21.0-32.0[facility] CenterCreatinine [Mass/Vol]1.31 mg/dLHigh0.70-1.30[facility] CenterGFR/1.73 sq M.predicted MDRD (S/P/Bld) [Vol rate/Area]mL/min/{1.73_m2}>=60 mL/min/1.73m 2FMercy HealthGlucose [Mass/Vol]94 mg/aU15-243 [facility] CenterPotassium [Moles/Vol]4.5 mmol/L3.5-5.1FMercy HealthProtein [Mass/Vol]7.8 g/dL6.4-8.2FCleveland Clinic Medina Hospitalodium [Moles/Vol]140 mmol/L007-549WfdtmheoaPremier Health [facility] Medical CenterUrea nitrogen [Mass/Vol]23.0 mg/dLHigh7.0-18.0[facility] CenterUrea nitrogen/Creatinine [Mass ratio]17.6 mg/mgProMedica Toledo Hospitalerum or plasma albumin/globulin mass ratioon 51-15-2849Ssvccgv/Globulin [Mass ratio]Serum or plasma albumin/globulin mass ratioProMedica Toledo Hospitalerum or plasma anion gap determinationon 70-26-0473Ntxon gap [Moles/Vol]Serum or plasma anion gap determinationPremier Health Upper Valley Medical CenterBasophils Auto (Bld) [#/Vol]on 01-82-0222Vxqceoijp (Bld) [#/Vol]0.1 10 3/uL0.0-0.1FMercy HealthBasophils/100 WBC Auto (Bld)on 56-24-8209Vbwuxzyrl/100 WBC (Bld)1.1 %0.2-2.0[facility] Cholesterol in LDL Calc [Mass/Vol]on 92-93-6565Jhcyxatggmz in LDL [Mass/Vol]99.0 mg/dLPremier Health Upper Valley Medical CenterComment on above:<100 mg/dl MNTEPTV258- 129 mg/dl NEAR OR ABOVE TBUAUQZ722-121 mg/dl BORDERLINE BMGT898-748 mg/dl H IGH>190 mg/dl VERY HIGHCholesterol in VLDL Calc [Mass/Vol]on 04-14-2024 Cholesterol in VLDL [Mass/Vol]8.0 mg/dLPremier Health Upper Valley Medical Center Eosinophils/100 WBC Auto (Bld)on 26-52-1530Fubamjsytej/100 WBC (Bld)8.5 %High 0.9-7.0[facility] CenterErythrocyte distribution width Auto (RBC) [Ratio]on 36-52-2710Moleucxphjl distribution width (RBC) [Ratio]13.2 % 11.0-15.0[facility] CenterEstimated glomerular filtration rate (GFR) non- Americanon 46-74-3456FIN/1.73 sq M.predicted among non-blacks MDRD (S/P/Bld) [Vol rate/Area]60 mL/min/{1.73_m2}>=60Prem[facility] CenterGlobulin Calc (S) [Mass/Vol]on 86-87-1365Otsjtnqw (S) [Mass/Vol]3.6 g/dL [facility] CenterHematocrit Auto (Bld) [Volume fraction]on 23-16-4374Likradzieq (Bld) [Volume fraction]42.9 %42.0-54.0[facility] CenterHemoglobin [Mass/volume] in Bloodon 27-78-7546Oylnnwyans (Bld) [Mass/Vol]14.4 g/dL14.0-18.0[facility] CenterLaboratory - Chemistry and Chemistry - challengeon 25-99-6152Nyhainsfz Ql (U)NegativeNEGATIVE [facility] CenterGlucose (U) [Mass/Vol]NegativeNEGATIVEPremier Health Upper [facility] Medical CenterKetones Ql (U)NegativeNEGATIVEPremier Health Upper [facility] Medical CenterpH (U)7.0 [pH]5.0-9.0ProMedica Toledo Hospitalpecific gravity (U) [Rel density]1.0151.005-1.025Prem[facility] CenterUrobilinogen Qn (U)0.2 {Rosa'U}/dL0.2-1.0[facility] CenterAlbumin [Mass/Vol]4.2 g/dL3.4-5.0[facility] CenterALP [Catalytic activity/Vol]81 U/N08-830GsnymyvsjPremier Health [facility] CenterALT [Catalytic activity/Vol]57 U/U82-64HwelikjbhPremier Health [facility] CenterAST [Catalytic activity/Vol]43 U/NUmfs18-88QfcmysykaPremier Health [facility] CenterBilirubin [Mass/Vol]0.5 mg/dL0.2-1.0[facility] CenterCalcium [Mass/Vol]9.1 mg/dL8.5-10.1FMercy HealthChloride [Moles/Vol]103 mmol/L 98-107Prem[facility] CenterCholesterol [Mass/Vol]160 mg/dL<=200 [facility] CenterCholesterol in HDL [Mass/Vol]53 mg/dL40-60 [facility] CenterComment on above:> or =60 mg/dl - LOW CARDIOVASCULAR RISK<40 mg/dl - HIGH CARDIOVASCULAR RISKCO2 [Moles/Vol]24.8 mmol/L21.0-32.0[facility] CenterCreatinine [Mass/Vol]1.32 mg/dL High0.70-1.30[facility] CenterGFR/1.73 sq M.predicted MDRD (S/P/Bld) [Vol rate/Area]mL/min/{1.73_m2}>=60[facility] Glucose [Mass/Vol]96 mg/kW67-062EenrwxrecPremier Health Upper [facility] Medical CenterPotassium [Moles/Vol]4.7 mmol/L3.5-5.1FMercy HealthProtein [Mass/Vol] 7.8 g/dL6.4-8.2FCleveland Clinic Medina Hospitalodium [Moles/Vol]138 mmol/L 136-145[facility] CenterTriglyceride [Mass/Vol]40 mg/dL<=150 [facility] CenterTSH Qn0.821 m[IU]/L0.358-3.740Prem[facility] CenterUrea nitrogen [Mass/Vol]21.0 mg/dLHigh7.0-18.0[facility] CenterUrea nitrogen/Creatinine [Mass ratio]15.9 mg/mgPremier Health Upper [facility] Medical CenterLaboratory - Hematology and Cell countson 04-14-2024 Immature granulocytes/100 WBC (Bld)0.2 %0.0-0.5FMercy Health Laboratory - Specimen informationon 83-31-2464Zbqglrvixg (U)CLEARCLEPaulding County HospitalColor (U)LT. YELLOWYELLOWPremier Health [facility] Medical CenterLaboratory - Urinalysison 01-95-6001Nzwawlipo esterase Test strip Ql (U) NegativeNEGATIVEPremier Health Upper [facility] Medical CenterMucus Ql (Urine sed)TRACE AbnormalNONE SEENPremier Health [facility] Medical CenterNitrite Ql (U)NegativeNEGATIVE [facility] CenterProtein Ql (U)NegativeNEG/TRACEPremier Health [facility] Medical CenterLeukocytes [#/volume] corrected for nucleated erythrocytes in Blood by Automated counon 63-71-5002TKZ corrected for nucl RBC Auto (Bld) [#/Vol]5.5 10 3/uL4.0-11.0[facility] Lymphocytes Auto (Bld) [#/Vol]on 39-39-6037Vepsvewxsze (Bld) [#/Vol]1.6 10 3/uL 1.2-3.8[facility] CenterLymphocytes/100 WBC Auto (Bld)on 02-33-1860Tkqznlnppno/100 WBC (Bld)29.1 %20.5-60.0[facility] HospitalH Auto (RBC) [Entitic mass]on 77-55-5019LYY (RBC) [Entitic mass]29.1 pg 25.9-34.0[facility] CenterMCHC Auto (RBC) [Mass/Vol]on 27-72-4363KIFL (RBC) [Mass/Vol]33.6 g/dL29.9-35.2FMercy HealthMCV Auto (RBC) [Entitic vol]on 20-55-5451CPO (RBC) [Entitic vol]86.7 fL 80.0-94.0[facility] CenterMonocytes Auto (Bld) [#/Vol]on 11-10-2186Xglytrxfp (Bld) [#/Vol]0.5 10 3/uL0.3-0.8[facility] CenterMonocytes/100 WBC Auto (Bld)on 37-75-4002Gmzmaklea/100 WBC (Bld)9.8 % 1.7-12.0[facility] CenterNeutrophils Auto (Bld) [#/Vol]on 45-31-8232Elbhuvyfwqx (Bld) [#/Vol]2.8 10 3/uL1.4-6.5FMercy HealthNeutrophils/100 WBC Auto (Bld)on 65-66-0324Tbaprofxvhn/100 WBC (Bld)51.3 % 43.0-75.0[facility] CenterNo Panel Informationon 34-39-3416Fshon BacteriaTRACE #/HPFAbnormalNONE SEENPremier Health Upper Valley Medical CenterUrine Culture ReflexedNOPremier Health Upper Valley Medical CenterUrine Occult BloodNegative NEGATIVEPremier Health [facility] Medical CenterUrine Other CastsNONE SEEN #/LPFNONE [facility] HospitalUrine Other CrystalsNone Seen #/HPFNone SeenPremier Health Upper [facility] Medical CenterUrine RBCNONE SEEN #/HPF0-2FMercy HealthUrine Squamous Epithelial CellsRARE #/LPFNONE/RARE [facility] CenterUrine Transitional Epithelial CellsRARE #/LPF AbnormalNONE SEENPremier Health Upper [facility] Medical CenterUrine WBCNONE SEEN #/HPFNONE [facility] HospitalEosinophils # (Auto)0.5 10 3/uL0.0-0.7 [facility] CenterImmature Granulocyte # (Auto)0.01 10 3/uL 0.00-0.03[facility] CenterProstate Specific Antigen Screen0.86 ng/mL<=4.00[facility] CenterPlatelet mean volume Auto (Bld) [Entitic vol]on 45-63-9264Wbiopjee mean volume (Bld) [Entitic vol]10.1 fL 9.5-13.5FMercy HealthPlatelets Auto (Bld) [#/Vol]on 70-56-4452Grtbnwjjz (Bld) [#/Vol]266 10 3/gQ495-976HayvzogrxPremier Health Upper Valley Medical CenterRBC Auto (Bld) [#/Vol]on 62-76-9742JIN (Bld) [#/Vol]4.95 10 6/uL4.70-6.10 [facility] Hospitalerum or plasma albumin/globulin mass ratioon 47-35-1605Yxeuwwm/Globulin [Mass ratio]1.2 {ratio}[facility] Hospitalerum or plasma anion gap determinationon 29-88-6137Nezva gap [Moles/Vol] 14.9 mmol/LFCleveland Clinic Medina Hospitalerum or plasma total cholesterol/high density lipoprotein (HDL) cholesterol mass marie 04-14-2024 Cholesterol.total/Cholesterol in HDL [Mass ratio]3.0 {ratio}[facility] CenterComment on above:3.3 - 4.4 LOW RISK4.4 - 7.1 AVERAGE RISK7.1 - 11.0 MODERATE RISK>11.0 HIGH RISKCNOVon 34-78-2238SBOWTkeebz Visit (OTOLMN) ZACK SAVAGE ([id number]) 1985 M Date Time Provider Department 04/05/23 3:45 PM SARAH SOTO OTOLMN During your visit today, we recorded the following information about you: Irma Reyes RN 04/05/2023 3:50 PM Signed Tobacco Use: Quit 08/30/2007. Types: Cigarettes Was smoking cessation packet given? N/A - Patient is a non-smoker or quit >1 year ago. Was a referral initiated?N/A Patient is a non-smoker Sarah Soto MD 04/05/2023 4:07 PM Signed IMPRESSION [...] seen by ENT close to home in [place] and he was treated with oral prednisone. [...] or asymmetry, or thyroid masses or enlargement. Sarah Soto MD Allergies As of Date: 04/05/2023 [...] (None) Visit Notes: >> Irma Reyes RN [facility] Apr 05, 2023 3:49 PM Status: Signed Tobacco Use: Quit 08/30/2007. Types: Cigarettes Was smoking cessation packet given? N/A - Patient is a non-smoker or quit >1 year ago. Was a referral initiated?N/A Patient is a non-smoker Encounter Status:Closed by SARAH SOTO on 04/05/23[facility] CNOVOffice Visit (CDIN) ZACK SAVAGE ([id number]) 1985 M Date Time Provider Department 04/05/23 3:00 PM BETTIE HOPE CDISMN During your visit today, we recorded the following information about you: Bettie Hope, SHELBY 04/05/2023 3:54 PM Signed [facility] [place] AUDIOLOGIC EVALUATION REPORT Name: Zack Savage CCF#: [id number] Date of Service: 04/05/2023 Date of : 1985 Age: [age] year old Referred by: Sarah Soto MD [address] [facility] [address] Referred for: Evaluation of suspected change in [...] or concerts. 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 CPT code: 52887 RIGHT EAR: Normal ME function. LEFT EAR: Normal ME function. ACOUSTIC REFLEXES Description of procedure: This test is an objective measure of auditory and facial nerve pathways. CPT code: 88152, 06014 RIGHT EAR PROBE EAR: (ipsi right stimulus [...] conduction and speech recognition testing. CPT code: 53494 RIGHT EAR: Hearing Sensitivity: within normal limits [...] testing. RECOMMENDATIONS * Continue medical follow-up with Sarah Soto MD. * The patient was counseled regarding benefits/limitations of hearing aids. * Continue to utilize hearing protection in the workplace. * Patient should maintain a sound enriched environment (more content not included)...NormalKettering HealthCovid-19 PCR (CVDTBH)on 04-09-2022 SARS-CoV-2 (COVID-19) RNA CHANDA+probe Ql (Unsp spec)DetectedCritically abnormalNOT DETECTEDThe [facility] on above:Result Comment: This test is not yet approved or cleared by the [place] FDA. When there are no FDA-approved or cleared tests available, and other criteria are met, FDA can make tests available under an emergency access mechanism called an Emergency Use Authorization (EUA). The EUA for this test is supported by the [place] of Health and Human Service's (HHS's) declaration [...] which the test may no longer be used).Performed By: #### CVDTBH #### [facility] [address] [place] [address] Dr. Ronal GarciaCocatherined-19 PCR (CVDTB)on 02-85-7478BSBV-CoV-2 (COVID-19) RNA CHANDA+probe Ql (Unsp spec)DetectedCritically abnormalNOT DETECTEDThe [facility] on above:Result Comment: This test is not yet approved or cleared by the [place] FDA. When there are no FDA-approved or cleared tests available, and other criteria are met, FDA can make tests available under an emergency access mechanism called an Emergency Use Authorization (EUA). The EUA for this test is supported by the Family Services Worker of Health and Human Service's (HHS's) declaration [...] no longer be used). Performed By: #### CVDTBH #### [facility] [address] [address] [address] Ronal GarciaCovid-19 PCR ([facility])on 81-42-8798ONBR-CoV-2 (COVID-19) RNA CHANDA+probe Ql (Unsp spec)Not detectedNormalNOT DETECTEDThe [facility] Comment on above:Result Comment: This test is not yet approved or cleared by the [place] FDA. When there are no FDA-approved or cleared tests available, and other criteria are met, FDA can make tests available under an emergency access mechanism called an Emergency Use Authorization (EUA). The EUA for this test is supported by the Family Services Worker of Health and Human Service's (HHS's) declaration that circumstances exist to justify the emergency use of in vitro diagnostics for the detection and/or diagnosis of the virus that causes COVID- 19. This EUA will remain in effect (meaning [...] of clinical signs and symptoms consistent with SARS-CoV-2.Performed By: #### CVDTBH #### [facility] [address] [place], [place] [id number] Dr. Ronal Garcia Vital Signs Date TimeVital SignValuePerforming JpwpqidshJarxoiuj02-75-9399 13:39-0400Body .52 kgArabella Packer MD Work Phone: [facility]07-24-2025 16:20-0400 Body nzcriy391.8 cmDanicole Denton DO Work Phone: [facility]07-24-2025 16:20-0400 Body mass index (BMI) [Ratio]24.8 kg/r2Depoknicole Denton DO Work Phone: [facility]07-24-2025 16:20-0400 Body brybiyxlfjp46.7 [degF]Varun Denton DO Work Phone: [phone]07-24-2025 16:20-0400 Body jcxmaw00.52 kgDacatherinefloyd Otooleeliud DO Work Phone: [phone]07-24-2025 16:20-0400 Diastolic blood ioupcwmw57 mm[Hg]Varun Denton DO Work Phone: [phone]07-24-2025 16:20-0400 Heart rate74 /Katelinjerry Denton DO Work Phone: [phone])[address] [place], [place] [address]107-24-2025 16:20-0400 Respiratory rate16 /Reid Denton DO Work Phone: [phone] [place], [place] 1002107-24-2025 16:20-0400 SaO2% (BldA) [Mass fraction]97 %Varun Denton DO Work Phone: [phone])[address] [place], [place] 1002107-24-2025 16:20-0400 Systolic blood efsaiwbh085 mm[Hg]Varun Denton DO Work Phone: [phone] [place], [place] 1002107-08-2025 14:53-0400 Body .8 cmDacatherinefloyd Denton DO Work Phone: [phone] [place], [place] [address]107-08-2025 14:53-0400 Body mass index (BMI) [Ratio]25.2 kg/e4Mwfzcnicole Denton DO Work Phone: [phone] [place], [place] [address]107-08-2025 14:53-0400 Body enmdecviblk03.5 [degF]Varun Denton DO Work Phone: [phone] [place], [place] [address]107-08-2025 14:53-0400 Body coooim73.83 kgDanicole Denton DO Work Phone: [phone] [place], [place] [address]107-08-2025 14:53-0400 Diastolic blood mm[Hg]Varun Denton DO Work Phone: [phone]07-08-2025 14:53-0400 Heart rate68 /Reid Denton DO Work Phone: [facility]07-08-2025 14:53-0400 SaO2% (BldA) [Mass fraction]98 %Varun Denton DO Work Phone: [facility]07-08-2025 14:53-0400 Systolic blood mm[Hg]Varun Denton DO Work Phone: [facility]06-30-2025 16:05-0400 Body .8 cmBelory Madrid DO Work Phone: [facility] CenterZovusvzxpt75-86-8124 16:05-0400Body mass index (BMI) [Ratio]25.83 kg/l9Irxpaihochelsea Madrid DO Work Phone: [facility] CenterOrhrlfkcxo99-39-4846 16:05-0400Body pymqlq37.65 kgBelory Madrid DO Work Phone: [facility] CenterOauqhuclcu95-77-1698 13:42-0400Body .18 cmPrem[facility] Health [facility] Center06-09-2025 13:42-0400Body mass index (BMI) [Ratio]27.7 kg/j0CdqfyvzfePremier Health [facility] Center06-09-2025 13:42-0400Body .34 kgPrem[facility] Health [facility] Center06-09-2025 13:42-0400Diastolic blood vcfathnt24 mm[Hg][facility]06-09-2025 13:42-0400 Heart rate69 /[facility]06-09-2025 13:42-0400 Respiratory rate16 /[facility]06-09-2025 13:42-0400 SaO2% (BldA) [Mass fraction]98 %[facility]06-09-2025 13:42-0400Systolic blood jkcihsmt077 mm[Hg][facility] 01-15-2025 14:27-0400Body kciyaz384.8 cmBelory Madrid DO Work Phone: [facility] [phone] 14:27-0400Body mass index (BMI) [Ratio]25.83 kg/m4Gwukmwiwlory Madrid DO Work Phone: [facility] CenterUckhghxxfz70-66-8234 14:27-0400Body uoldih46.65 kgBelory Madrid DO Work Phone: [facility] [phone] 17:19-0400Body gwmaue551.8 cmPremier Health [facility] Center04-21-2025 17:19-0400Body mass index (BMI) [Ratio]25.4 kg/i7SbfpkfxyrPremier Health [facility] Center04-21-2025 17:19-0400Body pzliairpeoj56.1 [degF][facility]04-21-2025 17:19-0400Body glzmho44.28 kgPremier Health [facility] Center04-21-2025 17:19-0400Diastolic blood jsjiqjld80 mm[Hg][facility]04-21-2025 17:19-0400 Heart rate76 /[facility]04-21-2025 17:19-4866PsF5% (BldA) [Mass fraction]98 %[facility]04-21-2025 17:19-0400 Systolic blood wlybgvxb353 mm[Hg][facility]01-13-2025 16:00-0500Body elhiqivnfdb64 [degF][facility]01-13-2025 16:00-0500Body .28 kgPrem[facility] Health [facility] Center01-13-2025 16:00-0500Diastolic blood osmvxxiy82 mm[Hg][facility] 09-11-2024 16:00-0500Heart rate74 /[facility] 09-11-2024 16:00-7889LbJ8% (BldA) [Mass fraction]97 %[facility]01-13-2025 16:00-0500Systolic blood srcudccv510 mm[Hg][facility]10-02-2024 15:19-0400Body mass index (BMI) [Ratio]25.1 kg/m2 [facility]10-02-2024 15:19-0400Body ljonzcoxagg78.4 [degF][facility]10-02-2024 15:19-0400Body yhyprv78.37 kg [facility]10-02-2024 15:19-0400Diastolic blood mvmefqae65 mm[Hg][facility]10-02-2024 15:19-0400Heart rate72 /min [facility]10-02-2024 15:19-0400Respiratory rate18 /min [facility]10-02-2024 15:19-9126WrN8% (BldA) [Mass fraction]99 %[facility]10-02-2024 15:19-0400Systolic blood snjojgek164 mm[Hg][facility]10-02-2024 14:05-0400 Body wmssri488.8 cmPrem[facility] Health [facility] Center08-12-2024 15:39-0400Body iefavl138.8 cmPremier Health [facility] Center08-12-2024 15:39-0400Body mass index (BMI) [Ratio]24.5 kg/w4VvoleixfoPremier Health Upper [facility] Center08-12-2024 15:39-0400Body fyhlggfknsp86.6 [degF][facility]08-12-2024 15:39-0400Body zgoqjt66.56 kgPremier Health Upper [facility] Center08-12-2024 15:39-0400Diastolic blood hdcqktwe21 mm[Hg][facility] 04-10-2024 15:39-0400Heart rate69 /minPremier Health Upper [facility] Center 04-10-2024 15:39-9565QkX9% (BldA) [Mass fraction]97 %[facility]08-12-2024 15:39-0400Systolic blood qheakmpl426 mm[Hg][facility] Encounters Encounter DateEncounter TypeCare ProviderFacilityStart: 04-16-2025 End: 66-62-8075Jzxpfm outpatient new 30 minutesArabella Packer MD Work Phone: [facility] HospitalComment on above:Vestibular schwannoma (Multi) (Primary Dx)Start: 04-16-2025 End: 33-57-2748djrnfspngrUGLTDJ T SEMAANMercy Health [facility] AmbulatoryStart: 03-26-[facility]25 End: 46-67-5070Sfsqpcfsud hospital visit by physicianRad External FilmEF RAD EXTERNAL FILM VIRTUALComment on above:ArrivedStart: 03-26-2025 End: 34-85-9554iokwkopfuhQYJXPT [facility]: 03-22-2025 End: 42-43-2604iaddxqzthcWztkz Girvin DO Work Phone: [facility] Work Phone: Start: 03-22-2025 End: 07-76-0947Rkwhmke encounter procedureHuma Laureano MD-[facility] Work Phone: Start: 24-56-7662Ypa-patient / Non-visitHuma Laureano MD -[facility] Work Phone: Start: 03-06-2025 End: 40-35-5520vwbhusuqquFqlws Girvin DO Work Phone: [facility] Work Phone: Start: 03-06-2025 End: 78-68-6499Jvemgyh encounter procedureDanicole Denton DO-[facility] Work Phone: Start: 02-26-2025 End: 95-13-3943Aecbbo outpatient visit 15 minutesBenjamin W Murcek DO Work Phone: [facility] E[facility] SANDUSKYComment on above:Asymmetric SNHL (sensorineural hearing loss) (Primary Dx)Start: 02-26-2025 End: 41-82-1712habhvmsunyETVSWPVX W MURCEKNot AvailableStart: 02-26-2025 End: 32-58-8840Gkvfnk flowsheetBenjamin W Murcek DO Work Phone: [facility] SANDUSKYStart: 02-26-2025 End: 53-94-2443Tirymt flowsheetBenjamin W Murcek DO Work Phone: [facility] SANDUSKYStart: 02-16-2025 End: 30-85-1335bjpvyercdmHfzbdmau MurceryanFacility:[facility]tart: 02-16-2025 End: 46-11-2493Vpgjtdk encounter procedureBenchelsea Coretta Madrid DO-[facility] [place] Work Phone: Start: 02-13-2025 End: 17-66-5268Myquzcyl ReferredHuma Laureano MD-Lab [facility] Work Phone: Start: 02-13-2025 End: 21-30-6077Eunacvb encounter procedureHuma Laureano MD-Ultrasound [facility] Work Phone: Start: 02-13-2025 End: 84-06-5971hvmfbvjhffVoled QadirFacility:[facility] Start: 02-05-2025 End: 58-50-8583ruiosylwcjAhzlorvumMarietta [facility]opathic Clinic Work Phone: Start: 02-05-2025 End: 64-41-3198Peikyfa encounter procedureDuke Health Physician [facility] Work Phone: Start: 01-15-2025 End: 08-93-3692Fitlwv outpatient new 45 minutesBendulcemin Coretta Murcek DO Work Phone: [facility] ENT SANDUSKYComment on above:Asymmetrical hearing loss (Primary Dx); Peripheral vertigo involving right ear; EpistaxisStart: 01-15-2025 End: 45-05-7076nnfdllaoixWTXGJZMT W MURCEKNot AvailableStart: 01-15-2025 End: 74-96-1876Xvdwid flowsheetBenjamin W Murcek DO Work Phone: [facility] SANDUSKYStart: 01-15-2025 End: 34-01-3656Jjshdm flowsheetBenjamin W Murcek DO Work Phone: [facility] SANDUSKYStart: 01-14-2025 End: 09-87-4697Wtazoni encounter statusBendulcegary Seamancek DO Work Phone: [facility] HealthcareStart: 01-12-2025 End: 54-60-8693Pygzbxpl SupportEmanueldevon Rivera Parminder CCC-A Work Phone: no[facility] AUDComment on above:Sensorineural hearing loss (SNHL) of right ear with unrestricted hearing of left ear (Primary Dx); Tinnitus, rightStart: 01-12-2025 End: 38-43-3746Tgdhxy flowsheetDeneenhuyen Rivera [facility] Work Phone: no[facility] AUDStart: 01-12-2025 End: 90-27-3040Qpommz [facility] Nicole [facility] Work Phone: no[facility] AUDStart: 01-10-2025 End: 59-15-2370Ldeslbp encounter procedureDavifloyd Otooleeliud DO Work Phone: [facility] Work Phone: Start: 01-10-2025 End: 59-08-6949hcvwetztybZfkbm Sydnieeliud DO Work Phone: [facility] Work Phone: Start: 57-62-9796Ubk-patient / Non-visitDuke Health Physician Group-[facility] Work Phone: Start: 12-18-2024 End: 96-72-4495rkobcfkpczIiiokbodiMarietta Osteopathic Clinic Work Phone: Start: 12-18-2024 End: 80-94-6153Fhbtwgw encounter procedureDuke Health Physician Group-[facility] [place] Work Phone: Start: 80-94-8659Hkv-patient / Non-visitDuke Health Physician [facility] Work Phone: Start: 78-89-4240Joa-patient / Non-visitDuke Health Physician GroupConfluence [facility] Work Phone: Start: 34-65-4567Sqd-patient / Non-visitD[facility] Health Physician [facility] Work Phone: Start: 09-11-2024 End: 76-27-0359ljpsdtamgwKlmznifkbMarietta Osteopathic Clinic Work Phone: Start: 09-11-2024 End: 89-38-3671Qtkwcrn encounter procedureDuke Health Physician GroupPlacentia-Linda Hospitalue Work Phone: Start: 05-31-2024 End: 66-10-0813dtnbicetmdOvuoozxklMarietta Osteopathic Clinic Work Phone: Start: 05-31-2024 End: 77-59-8129Eeruluk encounter procedureDuke Health Physician [facility] Work Phone: Start: 96-29-7660Hem-patient / Non-visitDuke Health Physician [facility] Work Phone: Start: 90-07-3947Kmcwgkh encounter statusProMedica Toledo Hospitaltart: 04-10-2024 End: 78-40-2797htttbusoevNkrjbrqawMarietta Osteopathic Clinic Work Phone: Start: 04-10-2024 End: 10-05-0772Drqhquyyo for general adult medical examination without abnormal findingsProMedica Toledo Hospitaltart: 04-10-2024 End: 50-52-6462Cikhurj encounter procedureDuke Health Physician [facility] Work Phone: Start: 04-05-2023 End: 78-63-8569yidfjuhqiaTYNLWG LIFacility:[facility]tart: 04-05-2023 End: 17-60-0816Dazasxi encounter procedureSjavier Hope AUD Work Phone: AudiologyComment on above:Tinnitus, right ear (Primary Dx); Sensorineural hearing loss (SNHL) of right ear with unrestricted hearing of left ear; Ear pressure, right; DizzinessSensorineural hearing loss (SNHL) of right ear with unrestricted hearing of left ear (Primary Dx)Start: 07-91-0101Aootcp OnlySarah Ruwe AuD Student Work Phone: [facility] Neck InstituteComment on above:Other specified hearing loss, unspecified ear (Primary Dx)Start: 28-54-1749Lblvkl Only Sarah Soto MD Work Phone: [facility] Neck InstituteComment on above:Other specified hearing loss, unspecified ear (Primary Dx)Start: 04-09-2022 End: 48-72-4513ywwfodzdvlOX VARUN DENTONFacility:U6Jaxpu: 07-09-2021 End: 01-17-4383gzgxedamifKK AVRUN DENTONFacility:Z0Dzytc: 07-02-2021 End: 67-97-9951ekluzhwbifMK VARUN DENTONFacility:H1 Procedures DateProcedureProcedure DetailPerforming ClinicianStart: 21-37-4383Rgrhs Interpretation of outside studyArabella Packer MD Work Phone: Start: 41-23-0883IIY of headDavid Bertin DO Work Phone: Start: 44-79-8292Yyamnwszevehyab of bilateral kidneys Varun Denton DO Work Phone: Start: 14-15-6095KQTOSIFO FUNCTION TESTSDeastria regional medical center Nicole [facility] Work Phone: start: 57-72-4957Qhitqbpbif elastography of liverDavifloyd Denton DO Work Phone: Start: 48-70-0955LQOKEFX TEST/AUDIOGRAMSjavier Hope SHELBY Work Phone: Plan of Treatment DateCare ActivityDetailAuthorStart: 06-11-4713Qoggnw Vaccines (1 of 2)Zoster Vaccines (1 of 2)[facility]: 71-86-0665Fklnovlwn vaccinationInfluenza Vaccine (#1)[facility] HospitalStart: 04-16-2025 End: 23-77-9886Xglfjbr encounter icngjxqbq59/18/2025 1:45 PM EDT Office Visit [place] [id number] [place] [address] Arabella Packer MD [address] [place] [address] [facility]: 02-26-2025 End: 69-19-6973Ufhiwfv encounter rphtfyvas55/30/2025 4:00 PM EDT Office Visit [facility] [place] [address] [place] [phone] Abimael Madrid, DO [address] [place] [address] ArrivedNOMS UDAY LINYComment on above:ArrivedStart: 01-31-2025 End: 61-66-9194Mmtyxxf encounter ntlxgucyk65/04/2025 4:00 PM EDT Office Visit [facility] [place] [address] [place] [phone] Abimael Madrid, DO [address] [place] [address] [facility] LINYStart: 01-15-2025 End: 28-28-0074Zdyxvgs encounter procedureNOMS UDAY LINYComment on above: ArrivedStart: 01-12-2025 End: 07-23-4352Hezphluy Bkpdmfo5701/12/2025 3:15 PM EDT Clinical Support [facility] [address] [place] [address] Shiloh Zurita, [facility] [address] [place] [address] ArrivedNOMS QUEEN AUDComment on above:ArrivedStart: 09-11-2024 [facility] Work Phone: Start: 88-20-9225XZUFA-19 Vaccine ( season) COVID-19 Vaccine ( season)[facility]: 60-14-5328Ivngjaezi vaccinationINFLUENZA (#1)[facility]: 08-30-2022 DEPRESSION ASSESSMENTDEPRESSION ASSESSMENTBluffton Hospitaltart: 02-46-9764PEQPR SCREENLIPID SCREENBluffton Hospitaltart: 59-39-0585WHS Vaccines (1 - 3-dose standard series)HPV Vaccines (1 - 3-dose standard series)[facility]: 52-79-6826INtZ/Tdap/Td Vaccines (1 - Tdap)DTaP/Tdap/Td Vaccines (1 - Tdap)[facility]: 66-82-9028Lzncamaob A Vaccines (1 of 2 - Risk 2-dose series)Hepatitis A Vaccines (1 of 2 - Risk 2-dose series)[facility]: 78-04-7863Rwfsddgcv B Vaccines (1 of 3 - 19+ 3-dose series)Hepatitis B Vaccines (1 of 3 - 19+ 3-dose series) [facility]: 40-34-2741Zmplu microalbumin profile DTAP,TDAP,TD (1 - Tdap)[facility]: 65-36-4610AOZOIKLZL C SCREENING HEPATITIS C SCREENINGBluffton Hospitaltart: 83-34-8509Vgvbnrvfz C screening Hepatitis C ScreeningOhioHealth Grady Memorial Hospital: 32-59-3872NHH SCREENINGHIV SCREENINGBluffton Hospitaltart: 78-49-5285Dnsnybdbl vaccination Varicella Vaccines (1 of 2 - 13+ 2-dose series)[facility] Start: 63-90-5126GHC Vaccines (1 of 1 - Standard series)MMR Vaccines (1 of 1 - Standard series)[facility]: 86-30-6114AECWI-19 VACCINE (#1)COVID-19 VACCINE (#1)[facility]: 63-71-8249PYDPCTGDV B (1 of 3 - 3-dose series)HEPATITIS B (1 of 3 - 3-dose series)[facility]: 35-40-1900POJ screeningHIV ScreeningOhioHealth Grady Memorial Hospital: 43-72-3622Hnvog panelLipid PanelUnSt. Elizabeth Hospital: 12-61-4013Quxffn Adult PhysicalYearly Adult PhysicalGerman Hospitalpreholy cross hospital metabolic 1999 panel - Serum or [facility] Centerprehencolumbus regional healthcare system metabolic 1999 panel - Serum or [facility] CenterComprehencolumbus regional healthcare system metabolic 1999 panel - Serum or Plasma [facility] CenterComprehencolumbus regional healthcare system metabolic 1999 [facility] - Serum or [facility] End: 70-34-5552RRDJVHR TEST/AUDIOGRAMHEARING TEST/AUDIOGRAM Audiology Routine Other specified hearing loss, unspecified ear 1 [facility]11[facility]2023 [facility]24[facility] Work Phone: Comment on above:1 Occurrences starting 03/11/2023 until 03/11/2024 End: 04-16-3367IETNFMJ TEST/AUDIOGRAMHEARING TEST/AUDIOGRAM Audiology Routine Other specified hearing loss, unspecified ear 1 Occurrences starting 03/15/2023 until 03/15/2024[facility] Work Phone: Comment on above:1 Occurrences starting 03/15/2023 until 4Patient [facility] Work Phone: Renal function 1999 panel - Serum or [facility] CenterUS Kidney - bilateralThom[facility], [place] Immunizations Immunization DateImmunizationNotesCare GnjawjvrOmmnhtjv93-17-7926qhjnherph B vaccine, pediatric or pediatric/adolescent dosagePremier Health Upper [facility] Medical Center08-27-2014hepatitis B vaccine, pediatric or pediatric/adolescent dosage [facility]03-27-2014hepatitis B vaccine, pediatric or pediatric/adolescent dosagePremier Health Upper [facility] Medical Center Payers DatePayer CategoryPayerPolicy [id number] Cross Blue ShieldBCBS Member Subscriber Plan / Payer (Effective 2024-Present) Name: Zack Savage Relation to Subscriber: Self Name: Zack Savage PayerID: Not on file Type: Not on file Address: [address] [place] [id number] Community Hospital Member Subscriber Plan / Payer (Effective 2024-Present) Name: Zack SAVAGE Relation to Subscriber: Self Name: Zack SAVAGE Payer ID: [id number] (NAIC) Type: Not on file Address: [facility] [id number] [place], [place] [id number] Health InsuranceCOSHOCTON REGIONAL [facility] UMR CHOICE PLUS [id number] 2017-Present [phone] [address] [address] [place] [address] HMO [id number] .1.914208.3.57[id number] .1.937789.3.57[id number] 20.1.966234.3.57[id number] .1.271947.3.57[id number] 2.0.1.892787.3.57[id number] 2.840.1.591326.3.57[id number] 2.0.1.616941.3.579.[id number] 2.840.1.309123.3.579.[id number]. S. Public Health Service [facility] [id number] (STD)[id number] 2.840.1.7[id number] 2.840.1.594638.3.579.2.531 [id number] 2.0.1.7[id number] 2.840.1.039030.3.579.2.531 Social History DateTypeDetailFacilityTobacco smoking status NHISTobacco smoking consumption unknownBluffton Hospitaltart: 73-64-1255Agj Assigned At BirthNot on file [facility]: 04-05-2023 End: 04-41-6884Iiwifu identityNot on fileBluffton Hospitaltart: 04-05-2023 End: 14-50-1543Thnedxb smoking status NHISEx-smokerUc Medical Center End: 87-76-6721Ksjetyj of tobacco useCurrent smokerUc Medical Center End: 99-27-7336Rauutbp of tobacco useCigarette SmokerBluffton Hospitaltart: 04-05-2023 End: 11-06-2532Hgtulcu use and exposureSmokeless tobacco non-userBluffton Hospitaltart: 04-05-2023 End: 55-55-5094Jfvwalr of Social functionBluffton Hospitaltart: 02-27-2025 National Score (1-100), lower number is lower hyfu19VurpeaglhhHocking Valley Community HospitalStart: 21-68-1143Vzp Assigned At BirthShelby Memorial Hospitaltart: 09-11-2024 End: 41-18-5075XaoGenw (finding)[facility]: 01-15-2025 End: 24-51-7413Toyjhqa smoking status NHISNever smoked tobaccoNOMS Healthcare Start: 01-15-2025 End: 08-55-9384Naespbeev beverage intakeEx-drinker (finding)[facility] Start: 74-58-9817Fqrbead use and exposureUser of smokeless tobaccoParkview Health Bryan Hospital Work Phone: Start: 97-07-7130Bsiredy CommentOccasional social use [facility] Work Phone: Functional Status PnjkHrlpytflkcIwkprrLmapfwiu99-10-8344Ymwsfph Health Questionnaire 2 item (PHQ- 2) [Reported][facility] Work Phone: Clinical Notes 04-05-2023 to 04-16-2025 Note Date & DurqEslpWiepxmaa65-38-2423 History of Present illness Narrative* Arabella Packer MD - 04/16/2025 1:45 PM EDT Zack SAVAGE is a 40 y.o. male is referred by Dr Madrid for evaluation and management of a possible right IAC/CPA lesion. He had an MRI of poor quality which revealed a faint 3 mm enhancing lesion at the apex of the right internal auditory canal that is suggestive of an acoustic schwannoma. The patient is accompanied by his fiance. He initially presented 3 to 4 years ago with sudden onset tinnitus and fullness in his right ear. At that time he had a subjective mild hearing loss. Dr. Paniagua evaluated him and ordered an MRI which showed no focal lesions of the 7 or 8 cranial nerve complex. Symptoms persisted he began experiencing mild lightheadedness and a sensation of imbalance when moving quick. He denies any true vertiginous dizziness. Repeat MRI by Dr. Madrid revealed the above- mentioned findings. When asked about a significant past otological history including history of prior ear surgery, noise exposure, exposure to ototoxic drugs or agents, and/or family history of hearing loss, the patientadmits to none The patient's current medications, active allergies and list of medical problems were reviewed in the EHR and confirmed electronically there are as follows; Allergies: Allergies[1] Current list of medications: Current Medications[2] Problem list: Problem List[3] Medical history: Medical History[4] Surgical history: Surgical History[5] Family history: Family History[6] Social history: Social History[7] Physical Examination: CONSTITUTIONAL: No acute distress VOICE: No hoarseness or other abnormality RESPIRATION: Breathing comfortably, no stridor CV: No clubbing/cyanosis/edema in hands EYES: EOM intact, sclera clear NEURO: Alert and oriented times 3, Cranial nerves II-XII grossly intact and symmetric bilaterally HEAD AND FACE: Symmetric facial features, no masses or lesions RIGHT EAR: Normal external ear and post auricular area, no visible lesions, external auditory canalpatent, tympanic membrane intact, no retraction, no signs of mass, effusion, or infection within the middle ear LEFT EAR: Normal external ear and post auricular area, no visible lesions, external auditory canal patent, tympanic membrane intact, no retraction, no signs of mass, effusion, or infection within themiddle ear NOSE: External appearance normal without an obvious deformity. PHARYNGEAL TOSCAON: Normal lining without obvious masses. NECK/LYMPH: No LAD, no thyroid masses, trachea midline SKIN: Neck and facial skin is without scar or injury PSYCH: Alert and oriented with appropriate mood and affect Diagnostic testing: An MRI available for review showed a faint right enhancing IAC/CPA lesion with radiographic features consistent with a possible right-sided vestibular schwannoma. The tumor dimensions are 3 mm. The audiogram showed normal hearing bilaterally with excellent discrimination I personally reviewed the available patient's external record and independently reviewed their audiometric testing [and] radiographic imaging through the appropriate viewing software as detailed in my note and agree with the detailed report. 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 Recommendation: The patient's condition was reviewed and explained. The treatment options and alternatives were discussed in length . Given the patient's age and hearing, and the tumor characteristics, I recommendedobservation with repeat imaging. Follow-up in 12 to 18 months with a repeat MRI. All questions were answered to the patient's satisfaction. I discussed with the patient the complexity of my medical decision making including the treatment and testing rational, indications of their elective procedure and possible adverse effects and/or complications. Based on the provided documentation and my professional assessment of this patient's newly diagnosed conditions, the complexity of evaluation and treatment is moderate. This note was created using speech recognition transcription typist software. Despite proofreading, several typographical errors might be present that might affect the meaning of the content. Please call with any questions. Patient Education: Vestibular Schwannoma Vestibular schwannoma, also called acoustic neuroma, is a benign tumor involving the hearing and balance nerve at the base of the brain. It occurs in is about 1 per 100,000 people per year. Acoustic neuromas do not spread throughout the body, but can cause significant disability, including hearing loss, dizziness, facial numbness, and, rarely in this era, even , by local growth into nearby important brain structures. Early symptoms of an acoustic neuroma include hearing loss, distorted sound perception, tinnitus, dizziness, and disequilibrium. Later symptoms may include headache, unsteadiness, facial pain, tingling, or numbness, facial tics or weakness, double vision, and difficulty in swallowing or talking. There are a number of tests that can be utilized to diagnose acoustic neuromas, the utility of which should be based upon a complete history and physical by an experienced physician. The definitive diagnostic test is an MRI with gadolinium enhancement. However, this test should only be obtained following appropriate clinical evaluation, and hearing, and balance testing where indicated. Management options include observation with serial MRIs, partial or total surgical removal, and radiation therapy. The treatment is tailored to the individual, and depends upon the patient's symptoms, hearing level, health status, age, and the growth rate of the tumor, and the wishes of the patient. Surgery for acoustic neuromas requiring intervention will involve one of three basic approaches: (1) through the rastafarian or middle fossa approach, (2) through the ear or translabyrinthine, and (3) through the back of the head or retrosigmoid approach. The approach used depends upon the size and location of the tumor, the status of the preoperative hearing, and the experience and preference of thesurgical team. The optimal treatment goal is removal of the tumor while maintaining existing hearing and facial function. In many cases, hearing in the affected ear cannot be preserved. Since acoustic neuromas are usually slow growing, partial tumor removal may be elected by the surgeon to reduce surgical time and preserve facial function. For patients with a growing tumor who are not surgical candidates for whatever reason, targeted radiation is a good alternative. Possible complications that may require further medical and/or surgical rehabilitation include: hearing loss, dizziness, facial weakness or paralysis, prolonged headaches, fluid leak from around the brain, and tumor recurrence. Many of these complications can occur after either microsurgery or radiation therapy. By signing my name below, IKarishma Scribe attest that this documentation has been preparedunder the direction and in the presence of Arabella Packer MD Scribe Attestation: By signing my name below, Puneet Luther Scribe attest that this documentation has been prepared under the direction and in the presence of Arabella Packer MD. Provider Attestation - Scribe documentation: All medical record entries made by Puneet Ferrer were at my direction and personally dictated by me,Arabella Packer MD. I have reviewed the chart and agree that the record is accurate and I confirmed that it reflects my personal performance of the history, physical exam, discussion, and plan. [1] Not on File [2] No current outpatient medications on file. No current facility-administered medications for this visit. [3] There is no problem list on file for this patient. [4] No past medical history on file. [5] No past surgical history on file. [6] No family history on file. [7] documented in this [facility] Work Phone: 1(464) 113-979507-08-2025 Evaluation note* Author Varun Denton [facility] Medical CenterAuthoredJuly 2024 4:03pmThe above note written by ___Selwyn Marques____ acting as human recorder, note dictated by Dr. Billy .I performed the above HPI, ROS, and Examination. I formulated and dictated the treatment plan and was present for entire encounter. Varun Denton D.O. [facility] Work Phone: 1(936) 577-499406-30-2025 History of Present illness Narrative* Abimael Madrid DO - 02/26/2025 4:00 PM EDT HPI Patient presents today following MRI scan [...] offered. However, because of his young age Ithink he should see a neuro livestock agent for their opinion. I have sent him to see Dr. Hernandez the neurootologist at [facility] for his opinion. I would like to see him back in 6 months with anaudiogram. documented in this encounterParkland Health CenterMidzusxrlz36-40-5693 History of Present illness Narrative* Abimael Madrid DO - 01/15/2025 2:30 PM EDT Subjective Patient ID: HPI 39-year-old male referred for right-sided hearing loss, tinnitus, dizziness and epistaxis. About 2 years ago while the patient was [place] a baseball park in [place] he felt a pop in his right ear. Ever since that time had tinnitus and decreased hearing in her right ear. With the last probably 6-8 months he has noticed that with straining, quick movements etcetera he has some momentary disequilibrium and mild vertigo. That is new. He has had was seen remotely by another speech language pathology assistant who ordered an MRI scan and told him there was no findings. Recent audiogram shows normal hearing in the leftear through the highest frequencies where he has a very drop-off. The right ear, he starts off normal but has a sloping moderate to severe sensorineural hearing loss. Sub testing relatively normal. Tympanograms are normal. As far as the epistaxis concerned, mostly on the right side and periodic notvery heavy. He has remote past of cauterization. [...] mist and saline gel. documented [place] [id number] History of Present illness Narrative* MICHELLE Ramires - 01/12/2025 3:15 PM EDT History: Pt was referred to ENT because of hearing loss. Pt has history of right sided hearing loss, onset February 2021. Pt was at a baseball game and his right ear popped. He saw Dr. Paniagua until he retired.MRI ordered by Dr. Paniagua was normal. Pt also went to the [facility] 20[facility]. Pt states healso has constant tinnitus right side. The right [...] Ear: Type A tympanogram documented in this [facility]04-21-2025 Evaluation note* Author Varun Denton [facility] CenterAuthoredApril 2024 5:55pmThe above note written by ___Selwyn Marques____ acting as human recorder, note dictated by Dr. Billy .I performed the above HPI, ROS, and Examination. I formulated and dictated the treatment plan and was present for entire encounter. Varun Denton D.O. [facility] Work Phone: 1(184) 100-159401-13-2025 Hospital Discharge instructionsAmbulatory Orders* Referral to ENT Time Frame: 09/11/24, Location: None Selected [facility] Work Phone: 1(422) 505-601708-12-2024 Evaluation note* Author Varun Denton [facility] CenterAuthoucsf medical centerAuplains regional medical center 2023 4:54pmThe above note written by ___Selwyn Marques____ acting as human recorder, note dictated by Dr. Billy .I performed the above HPI, ROS, and Examination. I formulated and dictated the treatment plan and was present for entire encounter. Varun Denton D.O. [facility] Work Phone: 1(190) 354-311608-07-2023 NoteHNO ID: [id number] Author: Sarah Soto MD Service: ? Author Type: Physician [...] seen by ENT close to home in [place] and he was treated with oral prednisone. [...] or asymmetry, or thyroid masses or enlargement. Sarah Soto [facility]08-07-2023 NoteHNO ID: [id number] Author: Bettie Hope AUD Service: ? Author Type: Campus Coordinator Type: Progress Notes Filed: 04/05/2023 3:54 PM Note Text: [facility] AUDIOLOGIC EVALUATION REPORT Name: Zack Savage CCF#: [id number] Date of Service: 04/05/2023 Date of : 1985 Age: [age] year old Referred by: Sarah Soto MD [address] [place] [address] Referred for: Evaluation of suspected change in hearing, tinnitus, or balance. Referral documented: In an order in [facility] Patient's major complaints: Reduced hearing [...] or concerts. 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 CPT code: 64464 RIGHT EAR: Normal ME function. LEFT EAR: Normal ME function. ACOUSTIC REFLEXES Description of procedure: This test is an objective measure of auditory and facial nerve pathways. CPT code: 17135, 45816 RIGHT EAR PROBE EAR: (ipsi right stimulus [...] conduction and speech recognition testing. CPT code: 47371 RIGHT EAR: Hearing Sensitivity: within normal limits [...] testing. RECOMMENDATIONS * Continue medical follow-up with Sarah Soto MD. * The patient was counseled regarding benefits/limitations of hearing aids. * Continue to utilize hearing protection in the workplace. * Patient should maintain a sound enriched environment to assist in the management of tinnitus. * Pending medical clearance, consider participation in the Tinnitus Management Clinic or scheduling an Individual Tinnitus (more content not included)...[facility]08-07-2023 History of Present illness Narrative* Sarah Soto MD - 04/05/2023 4:03 PM EDT [...] seen by ENT close to home in [place] and he was treated with oral prednisone. [...] or asymmetry, or thyroid masses or enlargement. Sarah Soto MD [facility] Nurse Note* Irma Reyes RN - 04/05/2023 3:49 PM EDT Tobacco Use: Quit 08/30/2007. Types: Cigarettes Was smoking cessation packet given? N/A - Patient is a non-smoker or quit >1 year ago. Was a referral initiated?N/A Patient is a non-smoker [facility] History of Present illness Narrative* Bettie Hope AUD - 04/05/2023 3:00 PM EDT [facility] AUDIOLOGIC EVALUATION REPORT Name: Zack Savage CCF#: [id number] Date of Service: 04/05/2023 Date of : 1985 Age: [age] year old Referred by: Sarah Soto MD [address] [facility] [address] Referred for: Evaluation of suspected change in [...] or concerts. 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 CPT code: 37658 RIGHT EAR: Normal ME function. LEFT EAR: Normal ME function. ACOUSTIC REFLEXES Description of procedure: This test is an objective measure of auditory and facial nerve pathways. CPT code: 02057, 90820 RIGHT EAR PROBE EAR: (ipsi right stimulus [...] boneconduction and speech recognition testing. CPT code: 16718 RIGHT EAR: Hearing Sensitivity: within normal limits [...] testing. RECOMMENDATIONS * Continue medical follow-up with Sarah Soto MD. * The patient was counseled regarding benefits/limitations of hearing aids. * Continue to utilize hearing protection in the workplace. * Patient should maintain a sound enriched environment to assist in the management of tinnitus. * Pending medical clearance, consider participation in the Tinnitus Management Clinic or schedulingan Individual Tinnitus Evaluation with audiology. Call [phone] ext [phone] to schedule. * Re-evaluation as medically indicated or if a change in hearing is noted. Celestino Up, [facility] Clinical [facility] Coordinator HENRIQUEZ Abbrev- iation Definition Degree of hearing sensitivity dB range WNL within normal limits WNL 0 - 20 SNHL sensorineural hearing loss Mild 20-40 CHL conductive hearing loss Moderate 40-55 MHL mixed hearing loss Moderately-Severe 55-70 WRS word recognition score Severe 70-90 ME middle ear Profound 90 + TM tympanic membrane [facility] in [facility] encounter[facility] CenterEvalutr[facility] note* Diagnosis Other specified hearing loss, unspecified ear- Primary [facility]* Diagnosis Tinnitus, right ear- Primary Sensorineural hearing loss (SNHL) of right ear with unrestricted hearing of left ear Ear pressure, right Dizziness Dizziness and giddiness documented in this encounter [facility] note* Diagnosis Sensorineural hearing loss (SNHL) of right ear with unrestricted hearing of left ear- Primary [facility]* Diagnosis Onset Date Resolution Status Fatigue acuteStressacuteTinnitusacuteWellness examinationacute [facility] Work Phone: Evaluation noteNo assessment information available [facility] Work Phone: Evaluation note* Diagnosis Onset Date Resolution Status Admit Date Elevated liver enzymes acuteApril 2024 5:18pmEpistaxisacuteApril 2024 5:18pmOther abnormal blood chemistryacuteApril 2024 5:18pmTinnitusacuteApril 2024 5:18pm Weight gainacuteApril 2024 5:18pm [facility] Work Phone: Evaluation note* Diagnosis Sensorineural hearing loss (SNHL) of right ear with unrestricted hearing of left ear- Primary Tinnitus, right Unspecified tinnitus [facility] Diagnosis Asymmetrical hearing loss- Primary Unspecified hearing loss Peripheral vertigo involving right ear Epistaxis documented in this encounter [facility]* Diagnosis Asymmetric SNHL (sensorineural hearing loss)- Primary Sensorineural hearing loss, asymmetrical documented in this encounter [facility] Healthcare[facility]* Diagnosis 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 documented in this encounter [facility] Work Phone: Reason for referral (narrative)No reason for referral information availableAdena [facility] Work Phone: Summary Purpose Family History No Family History Records Found Relationship Condition Age at Onset Recorded Date/T elicia brother Crohn's disease Unknown grandparentDeceasedUnknowngrandparentDementiaUnknownFamily history of mental disorderUnknownHistory of strokeUnknown Advance Directives No Advanced Directives Records Found Advance Directive Response Recorded Date/ Time Advance Directives No June 12:37pm Advance Directive Response Recorded Date/ Time Advance Directives No June 11:37am Reason for Referral SpecialtyDiagnoses / ProceduresReferred By ContactReferred To Contact Diagnoses Other specified hearing loss, unspecified ear Procedures HEARING TEST/AUDIOGRAM COMPRE AUDIOMETRY THRESHOLD EVAL SP RECOGNIJ Sarah Soto MD [address] [place] [address] [facility] [address] [place] [address] Referral IDStatusReasonStart DateExpiration DateVisits RequestedVisits [id number] Auto-Generated Referral /[id number] / ProceduresReferred By ContactReferred To Contact Diagnoses Other specified hearing loss, unspecified ear Procedures HEARING TEST/AUDIOGRAM COMPRE AUDIOMETRY THRESHOLD EVAL SP RECOGNIJ [facility] [address] [place] [id number] [facility] [address] [place] [address] Referral IDStatusReasonStart DateExpiration DateVisits RequestedVisits [id number] Auto-Generated Referral /[id number] / ProceduresReferred By ContactReferred To Contact Procedures HEARING TEST/AUDIOGRAM COMPRE AUDIOMETRY THRESHOLD EVAL SP RECOGNIJ [facility] [address] [place] [address] [facility] [address] [place] [address] Referral IDStatusReasonStart DateExpiration DateVisits RequestedVisits [id number] Review Auto-Generated Referral Chief Complaint and Reason for Visit Chief [...] Tinnitus Wellness examination Chief Complaint wellness recheck stressReason for VisitFatigue Stress Tinnitus Wellness examination Abnormal urinalysis Elevated [...] 5:1 8pm Abnormal renal function test February 05, 2 025 1:41pm Elevated liver enzymes February 05, 2025 [...] 5:1 8pm Abnormal renal function test February 05, 2 025 1:41pm Elevated liver enzymes February 05, 2025 1: 41pm Abnormal MRI of head March 06, 2025 2:56 pm Epistaxis March 06, 2025 2:56p m Fatty liver March 06, 2025 2:56p m Other abnormal blood chemistry March 06, 2025 2:56pm Chief Complaint Admit Date ELEVATED LIVER ENZYMES January 10, 2025 1: 42pm RENAL abln kidney function results February 05, 2025 1:41pm R94.4 R74.8 February 13, 2025 5:24 pm R94.4 R74.8 February 13, 2025 5:35 pm H91.8X3 H81.391 H93.19 February 16, 2025 5 :36pm review Fibroscan/Dr Laureano visit February 2:56pm RENAL 6 WEEK F/U March 22, 2025 4:14 pm Reason for Visit Admit Date Abnormal renal function test February 05 025 1:41pm Elevated liver enzymes February 05, 2025 [...] and content) DATE CREATED AUTHOR 04/10/2022 [facility] DATE CREATED AUTHOR AUTHOR'S ORGANIZ ATION 04/06/2023 [facility] DATE CREATED AUTHOR AUTHOR'S ORGANIZ ATION 02/27/2025 [facility] DATE CREATED AUTHOR AUTHOR'S ORGANIZ ATION 03/12/2025 [facility] DATE CREATED AUTHOR AUTHOR'S ORGANIZ ATION 04/17/2025 [facility] DATE CREATED AUTHOR AUTHOR'S ORGANIZ ATION 04/17/2025 [facility] Source Comments (unrecognize d section and content) In the event this informatio n is protected by the Federal Confidentiality of Alcohol and Drug Abuse Patient Records regulations: The Federal rules restrict any use of the information to criminally investigate or prosecute any alcohol or drug abuse patient.[facility] Center[facility] the event this information is protected by the Federal Confidentiality of Alcohol and Drug Abuse Patient Records regulations: The Federal rules restrict any use of the information to criminally investigate or prosecute any alcohol or drug abuse patient.[facility] CenterIn the event this information is protected by the Federal Confidentiality of Alcohol and Drug Abuse Patient Records regulations: The Federal rules restrict any use of the information to criminally investigate or prosecute any alcohol or drug abuse patient.[facility] CenterIn the event this information is protected by the Federal Confidentiality of Alcohol and Drug Abuse Patient Records regulations: The Federal rules restrict any use of the information to criminally investigate or prosecute any alcohol or drug abuse patient.[facility] Reason for Visit (unrecogniz ed section and content) ReasonCommentsRinging In Ear(s)SpecialtyDiagnoses / ProceduresReferred By ContactReferred To Contact Diagnoses Other specified hearing loss, unspecified ear Procedures HEARING TEST/AUDIOGRAM COMPRE AUDIOMETRY THRESHOLD EVAL SP Sarah Jessica MD [address] [place] [address] [facility] [address] [place] [address] Referral IDStatusReasonStart DateExpiration DateVisits RequestedVisits [id number] Auto-Generated Referral [id number] PatientEar ProblemRinging In Ear(s)right ReasonCommentsEpistaxis (Nose Bleed)New PatientTinnitusNew patient : audio done ReasonCommentsHearing LossMRI ResultsReasonCommentsReferralFound tumor in right ear Care Teams (unrecognized sec tion and content) Team Status: Active Member Role Status Dates Varun Denton DO Primary Care Provider Active Team Status: Active Member Role Status Jeremi Denton DO Primary Care Provide r, Attending Provider Active Start: October 14, 2024 Team Status: Active Member Role Status Jeremi Denton DO Primary Care Provide r, Attending Provider Active Start: November 04, 2024 Team Status: Active Member Role Status Jeremi Denton DO Primary Care Provide r, Attending Provider Active Start: December 09, 2024 Team Status: Inactive Member Role Status Jeremi Denton DO Primary Care Provide r, Attending Provider Active Start: December 18, 2024 End: December 18, 2024 Team Status: Inactive Member Role Status Jeremi Denton DO Primary Care Provide r, Attending Provider Active Start: April 10, 2024 End: April 10, 2024 Team Status: Active Member Role Status Jeremi Denton DO Primary Care Provide r, Attending Provider Active Start: April 14, 2024 Team Status: Inactive Member Role Status Jeremi Denton DO Primary Care Provide r, Attending Provider Active Start: May 31, 2024 End: May 31, 2024 Team Status: Inactive Member Role Status Jeremi Denton DO Primary Care Provide r, Attending Provider Active Start: September 11, 2024 End: September 11, 2024Team MemberRelationshipSpecialtyStart DateEnd Date Varun Denton MD [address] [place] [address] [facility] - [facility]01/12/25 Team Status: Inactive Member Role Status Dates Varun Denton DO Primary Care Provide r, Referring Provider Active Start: January 10, 2025 End: January 10, 2025Temporary FibroscanAttending ProviderActiveStart: January 10, 2025 End: January 10, 2025Team MemberRelationshipSpecialtyStart DateEnd Date Varun Denton MD [address] [place] [address] PCP - [facility]01/12/25Team MemberRelationshipSpecialtyStart DateEnd Date Varun Denton MD [address] [place] [address] [facility] - [facility]01/12/25 Team Status: Active Member Role Status Dates Varun Denton DO Primary Care Provide r, Referring Provider Active Start: January 10, 2025 Temporary FibroscanOther ProviderActiveStart: January 10, 2025 Christoph Chen MDAttending ProviderActiveStart: January 10, 2025 Team Status: Inactive Member Role Status Dates Varun Denton DO Primary Care Provider Active S tart: February 05, 2025 End: February 05kira Laureano MDAttending ProviderActiveStart: February 05, 2025 End: February 05, 2025Team MemberRelationshipSpecialtyStart DateEnd Date Varun Denton MD [address] [place], [place] [id number] [facility]01/12/25 Team Status: Active Member Role Status Dates Varun Denton DO Primary Care Provider Active S tart: December 09, 2024 Varun Denton DOAttending ProviderActiveStart: December 09, 2024 Team Status: Inactive Member Role Status Dates Varun Denton DO Primary Care Provider Active S tart: December 18, 2024 End: December 18, 2024Danicole Denton DOAttending ProviderActiveStart: December 18, 2024 End: December 18, 2024 Team Status: Active Member Role Status Dates Varun Denton DO Primary Care Provider Active S tart: January 10, 2025 Varun Denton DOReferring ProviderActiveStart: January 10, 2025 Temporary FibroscanOther ProviderActiveStart: January 10, 2025 Christoph Chen , MDAttending ProviderActiveStart: January 10, 2025 Team Status: Inactive Member Role Status Dates Varun Denton DO Primary Care Provider Active S tart: February 13, 2025 End: February 13bdjessee Melendezdir , MDAttending ProviderActiveStart: February 13, 2025 End: February 13, 2025 Team Status: Inactive Member Role Status Dates Huma Laureano MD Attending Provider Active Start : February 13, 2025 End: February 13, 2025 Team Status: Inactive Member Role Status Dates Varun Denton DO Primary Care Provider Active S tart: February 16, 2025 End: February 16enchelsea Madrid DOAttending ProviderActiveStart: February 16, 2025 End: February 16, 2025 Team Status: Inactive Member Role Status Jeremi Denton DO Primary Care Provider Active S tart: March 06, 2025 End: March 06, 2025Danicole Denton DOAttending ProviderActiveStart: March 06, 2025 End: March 06, 2025 Team Status: Active Member Role Status Dates Varun Denton DO Primary Care Provider Active S tart: March 19, 2025 Huma Laureano , MDAttending ProviderActiveStart: March 19, 2025 Team Status: Inactive Member Role Status Jeremi Denton DO Primary Care Provider Active S tart: March 22, 2025 End: March 22kira Melendezdir , MDAttending ProviderActiveStart: March 22, 2025 End: March 22, 2025Team MemberRelationshipSpecialtyStart DateEnd Date Varun Denton DO [address] [place] [address] PCP - GeneralFamily Medicine02/28/25 Abimael Madrid, DO [address] [place] [address] Referring PhysicianOtolaryngology02/28/25Team MemberRelationshipSpecialtyStart DateEnd Date Varun Denton, DO [address] [place] [address] [facility] - [facility]02/28/25 Abimael Madrid, DO [address] [address] Referring PhysicianOtolaryngology02/28/25 Goals (unrecognized section and content) Goals may [...] BE BASED ON THE PRIMARY CLINICAL RECORDS. [facility]. provides no warranty or guarantee of the accuracy or completeness of information in this document.
--- OUTSIDE RECORDS SUMMARY | 2025-07-07 06:43 | XMS_ITS | Clinical Summary ---
Author Organization [facility] Address [address] [place] [address] Care Team Providers Care Formula Checker Name Role Phone Unavailable Primary Care Provider Unavailabl e Allergies Active AllergyReactionsCriticalityNoted DateCommentsPenicillinsOther: See Smzavqjp34/07/2023 per patient allergy occurred in childhood, unsure of reaction Medications No known medications Social History Tobacco UseTypesPacks/DayYears UsedDateSmoking Tobacco: FormerCigarettesQuit: 2007Smokeless Tobacco: NeverArea Deprivation IndexAnswerDate RecordedNational Score (1-100), lower number is lower jgez154004/05/2023State Score (1-10), lower number is lower [id number] from: https://www.neighborhoodatlas.[facility]/. Last address used for [address]04/05/2023Sex and Gender InformationValueDate Recorded Sex Assigned at BirthNot on fileLegal AowDvkj5603/06/2023 11:21 AM EDTGender IdentityNot on fileSexual OrientationNot on file Plan of Treatment Health MaintenanceDue DateLast DoneCommentsAnxiety Rmiejqtst49/16/2001Depression Kcgejhosk75/16/2001HIV Oipechohe54/16/2001Hepatitis C Zltiwepsv65/16/2001 DTaP,Tdap,Td Vaccine (1 - Tdap)2002Hepatitis B Vaccine (1 of 3 - 19+ 3- dose series), 04/25/2014, 11/23/2013HPV Vaccine (1 - 3-dose SCDM series)2010Lipid Lqhxpuewd17/16/2018Covid-19 Vaccine (1 - 2024- season)2025Influenza Vaccine (#1)2025 Insurance
[2025-07-07 07:42] LABS: Hematocrit 43.6 % (42.0-54.0); Hemoglobin 14.7 g/dL (14.0-18.0); Immature Granulocytes Abs Auto 0.01 10^3/uL (0.00-0.03); Immature Granulocytes Pct Auto 0.2 % (0.0-0.5); Lymphocytes Absolute Auto 2.4 10^3/uL (1.2-3.8); Mean Corpuscular HGB Conc 33.7 g/dL (29.9-35.2); Mean Corpuscular Hemoglobin 29.2 pg (25.9-34.0); Mean Corpuscular Volume 86.5 fL (80.0-94.0); Platelet Count 286 10^3/uL (150-450); Red Blood Count 5.04 10^6/uL (4.70-6.10); White Blood Count 6.4 10^3/uL (4.0-11.0)
[2025-07-07 07:51] LABS: Alanine Aminotransferase 47 U/L (16-63); Albumin Globulin Ratio 1.1; Albumin Level 4.1 g/dL (3.4-5.0); Alkaline Phosphatase 84 U/L (46-116); Anion Gap 10.8; Aspartate Amino Transferase 25 U/L (15-37); Blood Urea Nitrogen 18.0 mg/dL (7.0-18.0); Calcium 9.4 mg/dL (8.5-10.1); Carbon Dioxide 27.7 mmol/L (21.0-32.0); Chloride 105 mmol/L (98-107); Estimated GFR (African America >60 (>=60 mL/min/1.73m^2); Estimated GFR (Non-African Ame >60 (>=60 mL/min/1.73m^2); Gamma Glutamyl Transpeptidase 64 U/L (15-85); Globulin 3.7 g/dL; Glucose 104 mg/dL (74-106); Potassium 4.5 mmol/L (3.5-5.1); Sodium 139 mmol/L (136-145); Total Protein 7.8 g/dL (6.4-8.2)
== END 2025-07-07 06:40 | disposition home or self-care (01) ==
PROVIDERS: PCP Family Medicine; Visit Provider Family Medicine
DX: Z79.899 Other long term (current) drug therapy (principal); K76.0 Fatty (change of) liver, not elsewhere classified; R74.8 Abnormal levels of other serum enzymes
CPT/HCPCS: 36415; 80053; 82977; 85025